=== PATIENT | male | born 1960 ===

== ENCOUNTER 2017-06-06 09:40 | Inpatient (IN) | payer OTHER ==
[2017-06-06 09:40] VITALS: PULSE 84
[2017-06-06 09:46] VITALS: BMI 26.9
--- NOTE | 2017-06-06 10:06 | ED PDOC ---
Arrival/HPI - General Chief Complaint: Chest Pain Time Seen by Provider: 06/06/17 09:41 Historian: Patient - History of Present Illness Narrative History of Present Illness (Text): 06/06/17 10:05 56 year old male, whose past medical history includes hypertension, diabetes type 2, hyperlipidemia, and a "weak heart", presents to the emergency department complaining of right lower quadrant abdominal pain that began last night associated with vomiting. Patient states that that he woke up in the middle of the night from the abdominal pain and had relief after vomiting 2-3 times. Pain is intermittent, will radiate to chest after vomiting. Also states pain will at times radiate to back. Pain is not worse with exertion. No pleuritic pain. NO lower abdominal pain. No leg pain or swelling. No headache. No numbness or weakness to arms or legs. Opinion Polls Survey Worker: Dr. Lilly PMD: Dr. Aden Time/Duration: Other (Last night) Symptom Onset: Sudden Symptom Course: Unchanged Activities at Onset: Light Context: Home Past Medical History - Provider Review Nursing Documentation Reviewed: Yes - Infectious Disease Hx of Infectious Diseases: None - Tetanus Immunization Tetanus Immunization: Unknown - Cardiac Hx Cardiac Disorders: Yes Hx Hypertension: Yes Hx Pacemaker: No - Pulmonary Hx Respiratory Disorders: No - Neurological Hx Neurological Disorder: No - HEENT Hx HEENT Disorder: No - Renal Hx Renal Disorder: No - Endocrine/Metabolic Hx Endocrine Disorders: Yes Hx Diabetes Mellitus Type 2: Yes (10 years on po meds) - Hematological/Oncological Hx Blood Disorders: Yes Hx Blood Transfusions: Yes Hx Blood Transfusion Reaction: No - Integumentary Hx Dermatological Disorder: No - Musculoskeletal/Rheumatological Hx Musculoskeletal Disorders: No - Gastrointestinal Hx Gastrointestinal Disorders: No - Genitourinary/Gynecological Hx Genitourinary Disorders: No - Psychiatric Hx Psychophysiologic Disorder: No Hx Substance Use: No - Past Surgical History Past Surgical History: No Previous - Surgical History Hx Cardiac Catheterization: Yes - Anesthesia Hx Anesthesia: No - Suicidal Assessment Feels Threatened In Home Enviroment: No Family/Social History - Physician Review Nursing Documentation Reviewed: Yes Family/Social History: No Known Family HX Smoking Status: Never Smoked Hx Alcohol Use: No Hx Substance Use: No Hx Substance Use Treatment: No Allergies/Home Meds Allergies/Adverse Reactions: Allergies No Known Allergies Allergy (Verified 06/06/17 09:52) Home Medications: Home Meds Medication Instructions Recorded Confirmed Furosemide [Lasix] 40 mg PO DAILY 05/01/14 06/06/17 Glimepiride 2 mg PO BRKDIN 08/04/16 06/06/17 Unknown B/P Med 0 mg PO DAILY 08/04/16 06/06/17 Review of Systems - Review of Systems Constitutional: Fatigue. absent: Fevers Eyes: absent: Vision Changes ENT: absent: Hearing Changes Respiratory: absent: SOB, Cough Cardiovascular: Chest Pain. absent: Palpitations, Edema, Calf Pain, SAXENA Gastrointestinal: Abdominal Pain (RUQ abdominal pain), Nausea, Vomiting, Appetite Changes. absent: Diarrhea, Hematochezia, Hematemesis Musculoskeletal: Back Pain (mid back pain ). absent: Arthralgias, Neck Pain Skin: absent: Rash Neurological: absent: Headache, Dizziness, Focal Weakness Endocrine: absent: Polyuria Hemo/Lymphatic: absent: Easy Bleeding Physical Exam - Physical Exam Narrative Physical Exam (Text): Head: Atraumatic. Normocephalic. Eyes: PERRL. EOMI. Conjunctivae are not pale. No jaundice. ENT: Mucous membranes are moist and intact. Oropharynx is clear and symmetric. Neck: Supple. Full ROM. No JVD. No lymphadenopathy. Cardiovascular: Systolic murmur. Regular rate. Regular rhythm. Systolic murmur. BP and pulse equal in both upper extremities. Pulmonary/Chest: No evidence of respiratory distress. Clear to auscultation bilaterally. No wheezing, rales or rhonchi. Abdominal: Moderate RUQ tenderness to deep palpation. No rebound, guarding, or rigidity. No organomegaly. Good bowel sounds. No pulsatile masses. No lower abdominal pain. Back: No CVA tenderness. No midline tendernes. Extremities: No edema. No cyanosis. No clubbing. Full range of motion in all extremities. No calf tenderness. Skin: Skin is warm and diaphoretic. No petechiae. No purpura. Neurological: Alert, awake, and oriented to person. No slurred speech. Motor and sensory exam intact. Psychiatric: Good eye contact. Normal interaction, affect, and behavior. Vital Signs Reviewed: Yes Vital Signs Temp Pulse Pulse Resp BP BP Pulse Ox 06/06/17 13:29 79 18 187/96 H 06/06/17 12:39 79 18 187/96 H 99 06/06/17 11:29 69 18 142/89 95 06/06/17 10:01 73 144/94 H 06/06/17 09:52 98.0 F 69 18 144/94 H 100 Temperature: Afebrile Blood Pressure: Normal Pulse: Regular Respiratory Rate: Normal Appearance: Positive for: Uncomfortable Pain Distress: Severe Mental Status: Positive for: Alert and Oriented X 3 Medical Decision Making ED Course and Treatment: 06/06/17 10:05 Impression: 56 year old male presents complaining of RUQ abdominal pain associated with vomiting that began yesterday night. Differential Diagnosis included but are not limited to: Biliary Colic VS Gastritis VS Cornary Artery Disease Plan: -- EKG -- Labs -- Chest X-ray -- Zofran Inj -- Blood Cultrue -- Urine Culture -- Urinalysis -- Ultrasound Complete Abdomen -- Reassess and disposition Progress Notes: Patient with hx of diabetes presents with sudden onset upper abdominal pain nausea and vomiting. IV established. He is found to be in severe pain on palpation on re-exam. Fluids given and pain and nausea improved BUT persistent after morphine and zofran. He has cardiac risk factors but pain is palpable associated with nausea , suspect chest pain is likely GI in nature as vomiting. No hematemesis. He has waves of pain that I feel likely secondary to colic as intermittent, ruq with serial exams. No pulsatile masses noted. CHEST X-RAY: Report Date : 06/06/2017 10:36:11 Dictator : Eren Chapa MD IMPRESSION: Poor inspiration with low lung low volumes with crowded bronchovascular markings. Cardiomegaly. 06/06/17 12:42 Patient has persistent pain and discomfit despite medication. Preliminary ultrasound reports gallstones. Due to persistent pain, consulted with surgical and gastroneurologist. Case discussed with Surgeon Dr. Mercedes , including initial labs and symptoms. Case also reviewed with cracking machine operator Dr. Arreguin who has evaluated patient in ED. Patient will be admitted for biliary colic. Initial WBC and lfts unremarkable. Will admit to telemetry bed as cardiac risk factors. Initial EKG and troponin unremarkable. Ultrasound and ct report reviewed. Patient with history of elevated Cr at this time appears baseline. Denies dysuria or frequency. - Lab Interpretations Lab Results: 06/06/17 09:50 06/06/17 09:50 Lab Results 06/06/17 10:50: Urine Color Yellow, Urine Appearance Clear, Urine pH 6.0, Ur Specific [place] 1.020, Urine Protein >=300 H, Urine Glucose (UA) Negative, Urine Ketones Negative, Urine Blood Moderate H, Urine Nitrate Negative, Urine Bilirubin Negative, Urine Urobilinogen 0.2, Ur Leukocyte Esterase Negative, Urine RBC 2 - 5, Urine WBC 0 - 2, Ur Epithelial Cells 0 - 2 06/06/17 09:50: Sodium 142, Potassium 4.8, Chloride 106, Carbon Dioxide 24, Anion Gap 17, BUN 40 H, Creatinine 1.9 H, Est GFR ( Amer) 44, Est GFR ( Non-Af Amer) 37, Random Glucose 233 H, Calcium 9.2, Total Bilirubin 0.3, AST 27 , ALT 25, Alkaline Phosphatase 118, Lactate Dehydrogenase 519, Total Creatine Kinase 214, Troponin I < 0.01, Total Protein 7.7, Albumin 4.1, Globulin 3.7, Albumin/Globulin Ratio 1.1, Amylase 73, Lipase 93 06/06/17 09:50: PT 10.4, INR 0.96, APTT 28.5 06/06/17 09:50: WBC 9.1, RBC 3.47 L, Hgb 10.0 L, Hct 30.4 L, MCV 87.6, MCH 28.8 , MCHC 32.9, RDW 13.1, Plt Count 230, MPV 9.9, Gran % 69.5 H, Lymph % (Auto) 22.7, Clinch % (Auto) 5.2, Eos % (Auto) 2.3, Baso % (Auto) 0.3, Gran # 6.31, Lymph # 2.1, Clinch # 0.5, Eos # 0.2, Baso # 0.03 I have reviewed the lab results: Yes - RAD Interpretation Radiology Orders: 06/06/17 09:54 CHEST PORTABLE [RAD] Stat 06/06/17 10:06 ABDOMEN COMPLETE [US] Stat 06/06/17 12:43 ABD & PELVIS W/O PO OR IV CONT [CT] Stat - EKG Interpretation EKG Interpretation (Text): EKG at 09:46 normal sinus rhythm rate of 70 with minimal voltage criteria for LVH Interpreted by ED Physician: Yes Type: 12 lead EKG - Medication Orders Current Medication Orders: Acetaminophen (Tylenol 325mg Tab) 650 mg PO Q6H PRN PRN Reason: Fever >100.4 F Hydromorphone HCl (Dilaudid) 1 mg IVP Q4H PRN PRN Reason: Pain, moderate (4-7) Sodium Chloride (Sodium Chloride 0.45%) 1,000 mls @ 75 mls/hr IV .[id number] JOSÉ MIGUEL Insulin Human Regular (Humulin R High) 0 units SC ACHS JOSÉ MIGUEL PRN Reason: Protocol Levalbuterol HCl (Xopenex) 1.25 mg IH [id number] JOSÉ MIGUEL Metoprolol Succinate (Toprol Xl) 25 mg PO BRK JOSÉ MIGUEL Ondansetron HCl (Zofran Inj) 4 mg IVP Q6H PRN PRN Reason: Nausea/Vomiting Pantoprazole Sodium (Protonix Inj) 40 mg IVP DAILY JOSÉ MIGUEL Discontinued Medications Morphine Sulfate (Morphine) 2 mg IVP STAT STA Stop: 06/06/17 10:17 Last Admin: 06/06/17 10:23 Dose: 2 mg Morphine Sulfate (Morphine) 2 mg IVP STAT STA Stop: 06/06/17 12:07 Last Admin: 06/06/17 12:10 Dose: 2 mg Ondansetron HCl (Zofran Inj) Confirm Administered Dose 4 mg .ROUTE .STK-MED ONE Stop: 06/06/17 09:56 Last Admin: 06/06/17 10:07 Dose: Ondansetron HCl (Zofran Inj) 4 mg IVP ONCE ONE Stop: 06/06/17 09:56 Last Admin: 06/06/17 10:00 Dose: 4 mg Ondansetron HCl (Zofran Inj) 4 mg IVP ONCE ONE Stop: 06/06/17 14:16 Last Admin: 06/06/17 12:20 Dose: 4 mg - Scribe Statement The provider has reviewed the documentation as recorded by the Magaliibjeanie Powers All medical record entries made by the Magaliibjeanie were at my direction and personally dictated by me. I have reviewed the chart and agree that the record accurately reflects my personal performance of the history, physical exam, medical decision making, and the department course for this patient. I have also personally directed, reviewed, and agree with the discharge instructions and disposition. Disposition/Present on Arrival - Present on Arrival Any Indicators Present on Arrival: No History of DVT/PE: No History of Uncontrolled Diabetes: No Urinary Catheter: No History of Decub. Ulcer: No History Surgical Site Infection Following: None - Disposition Have Diagnosis and Disposition been Completed?: Yes Diagnosis: Cholelithiasis, Abdominal pain, Renal insufficiency Disposition: HOSPITALIZED Disposition Time: 11:45 Patient Plan: Admission, Telemetry Condition: FAIR
[2017-06-06] MEDS ORDERED: Morphine 2 mg/ml ISec IVP STA ×2 (10:16→12:06)
[2017-06-06 10:21] LABS: BASO # 0.03 K/mm3 (0.0-2.0); BASO % 0.3 % (0.0-3.0); EOS # 0.2 (0.0-0.7); EOS % 2.3 % (1.5-5.0); GRAN # 6.31 (1.4-6.5); GRAN % 69.5 % (50.0-68.0); HEMATOCRIT 30.4 % (42.0-52.0); LYMPH # 2.1 (1.2-3.4); LYMPH % 22.7 % (22.0-35.0); MEAN CELL VOLUME 87.6 fl (80.0-105.0); MEAN CORPUSCULAR HEMOGLOBIN 28.8 pg (25.0-35.0); MEAN CORPUSCULAR HGB CONC 32.9 g/dl (31.0-37.0); MEAN PLATELET VOLUME 9.9 fl (7.0-11.0); MONO # 0.5 (0.1-0.6); MONO % 5.2 % (1.0-6.0); RED CELL DISTRIBUTION WIDTH 13.1 % (11.5-14.5); WHITE BLOOD COUNT 9.1 10^3/ul (4.5-11.0)
[2017-06-06 10:32] LABS: ALB/GLOB RATIO 1.1 (1.1-1.8); ALKALINE PHOSPHATASE 118 U/L (38-126); ALT/SGPT 25 U/L (7-56); AMYLASE 73 U/L (35-125); AST/SGOT 27 U/L (17-59); BILIRUBIN,TOTAL 0.3 mg/dL (0.2-1.3); BLOOD UREA NITROGEN 40 mg/dL (7-21); CALCIUM 9.2 mg/dL (8.4-10.5); CARBON DIOXIDE 24 mmol/L (21-33); CHLORIDE 106 mmol/L (98-107); GFR AFRICAN-AMERICAN 44; GLUCOSE,RANDOM 233 mg/dL (70-110); LIPASE 93 U/L (23-300); POTASSIUM 4.8 mmol/L (3.6-5.0); SODIUM 142 mmol/L (132-148); TOTAL PROTEIN 7.7 g/dL (5.8-8.3)
--- NOTE | 2017-06-06 10:37 | RAD ---
HISTORY: chest pain COMPARISON: Comparison chest 08/04/2016 FINDINGS: LUNGS: Poor inspiration with low lung low volumes with crowded bronchovascular markings. PLEURA: No significant pleural effusion identified, no pneumothorax apparent. CARDIOVASCULAR: Cardiomegaly. OSSEOUS STRUCTURES: No significant abnormalities. VISUALIZED UPPER ABDOMEN: Normal. OTHER FINDINGS: None. IMPRESSION: Poor inspiration with low lung low volumes with crowded bronchovascular markings. Cardiomegaly.
[2017-06-06 10:39] LABS: INR 0.96 (0.93-1.08); PARTIAL THROMBOPLASTIN TIME 28.5 Seconds (23.7-30.8)
[2017-06-06 10:54] LABS: TROPONIN I < 0.01 ng/mL
[2017-06-06 11:01] LABS: URINE BILIRUBIN NEGATIVE (NEGATIVE); URINE BLOOD MODERATE (NEGATIVE); URINE GLUCOSE (UA) NEGATIVE (NEGATIVE); URINE KETONE NEGATIVE (NEGATIVE); URINE LEUKOCYTE ESTERASE NEGATIVE Leu/uL (NEGATIVE); URINE PROTEIN >=300 mg/dL (<30 mg/dL); URINE UROBILINOGEN 0.2 E.U./dL (<1 E.U./dL)
[2017-06-06 11:15] LABS: URINE APPEARANCE CLEAR (CLEAR); URINE COLOR YELLOW (YELLOW)
[2017-06-06 11:30] LABS: URINE EPITHELIAL CELLS 0 - 2 /hpf (0-5); URINE WBC 0 - 2 /hpf (0-6)
--- NOTE | 2017-06-06 12:53 | US ---
HISTORY: upper abdominal pain COMPARISON: Comparison made with renal ultrasound 08/06/[address] scan abdomen pelvis to the 07/2013. TECHNIQUE: Sonographic evaluation of the abdomen. Study is limited due to large body habitus. FINDINGS: LIVER: Measures approximately 16.1 cm c in CC dimension. Smooth contour with increased echogenicity consistent with fatty hepatic infiltration. Other infiltrative hepatocellular disease process not excluded. . No obvious mass or collection seen on images presented. . No intrahepatic bile duct dilatation. GALLBLADDER: Gallbladder is physiologically distended. Shadowing intraluminal calculi. Note sonographic Perry sign COMMON BILE DUCT: Measures approximately 5.6 mm. No stones. No dilatation. PANCREAS: The pancreas is not visualized due to large body habitus RIGHT KIDNEY: Measures approximately 10.6 x 5.1 x 6.0cm. 12.5 x 7.6 x 6.1 LEFT KIDNEY: Measures cm. Normal echogenicity. No calculus, mass, or hydronephrosis. SPLEEN: Normal in size and contour. No mass. AORTA: No aneurysmal dilatation. IVC: Unremarkable. OTHER FINDINGS: None. IMPRESSION: Limited study due to large body habitus. Fatty hepatic infiltration however other infiltrative hepatocellular disease process not excluded. Cholelithiasis.
--- NOTE | 2017-06-06 14:17 | CARD ---
APPROVED REPORT EKG Measurement Heart [id number] <Conclusion> Normal sinus rhythm Minimal voltage criteria for LVH, may be normal variant Borderline ECG
[2017-06-06] MEDS ORDERED: HYDROmorphone 2 mg/ml ISec IVP PRN (14:30)
--- NOTE | 2017-06-06 14:35 | CT ---
PROCEDURE: CT abdomen and pelvis dated 06/06/2017 HISTORY: Hematuria. Back pain. COMPARISON: Correlation made with abdominal ultrasound obtained earlier same day. Comparison also made with prior CT scan abdomen pelvis 05/01/2013. TECHNIQUE: Contiguous axial images of the abdomen and pelvis performed without oral or intravenous contrast material. . Coronal and Sagittal reformats generated. This CT exam was performed using one or more of the following dose reduction techniques: Automated exposure control, adjustment of the mA and/or kV according to patient size, and/or use of iterative reconstruction technique. Total exam DLP = 1407.62 mGy-cm. FINDINGS: LOWER THORAX: Lung bases are clear. No infiltrate effusion or basilar pneumothorax. Tiny hiatal hernia. Heart appears mildly enlarged. No significant pericardial effusion. Open LIVER: Liver is mildly enlarged measuring approximately 20 cm in CC dimension. No obvious hepatic mass collection or calcification. . GALLBLADDER AND BILE DUCTS: Cholelithiasis again noted. PANCREAS: The pancreas is slightly atrophic and fatty replaced. No obvious pancreatic mass collection or calcification. SPLEEN: Spleen exhibits normal size and attenuation pattern. No splenic mass collection or calcification. ADRENALS: Unremarkable.The there are no adrenal lesions. KIDNEYS AND URETERS: The kidneys exhibit relatively symmetric size. Small approximately 12 mm exophytic cyst post oral lateral aspect upper-midpole right kidney. No evidence of nephrolithiasis or hydronephrosis. There are nonspecific infiltration changes in the perinephric fat bilaterally. Rule sequela of UTI or sequela of prior inflammation. Clinical correlation with urinalysis recommended. Clinical correlation recommended. BLADDER: Urinary bladder is physiologically distended. No evidence of intraluminal urinary bladder calculi. REPRODUCTIVE: Prostate gland measures approximately 4.7 cm in transverse dimension. APPENDIX: Normal-appearing retrocecal appendix best seen on axial image number [id number] and coronal image number [id number]. BOWEL: Evaluation of the bowel is limited due to the lack of oral contrast material. Stomach is incompletely distended which presumably accounts for slight thick-walled appearance. Visualized loops of small bowel exhibit normal contour and caliber. No evidence of acute mechanical small bowel obstruction. Stool and air seen throughout the colon. No definitive radiographic evidence of mural wall thickening. PERITONEUM: Unremarkable. No fluid collection. No free air. Small fat containing umbilical hernia. LYMPH NODES: Unremarkable. No enlarged lymph nodes. VASCULATURE: Minor atherosclerotic plaque the abdominal aorta and to a lesser degree the iliac arteries. No evidence of aneurysmal dilatation. Direct BONES: Minor multilevel degenerative spondylosis of the lower thoracic and lumbar spine. No evidence of acute compression fractures no retropulsed fragments. . There is mild levoscoliosis centered at the L2 level. . OTHER FINDINGS: None. IMPRESSION: Mild infiltration changes seen within the perinephric fat bilaterally. Findings are nonspecific. Rule out UTI or sequela of prior inflammation. . Small exophytic cyst post oral lateral aspect upper-midpole right kidney No evidence of nephrolithiasis or hydronephrosis. Hepatomegaly. Cholelithiasis. See above discussion for additional details and findings.
--- NOTE | 2017-06-06 15:23 | CP.PCM.CON ---
<Russ Burger - Last Filed: 06/07/17 01:24> History of Present Illness - History of Present Illness History of Present Illness: Surgery Consult Note. Dr. March 56yo M with PMHx of HTN, DM, HLD here for evaluation of abdominal pain. Patient states that the abdominal pain started at 8AM, it woke him up from sleep. Located in the middle of the abdomen, radiates to the RUQ and RT upper back. Pain was described as sharp, constant. He denies ever having similar symptoms in the past. Associated with 3 episodes of vomiting, non-bilious, non-bloody. He still c/o pain however, it is not as severe as it was. He also reports urinary frequency for the past 3-4 months. Denies any Dysuria. No F/C. No bowel habit changes. Denies MANSFIELD. No CP/SOB. PMD: Perveen PMHx: HTN, DM, HLD PSHx: Denies Family Hx: Mother - CVA () Social Hx: Denies Tobacco, Denies ETOH, Denies any drugs NKDA Review of Systems - Review of Systems All systems: reviewed and no additional remarkable complaints except - Constitutional Constitutional: absent: Chills, Fever - EENT Eyes: absent: Blurred Vision, Change in Vision - Cardiovascular Cardiovascular: absent: Chest Pain, Diaphoresis, Dyspnea - Respiratory Respiratory: absent: Cough, Dyspnea - Gastrointestinal Gastrointestinal: Abdominal Pain, Nausea, Vomiting. absent: Constipation, Diarrhea, Hematemesis, Hematochezia - Genitourinary Genitourinary: Urinary Frequency. absent: Dysuria - Musculoskeletal Musculoskeletal: Back Pain Past Patient History - Infectious Disease Hx of Infectious Diseases: None - Tetanus Immunizations Tetanus Immunization: Unknown - Past Medical History & Family History Past Family History: Reviewed and not pertinent - Past Social History Smoking Status: Never Smoked Alcohol: None Drugs: Denies - CARDIAC Hx Cardiac Disorders: Yes Hx Hypertension: Yes Hx Pacemaker: No - PULMONARY Hx Respiratory Disorders: No - NEUROLOGICAL Hx Neurological Disorder: No - HEENT Hx HEENT Problems: No - RENAL Hx Chronic Kidney Disease: No - ENDOCRINE/METABOLIC Hx Endocrine Disorders: Yes Hx Diabetes Mellitus Type 2: Yes (10 years on po meds) - HEMATOLOGICAL/ONCOLOGICAL Hx Blood Disorders: Yes - INTEGUMENTARY Hx Dermatological Problems: No - MUSCULOSKELETAL/RHEUMATOLOGICAL Hx Falls: No - GASTROINTESTINAL Hx Gastrointestinal Disorders: No - GENITOURINARY/GYNECOLOGICAL Hx Genitourinary Disorders: No - PSYCHIATRIC Hx Psychophysiologic Disorder: No Hx Substance Use: No - SURGICAL HISTORY Hx Surgeries: Yes Hx Cardiac Catheterization: Yes - ANESTHESIA Hx Anesthesia: No Meds Allergies/Adverse Reactions: Allergies Allergy/AdvReac Type Severity Reaction Status Date / Time No Known Allergies Allergy Verified 06/06/17 09:52 - Medications Medications: Current Medications Acetaminophen (Tylenol 325mg Tab) 650 mg PO Q6H PRN PRN Reason: Fever >100.4 F Hydromorphone HCl (Dilaudid) 1 mg IVP Q4H PRN PRN Reason: Pain, moderate (4-7) Sodium Chloride (Sodium Chloride 0.45%) 1,000 mls @ 75 mls/hr IV .[id number] [facility] Insulin Human Regular (Humulin R High) 0 units SC ACHS JOSÉ MIGUEL PRN Reason: Protocol Levalbuterol HCl (Xopenex) 1.25 mg IH [id number] JOSÉ MIGUEL Metoprolol Succinate (Toprol Xl) 25 mg PO BRK JOSÉ MIGUEL Ondansetron HCl (Zofran Inj) 4 mg IVP Q6H PRN PRN Reason: Nausea/Vomiting Pantoprazole Sodium (Protonix Inj) 40 mg IVP DAILY [facility] Physical Exam - Constitutional Appears: Well, Non-toxic, No Acute Distress - Head Exam Head Exam: ATRAUMATIC, NORMAL INSPECTION, NORMOCEPHALIC - Eye Exam Eye Exam: EOMI, Normal appearance - ENT Exam ENT Exam: Mucous Membranes Moist - Respiratory Exam Respiratory Exam: NORMAL BREATHING PATTERN - Cardiovascular Exam Cardiovascular Exam: RRR. absent: JVD - GI/Abdominal Exam GI & Abdominal Exam: Soft, Tenderness (mild tenderness in RUQ. No Rebound. No guarding. No perioneal signs. ). absent: Distended, Firm, Guarding, Rigid - Extremities Exam Additional comments: bilateral 1+ pitting pretibial edema - Back Exam Back exam: absent: CVA tenderness (L), CVA tenderness (R) - Neurological Exam Neurological exam: Alert, CN II-XII Intact, Oriented x3 - Psychiatric Exam Psychiatric exam: Normal Affect, Normal Mood - Skin Skin Exam: Dry, Intact, Normal Color, Warm Results - Vital Signs Recent Vital Signs: Last Vital Signs Temp 98.0 F 06/06/17 09:52 Pulse 79 06/06/17 13:29 Resp 18 06/06/17 13:29 BP 187/96 H 06/06/17 13:29 Pulse Ox 99 06/06/17 12:39 - Labs Result Diagrams: 06/06/17 09:50 06/06/17 09:50 Assessment & Plan - Assessment and Plan (Free Text) Assessment: 56yo M here with biliary colic - No Leukocytosis, afebrile - Abd US: Cholelithiasis. CBD 5.6mm. No CBD stone. No perichole fluid or GB wall thickening - CT Abd/Pelvis: Cholelithiasis. Bilateral perinephric fat stranding, no hydronephrosis, no evidence of ureteral obstruction - UA with mod blood and protein. No evidence for UTI. - BUN/Creat elevated - No elevated Transaminases - Recommend Nephrology consult - HIDA to r/o cystic duct obstruction - CLD. Advance as tolerated - F/u GI recs - IVF - Pain management - Zofran - Protonix Further recs as per Dr. Joaquim Burger PGY1 surgery pager: [phone] <Will March - Last Filed: 06/07/17 23:03> Meds - Medications Medications: Current Medications Acetaminophen (Tylenol 325mg Tab) 650 mg PO Q6H PRN PRN Reason: Fever >100.4 F Last Admin: 06/07/17 17:13 Dose: 650 mg Amlodipine Besylate (Norvasc) 10 mg PO DAILY [facility] Last Admin: 06/07/17 09:34 Dose: 10 mg Hydralazine HCl (Apresoline) 50 mg PO BID [facility] Last Admin: 06/07/17 17:12 Dose: 50 mg Hydromorphone HCl (Dilaudid) 1 mg IVP Q4H PRN PRN Reason: Pain, moderate (4-7) Last Admin: 06/06/17 17:36 Dose: 1 mg Sodium Chloride (Sodium Chloride 0.45%) 1,000 mls @ 75 mls/hr IV .[id number] [facility] Last Admin: 06/07/17 17:15 Dose: 75 mls/hr Piperacillin Sod/Tazobactam Sod (Zosyn 3.375 In Ns 100ml) 100 mls @ 200 mls/hr IVPB Q6 JOSÉ MIGUEL PRN Reason: Protocol Stop: 06/15/17 00:01 Insulin Human Regular (Humulin R High) 0 units SC ACHS JOSÉ MIGUEL PRN Reason: Protocol Last Admin: 06/07/17 21:30 Dose: Not Given Levalbuterol HCl (Xopenex) 1.25 mg IH [id number] JOSÉ MIGUEL Last Admin: 06/07/17 20:09 Dose: 1.25 mg Metoprolol Succinate (Toprol Xl) 25 mg PO BRK [facility] Last Admin: 06/07/17 09:34 Dose: 25 mg Ondansetron HCl (Zofran Inj) 4 mg IVP Q6H PRN PRN Reason: Nausea/Vomiting Pantoprazole Sodium (Protonix Inj) 40 mg IVP DAILY [facility] Last Admin: 06/07/17 09:35 Dose: 40 mg Results - Vital Signs Recent Vital Signs: Last Vital Signs Temp 101 F H 06/07/17 19:00 Pulse 105 H 06/07/17 19:00 Resp 20 06/07/17 19:00 BP 150/81 06/07/17 19:00 Pulse Ox 96 06/07/17 05:43 - Labs Result Diagrams: 06/07/17 07:00 06/07/17 07:00 Labs: Laboratory Results - last 24 hr 06/06/17 06/07/17 06/07/17 21:33 07:00 07:00 WBC 14.6 H D RBC 3.33 L Hgb 9.4 L Hct 29.0 L MCV 87.1 MCH 28.2 MCHC 32.4 RDW 13.2 Plt Count 213 MPV 9.7 Gran % 78.2 H Lymph % (Auto) 12.4 L Drew % (Auto) 9.0 H Eos % (Auto) 0.3 L Baso % (Auto) 0.1 Gran # 11.39 H Lymph # 1.8 Drew # 1.3 H Eos # 0.1 Baso # 0.02 Sodium 141 Potassium 4.7 Chloride 107 Carbon Dioxide 23 Anion Gap 16 BUN 30 H Creatinine 1.7 H Est GFR ( Amer) 51 Est GFR (Non-Af Amer) 42 POC Glucose (mg/dL) 186 H Random Glucose 167 H Calcium 8.6 Total Bilirubin 0.6 AST 25 ALT 22 Alkaline Phosphatase 94 Total Protein 6.8 Albumin 3.5 Globulin 3.3 Albumin/Globulin Ratio 1.1 06/07/17 06/07/17 09:46 11:49 WBC RBC Hgb Hct MCV MCH MCHC RDW Plt Count MPV Gran % Lymph % (Auto) Drew % (Auto) Eos % (Auto) Baso % (Auto) Gran # Lymph # Drew # Eos # Baso # Sodium Potassium Chloride Carbon Dioxide Anion Gap BUN Creatinine Est GFR ( Amer) Est GFR (Non-Af Amer) POC Glucose (mg/dL) 228 H 196 H Random Glucose Calcium Total Bilirubin AST ALT Alkaline Phosphatase Total Protein Albumin Globulin Albumin/Globulin Ratio Assessment & Plan - Assessment and Plan (Free Text) Assessment: Patient was seen and examined by me. I agree with assessment and plan as per resident's note. - Date & Time Date: 06/06/17 Time: 21:00
[2017-06-06] MEDS: Sodium Chloride 0.45% 1,000 ML IV SCH (15:33)
[2017-06-06] MEDS: Insulin Reg-HIGH-Coverage SC SCH ×2 (17:36→22:14)
[2017-06-06] MEDS: Levalbuterol 1.25 MG/3 ML Inhal Soln UD IH SCH (20:46)
--- NOTE | 2017-06-06 23:43 | HP ---
HISTORY OF PRESENT ILLNESS: The patient is a 56 years old, known to me from multiple previous admissions, came to emergency room because of epigastric discomfort radiating towards the back with intractable nausea and vomiting, unable to hold anything. being radiates to the lower back. The patient stated he was relatively okay last night, but in the middle of the night, he woke up with discomfort after that he has couple of episodes of vomiting, started to feel little better, but then the pain started from the right upper quadrant going towards the chest, and towards the right back and right lower abdomen. He states he tries to take deep breath. No history of diarrhea. PAST MEDICAL HISTORY: Significant for: 1. Hypertension. 2. Cardiomyopathy. 3. Chronic kidney disease. 4. Non-insulin dependent diabetes. 5. Diabetic neuropathy. 6. Chronic anemia. 7. Chronic bilateral swelling. ALLERGIES: NOT ALLERGIC TO ANY MEDICATIONS. MEDICATION AT HOME: He is on glimepiride 2 mg twice a day, Lasix 40 mg daily, he is on Coreg. He is on lisinopril 20 mg daily. Spironolactone 25 daily, but recently has been discontinued because he was running hyperkalemic. SOCIAL HISTORY: Single, lives by himself, works as [employer]. REVIEW OF SYSTEMS: Significant for epigastric discomfort, nausea, vomiting and generalized weakness. PHYSICAL EXAMINATION GENERAL: He is awake and alert, able to communicative. VITAL SIGNS: He is afebrile, pulse 79, respiration 18, and blood pressure 197/96. LUNGS: Bilateral fair airflow. No rhonchi or crackles. HEART: S1 and S2 audible. ABDOMEN: Soft, obese, epigastric discomfort, slight right upper quadrant discomfort. No rebound, no guarding. NEUROLOGIC: He is awake and alert, able to communicate. EXTREMITIES: Bilateral leg +1 edema, LABORATORY DATA: WBC is 9.1, hemoglobin 10, hematocrit 30, and platelet of 230. PT 10.4, INR of 0.96. Chemistry; sodium 142, potassium 4.8, chloride 106, CO2 of 24, BUN 40, creatinine 1.9, and blood sugar of 233. Moderate blood in urine, no leukocyte. Abdominal ultrasound done that shows limited study, fatty infiltration of the liver and cholelithiasis. CT scan of the abdomen and pelvis is pending. X-ray is unremarkable except cardiomegaly. ASSESSMENT: 1. Right upper quadrant pain, cholecystitis versus gastroenteritis. 2. Hypertension. 3. Non-insulin dependent diabetes. 4. Hyperlipidemia. 5. Chronic kidney disease. PLAN: The patient will be admitted on telemetry. We will keep him n.p.o. We will give him IV fluid. Monitor his electrolyte. Surgical consult by Dr. March, GI consult by Dr. Arreguin and cardiology consult by Dr. Lilly has been requested. Roberta Aden MD
[2017-06-07] MEDS: Levalbuterol 1.25 MG/3 ML Inhal Soln UD IH SCH ×4 (02:15→20:09)
--- NOTE | 2017-06-07 02:37 | CON ---
REASON FOR CONSULTATION: Abdominal pain. HISTORY OF PRESENT ILLNESS: This is a 56-year-old patient with a past medical history of hypertension, diabetes mellitus, dyslipidemia, chronic kidney disease, congestive heart failure with reduced systolic ejection fraction around 30 to 35%. Admitted with complaints of acute onset of an abdominal pain, he said it started around 7 a.m. with epigastric pain, vomited 3 times, and also the pain is radiating to the back. Never had a similar episode one before but ssubsided shortly. No fever. No vomiting blood. PAST MEDICAL HISTORY: Other past medical history as above.Screening olonoscopy 2015 hyperplastic ectal polyp. Never had EGD. FAMILY HISTORY: Noncontributory. SOCIAL HISTORY: Denies smoking, no alcohol. REVIEW OF SYSTEMS: Positive as above. All Other systems reviewed neg. PHYSICAL EXAMINATION GENERAL: The patient is lying on the bed, not in acute distress. VITAL SIGNS: Pulse 79, blood pressure 187/96, respirations 18, O2 saturation 99%. HEENT: Atraumatic and anicteric. NECK: Supple. HEART: S1, S2, regular. LUNGS: Bilateral air entry present. ABDOMEN: Soft. There is tenderness in the epigastric area and also right upper quadrant. There is no rebound or guarding. EXTREMITIES: Mild edema present bilaterally. NEUROLOGIC: Alert and oriented. Moves all the extremities. LABORATORY DATA: Hemoglobin 10, hematocrit 30.4, WBC 9.1, platelets 230. BUN 40, creatinine 1.9, random glucose 233. The LFT is normal. IMPRESSION: This 56-year-old patient, obese gentleman, with a history of diabetes mellitus, chronic kidney disease, reduced systolic function about 30 to 35%, admitted with acute onset of an abdominal pain, ultrasound scan showed multiple gallstones. CBD normal. LFTs normal. The concern is cholecystitis, biliary colic, rule out cholecystitis. The patient also has some pain in the back, in the epigastric area, requested for CT scan. At the time of examination, the patient was due to go for a CAT scan. This CAT scan was requested with no IV or p.o. contrast in view of his vomiting,CKD I would recommend, 1. Surgical evaluation. 2. HIDA scan. 3. Followup of the CAT scan. The patient does have chronic kidney disease with normocytic anemia. The patient had a colonoscopy done in 2014, found to have small rectal polyp removed, never had an upper endoscopy done. The iron studies reviewed showed normal saturation before. We will follow up the CAT scan and also request for a HIDA scan and surgical followup. We will empirically start the patient on PPI also. Other differential diagnoses should include esophagitis, peptic ulcer disease. Thank you very much for allowing us to participate in the care of the patient. Lucille Arreguin MD MTDD
[2017-06-07] MEDS: Sodium Chloride 0.45% 1,000 ML IV SCH ×2 (04:52→17:15)
[2017-06-07 07:28] LABS: BASO # 0.02 K/mm3 (0.0-2.0); BASO % 0.1 % (0.0-3.0); EOS # 0.1 (0.0-0.7); EOS % 0.3 % (1.5-5.0); GRAN # 11.39 (1.4-6.5); GRAN % 78.2 % (50.0-68.0); LYMPH # 1.8 (1.2-3.4); LYMPH % 12.4 % (22.0-35.0); MEAN CELL VOLUME 87.1 fl (80.0-105.0); MEAN CORPUSCULAR HEMOGLOBIN 28.2 pg (25.0-35.0); MEAN CORPUSCULAR HGB CONC 32.4 g/dl (31.0-37.0); MEAN PLATELET VOLUME 9.7 fl (7.0-11.0); MONO # 1.3 (0.1-0.6); RED CELL DISTRIBUTION WIDTH 13.2 % (11.5-14.5); WHITE BLOOD COUNT 14.6 10^3/ul (4.5-11.0)
[2017-06-07 08:02] LABS: ALB/GLOB RATIO 1.1 (1.1-1.8); BILIRUBIN,TOTAL 0.6 mg/dL (0.2-1.3); CALCIUM 8.6 mg/dL (8.4-10.5); POTASSIUM 4.7 mmol/L (3.6-5.0); TOTAL PROTEIN 6.8 g/dL (5.8-8.3)
--- NOTE | 2017-06-07 08:35 | CP.PCM.PN ---
<Yue Johnson - Last Filed: 06/07/17 08:31> Subjective - Date & Time of Evaluation Date of Evaluation: 06/07/17 Time of Evaluation: 08:31 - Subjective Subjective: General Surgery for Dr. March PT S&E At bedside. PHI. PAtient states he had some dry heaving yesterday, but feels less nauseous today. Patient made aware of HIDA. Objective - Vital Signs/Intake and Output Vital Signs (last 24 hours): Temp Pulse Resp BP Pulse Ox 98.8 F 84 20 151/69 H 96 06/07/17 05:43 06/07/17 05:43 06/07/17 05:43 06/07/17 05:43 06/07/17 05:43 Intake and Output: 06/07/17 06/07/17 06:59 18:59 Intake Total 1278 Output Total 0 Balance 1278 - Medications Medications: Current Medications Acetaminophen (Tylenol 325mg Tab) 650 mg PO Q6H PRN PRN Reason: Fever >100.4 F Last Admin: 06/06/17 22:13 Dose: 650 mg Amlodipine Besylate (Norvasc) 10 mg PO DAILY [facility] Hydralazine HCl (Apresoline) 50 mg PO BID [facility] Last Admin: 06/06/17 19:51 Dose: 50 mg Hydromorphone HCl (Dilaudid) 1 mg IVP Q4H PRN PRN Reason: Pain, moderate (4-7) Last Admin: 06/06/17 17:36 Dose: 1 mg Sodium Chloride (Sodium Chloride 0.45%) 1,000 mls @ 75 mls/hr IV .[id number] [facility] Last Admin: 06/07/17 04:52 Dose: 75 mls/hr Insulin Human Regular (Humulin R High) 0 units SC ACHS JOSÉ MIGUEL PRN Reason: Protocol Last Admin: 06/06/17 22:14 Dose: Not Given Levalbuterol HCl (Xopenex) 1.25 mg IH [id number] [facility] Last Admin: 06/07/17 07:17 Dose: 1.25 mg Metoprolol Succinate (Toprol Xl) 25 mg PO BRK JOSÉ MIGUEL Ondansetron HCl (Zofran Inj) 4 mg IVP Q6H PRN PRN Reason: Nausea/Vomiting Pantoprazole Sodium (Protonix Inj) 40 mg IVP DAILY JOS[facility] MIGUEL Last Admin: 06/06/17 15:32 Dose: 40 mg - Labs Labs: 06/07/17 07:00 06/07/17 07:00 PT 10.4 Seconds (9.9-11.8) 06/06/17 09:50 INR 0.96 (0.93-1.08) 06/06/17 09:50 APTT 28.5 Seconds (23.7-30.8) 06/06/17 09:50 - Constitutional Appears: Non-toxic - Head Exam Head Exam: NORMAL INSPECTION - Eye Exam Eye Exam: EOMI, Normal appearance - ENT Exam ENT Exam: Mucous Membranes Moist - Neck Exam Neck Exam: Full ROM - Respiratory Exam Respiratory Exam: Clear to Ausculation Bilateral, NORMAL BREATHING PATTERN. absent: Accessory Muscle Use, Respiratory Distress - Cardiovascular Exam Cardiovascular Exam: REGULAR RHYTHM. absent: Bradycardia, Tachycardia - GI/Abdominal Exam GI & Abdominal Exam: Soft, Normal Bowel Sounds. absent: Tenderness - Extremities Exam Extremities Exam: Full ROM, Normal Inspection - Neurological Exam Neurological Exam: Alert, Awake, Normal Gait, Oriented x3 - Psychiatric Exam Psychiatric exam: Normal Affect, Normal Mood - Skin Skin Exam: Dry, Intact, Normal Color, Warm Assessment and Plan - Assessment and Plan (Free Text) Assessment: 56M presents with biliary colic, cholelithiasis Plan: f/u HIDA CLD, advance as tolerated f/u GI recommendations c/w IVF c/w pain management f/u nephrology consult for elevated creatinine and proteinuria d/w Dr. Joaquim Johnson, DO PGY1 surgery pager: [phone] <Will March - Last Filed: 06/07/17 23:08> Objective - Vital Signs/Intake and Output Vital Signs (last 24 hours): Temp Pulse Resp BP Pulse Ox 101 F H 105 H 20 150/81 96 06/07/17 19:00 06/07/17 19:00 06/07/17 19:00 06/07/17 19:00 06/07/17 05:43 - Medications Medications: Current Medications Acetaminophen (Tylenol 325mg Tab) 650 mg PO Q6H PRN PRN Reason: Fever >100.4 F Last Admin: 06/07/17 17:13 Dose: 650 mg Amlodipine Besylate (Norvasc) 10 mg PO DAILY [facility] Last Admin: 06/07/17 09:34 Dose: 10 mg Hydralazine HCl (Apresoline) 50 mg PO BID [facility] Last Admin: 06/07/17 17:12 Dose: 50 mg Hydromorphone HCl (Dilaudid) 1 mg IVP Q4H PRN PRN Reason: Pain, moderate (4-7) Last Admin: 06/06/17 17:36 Dose: 1 mg Sodium Chloride (Sodium Chloride 0.45%) 1,000 mls @ 75 mls/hr IV .[id number] [facility] Last Admin: 06/07/17 17:15 Dose: 75 mls/hr Piperacillin Sod/Tazobactam Sod (Zosyn 3.375 In Ns 100ml) 100 mls @ 200 mls/hr IVPB Q6 JOSÉ MIGUEL PRN Reason: Protocol Stop: 06/15/17 00:01 Insulin Human Regular (Humulin R High) 0 units SC ACHS JOSÉ MIGUEL PRN Reason: Protocol Last Admin: 06/07/17 21:30 Dose: Not Given Levalbuterol HCl (Xopenex) 1.25 mg IH [id number] [facility] Last Admin: 06/07/17 20:09 Dose: 1.25 mg Metoprolol Succinate (Toprol Xl) 25 mg PO BRK [facility] Last Admin: 06/07/17 09:34 Dose: 25 mg Ondansetron HCl (Zofran Inj) 4 mg IVP Q6H PRN PRN Reason: Nausea/Vomiting Pantoprazole Sodium (Protonix Inj) 40 mg IVP DAILY [facility] Last Admin: 06/07/17 09:35 Dose: 40 mg - Labs Labs: 06/07/17 07:00 06/07/17 07:00 PT 10.4 Seconds (9.9-11.8) 06/06/17 09:50 INR 0.96 (0.93-1.08) 06/06/17 09:50 APTT 28.5 Seconds (23.7-30.8) 06/06/17 09:50 Assessment and Plan - Assessment and Plan (Free Text) Plan: Patient was seen and examined by me. I agree with assessment and plan as per resident's note. Awaiting results of the HIDA scan.
[2017-06-07] MEDS: Metoprolol Succinate 25 mg XL Tab PO SCH (09:34)
[2017-06-07] MEDS: Insulin Reg-HIGH-Coverage SC SCH ×4 (09:46→21:30)
[2017-06-07] MEDS ORDERED: cefTRIAXone 1 gm 1 GM/100 ML BAG IVPB SCH (10:00)
--- NOTE | 2017-06-07 10:56 | CP.PCM.PN ---
<Marii Ayala - Last Filed: 06/07/17 11:03> Subjective - Date & Time of Evaluation Date of Evaluation: 06/07/17 Time of Evaluation: 09:00 - Subjective Subjective: GI PROGRESS NOTE FOR DR. ARREGUIN Patient seen and examined at bedside. Tolerating clear liquid diet, denies nausea or vomiting. Went for HIDA this morning. Objective - Vital Signs/Intake and Output Vital Signs (last 24 hours): Temp Pulse Resp BP Pulse Ox 98.8 F 92 H 20 155/70 H 96 06/07/17 05:43 06/07/17 09:37 06/07/17 05:43 06/07/17 09:37 06/07/17 05:43 Intake and Output: 06/07/17 06/07/17 06:59 18:59 Intake Total 1278 Output Total 0 Balance 1278 - Medications Medications: Current Medications Acetaminophen (Tylenol 325mg Tab) 650 mg PO Q6H PRN PRN Reason: Fever >100.4 F Last Admin: 06/06/17 22:13 Dose: 650 mg Amlodipine Besylate (Norvasc) 10 mg PO DAILY [facility] Last Admin: 06/07/17 09:34 Dose: 10 mg Hydralazine HCl (Apresoline) 50 mg PO BID [facility] Last Admin: 06/07/17 09:37 Dose: 50 mg Hydromorphone HCl (Dilaudid) 1 mg IVP Q4H PRN PRN Reason: Pain, moderate (4-7) Last Admin: 06/06/17 17:36 Dose: 1 mg Sodium Chloride (Sodium Chloride 0.45%) 1,000 mls @ 75 mls/hr IV .[id number] COUNT [facility]CLUDES [facility] Last Admin: 06/07/17 04:52 Dose: 75 mls/hr Ceftriaxone Sodium (Rocephin 1 Gram Ivpb) 1 gm in 100 mls @ 100 mls/hr IVPB DAILY [facility] PRN Reason: Protocol Last Admin: 06/07/17 09:35 Dose: 100 mls/hr Insulin Human Regular (Humulin R High) 0 units SC ACHS JOSÉ MIGUEL PRN Reason: Protocol Last Admin: 06/07/17 09:46 Dose: Not Given Levalbuterol HCl (Xopenex) 1.25 mg IH [id number] COUNT INCLUDES [facility] Last Admin: 06/07/17 07:17 Dose: 1.25 mg Metoprolol Succinate (Toprol Xl) 25 mg PO BRK COUNT [facility]CLUDES [facility] Last Admin: 06/07/17 09:34 Dose: 25 mg Ondansetron HCl (Zofran Inj) 4 mg IVP Q6H PRN PRN Reason: Nausea/Vomiting Pantoprazole Sodium (Protonix Inj) 40 mg IVP DAILY [facility] Last Admin: 06/07/17 09:35 Dose: 40 mg - Labs Labs: 06/07/17 07:00 06/07/17 07:00 PT 10.4 Seconds (9.9-11.8) 06/06/17 09:50 INR 0.96 (0.93-1.08) 06/06/17 09:50 APTT 28.5 Seconds (23.7-30.8) 06/06/17 09:50 - Constitutional Appears: Non-toxic, No Acute Distress - Head Exam Head Exam: ATRAUMATIC, NORMAL INSPECTION - Respiratory Exam Respiratory Exam: NORMAL BREATHING PATTERN. absent: Respiratory Distress - Cardiovascular Exam Cardiovascular Exam: +S1, +S2 - GI/Abdominal Exam GI & Abdominal Exam: Soft, Tenderness (mild tenderness RUQ). absent: Firm, Guarding, Rigid, Rebound - Neurological Exam Neurological Exam: Alert, Awake, Oriented x3 - Psychiatric Exam Psychiatric exam: Normal Affect, Normal Mood - Skin Skin Exam: Dry, Normal Color, Warm Assessment and Plan - Assessment and Plan (Free Text) Assessment: 56yo M with PMHx of DM, HTN, hyperlipidemia, CKD, CHF with EF of 30-35%, obesity with biliary colic and cholelithiasis, rule out cholecystitis - Afebrile - WBC increased to 14.6 today from 9.1 yesterday - Pt started on 1 gm Rocephin due to leukocytosis - Continue Protonix - T bili and LFTs WNL - US: cholelithiasis, CBD 5.6mm - Tolerating CLD - Will follow up HIDA results - Pt needs cardiac clearance, Dr. Lilly following - Discussed plan with Dr. Kallie Ayala PGY-3 <Lucille Arreguin V - Last Filed: 06/07/17 19:41> Objective - Vital Signs/Intake and Output Vital Signs (last 24 hours): Temp Pulse Resp BP Pulse Ox 101 F H 105 H 20 150/81 96 06/07/17 19:00 06/07/17 19:00 06/07/17 19:00 06/07/17 19:00 06/07/17 05:43 - Medications Medications: Current Medications Acetaminophen (Tylenol 325mg Tab) 650 mg PO Q6H PRN PRN Reason: Fever >100.4 F Last Admin: 06/07/17 17:13 Dose: 650 mg Amlodipine Besylate (Norvasc) 10 mg PO DAILY COUNT [facility] Last Admin: 06/07/17 09:34 Dose: 10 mg Hydralazine HCl (Apresoline) 50 mg PO BID COUNT [facility] Last Admin: 06/07/17 17:12 Dose: 50 mg Hydromorphone HCl (Dilaudid) 1 mg IVP Q4H PRN PRN Reason: Pain, moderate (4-7) Last Admin: 06/06/17 17:36 Dose: 1 mg Sodium Chloride (Sodium Chloride 0.45%) 1,000 mls @ 75 mls/hr IV .[id number] COUNT [facility]CLUDES [facility] Last Admin: 06/07/17 17:15 Dose: 75 mls/hr Ceftriaxone Sodium (Rocephin 1 Gram Ivpb) 1 gm in 100 mls @ 100 mls/hr IVPB DAILY COUNT [facility]CLUDES [facility] PRN Reason: Protocol Last Admin: 06/07/17 09:35 Dose: 100 mls/hr Insulin Human Regular (Humulin R High) 0 units SC ACHS COUNT INCLUDES [facility] PRN Reason: Protocol Last Admin: 06/07/17 17:14 Dose: 4 units Levalbuterol HCl (Xopenex) 1.25 mg IH [id number] COUNT INCLUDES [facility] Last Admin: 06/07/17 13:43 Dose: 1.25 mg Metoprolol Succinate (Toprol Xl) 25 mg PO BRK COUNT [facility]CLUDES [facility] Last Admin: 06/07/17 09:34 Dose: 25 mg Ondansetron HCl (Zofran Inj) 4 mg IVP Q6H PRN PRN Reason: Nausea/Vomiting Pantoprazole Sodium (Protonix Inj) 40 mg IVP DAILY COUNT [facility]CLUDES [facility] Last Admin: 06/07/17 09:35 Dose: 40 mg - Labs Labs: 06/07/17 07:00 06/07/17 07:00 PT 10.4 Seconds (9.9-11.8) 06/06/17 09:50 INR 0.96 (0.93-1.08) 06/06/17 09:50 APTT 28.5 Seconds (23.7-30.8) 06/06/17 09:50 Attending/Attestation - Attestation I have personally seen and examined this patient.: Yes I have fully participated in the care of the patient.: Yes I have reviewed all pertinent clinical information, including history, physical exam and plan: Yes Notes (Text): patient spiked temperature of 101. HIDA scan is positive for cystic duct obstruction His other comorbidities include a anemia, chronic kidney disease, systolic dysfunction EF 30-35% On examination patient did have tenderness in the right upper quadrant no rebound no guarding Patient is on ceftriaxone ID on consult We'll discuss with the surgical team regarding cholecystectomy CBD normal LFT normal Discussed with Dr. Aden
--- NOTE | 2017-06-07 14:27 | PN ---
DATE: SUBJECTIVE: The patient is a 56-year-old male, seen and examined. He states his belly pain has significantly improved. He is not nauseous. Not hungry either. PHYSICAL EXAMINATION: VITAL SIGNS: He is afebrile, pulse is 88, respirations are 20, and blood pressure is 157/70. LUNGS: Bilateral fair airflow. No rhonchi or crackles. HEART: S1 and S2 audible. ABDOMEN: Soft, and nontender. No rebound and no guarding. NEUROLOGIC: The patient is awake and alert, able to communicate. EXTREMITIES: Moves all extremities. Bilateral leg +2 edema. LABORATORY DATA: WBC is 14.6, hemoglobin is 9.4, hematocrit is 29, and platelet of 230. Chemistry: Sodium of 141, potassium of 4.7, chloride of 107, CO2 of 33, BUN of 30, creatinine of 1.7, and blood sugar of 228. Blood culture and urine cultures are negative. DIAGNOSTIC DATA: He had CT scan of the abdomen and pelvis done and also abdominal sonogram done that shows fatty hepatic infiltration with cholelithiasis. ASSESSMENT: 1. Intractable nausea and vomiting. 2. Ultrasound positive for cholelithiasis. 3. Rule out acute cholecystitis. 4. Non-insulin dependent diabetes. 5. Hypertension. 6. Hyperlipidemia. 7. Chronic kidney disease. 8. Cardiomyopathy. 9. Questionable biliary colic. PLAN: The patient is going for HIDA scan . He has been started on IV antibiotic. Followup HIDA scan and from the recommendation according to the result, he might . Roberta Aden MD
--- NOTE | 2017-06-07 16:23 | NM ---
PROCEDURE: Nuclear Medicine Hepatobiliary Scan HISTORY: r/o cystic duct obstruction COMPARISON: June 06, 2017. TECHNIQUE: mCi of technetium 99m Mebrofenin was administered intravenously. Planar images of the abdomen were obtained at 5 min intervals to 60 mins. Delayed images were also obtained. FINDINGS: LIVER: Timely and homogenous uptake. COMMON BILE DUCT: identified at mins. GALLBLADDER: Not identified at 04:00 SMALL BOWEL: Identified at 15 mins. IMPRESSION: Positive Hepatobiliary Scan. The cystic duct is occluded consistent with acute cholecystitis.
--- NOTE | 2017-06-07 22:27 | CON ---
DATE: 06/07/2017 REASON FOR CONSULTATION: Acute kidney injury superimposed on chronic kidney disease stage III, right upper quadrant pain, hypertension, and diabetes. HISTORY OF PRESENT ILLNESS: A 56-year-old male previously known to me, was admitted on June 06, 2017, with complaints right upper quadrant pain, nausea, vomiting. No fever, no chills. No diarrhea, no constipation. Pain radiating to the lower back. No urinary complaints. In the emergency room, he was found to have cholelithiasis. He was also found to have acute kidney injury superimposed on his chronic kidney disease. His creatinine was found to be 1.7. PAST MEDICAL AND SURGICAL HISTORY: Obesity, NIDDM, hypertension, chronic kidney disease stage II, diabetic neuropathy, chronic anemia, proteinuria, chronic bilateral swelling. FAMILY HISTORY: Hypertension and diabetes. SOCIAL HISTORY: Single, lives alone, no smoking, no alcohol use. ALLERGIES: NO KNOWN DRUG ALLERGIES. MEDICATIONS: At home, had been glimepiride 2 mg daily, Lasix 40 mg daily, Coreg, Lisinopril 20 mg daily, Aldactone 25 mg, which was being held prior to admission because of hyperkalemia. REVIEW OF SYSTEMS: Today, he reports that his pain was better, he denies any nausea, he denies any vomiting. He denies any abdominal currently, no diarrhea, no constipation. He denies any fever. He denies any chills. All other systems are reviewed and unremarkable. PHYSICAL EXAMINATION GENERAL: Obese, middle aged male, lying in bed. VITAL SIGNS: Blood pressure 151/81, heart rate 105, respiratory rate 20, temperature 101, T-max 101. HEENT: Normocephalic, atraumatic, positive pallor. NECK: Supple, no JVD. LUNGS: Bilateral equal air entry, no rales. CARDIAC: S1, S2, regular rate and rhythm, no murmur, no rub. ABDOMEN: Obese, distended, soft, positive tenderness in the right upper quadrant. Bowel sounds present. EXTREMITIES: A 2+ pitting edema of the lower extremity edema. INTAKE AND OUTPUT: 1278/not charted. LABORATORY DATA: WBC 14.6, hemoglobin 9.4, hematocrit 29, platelets 213. Sodium 141, potassium 4.7, chloride 107, CO2 23, BUN 30, creatinine 1.7, glucose 167, calcium 8.6, phosphorus not checked. AST 25, ALT 22. Albumin 6.5. Urinalysis yellow and clear, pH 6.0, specific gravity 1.020, protein greater than 300, blood moderate, nitrite negative, and leukocyte esterase negative. Urine culture no growth. Blood culture no growth. HIDA scan positive hepatobiliary scan, cystic duct is occluded consistent with acute cholecystis. CURRENT MEDICATIONS: Apresoline 50 mg, Dilaudid p.r.n., insulin, amlodipine 10 mg, Protonix 40 mg, Rocephin 1 mg daily, half normal saline at 75 mL, Toprol-XL 25 mg, Tylenol, Xopenex, and Zofran. ASSESSMENT: 1. Acute kidney injury superimposed on chronic kidney disease stage III. 2. Acute cholecystitis. 3. Leukocytosis. 4. Howard acute on chronic (?). 5. Poorly controlled diabetes (?). 6. Proteinuria, hematuria. 7. Hypertension. PLAN: 1. Agree with IV fluids. 2. Quantify urine protein. 3. Antibiotics for acute cholecystitis as per ID recommendations. 4. Check A1c. 5. Check fingerstick and continue insulin coverage. Thank you for the courtesy of this consultation. We will follow this patient closely with you. Mireya Lopez MD
[2017-06-07] MEDS: Piperacillin/Tazobact 3.375 gm 100 ML IVPB SCH (23:20)
--- NOTE | 2017-06-08 02:27 | CON ---
DATE: SERVICE: Cardiology. REASON FOR CONSULTATION: Followup history of cardiomyopathy, nonobstructive coronary artery disease, admitted with epigastric pain, rule out ischemia, cardiac evaluation. BRIEF CLINICAL HISTORY: This is a 56-year-old male with past medical history of morbid obesity, cardiomyopathy, type 2 diabetes, hypertension, hyperlipidemia, neuropathy, complaining with abdominal pain, epigastric pain, and intractable vomiting. Denies any chest pain, but feels after vomiting sometime chest pain and discomfort. PAST MEDICAL HISTORY: Significant for diabetes, hypertension, hyperlipidemia, obesity. PREVIOUS CARDIAC WORKUP: As follows; the patient had a cardiac catheterization done on 05/01/2014 that shows a nonobstructive coronary artery disease, limited only to mid to distal LAD, 55% diffuse, there is no focal flow-limiting stenosis noted. Ejection fraction of 35% to 40%; history of paroxysmal atrial fibrillation, converted to normal sinus; nonischemic cardiomyopathy. The patient has a most recent echocardiography done on 08/06/2016 that shows [id number] concentric LVH, ejection fraction 35% to 40%; mild mitral regurgitation; [id number] tricuspid regurgitation, [id number] pulmonary insufficiency, ejection fraction is 35 to 40%. SOCIAL HISTORY: Denies any history of alcohol abuse. CURRENT MEDICATIONS: The patient is taking glimepiride, Lasix, insulin, amlodipine. ALLERGIES: NO KNOWN DRUG ALLERGIES. REVIEW OF SYSTEMS: As per HPI. PHYSICAL EXAMINATION: As follows, VITAL SIGNS: Temperature afebrile, heart rate 88, blood pressure 157/70. HEENT: PERRLA. Extraocular muscles intact. NECK: Supple. No carotid bruits or thyromegaly. CHEST: Clear to auscultation. HEART: S1 and S2 regular. ABDOMEN: Soft. EXTREMITIES: Clubbing and cyanosis negative. LABORATORY DATA: EKG shows normal sinus, heart rate of 80. Blood workup as follows: WBC 14.6, hemoglobin 9.4, hematocrit 29, platelet count 213. Chemistry shows sodium 141, potassium 4.7, chloride 107, carbon dioxide 23, anion gap of 16, BUN 30, creatinine 1.7. IMPRESSION: Morbid obesity, diabetes, hypertension, hyperlipidemia, chronic kidney disease, creatinine clearance 40 mL an hour, history of nonobstructive coronary artery disease, status post cardiac catheterization on 05/01/2014, distal left anterior descending diffusely with ejection fraction of 35% to 40%. Most recent echocardiogram on 08/06/2016 shows ejection fraction of 35% to 40%, trace mitral regurgitation and trace tricuspid regurgitation. So far, no evidence of acute coronary syndrome noted, nonischemic cardiomyopathy. Probably these symptoms are secondary to vomiting, rule out gallbladder disease. So far, no evidence of acute myocardial infarction, no evidence of acute coronary syndrome. We will follow with you. Thank you, for providing opportunity in taking care of the patient, Nikos Leslie. We will follow with you. Ray Lilly MD
[2017-06-08] MEDS: Levalbuterol 1.25 MG/3 ML Inhal Soln UD IH SCH ×4 (02:34→19:40)
[2017-06-08] MEDS: Insulin Reg-HIGH-Coverage SC SCH ×3 (08:06→18:24)
[2017-06-08] MEDS: Metoprolol Succinate 25 mg XL Tab PO SCH (09:09)
[2017-06-08] MEDS: Sodium Chloride 0.45% 1,000 ML IV SCH (09:10)
--- NOTE | 2017-06-08 09:19 | CP.PCM.PN ---
Subjective - Date & Time of Evaluation Date of Evaluation: 06/08/17 Time of Evaluation: 09:15 - Subjective Subjective: General Surgery note for Dr. Hayward Patient made aware HIDA was positive. Will have gallbladder removed this afternoon. Patient was placed NPO after rounding with Dr. March. Patient admits to pain in his back. Denies vomiting Objective - Vital Signs/Intake and Output Vital Signs (last 24 hours): Temp Pulse Resp BP Pulse Ox 99.3 F 111 H 20 169/88 H 97 06/08/17 06:00 06/08/17 09:09 06/08/17 06:00 06/08/17 09:09 06/08/17 06:00 Intake and Output: 06/08/17 06/08/17 06:59 18:59 Intake Total 975 Balance 975 - Medications Medications: Current Medications Acetaminophen (Tylenol 325mg Tab) 650 mg PO Q6H PRN PRN Reason: Fever >100.4 F Last Admin: 06/07/17 23:21 Dose: 650 mg Amlodipine Besylate (Norvasc) 10 mg PO DAILY [facility] Last Admin: 06/07/17 09:34 Dose: 10 mg Hydralazine HCl (Apresoline) 50 mg PO BID [facility] Last Admin: 06/07/17 17:12 Dose: 50 mg Hydromorphone HCl (Dilaudid) 1 mg IVP Q4H PRN PRN Reason: Pain, moderate (4-7) Last Admin: 06/06/17 17:36 Dose: 1 mg Sodium Chloride (Sodium Chloride 0.45%) 1,000 mls @ 75 mls/hr IV .[id number] [facility] Last Admin: 06/08/17 09:10 Dose: 75 mls/hr Piperacillin Sod/Tazobactam Sod (Zosyn 3.375 In Ns 100ml) 100 mls @ 200 mls/hr IVPB Q6 JOSÉ MIGUEL PRN Reason: Protocol Stop: 06/15/17 00:01 Last Admin: 06/07/17 23:20 Dose: 200 mls/hr Insulin Human Regular (Humulin R High) 0 units SC ACHS JOSÉ MIGUEL PRN Reason: Protocol Last Admin: 06/08/17 08:06 Dose: Not Given Levalbuterol HCl (Xopenex) 1.25 mg IH [id number] JOSÉ MIGUEL Last Admin: 06/08/17 08:03 Dose: 1.25 mg Metoprolol Succinate (Toprol Xl) 25 mg PO BRK [facility] Last Admin: 06/08/17 09:09 Dose: 25 mg Ondansetron HCl (Zofran Inj) 4 mg IVP Q6H PRN PRN Reason: Nausea/Vomiting Pantoprazole Sodium (Protonix Inj) 40 mg IVP DAILY [facility] Last Admin: 06/07/17 09:35 Dose: 40 mg - Labs Labs: 06/07/17 07:00 06/07/17 07:00 PT 10.4 Seconds (9.9-11.8) 06/06/17 09:50 INR 0.96 (0.93-1.08) 06/06/17 09:50 APTT 28.5 Seconds (23.7-30.8) 06/06/17 09:50 - Constitutional Appears: Non-toxic - Head Exam Head Exam: NORMAL INSPECTION - Eye Exam Eye Exam: EOMI, Normal appearance - ENT Exam ENT Exam: Mucous Membranes Moist - Neck Exam Neck Exam: Full ROM - Respiratory Exam Respiratory Exam: Clear to Ausculation Bilateral, NORMAL BREATHING PATTERN. absent: Accessory Muscle Use, Respiratory Distress - Cardiovascular Exam Cardiovascular Exam: REGULAR RHYTHM, +S1, +S2. absent: Bradycardia, Tachycardia - GI/Abdominal Exam GI & Abdominal Exam: Distended, Tenderness. absent: Rigid Additional comments: Patient admits to tenderness of RUQ. Patient states he has pain in his back, non -reproducible by palpation of back - Extremities Exam Extremities Exam: Full ROM. absent: Pedal Edema - Neurological Exam Neurological Exam: Alert, Awake, Oriented x3 - Psychiatric Exam Psychiatric exam: Normal Affect, Normal Mood - Skin Skin Exam: Dry, Intact, Normal Color, Warm Assessment and Plan - Assessment and Plan (Free Text) Assessment: 56M presents with cholecystitis (positive HIDA scan for cystic duct obstruction) Plan: Per nephrology: continue IVF, quantify Urine Protein, abx for acute cholecystitics, Check A1c, check fingerstick glucose c/w pain control c/w IVF Diet NPO positive HIDA last EKG NSR @70
[2017-06-08 11:40] LABS: INR 1.15 (0.93-1.08); PARTIAL THROMBOPLASTIN TIME 35.9 Seconds (23.7-30.8)
--- NOTE | 2017-06-08 11:47 | CP.PCM.PN ---
<Fabienne López - Last Filed: 06/08/17 11:46> Subjective - Date & Time of Evaluation Date of Evaluation: 06/08/17 Time of Evaluation: 10:10 - Subjective Subjective: S&E at bedside, chart reviewed, positive HIDA, NPO for OR this afternoon. Tmax last night 100.6. Does report abdominal discomfort a nd feeling tired. No acute distress. Objective - Vital Signs/Intake and Output Vital Signs (last 24 hours): Temp Pulse Resp BP Pulse Ox 99.3 F 97 H 20 169/88 H 97 06/08/17 06:00 06/08/17 10:16 06/08/17 06:00 06/08/17 10:16 06/08/17 06:00 Intake and Output: 06/08/17 06/08/17 06:59 18:59 Intake Total 975 Balance 975 - Medications Medications: Current Medications Acetaminophen (Tylenol 325mg Tab) 650 mg PO Q6H PRN PRN Reason: Fever >100.4 F Last Admin: 06/07/17 23:21 Dose: 650 mg Amlodipine Besylate (Norvasc) 10 mg PO DAILY [facility] Last Admin: 06/08/17 10:15 Dose: 10 mg Hydralazine HCl (Apresoline) 10 mg PO QID PRN PRN Reason: For SBP>170 Hydralazine HCl (Apresoline) 25 mg PO BID [facility] Last Admin: 06/08/17 10:14 Dose: 25 mg Hydromorphone HCl (Dilaudid) 1 mg IVP Q4H PRN PRN Reason: Pain, moderate (4-7) Last Admin: 06/06/17 17:36 Dose: 1 mg Sodium Chloride (Sodium Chloride 0.45%) 1,000 mls @ 75 mls/hr IV .[id number] [facility] Last Admin: 06/08/17 09:10 Dose: 75 mls/hr Piperacillin Sod/Tazobactam Sod (Zosyn 3.375 In Ns 100ml) 100 mls @ 200 mls/hr IVPB Q6 JOSÉ MIGUEL PRN Reason: Protocol Stop: 06/15/17 00:01 Last Admin: 06/07/17 23:20 Dose: 200 mls/hr Insulin Human Regular (Humulin R High) 0 units SC ACHS [facility] PRN Reason: Protocol Last Admin: 06/08/17 08:06 Dose: Not Given Levalbuterol HCl (Xopenex) 1.25 mg IH [id number] [facility] Last Admin: 06/08/17 08:03 Dose: 1.25 mg Metoprolol Tartrate (Lopressor) 50 mg PO BID [facility] Last Admin: 06/08/17 10:16 Dose: Not Given Ondansetron HCl (Zofran Inj) 4 mg IVP Q6H PRN PRN Reason: Nausea/Vomiting Pantoprazole Sodium (Protonix Inj) 40 mg IVP DAILY [facility] Last Admin: 06/08/17 10:15 Dose: 40 mg - Labs Labs: 06/07/17 07:00 06/07/17 07:00 PT 10.4 Seconds (9.9-11.8) 06/06/17 09:50 INR 0.96 (0.93-1.08) 06/06/17 09:50 APTT 28.5 Seconds (23.7-30.8) 06/06/17 09:50 - Constitutional Appears: No Acute Distress - Head Exam Head Exam: NORMOCEPHALIC - Eye Exam Eye Exam: Normal appearance. absent: Scleral icterus - ENT Exam ENT Exam: Mucous Membranes Moist - Neck Exam Neck Exam: Normal Inspection - Respiratory Exam Respiratory Exam: NORMAL BREATHING PATTERN. absent: Rales, Wheezes, Respiratory Distress - Cardiovascular Exam Cardiovascular Exam: +S1, +S2 - GI/Abdominal Exam GI & Abdominal Exam: Soft, Tenderness (RUQ), Normal Bowel Sounds. absent: Guarding, Organomegaly, Rebound - Neurological Exam Neurological Exam: Alert, Awake, Oriented x3 - Skin Skin Exam: Dry, Warm Assessment and Plan - Assessment and Plan (Free Text) Assessment: ASSESSMENT: Acute cholycystitis. (+) HIDA cystic duct obstruction Cholelithiasis Obestiy DM CKD HTN PLAN: continue antibiotics as per ID:Zosyn PPI NPO for OR this afternoon, as per surgical team continue IVF for hydration Zofran prn nausea pain mgt monitor LFT, H/H Seen and discussed w/ Dr. Arreguin. <Lucille Arreguin V - Last Filed: 06/13/17 08:06> Objective - Vital Signs/Intake and Output Vital Signs (last 24 hours): Temp Pulse Resp BP Pulse Ox 98.2 F 79 18 126/74 97 06/08/17 21:15 06/08/17 21:15 06/08/17 21:15 06/08/17 21:15 06/08/17 21:15 - Medications Medications: Current Medications Acetaminophen (Tylenol 325mg Tab) 650 mg PO Q6H PRN PRN Reason: Fever >100.4 F Last Admin: 06/07/17 23:21 Dose: 650 mg Amlodipine Besylate (Norvasc) 10 mg PO DAILY [facility] Last Admin: 06/08/17 10:15 Dose: 10 mg Docusate Sodium (Colace) 100 mg PO BID [facility] Heparin Sodium (Porcine) (Heparin) 5,000 units SC Q12 [facility] PRN Reason: Protocol Hydralazine HCl (Apresoline) 10 mg PO QID PRN PRN Reason: For SBP>170 Hydralazine HCl (Apresoline) 25 mg PO BID [facility] Last Admin: 06/08/17 19:30 Dose: Not Given Hydralazine HCl (Apresoline) 10 mg IVP Q6 PRN PRN Reason: Systolic Blood Pressure Hydromorphone HCl (Dilaudid) 1 mg IVP Q3H PRN PRN Reason: Pain, moderate (4-7) Hydromorphone HCl (Dilaudid) 2 mg IVP Q4H PRN PRN Reason: Pain, severe (8-10) Piperacillin Sod/Tazobactam Sod (Zosyn 3.375 In Ns 100ml) 100 mls @ 200 mls/hr IVPB Q6 [facility] PRN Reason: Protocol Stop: 06/15/17 00:01 Last Admin: 06/08/17 19:30 Dose: Not Given Insulin Human Regular (Humulin R High) 0 units SC ACHS [facility] PRN Reason: Protocol Last Admin: 06/08/17 18:24 Dose: Not Given Levalbuterol HCl (Xopenex) 1.25 mg IH [id number] [facility] Last Admin: 06/08/17 19:40 Dose: Not Given Metoprolol Tartrate (Lopressor) 50 mg PO BID [facility] Last Admin: 06/08/17 19:30 Dose: Not Given Ondansetron HCl (Zofran Inj) 4 mg IVP Q6H PRN PRN Reason: Nausea/Vomiting Pantoprazole Sodium (Protonix Inj) 40 mg IVP DAILY [facility] Last Admin: 06/08/17 10:15 Dose: 40 mg - Labs Labs: 06/08/17 22:06 06/08/17 22:06 PT 12.4 Seconds (9.9-11.8) H 06/08/17 11:20 INR 1.15 (0.93-1.08) H 06/08/17 11:20 APTT 35.9 Seconds (23.7-30.8) H 06/08/17 11:20 Attending/Attestation - Attestation I have personally seen and examined this patient.: Yes I have fully participated in the care of the patient.: Yes I have reviewed all pertinent clinical information, including history, physical exam and plan: Yes Notes (Text): This is an addendum to GI progress report dictated by Fabienne López APN.The patient was seen and examined earlier. Medical records, lab studies, imagings were reviewed. Last 24 hours events reviewed. Agreed with the above treatment plan as outlined in Fabienne López APN's notes the with the addition of the following this 66-year-old patient with diabetes mellitus, chronic kidney disease, anemia , with acute cholecystitis needs surgery discussed with the surgical team. On examination patient's weight has some tenderness in the right upper quadrant area. Plan to have surgery later today
--- NOTE | 2017-06-08 12:02 | PN ---
DATE: 06/08/2017 REASON FOR CONSULTATION: Preop evaluation, risk stratification for possible OR, history of cardiomyopathy, nonobstructive coronary artery disease, admitted with epigastric pain, for possible cholecystectomy. SUBJECTIVE: The patient denies any chest pain, shortness of breath or palpitations. Complained of leg swelling. OBJECTIVE: GENERAL: Lying on the bed, not in apparent distress. Examination as follows: VITAL SIGNS: Temperature afebrile, heart rate 85, blood pressure 169/88. HEENT: PERRLA. Extraocular muscles intact. NECK: Supple. No carotid bruits or thyromegaly. CHEST: Clear to auscultation. HEART: S1 and S2 regular. ABDOMEN: Soft. EXTREMITIES: Clubbing and cyanosis negative. LABORATORY DATA: Blood workup as follows. WBC 14.6, hemoglobin 9.4, hematocrit 29, platelet count 213. Chemistry shows sodium 140, potassium 4.7, chloride 107, carbon dioxide 23, anion gap of 16, BUN 30, creatinine 1.7. IMPRESSION: A 56-year-old obese male with past medical history significant for coronary artery disease nonobstructive, mid left anterior descending has 55% stenosis, catheterization dated 05/01/2014, cardiomyopathy nonischemic, ejection fraction 35% to 40%. By last echo dated 08/06/2016, ejection fraction 35% to 40%, mild mitral regurgitation, trace to mild tricuspid regurgitation, [id number] pulmonary insufficiency, ejection fraction 35% to 40%, admitted with right upper quadrant pain, possibly need OR for cholecystectomy. History of diabetes, chronic renal insufficiency and no evidence of acute coronary syndrome. RECOMMENDATION: Continue hydration. Continue beta-paige. Continue amlodipine. I will increase Norvasc to mg b.i.d., and avoid nephrotoxic medication, p.r.n. Lasix. Since the blood pressure is elevated, we will change to metoprolol tartrate 50 mg b.i.d. with holding parameters. The patient is okay to go from cardiology point of view with moderate risk, no absolute contraindication. We will follow with you. We will give p.r.n. hydralazine. As mentioned, patient's last echo dated 08/06/2016, ejection fraction 35% to 40%. Thank you Dr. Aden for providing me the opportunity in taking care of the patient, Nikos Leslie. We will follow with you. Ray Lilly MD
--- NOTE | 2017-06-08 12:15 | CP.PCM.CON ---
History of Present Illness - History of Present Illness History of Present Illness: 56 year old male with PMH of HTN, DM, dyslipidemia, obesity with BMI 39 was brought in to [facility] complaining of right upper quadrant abdominal pain with episodes of vomiting and nausea. He had subjective fevers and chills as well and in the ED, he was found to have fever. He denies headache or dizziness, no chest pain, no SOB, no cough or rhinorrhea, no diarrhea, no dysuria, no sore throat. CT scan of the abdomen and pelvis showed perinephric inflammation which was non-specific. HIDA scan was done which showed acute cholecystitis. Infectious diseases consult is requested to further evaluate and manage. Review of Systems - Review of Systems All systems: reviewed and no additional remarkable complaints except (as per HPI ) Past Patient History - Infectious Disease Hx of Infectious Diseases: None - Tetanus Immunizations Tetanus Immunization: Unknown - Past Medical History & Family History Past Family History: Reviewed and not pertinent - Past Social History Smoking Status: Never Smoked Alcohol: None Drugs: Denies - CARDIAC Hx Cardiac Disorders: Yes Hx Hypertension: Yes Hx Pacemaker: No - PULMONARY Hx Respiratory Disorders: No - NEUROLOGICAL Hx Neurological Disorder: No - HEENT Hx HEENT Problems: No - RENAL Hx Chronic Kidney Disease: No - ENDOCRINE/METABOLIC Hx Endocrine Disorders: Yes Hx Diabetes Mellitus Type 2: Yes (10 years on po meds) - HEMATOLOGICAL/ONCOLOGICAL Hx Blood Disorders: Yes - INTEGUMENTARY Hx Dermatological Problems: No - MUSCULOSKELETAL/RHEUMATOLOGICAL Hx Falls: No - GASTROINTESTINAL Hx Gastrointestinal Disorders: No - GENITOURINARY/GYNECOLOGICAL Hx Genitourinary Disorders: No - PSYCHIATRIC Hx Psychophysiologic Disorder: No Hx Substance Use: No - SURGICAL HISTORY Hx Surgeries: Yes Hx Cardiac Catheterization: Yes - ANESTHESIA Hx Anesthesia: No Meds Allergies/Adverse Reactions: Allergies Allergy/AdvReac Type Severity Reaction Status Date / Time No Known Allergies Allergy Verified 06/06/17 09:52 - Medications Medications: Current Medications Acetaminophen (Tylenol 325mg Tab) 650 mg PO Q6H PRN PRN Reason: Fever >100.4 F Last Admin: 06/07/17 17:13 Dose: 650 mg Amlodipine Besylate (Norvasc) 10 mg PO DAILY [facility] Last Admin: 06/07/17 09:34 Dose: 10 mg Hydralazine HCl (Apresoline) 50 mg PO BID [facility] Last Admin: 06/07/17 17:12 Dose: 50 mg Hydromorphone HCl (Dilaudid) 1 mg IVP Q4H PRN PRN Reason: Pain, moderate (4-7) Last Admin: 06/06/17 17:36 Dose: 1 mg Sodium Chloride (Sodium Chloride 0.45%) 1,000 mls @ 75 mls/hr IV .[id number] [facility] Last Admin: 06/07/17 17:15 Dose: 75 mls/hr Piperacillin Sod/Tazobactam Sod (Zosyn 3.375 In Ns 100ml) 100 mls @ 200 mls/hr IVPB Q6 [facility]OS[facility]IGUEL PRN Reason: Protocol Stop: 06/15/17 00:01 Insulin Human Regular (Humulin R High) 0 units SC ACHS [facility] PRN Reason: Protocol Last Admin: 06/07/17 21:30 Dose: Not Given Levalbuterol HCl (Xopenex) 1.25 mg IH [id number] [facility] Last Admin: 06/07/17 20:09 Dose: 1.25 mg Metoprolol Succinate (Toprol Xl) 25 mg PO BRK [facility] Last Admin: 06/07/17 09:34 Dose: 25 mg Ondansetron HCl (Zofran Inj) 4 mg IVP Q6H PRN PRN Reason: Nausea/Vomiting Pantoprazole Sodium (Protonix Inj) 40 mg IVP DAILY [facility] Last Admin: 06/07/17 09:35 Dose: 40 mg Physical Exam - Constitutional Appears: Non-toxic, No Acute Distress - Head Exam Head Exam: NORMAL INSPECTION - ENT Exam ENT Exam: Mucous Membranes Moist - Neck Exam Neck exam: Negative for: Lymphadenopathy, Meningismus - Respiratory Exam Respiratory Exam: Decreased Breath Sounds - Cardiovascular Exam Cardiovascular Exam: +S1, +S2 - GI/Abdominal Exam GI & Abdominal Exam: Soft, Tenderness (RUQ area). absent: Distended, Firm, Guarding, Rebound Results - Vital Signs Recent Vital Signs: Last Vital Signs Temp 101 F H 06/07/17 19:00 Pulse 105 H 06/07/17 19:00 Resp 20 06/07/17 19:00 BP 150/81 06/07/17 19:00 Pulse Ox 96 06/07/17 05:43 - Labs Result Diagrams: 06/07/17 07:00 06/07/17 07:00 Labs: Laboratory Results - last 24 hr 06/06/17 06/07/17 06/07/17 21:33 07:00 07:00 WBC 14.6 H D RBC 3.33 L Hgb 9.4 L Hct 29.0 L MCV 87.1 MCH 28.2 MCHC 32.4 RDW 13.2 Plt Count 213 MPV 9.7 Gran % 78.2 H Lymph % (Auto) 12.4 L [place] % (Auto) 9.0 H Eos % (Auto) 0.3 L Baso % (Auto) 0.1 Gran # 11.39 H Lymph # 1.8 [place] # 1.3 H Eos # 0.1 Baso # 0.02 Sodium 141 Potassium 4.7 Chloride 107 Carbon Dioxide 23 Anion Gap 16 BUN 30 H Creatinine 1.7 H Est GFR ( Amer) 51 Est GFR (Non-Af Amer) 42 POC Glucose (mg/dL) 186 H Random Glucose 167 H Calcium 8.6 Total Bilirubin 0.6 AST 25 ALT 22 Alkaline Phosphatase 94 Total Protein 6.8 Albumin 3.5 Globulin 3.3 Albumin/Globulin Ratio 1.1 06/07/17 06/07/17 09:46 11:49 WBC RBC Hgb Hct MCV MCH MCHC RDW Plt Count MPV Gran % Lymph % (Auto) [place] % (Auto) Eos % (Auto) Baso % (Auto) Gran # Lymph # [place] # Eos # Baso # Sodium Potassium Chloride Carbon Dioxide Anion Gap BUN Creatinine Est GFR ( Amer) Est GFR (Non-Af Amer) POC Glucose (mg/dL) 228 H 196 H Random Glucose Calcium Total Bilirubin AST ALT Alkaline Phosphatase Total Protein Albumin Globulin Albumin/Globulin Ratio Assessment & Plan - Assessment and Plan (Free Text) Plan: Assessment Sepsis due to acute cholecystitis HTN DM dyslipidemia obesity with BMI 39 Plan Switched from Rocephin and Flagyl to Zosyn pending blood cx; patient is for Surgery today and will follow up OR findings will monitor clinically
--- NOTE | 2017-06-08 13:36 | PN ---
SUBJECTIVE: The patient is a 56-year-old seen and examined, spiked fever yesterday. No more nausea and vomiting. Still has abdominal discomfort, scheduled for cholecystectomy today. Currently is n.p.o. and on IV fluids. PHYSICAL EXAMINATION: VITAL SIGNS: Afebrile. Pulse 97, respirations 20, blood pressure 169/88. LUNGS: Bilateral fair air flow. No rhonchi or crackles. HEART: S1 and S2 audible. ABDOMEN: Soft, obese, nontender. Still epigastric discomfort. NEUROLOGIC: He is awake and alert. He is communicative. EXTREMITIES: Lower extremities: Bilateral legs no edema. LABORATORY DATA: Blood sugar is 219. Blood culture and urine cultures are negative. His HIDA scan is positive for non-visualization and occlusion of cystic duct consistent with acute cholecystitis. PLAN: We will continue the patient on IV fluids, started on hydralazine and Lyrica as needed. Continue all PPIs. He is getting Zofran. Plan for cholecystectomy today. Roberta Aden MD
[2017-06-08] MEDS ORDERED: Propofol 10 mg/ml Inj (20 ML) ONE (17:18)
[2017-06-08] MEDS ORDERED: Etomidate 20 mg/10ml Inj IV ONE (17:18)
[2017-06-08] MEDS ORDERED: Lidocaine 1% Inj (20ml) ONE (17:24)
[2017-06-08] MEDS ORDERED: metroNIDAZOLE IV 500 mg/100 ml 500 MG/100 ML BAG ONE (17:30)
[2017-06-08] MEDS ORDERED: Rocuronium 10 mg/ml (5 ml) ONE ×2 (17:30→18:18)
[2017-06-08] MEDS ORDERED: MetroNIDAZOLE 500 mg/100 ml IVPB ONE (17:30)
[2017-06-08] MEDS: Piperacillin/Tazobact 3.375 gm 100 ML IVPB SCH ×3 (17:31→19:30)
[2017-06-08] MEDS ORDERED: Bupivacaine 0.5% Inj(30mL) ONE (17:40)
[2017-06-08] MEDS ORDERED: Iodixanol 320 mg/ml 50 ml Sol IV ONE (17:53)
[2017-06-08] MEDS ORDERED: Neostigmine Methylsulfate 3mg/3ml Syringe IV ONE ×2 (18:11→19:44)
--- NOTE | 2017-06-08 19:17 | PN ---
SUBJECTIVE: The patient is currently seen as he is being taken downstairs for his cholecystectomy. The patient's renal parameters are at baseline levels. MEDICATIONS: Medication list reviewed. The patient is currently on p.r.n. hydralazine, p.r.n. Dilaudid, sliding scale insulin, Norvasc, IV Protonix, half-normal saline 75 mL an hour, Tylenol p.r.n., Xopenex, Zofran p.r.n., and IV Zosyn. OBJECTIVE: INTAKE/OUTPUT: Intake 975, output not charted. VITAL SIGNS: Blood pressure 100/71, earlier this morning it was 169/88; temperature 98.2; respiratory rate 19 with a pulse of 92. HEENT: Exam shows him to be normocephalic and atraumatic. Conjunctivae are pale. Sclerae are nonicteric. NECK: Supple. No neck vein distention. CHEST: Clear to auscultation and percussion. No rales, no rhonchi, and no wheezing. CARDIOVASCULAR: Shows a regular rate and rhythm without audible murmurs, rubs, or gallops. ABDOMEN: Soft. Mild tenderness over his right upper quadrant. Bowel sounds are normal. No rebound. No guarding or masses. EXTREMITIES: Show 1 to 2+ pitting edema of the lower extremity bilaterally. No cyanosis or clubbing. LABORATORY DATA AND IMAGING: Microbiology: Blood cultures are negative with 48 hours, urine cultures negative. Labs: CBC; white blood cell count up to 14.6, hemoglobin 9.4 with a platelet count of 213,000. Chemistries done yesterday showed normal electrolytes. BUN 30 with a creatinine of 1.7. The patient's baseline BUN is in the 30s with the baseline creatinine in the 1.6 to 1.8 range. Calcium is normal. Glucose 167. Liver enzymes are normal. Bilirubin is normal. Albumin of 3.5. Urine show 4+ protein. Urine random total protein 349, however, urine random creatinine of 78 consistent with his known proteinuria. IMAGING: Abdominal pelvic CT scan done on admission showed mild infiltration changes seen in the perinephric fat bilaterally, findings were nonspecific evidence for UTI clinically or on urinalysis. Small exophytic cyst posterior lateral aspect midpole of the right kidney. No nephrolithiasis. No hydronephrosis. Hepatomegaly. Chololithiasis. HIDA scan done is positive, cystic duct is occluded consistent with acute cholecystitis. ASSESSMENT: 1. Chronic kidney disease, stage III, currently stable. BUN and creatinine are at baseline levels. 2. Acute cholecystitis. The patient is en route to have his gallbladder removed by Dr. March. 3. Leukocytosis secondary to cholecystitis. 4. History of anemia, impart secondary to chronic kidney disease. Perhaps impart secondary to acute cholecystitis. We will check iron levels. The patient may be started on Aranesp postsurgery. 5. History of non-insulin dependent diabetes mellitus. Glucose control has been acceptable on sliding scale insulin. 6. Proteinuria, likely secondary to diabetic nephropathy. Postsurgery can check 24-hour urine for creatinine clearance and protein to get the most accurate assessment of his kidney function. 7. History of hypertension. Blood pressure control is acceptable on current medical therapy. Perhaps addition of an BOBBY inhibitor or angiotensin receptor paige for blood pressure control and to stabilize his renal parameters in the setting of known diabetes. PLAN: 1. Continue IV fluid hydration. 2. Obtain a list of home blood pressure medication. 3. Continue antibiotics for acute cholecystitis, dose antibiotics to chronic kidney disease stage III. 4. Check hemoglobin A1c levels. 5. Check iron saturations and ferritin level and start the patient on Aranesp if hemoglobin is less than 10 postoperatively. 6. Close renal followup in the postoperative period. Yohan Mccarthy MD
[2017-06-08] MEDS ORDERED: HYDROmorphone 0.5 mg/0.5 ml ISec IVP PRN (20:39)
[2017-06-08] MEDS ORDERED: Lactated Ringer's 1,000 ML IV SCH ×2 (20:45→21:48)
--- NOTE | 2017-06-08 22:02 | CP.PCM.CON ---
Addendum entered and electronically signed by Vinod Ponce DO 06/09/17 03:47: CC:RUQ Abdominal Pain Addendum entered and electronically signed by Vinod Ponce DO 06/09/17 03:45: Medications: Acetaminophen, Norvasc, Colace, Heparin, Hydralazine, Hydromorphone , Insulin Human, Levalbuterol, Metoprolol, Zofran, Pantoprazole Original Note: <Vinod Ponce - Last Filed: 06/09/17 03:45> History of Present Illness - History of Present Illness History of Present Illness: Vinod Ponce DO PGY1 ICU Consult Note Reason for Consult: Status Post Laproscopic Cholecystecomy converted to open CC: RLQ Abdominal Pain HPI: 56 year old male with PMH of Non obstructing CAD with known low ejection fraction (35-40), HTN, DM, HLD, was brought in to the hospital complaining of right upper quadrant abdominal pain with several episodes of nausea and vomiting. He denied any bile or blood in the vomit. He stated the pain radiated to the back and worse with exertion. The pain did not change with eating and the last thing he drank was iced tea. He reported subjective fevers and chills and had a fever in the ED. He denied any SOB, chest pain, dizziness, cough, or diarrhea. CT scan of the abdomen and pelvis was obtained which showed non specific perinephric inflammation. HIDA scan was done which showed acute cholecystitis. He was taken in for a laproscopic cholecysectomy which had to be converted to open due to gangrenous appearing gallbladder. PMHx: Non obstructing CAD with known low ejection fraction (35-40), HTN, DM, HLD , obesity PSHx: Denies Family Hx: Mother - CVA () Social Hx: Denies Tobacco, Denies ETOH, Denies any illicit drug use Allergies: NKDA Medications: Review of Systems - Constitutional Constitutional: absent: Chills, Headache - EENT Eyes: absent: Change in Vision - Cardiovascular Cardiovascular: absent: Chest Pain, Chest Pain at Rest, Dyspnea - Respiratory Respiratory: absent: Cough, Dyspnea - Gastrointestinal Gastrointestinal: Abdominal Pain - Neurological Neurological: absent: Dizziness, Numbness, Tingling Past Patient History - Infectious Disease Hx of Infectious Diseases: None - Tetanus Immunizations Tetanus Immunization: Unknown - Past Medical History & Family History Past Family History: Reviewed and not pertinent - Past Social History Smoking Status: Never Smoked Alcohol: None Drugs: Denies - CARDIAC Hx Cardiac Disorders: Yes Hx Hypertension: Yes Hx Pacemaker: No - PULMONARY Hx Respiratory Disorders: No - NEUROLOGICAL Hx Neurological Disorder: No - HEENT Hx HEENT Problems: No - RENAL Hx Chronic Kidney Disease: No - ENDOCRINE/METABOLIC Hx Endocrine Disorders: Yes Hx Diabetes Mellitus Type 2: Yes (10 years on po meds) - HEMATOLOGICAL/ONCOLOGICAL Hx Blood Transfusions: No Hx Blood Transfusion Reaction: No - INTEGUMENTARY Hx Dermatological Problems: No - MUSCULOSKELETAL/RHEUMATOLOGICAL Hx Falls: No - GASTROINTESTINAL Hx Gastrointestinal Disorders: No - GENITOURINARY/GYNECOLOGICAL Hx Genitourinary Disorders: No - PSYCHIATRIC Hx Psychophysiologic Disorder: No Hx Substance Use: No - SURGICAL HISTORY Hx Surgeries: No - ANESTHESIA Hx Anesthesia Reactions: No Hx Malignant Hyperthermia: No Meds Allergies/Adverse Reactions: Allergies Allergy/AdvReac Type Severity Reaction Status Date / Time No Known Allergies Allergy Verified 06/06/17 09:52 - Medications Medications: Current Medications Acetaminophen (Tylenol 325mg Tab) 650 mg PO Q6H PRN PRN Reason: Fever >100.4 F Last Admin: 06/07/17 23:21 Dose: 650 mg Amlodipine Besylate (Norvasc) 10 mg PO DAILY [facility] Last Admin: 06/08/17 10:15 Dose: 10 mg Heparin Sodium (Porcine) (Heparin) 5,000 units SC Q12 [facility] PRN Reason: Protocol Hydralazine HCl (Apresoline) 10 mg PO QID PRN PRN Reason: For SBP>170 Hydralazine HCl (Apresoline) 25 mg PO BID [facility] Last Admin: 06/08/17 19:30 Dose: Not Given Hydralazine HCl (Apresoline) 10 mg IVP Q6 PRN PRN Reason: Systolic Blood Pressure Hydromorphone HCl (Dilaudid) 1 mg IVP Q3H PRN PRN Reason: Pain, moderate (4-7) Hydromorphone HCl (Dilaudid) 2 mg IVP Q4H PRN PRN Reason: Pain, severe (8-10) Piperacillin Sod/Tazobactam Sod (Zosyn 3.375 In Ns 100ml) 100 mls @ 200 mls/hr IVPB Q6 [facility] PRN Reason: Protocol Stop: 06/15/17 00:01 Last Admin: 06/08/17 19:30 Dose: Not Given Lactated Ringer's (Lactated Ringer's) 1,000 mls @ 75 mls/hr IV .[id number] [facility] Stop: 06/08/17 22:46 Insulin Human Regular (Humulin R High) 0 units SC ACHS [facility] PRN Reason: Protocol Last Admin: 06/08/17 18:24 Dose: Not Given Levalbuterol HCl (Xopenex) 1.25 mg IH [id number] [facility] Last Admin: 06/08/17 19:40 Dose: Not Given Metoprolol Tartrate (Lopressor) 50 mg PO BID [facility] Last Admin: 06/08/17 19:30 Dose: Not Given Ondansetron HCl (Zofran Inj) 4 mg IVP Q6H PRN PRN Reason: Nausea/Vomiting Pantoprazole Sodium (Protonix Inj) 40 mg IVP DAILY [facility] Last Admin: 06/08/17 10:15 Dose: 40 mg Physical Exam - Constitutional Appears: No Acute Distress - Head Exam Head Exam: ATRAUMATIC, NORMAL INSPECTION, NORMOCEPHALIC - Eye Exam Eye Exam: Normal appearance, PERRL - ENT Exam ENT Exam: Mucous Membranes Moist - Neck Exam Neck exam: Negative for: Lymphadenopathy - Respiratory Exam Respiratory Exam: Clear to Auscultation Bilateral, NORMAL BREATHING PATTERN - Cardiovascular Exam Cardiovascular Exam: REGULAR RHYTHM, +S1, +S2 - Back Exam Back exam: NORMAL INSPECTION - Neurological Exam Neurological exam: Alert, Oriented x3 - Psychiatric Exam Psychiatric exam: Normal Affect Results - Vital Signs Recent Vital Signs: Last Vital Signs Temp 98.2 F 06/08/17 21:15 Pulse 79 06/08/17 21:15 Resp 18 06/08/17 21:15 BP 126/74 06/08/17 21:15 Pulse Ox 97 06/08/17 21:15 - Labs Result Diagrams: 06/08/17 22:06 06/08/17 22:06 Labs: Laboratory Results - last 24 hr 06/07/17 06/07/17 06/07/17 16:26 21:16 22:49 PT INR APTT POC Glucose (mg/dL) 239 H 195 H Hemoglobin A1c Ur Random Creatinine 78 U Random Total Protein 349 Blood Type Antibody Screen BBK History Checked 06/08/17 06/08/17 06/08/17 05:50 07:29 11:20 PT INR APTT POC Glucose (mg/dL) 219 H Hemoglobin A1c 6.8 H Ur Random Creatinine U Random Total Protein Blood Type O NEGATIVE Antibody Screen Negative BBK History Checked Patient has bt 06/08/17 06/08/17 11:20 11:55 PT 12.4 H INR 1.15 H APTT 35.9 H POC Glucose (mg/dL) 237 H Hemoglobin A1c Ur Random Creatinine U Random Total Protein Blood Type Antibody Screen BBK History Checked Assessment & Plan - Assessment and Plan (Free Text) Assessment: HPI: 56 year old male with PMH of Non obstructing CAD with known low ejection fraction (35-40), HTN, DM, HLD, was brought in to the hospital complaining of right upper quadrant abdominal pain with several episodes of nausea and vomiting. He denied any bile or blood in the vomit. He stated the pain radiated to the back and worse with exertion. T scan of the abdomen and pelvis was obtained which showed non specific perinephric inflammation. HIDA scan was done which showed acute cholecystitis. He was taken in for a laproscopic cholecysectomy which had to be converted to open due to gangrenous appearing gallbladder. Patient transferred to the ICU for observation overnight, continue to observe. Plan: Neuro: - Patient AAOx3, speaking coherently and able to understand plan - Continue to monitor CV: - Non obstructing CAD with known low ejection fraction (35-40), HTN, HLD, - Cath done in 2013 - Current BP 126/74, P is 79, continue to monitor - Continue Hydralazine 25 - Continue Hydralzaine 10 PRN if BP> 180 - Continue Metropolol Pulm: - Lungs CLTA BL, SA02 97%, no SOB - Continue Xopenex - incentive spirometer given GI: - Patient status post open cholecystectomy - complaining of slight abdominal pain in area of surgery, continue to monitor - patient is NPO Renal: - SYLVESTER- monitor - Bun 30, Cr 2.5, Continue to monitor - Patient on LR @125 - Baltazar will be inserted is patient does not urinate past midnight - Strict I&O - Monitor kidney function with daily labs and UO - Nepho on Consult Endo: - Patient has history of DM; oral hypoglycemics held - Current Blood Sugar is 203, Current A1C is 6.8 - Patient is on Insulin Human Sliding Scale High - Accucheck AHS ID: - Patient with leukocystosis, WBC 17.9, but currently afebrile likey post surgical/ or reactive, continue to monitor - Tmax 98.2 - Patient on Zosyn - Body fluid culture ordered - Recheck with AM labs - ID (Balbir) on consult Hem/Onc: - Hb is 9.4, continue to monitor - No active bleeding apparent - Recheck with AM labs GI/DVT Ppx - Patient on Heparin for DVT prophylaxis - Patient on pantoprazole for GI prophylaxis Patient seen, discussed, and reviewed with attending <Luiz Mcdonough Q - Last Filed: 06/09/17 06:01> Meds - Medications Medications: Current Medications Acetaminophen (Tylenol 325mg Tab) 650 mg PO Q6H PRN PRN Reason: Fever >100.4 F Last Admin: 06/07/17 23:21 Dose: 650 mg Amlodipine Besylate (Norvasc) 10 mg PO DAILY [facility] Last Admin: 06/08/17 10:15 Dose: 10 mg Docusate Sodium (Colace) 100 mg PO BID [facility] Heparin Sodium (Porcine) (Heparin) 5,000 units SC Q12 [facility] PRN Reason: Protocol Hydralazine HCl (Apresoline) 10 mg PO QID PRN PRN Reason: For SBP>170 Hydralazine HCl (Apresoline) 25 mg PO BID [facility] Last Admin: 06/08/17 19:30 Dose: Not Given Hydralazine HCl (Apresoline) 10 mg IVP Q6 PRN PRN Reason: Systolic Blood Pressure Hydromorphone HCl (Dilaudid) 1 mg IVP Q3H PRN PRN Reason: Pain, moderate (4-7) Last Admin: 06/09/17 00:38 Dose: 1 mg Hydromorphone HCl (Dilaudid) 2 mg IVP Q4H PRN PRN Reason: Pain, severe (8-10) Piperacillin Sod/Tazobactam Sod (Zosyn 3.375 In Ns 100ml) 100 mls @ 200 mls/hr IVPB Q6 [facility] PRN Reason: Protocol Stop: 06/15/17 00:01 Last Admin: 06/09/17 05:40 Dose: 200 mls/hr Lactated Ringer's (Lactated Ringer's) 1,000 mls @ 100 mls/hr IV .Q10H [facility] Last Admin: 06/09/17 00:38 Dose: 100 mls/hr Insulin Human Regular (Humulin R High) 0 units SC ACHS [facility] PRN Reason: Protocol Last Admin: 06/09/17 00:53 Dose: Not Given Levalbuterol HCl (Xopenex) 1.25 mg IH [id number] [facility] Last Admin: 06/09/17 02:04 Dose: 1.25 mg Metoprolol Tartrate (Lopressor) 50 mg PO BID [facility] Last Admin: 06/08/17 19:30 Dose: Not Given Ondansetron HCl (Zofran Inj) 4 mg IVP Q6H PRN PRN Reason: Nausea/Vomiting Pantoprazole Sodium (Protonix Inj) 40 mg IVP DAILY [facility] Last Admin: 06/08/17 10:15 Dose: 40 mg Results - Vital Signs Recent Vital Signs: Last Vital Signs Temp 98.2 F 06/08/17 21:15 Pulse 79 06/08/17 21:15 Resp 18 06/08/17 21:15 BP 126/74 06/08/17 21:15 Pulse Ox 97 06/08/17 21:15 - Labs Result Diagrams: 06/08/17 22:06 06/08/17 22:06 Labs: Laboratory Results - last 24 hr 06/07/17 06/07/17 06/08/17 16:26 21:16 05:50 WBC RBC Hgb Hct MCV MCH MCHC RDW Plt Count MPV Gran % Lymph % (Auto) [place] % (Auto) Eos % (Auto) Baso % (Auto) Gran # Lymph # [place] # Eos # Baso # PT INR APTT Sodium Potassium Chloride Carbon Dioxide Anion Gap BUN Creatinine Est GFR ( Amer) Est GFR (Non-Af Amer) POC Glucose (mg/dL) 239 H 195 H Random Glucose Hemoglobin A1c 6.8 H Calcium Total Bilirubin AST ALT Alkaline Phosphatase Total Protein Albumin Globulin Albumin/Globulin Ratio Blood Type Antibody Screen BBK History Checked 06/08/17 06/08/17 06/08/17 07:29 11:20 11:20 WBC RBC Hgb Hct MCV MCH MCHC RDW Plt Count MPV Gran % Lymph % (Auto) [place] % (Auto) Eos % (Auto) Baso % (Auto) Gran # Lymph # [place] # Eos # Baso # PT 12.4 H INR 1.15 H APTT 35.9 H Sodium Potassium Chloride Carbon Dioxide Anion Gap BUN Creatinine Est GFR ( Amer) Est GFR (Non-Af Amer) POC Glucose (mg/dL) 219 H Random Glucose Hemoglobin A1c Calcium Total Bilirubin AST ALT Alkaline Phosphatase Total Protein Albumin Globulin Albumin/Globulin Ratio Blood Type O NEGATIVE Antibody Screen Negative BBK History Checked Patient has bt 06/08/17 06/08/17 06/08/17 11:55 22:06 22:06 WBC 17.9 H D RBC 2.91 L Hgb 8.4 L Hct 25.3 L MCV 86.9 MCH 28.9 MCHC 33.2 RDW 13.4 Plt Count 186 MPV 8.9 Gran % 79.2 H Lymph % (Auto) 10.2 L [place] % (Auto) 10.3 H Eos % (Auto) 0.2 L Baso % (Auto) 0.1 Gran # 14.17 H Lymph # 1.8 [place] # 1.9 H Eos # 0.0 Baso # 0.02 PT INR APTT Sodium 138 Potassium 4.5 Chloride 104 Carbon Dioxide 23 Anion Gap 16 BUN 30 H Creatinine 2.5 H Est GFR ( Amer) 32 Est GFR (Non-Af Amer) 27 POC Glucose (mg/dL) 237 H Random Glucose 203 H Hemoglobin A1c Calcium 8.2 L Total Bilirubin 1.1 AST 64 H D ALT 51 Alkaline Phosphatase 95 Total Protein 6.4 Albumin 3.1 Globulin 3.3 Albumin/Globulin Ratio 0.9 L Blood Type Antibody Screen BBK History Checked 06/08/17 23:13 WBC RBC Hgb Hct MCV MCH MCHC RDW Plt Count MPV Gran % Lymph % (Auto) [place] % (Auto) Eos % (Auto) Baso % (Auto) Gran # Lymph # [place] # Eos # Baso # PT INR APTT Sodium Potassium Chloride Carbon Dioxide Anion Gap BUN Creatinine Est GFR ( Amer) Est GFR (Non-Af Amer) POC Glucose (mg/dL) 241 H Random Glucose Hemoglobin A1c Calcium Total Bilirubin AST ALT Alkaline Phosphatase Total Protein Albumin Globulin Albumin/Globulin Ratio Blood Type Antibody Screen BBK History Checked Attending/Attestation - Attestation I have personally seen and examined this patient.: Yes I have fully participated in the care of the patient.: Yes I have reviewed all pertinent clinical information: Yes Notes (Text): 06/09/17 05:58 Agree with the above with the following addition/exceptions: 56 y/o male with a PMHx Htn, DM, CAD, CHF (last eF measured at 35%) was admitted to the hospital with abdominal pain. Patient had a HIDA scan showing acute boris. Patient taken to the OR and it appears was converted from lap boris to open due to a necrotic appearing gallbladder. Patient was seen initially in PACU doing well, hemodynamically stable and offering complaints of mild surgical sight pain. Patient has done well overnight in the ICU without any acute changes.
[2017-06-08 22:09] LABS: BASO # 0.02 K/mm3 (0.0-2.0); BASO % 0.1 % (0.0-3.0); EOS % 0.2 % (1.5-5.0); GRAN # 14.17 (1.4-6.5); GRAN % 79.2 % (50.0-68.0); HEMATOCRIT 25.3 % (42.0-52.0); LYMPH # 1.8 (1.2-3.4); LYMPH % 10.2 % (22.0-35.0); MEAN CELL VOLUME 86.9 fl (80.0-105.0); MEAN CORPUSCULAR HEMOGLOBIN 28.9 pg (25.0-35.0); MEAN CORPUSCULAR HGB CONC 33.2 g/dl (31.0-37.0); MEAN PLATELET VOLUME 8.9 fl (7.0-11.0); MONO # 1.9 (0.1-0.6); MONO % 10.3 % (1.0-6.0); RED CELL DISTRIBUTION WIDTH 13.4 % (11.5-14.5); WHITE BLOOD COUNT 17.9 10^3/ul (4.5-11.0)
[2017-06-08 22:19] LABS: ALB/GLOB RATIO 0.9 (1.1-1.8); BILIRUBIN,TOTAL 1.1 mg/dL (0.2-1.3); CALCIUM 8.2 mg/dL (8.4-10.5); POTASSIUM 4.5 mmol/L (3.6-5.0); TOTAL PROTEIN 6.4 g/dL (5.8-8.3)
--- NOTE | 2017-06-08 22:48 | PCM.SURG1 ---
Surgeon's Initial Post Op Note - Surgeon's Notes Surgeon: Leti Verification Lead: Katiana PGY3 Type of Anesthesia: General Endo, Local Pre-Operative Diagnosis: Cholecystitis Operative Findings: chronically inflamed gangrenous cholecystitis Post-Operative Diagnosis: acute on chronic cholecystitis Operation Performed: laparoscopic converted to open cholecystectomy Specimen/Specimens Removed: gallbladder Estimated Blood Loss: EBL {In ML}: 25 Blood Products Given: N/A Drains Used: No Drains Post-Op Condition: Good Date of Surgery/Procedure: 06/08/17 Time of Surgery/Procedure: 22:00
[2017-06-09] MEDS ORDERED: Lactated Ringer's 1,000 ML IV SCH ×2 (00:15→10:55)
[2017-06-09] MEDS: HYDROmorphone 1 mg/ml ISec IVP PRN ×4 (00:38→15:03)
[2017-06-09] MEDS: Piperacillin/Tazobact 3.375 gm 100 ML IVPB SCH ×4 (00:50→17:24)
[2017-06-09] MEDS: Insulin Reg-HIGH-Coverage SC SCH ×5 (00:53→22:50)
[2017-06-09] MEDS: Levalbuterol 1.25 MG/3 ML Inhal Soln UD IH SCH ×4 (02:04→19:30)
--- NOTE | 2017-06-09 05:45 | OP ---
PROCEDURE DATE: 06/08/2017 PREOPERATIVE DIAGNOSIS: Acute cholecystitis, cholelithiasis. POSTOPERATIVE DIAGNOSIS: Gangrenous cholecystitis. PROCEDURE PERFORMED: Laparoscopic converted to open cholecystectomy. SURGEON: Will March MD. MEDICAL SCIENCE LIAISON: Dr. Peacock. TYPE OF ANESTHESIA: General endotracheal anesthesia. ANESTHESIA ADMINISTERED BY: Dr. Bell and Dr. Sweeney. SPECIMEN: Gallbladder and gallstones. INDICATIONS: The patient is a 56-year-old morbidly obese male, who came into the hospital with nausea, vomiting, and acute cholecystitis. The patient had a HIDA scan showing nonvisualization of the gallbladder and was brought in for laparoscopic cholecystectomy. DESCRIPTION OF PROCEDURE: The patient was brought to the operating room, placed on the operative table in supine position. The patient was connected to the EKG, blood pressure, and pulse oximetry monitors. The patient then underwent general endotracheal anesthesia and was prepped and draped in the usual sterile fashion. First, a standard time-out procedure took place and everybody in the room agreed as to the patient's identity, diagnoses, and procedure to be performed. Using 2 towel clips, the anterior abdominal wall was elevated and Veress needle was inserted through the small incision superior to the umbilicus. Once pneumoperitoneum was obtained, a 12 mm trocar was inserted through the incision and careful evaluation of the abdominal cavity revealed the presence of adhesions of the omentum to the liver and over the gallbladder dome. The gallbladder dome appeared to have patches of necrosis. I then proceeded placing a second 5-mm trocar in the subxiphoid position and proceeded with careful dissection. The adhesion of the omentum to the dome of the gallbladder were carefully taken down. The gallbladder appears to be very friable. There was multiple areas of patchy necrosis of the wall. I then proceeded further dissecting towards the infundibulum; however, due to the anatomical constriction as well as the patient's severe obesity, I was unable to visualize the area of the cystic duct and therefore, proceeded with the opening of the case. A subcostal incision was now carried through and directly opened over the gallbladder dome. The gallbladder was taken off the liver bed by dissecting it from the top of the gallbladder, and carefully dissecting down towards the cystic duct. The cystic artery was identified, clipped and transected and the cystic duct was also identified and clipped and transected. The area was copiously irrigated and all irrigant fluid was suctioned out. There was excellent hemostasis. I then proceeded with closure of all the wounds using #1 PDS over the fascia, 3-0 Vicryl over the subcutaneous tissue and surgical tape sterile Dermabond dressing was applied. The patient tolerated the procedure well, and there were no complications. The patient was awakened and transferred to the recovery room for further observation. Will March MD
--- NOTE | 2017-06-09 07:21 | CP.CCUPN ---
<Subha Cabello - Last Filed: 06/09/17 12:24> CCU Subjective - Physician Review Subjective (Free Text): 06/09/17 12:24 Patient seen and examined at bedside. POD#1 lap converted to open boris due to chronically inflamed gangrenous cholecystitis. Nursing reports no acute events overnight. Patient has been tolerating liquid diet. Reports RUQ abdominal pain is present when coughing and movement but it is well controlled with pain medications. Patient has not urinated well and has had to strain to urinate. 250cc UO overnight as per nursing. Patient has not had a BM yet and has not passed flatus. Denies fever, chills, chest pain, palpitations, SOB, cough, nausea, vomiting, pain/swelling in his legs bilaterally. Patient is OOB to chair and using spirometer. Dressings clean/dry/intact. CCU Objective - Vital Signs / Intake & Output Vital Signs (Last 4 hours): Vital Signs Pulse 06/09/17 06:00 81 Intake and Output (Last 8hrs): Intake & Output 06/08/17 06/09/17 06/09/17 22:59 06:59 14:59 Intake Total 1200 Output Total 250 Balance 950 Intake: IV 1200 Left Hand 1200 Output: Urine 250 Urine, Voided 250 Other: # Voids Urine, Voided 1 - Physical Exam Head: Positive for: Atraumatic, Normocephalic Pupils: Positive for: PERRL Extroacular Muscles: Positive for: EOMI Conjunctiva: Positive for: Normal. Negative for: Injected, Icteric Mouth: Positive for: Moist Mucous Membranes Neck: Positive for: Normal Range of Motion, Trachea Midline. Negative for: MIDLINE TENDERNESS Respiratory/Chest: Positive for: Clear to Auscultation, Good Air Exchange. Negative for: Respiratory Distress, Accessory Muscle Use, Wheezes, Rales, Rhonchi Cardiovascular: Positive for: Regular Rate and Rhythm, Normal S1, S2. Negative for: Murmurs, Tachycardic, Bradycardic Abdomen: Positive for: Tenderness (mild to palpation RUQ), Normal Bowel Sounds, Other (dressings c/d/i). Negative for: Peritoneal Signs, Guarding Upper Extremity: Positive for: Normal Inspection Lower Extremity: Positive for: Normal Inspection Neurological: Positive for: GCS=15, CN II-XII Intact, Speech Normal Skin: Positive for: Warm, Dry, Normal Color. Negative for: Rashes Psychiatric: Positive for: Alert, Oriented x 3, Normal Insight, Normal Concentration, Normal Affect, Normal Mood - Medications Active Medications: Active Medications Generic Name Dose Route Start Last Admin Trade Name Freq PRN Reason Stop Dose Admin Acetaminophen 650 mg 06/06/17 14:27 06/07/17 23:21 Tylenol 325mg Tab PO 650 mg Q6H PRN Administration Fever >100.4 F Amlodipine Besylate 10 mg 06/07/17 10:00 06/08/17 10:15 Norvasc PO 10 mg DAILY JOSÉ MIGUEL Administration Docusate Sodium 100 mg 06/09/17 10:00 Colace PO BID JOSÉ MIGUEL Heparin Sodium (Porcine) 5,000 units 06/09/17 22:00 Heparin SC Q12 [facility] Protocol Hydralazine HCl 10 mg 06/08/17 09:40 Apresoline PO QID PRN For SBP>170 Hydralazine HCl 25 mg 06/08/17 10:00 06/08/17 19:30 Apresoline PO Not Given BID JOSÉ MIGUEL Hydralazine HCl 10 mg 06/08/17 21:18 Apresoline IVP Q6 PRN Systolic Blood Pressure Hydromorphone HCl 1 mg 06/08/17 21:16 06/09/17 06:21 Dilaudid IVP 1 mg Q3H PRN Administration Pain, moderate (4-7) Hydromorphone HCl 2 mg 06/08/17 21:17 Dilaudid IVP Q4H PRN Pain, severe (8-10) Piperacillin Sod/Tazobactam Sod 100 mls @ 200 mls/hr 06/08/17 00:00 06/09/17 05:40 Zosyn 3.375 In Ns 100ml IVPB 06/15/17 00:01 200 mls/hr Q6 JOSÉ MIGUEL Administration Protocol Lactated Ringer's 1,000 mls @ 100 mls/hr 06/09/17 00:15 06/09/17 00:38 Lactated Ringer's IV 100 mls/hr .Q10H JOSÉ MIGUEL Administration Insulin Human Regular 0 units 06/06/17 16:30 06/09/17 00:53 Humulin R High SC Not Given ACHS [facility] Protocol Levalbuterol HCl 1.25 mg 06/06/17 20:00 06/09/17 02:04 Xopenex IH 1.25 mg [id number] JOSÉ MIGUEL Administration Metoprolol Tartrate 50 mg 06/08/17 10:00 06/08/17 19:30 Lopressor PO Not Given BID JOSÉ MIGUEL Ondansetron HCl 4 mg 06/06/17 14:27 Zofran Inj IVP Q6H PRN Nausea/Vomiting Pantoprazole Sodium 40 mg 06/06/17 14:30 06/08/17 10:15 Protonix Inj IVP 40 mg DAILY JOSÉ MIGUEL Administration - Patient Studies Lab Studies: Lab Studies 06/08/17 06/08/17 06/08/17 Range/Units 23:13 22:06 22:06 WBC 17.9 H D (4.5-11.0) 10^3/ul RBC 2.91 L (3.5-6.1) 10^6/uL Hgb 8.4 L (14.0-18.0) g/dL Hct 25.3 L (42.0-52.0) % MCV 86.9 (80.0-105.0) fl MCH 28.9 (25.0-35.0) pg MCHC 33.2 (31.0-37.0) g/dl RDW 13.4 (11.5-14.5) % Plt Count 186 (120.0-450.0) 10^3/uL MPV 8.9 (7.0-11.0) fl Gran % 79.2 H (50.0-68.0) % Lymph % (Auto) 10.2 L (22.0-35.0) % Daggett % (Auto) 10.3 H (1.0-6.0) % Eos % (Auto) 0.2 L (1.5-5.0) % Baso % (Auto) 0.1 (0.0-3.0) % Gran # 14.17 H (1.4-6.5) Lymph # 1.8 (1.2-3.4) Daggett # 1.9 H (0.1-0.6) Eos # 0.0 (0.0-0.7) Baso # 0.02 (0.0-2.0) K/mm3 PT (9.9-11.8) Seconds INR (0.93-1.08) APTT (23.7-30.8) Seconds Sodium 138 (132-148) mmol/L Potassium 4.5 (3.6-5.0) mmol/L Chloride 104 (98-107) mmol/L Carbon Dioxide 23 (21-33) mmol/L Anion Gap 16 (10-20) BUN 30 H (7-21) mg/dL Creatinine 2.5 H (0.5-1.4) mg/dL Est GFR ( Amer) 32 Est GFR (Non-Af Amer) 27 POC Glucose (mg/dL) 241 H (65-110) mg/dL Random Glucose 203 H (70-110) mg/dL Hemoglobin A1c (4.2-6.5) % Calcium 8.2 L (8.4-10.5) mg/dL Total Bilirubin 1.1 (0.2-1.3) mg/dL AST 64 H D (17-59) U/L ALT 51 (7-56) U/L Alkaline Phosphatase 95 (38-126) U/L Total Protein 6.4 (5.8-8.3) g/dL Albumin 3.1 (3.0-4.8) g/dL Globulin 3.3 gm/dL Albumin/Globulin Ratio 0.9 L (1.1-1.8) Blood Type Antibody Screen BBK History Checked 06/08/17 06/08/17 06/08/17 Range/Units 11:55 11:20 11:20 WBC (4.5-11.0) 10^3/ul RBC (3.5-6.1) 10^6/uL Hgb (14.0-18.0) g/dL Hct (42.0-52.0) % MCV (80.0-105.0) fl MCH (25.0-35.0) pg MCHC (31.0-37.0) g/dl RDW (11.5-14.5) % Plt Count (120.0-450.0) 10^3/uL MPV (7.0-11.0) fl Gran % (50.0-68.0) % Lymph % (Auto) (22.0-35.0) % Daggett % (Auto) (1.0-6.0) % Eos % (Auto) (1.5-5.0) % Baso % (Auto) (0.0-3.0) % Gran # (1.4-6.5) Lymph # (1.2-3.4) Daggett # (0.1-0.6) Eos # (0.0-0.7) Baso # (0.0-2.0) K/mm3 PT 12.4 H (9.9-11.8) Seconds INR 1.15 H (0.93-1.08) APTT 35.9 H (23.7-30.8) Seconds Sodium (132-148) mmol/L Potassium (3.6-5.0) mmol/L Chloride (98-107) mmol/L Carbon Dioxide (21-33) mmol/L Anion Gap (10-20) BUN (7-21) mg/dL Creatinine (0.5-1.4) mg/dL Est GFR ( Amer) Est GFR (Non-Af Amer) POC Glucose (mg/dL) 237 H (65-110) mg/dL Random Glucose (70-110) mg/dL Hemoglobin A1c (4.2-6.5) % Calcium (8.4-10.5) mg/dL Total Bilirubin (0.2-1.3) mg/dL AST (17-59) U/L ALT (7-56) U/L Alkaline Phosphatase (38-126) U/L Total Protein (5.8-8.3) g/dL Albumin (3.0-4.8) g/dL Globulin gm/dL Albumin/Globulin Ratio (1.1-1.8) Blood Type O NEGATIVE Antibody Screen Negative BBK History Checked Patient has bt 06/08/17 06/08/17 06/07/17 Range/Units 07:29 05:50 21:16 WBC (4.5-11.0) 10^3/ul RBC (3.5-6.1) 10^6/uL Hgb (14.0-18.0) g/dL Hct (42.0-52.0) % MCV (80.0-105.0) fl MCH (25.0-35.0) pg MCHC (31.0-37.0) g/dl RDW (11.5-14.5) % Plt Count (120.0-450.0) 10^3/uL MPV (7.0-11.0) fl Gran % (50.0-68.0) % Lymph % (Auto) (22.0-35.0) % Daggett % (Auto) (1.0-6.0) % Eos % (Auto) (1.5-5.0) % Baso % (Auto) (0.0-3.0) % Gran # (1.4-6.5) Lymph # (1.2-3.4) Daggett # (0.1-0.6) Eos # (0.0-0.7) Baso # (0.0-2.0) K/mm3 PT (9.9-11.8) Seconds INR (0.93-1.08) APTT (23.7-30.8) Seconds Sodium (132-148) mmol/L Potassium (3.6-5.0) mmol/L Chloride (98-107) mmol/L Carbon Dioxide (21-33) mmol/L Anion Gap (10-20) BUN (7-21) mg/dL Creatinine (0.5-1.4) mg/dL Est GFR ( Amer) Est GFR (Non-Af Amer) POC Glucose (mg/dL) 219 H 195 H (65-110) mg/dL Random Glucose (70-110) mg/dL Hemoglobin A1c 6.8 H (4.2-6.5) % Calcium (8.4-10.5) mg/dL Total Bilirubin (0.2-1.3) mg/dL AST (17-59) U/L ALT (7-56) U/L Alkaline Phosphatase (38-126) U/L Total Protein (5.8-8.3) g/dL Albumin (3.0-4.8) g/dL Globulin gm/dL Albumin/Globulin Ratio (1.1-1.8) Blood Type Antibody Screen BBK History Checked 06/07/17 Range/Units 16:26 WBC (4.5-11.0) 10^3/ul RBC (3.5-6.1) 10^6/uL Hgb (14.0-18.0) g/dL Hct (42.0-52.0) % MCV (80.0-105.0) fl MCH (25.0-35.0) pg MCHC (31.0-37.0) g/dl RDW (11.5-14.5) % Plt Count (120.0-450.0) 10^3/uL MPV (7.0-11.0) fl Gran % (50.0-68.0) % Lymph % (Auto) (22.0-35.0) % Daggett % (Auto) (1.0-6.0) % Eos % (Auto) (1.5-5.0) % Baso % (Auto) (0.0-3.0) % Gran # (1.4-6.5) Lymph # (1.2-3.4) Daggett # (0.1-0.6) Eos # (0.0-0.7) Baso # (0.0-2.0) K/mm3 PT (9.9-11.8) Seconds INR (0.93-1.08) APTT (23.7-30.8) Seconds Sodium (132-148) mmol/L Potassium (3.6-5.0) mmol/L Chloride (98-107) mmol/L Carbon Dioxide (21-33) mmol/L Anion Gap (10-20) BUN (7-21) mg/dL Creatinine (0.5-1.4) mg/dL Est GFR ( Amer) Est GFR (Non-Af Amer) POC Glucose (mg/dL) 239 H (65-110) mg/dL Random Glucose (70-110) mg/dL Hemoglobin A1c (4.2-6.5) % Calcium (8.4-10.5) mg/dL Total Bilirubin (0.2-1.3) mg/dL AST (17-59) U/L ALT (7-56) U/L Alkaline Phosphatase (38-126) U/L Total Protein (5.8-8.3) g/dL Albumin (3.0-4.8) g/dL Globulin gm/dL Albumin/Globulin Ratio (1.1-1.8) Blood Type Antibody Screen BBK History Checked Laboratory Results - last 24 hr 06/07/17 06/07/17 06/08/17 16:26 21:16 05:50 WBC RBC Hgb Hct MCV MCH MCHC RDW Plt Count MPV Gran % Lymph % (Auto) Daggett % (Auto) Eos % (Auto) Baso % (Auto) Gran # Lymph # Daggett # Eos # Baso # PT INR APTT Sodium Potassium Chloride Carbon Dioxide Anion Gap BUN Creatinine Est GFR ( Amer) Est GFR (Non-Af Amer) POC Glucose (mg/dL) 239 H 195 H Random Glucose Hemoglobin A1c 6.8 H Calcium Total Bilirubin AST ALT Alkaline Phosphatase Total Protein Albumin Globulin Albumin/Globulin Ratio Blood Type Antibody Screen BBK History Checked 06/08/17 06/08/17 06/08/17 07:29 11:20 11:20 WBC RBC Hgb Hct MCV MCH MCHC RDW Plt Count MPV Gran % Lymph % (Auto) Daggett % (Auto) Eos % (Auto) Baso % (Auto) Gran # Lymph # Daggett # Eos # Baso # PT 12.4 H INR 1.15 H APTT 35.9 H Sodium Potassium Chloride Carbon Dioxide Anion Gap BUN Creatinine Est GFR ( Amer) Est GFR (Non-Af Amer) POC Glucose (mg/dL) 219 H Random Glucose Hemoglobin A1c Calcium Total Bilirubin AST ALT Alkaline Phosphatase Total Protein Albumin Globulin Albumin/Globulin Ratio Blood Type O NEGATIVE Antibody Screen Negative BBK History Checked Patient has bt 06/08/17 06/08/17 06/08/17 11:55 22:06 22:06 WBC 17.9 H D RBC 2.91 L Hgb 8.4 L Hct 25.3 L MCV 86.9 MCH 28.9 MCHC 33.2 RDW 13.4 Plt Count 186 MPV 8.9 Gran % 79.2 H Lymph % (Auto) 10.2 L Daggett % (Auto) 10.3 H Eos % (Auto) 0.2 L Baso % (Auto) 0.1 Gran # 14.17 H Lymph # 1.8 Daggett # 1.9 H Eos # 0.0 Baso # 0.02 PT INR APTT Sodium 138 Potassium 4.5 Chloride 104 Carbon Dioxide 23 Anion Gap 16 BUN 30 H Creatinine 2.5 H Est GFR ( Amer) 32 Est GFR (Non-Af Amer) 27 POC Glucose (mg/dL) 237 H Random Glucose 203 H Hemoglobin A1c Calcium 8.2 L Total Bilirubin 1.1 AST 64 H D ALT 51 Alkaline Phosphatase 95 Total Protein 6.4 Albumin 3.1 Globulin 3.3 Albumin/Globulin Ratio 0.9 L Blood Type Antibody Screen BBK History Checked 06/08/17 23:13 WBC RBC Hgb Hct MCV MCH MCHC RDW Plt Count MPV Gran % Lymph % (Auto) Daggett % (Auto) Eos % (Auto) Baso % (Auto) Gran # Lymph # Daggett # Eos # Baso # PT INR APTT Sodium Potassium Chloride Carbon Dioxide Anion Gap BUN Creatinine Est GFR ( Amer) Est GFR (Non-Af Amer) POC Glucose (mg/dL) 241 H Random Glucose Hemoglobin A1c Calcium Total Bilirubin AST ALT Alkaline Phosphatase Total Protein Albumin Globulin Albumin/Globulin Ratio Blood Type Antibody Screen BBK History Checked Fingerstick Blood Sugar Results: 241 Review of Systems - Constitutional Constitutional: absent: Fever, Chills - EENT Eyes: As Per HPI. absent: Blurred Vision Ears: As Per HPI. absent: Dizziness Nose/Mouth/Throat: As Per HPI. absent: Sore Throat - Cardiovascular Cardiovascular: As Per HPI. absent: Chest Pain, Edema, Palpitations - Respiratory Respiratory: As Per HPI. absent: Dyspnea, Wheezing - Gastrointestinal Gastrointestinal: As Per HPI, Abdominal Pain (slight RUQ abd pain with coughing/ movement ). absent: Diarrhea, Nausea, Vomiting - Genitourinary Genitourinary: As Per HPI, Difficulty Urinating. absent: Dysuria, Hematuria, Pyuria - Musculoskeletal Musculoskeletal: As Par HPI. absent: Numbness, Tingling - Integumentary Integumentary: As Per HPI. absent: Dry Skin, Rash - Neurological Neurological: As Per HPI. absent: Dizziness, Headaches - Psychiatric Psychiatric: As Per HPI. absent: Anxiety, Depression - Endocrine Endocrine: As Per HPI. absent: Polydipsia, Polyphagia, Polyuria - Hematologic/Lymphatic Hematologic: As Per HPI. absent: Easy Bleeding, Easy Bruising, Lymphadenopathy Critical Care Progress Note - Nutrition Nutrition: Nutrition Category Date Time Status Liquid Diet [DIET] Diets 06/09/17 Breakfast Ordered Assessment/Plan - Assessment and Plan (Free Text) Assessment: 56yo M PMHx non obstructing CAD and cardiomyopathy with EF 35-40%, HTN, DM, HLD who presented with RUQ abdominal pain. POD#1 lap converted to open boris due to chronically inflamed gangrenous cholecystitis Plan: Neuro: - No acute issues - AO x 3 Cardio: - Hx of non obstructing CAD and cardiomyopathy with EF 35-40%, HTN, HLD - no acute issues - Norvasc 10mg po daily - Hydralazine 25mg po bid - Lopressor 50mg po bid - Hydralazine 10mg po qid prn SBP >170 - Hydralazine 10mg ivp q6 prn SBP > 180 - Monitor BP - Dr Lilly cardiology on board Pulm: - no acute issues - Xopenex 1.25mg inh q6 - Encourage IS use and ambulation postop GI: - POD#1 lap converted to open boris due to chronically inflamed gangrenous cholecystitis - HIDA 06/07: Positive HIDa. Cystic duct is occluded consistent with acute cholecystitis - CT abd/pelvis w/o contrast 06/06: mild infiltration changes seen within perinephric fat b/l. Findings are nonspecific. Rule out UTI or sequela of prior inflammation. Small exophytic cyst post oral lateral aspect upper-midpole R kidney. No evidence of nephrolithiasis or hydronephrosis. Hepatomegaly. Cholelithiasis. - US abdomen 06/06: limited study due to large body habitus. Fatty hepatic infiltration however other infiltrative hepatocellular disease processes not excluded. Cholelithiasis - Zosyn 3.375 ivpb q6 - Zofran 4mg ivp q6 prn nausea/vomiting - Dilaudid for pain - Colace 100mg po bid - ADAT - Surgery Dr. March on board - GI Dr. Arreguin on board Renal: - SYLVESTER - Bun 33, Cr 2.7 - monitor daily - UA: >300 protein, mod blood - LR @150 - Strict I&O - Nephro Dr. Lopez on board Endo: - Hx of DM2 - HgbA1c 6.8 - RISS High - Accucheck ACHS ID: - Blood culture prelim neg x 2 - Urine culture neg - Tylenol 650mg po q6 prn temp - Zosyn 3.375 ivpb q6 - ID Dr. Steve on board Hem/Onc: - H&H stable - No active bleeding MSK: - no acute issues - PT ordered GI ppx: Protonix 40mg ivp qd DVT ppx: Heparin 5000u sc q12, SCDs Diet: Liquid- ADAT Dispo: Transfer to med/surg Case discussed with Dr. Sunny Cabello PGY2 <Sunny DEY,Adi H - Last Filed: 06/09/17 14:27> CCU Objective - Vital Signs / Intake & Output Vital Signs (Last 4 hours): Vital Signs Temp Pulse Resp BP 06/09/17 14:00 83 06/09/17 12:40 74 20 06/09/17 12:30 75 15 06/09/17 12:20 78 20 06/09/17 12:10 80 26 H 06/09/17 12:01 80 22 119/59 L 06/09/17 12:00 99.6 F 77 13 06/09/17 11:50 77 20 06/09/17 11:49 77 20 06/09/17 11:30 84 23 06/09/17 11:20 83 35 H 06/09/17 11:10 87 06/09/17 11:00 91 H 18 149/67 06/09/17 10:51 32 H 06/09/17 10:50 25 H 06/09/17 10:40 93 H 06/09/17 10:30 93 H 16 Intake and Output (Last 8hrs): Intake & Output 06/08/17 06/09/17 06/09/17 22:59 06:59 14:59 Intake Total 1200 Output Total 250 Balance 950 Weight 315 lb Intake: IV 1200 Left Hand 1200 Output: Urine 250 Urine, Voided 250 Other: # Voids Urine, Voided 1 - Medications Active Medications: Active Medications Generic Name Dose Route Start Last Admin Trade Name Freq PRN Reason Stop Dose Admin Acetaminophen 650 mg 06/06/17 14:27 06/07/17 23:21 Tylenol 325mg Tab PO 650 mg Q6H PRN Administration Fever >100.4 F Amlodipine Besylate 10 mg 06/07/17 10:00 06/09/17 09:37 Norvasc PO 10 mg DAILY JOSÉ MIGUEL Administration Docusate Sodium 100 mg 06/09/17 10:00 06/09/17 09:33 Colace PO 100 mg BID JOSÉ MIGUEL Administration Heparin Sodium (Porcine) 5,000 units 06/09/17 22:00 Heparin SC Q12 JOSÉ MIGUEL Protocol Hydralazine HCl 10 mg 06/08/17 09:40 Apresoline PO QID PRN For SBP>170 Hydralazine HCl 25 mg 06/08/17 10:00 06/09/17 09:33 Apresoline PO 25 mg BID JOSÉ MIGUEL Administration Hydralazine HCl 10 mg 06/08/17 21:18 Apresoline IVP Q6 PRN Systolic Blood Pressure Hydromorphone HCl 1 mg 06/08/17 21:16 06/09/17 09:36 Dilaudid IVP 1 mg Q3H PRN Administration Pain, moderate (4-7) Hydromorphone HCl 2 mg 06/08/17 21:17 Dilaudid IVP Q4H PRN Pain, severe (8-10) Piperacillin Sod/Tazobactam Sod 100 mls @ 200 mls/hr 06/08/17 00:00 06/09/17 12:03 Zosyn 3.375 In Ns 100ml IVPB 06/15/17 00:01 200 mls/hr Q6 JOSÉ MIGUEL Administration Protocol Lactated Ringer's 1,000 mls @ 150 mls/hr 06/09/17 10:55 Lactated Ringer's IV .[id number] JOSÉ MIGUEL Insulin Human Regular 0 units 06/06/17 16:30 06/09/17 12:02 Humulin R High SC 7 units ACHS JOSÉ MIGUEL Administration Protocol Levalbuterol HCl 1.25 mg 06/06/17 20:00 06/09/17 13:23 Xopenex IH 1.25 mg [id number] JOSÉ MIGUEL Administration Metoprolol Tartrate 50 mg 06/08/17 10:00 06/09/17 09:37 Lopressor PO 50 mg BID JOSÉ MIGUEL Administration Ondansetron HCl 4 mg 06/06/17 14:27 Zofran Inj IVP Q6H PRN Nausea/Vomiting Pantoprazole Sodium 40 mg 06/06/17 14:30 06/09/17 09:37 Protonix Inj IVP 40 mg DAILY JOSÉ MIGUEL Administration - Patient Studies Lab Studies: Lab Studies 06/09/17 06/09/17 06/09/17 Range/Units 11:03 07:45 06:30 WBC (4.5-11.0) 10^3/ul RBC (3.5-6.1) 10^6/uL Hgb (14.0-18.0) g/dL Hct (42.0-52.0) % MCV (80.0-105.0) fl MCH (25.0-35.0) pg MCHC (31.0-37.0) g/dl RDW (11.5-14.5) % Plt Count (120.0-450.0) 10^3/uL MPV (7.0-11.0) fl Gran % (50.0-68.0) % Lymph % (Auto) (22.0-35.0) % Daggett % (Auto) (1.0-6.0) % Eos % (Auto) (1.5-5.0) % Baso % (Auto) (0.0-3.0) % Gran # (1.4-6.5) Lymph # (1.2-3.4) Daggett # (0.1-0.6) Eos # (0.0-0.7) Baso # (0.0-2.0) K/mm3 Sodium (132-148) mmol/L Potassium (3.6-5.0) mmol/L Chloride (98-107) mmol/L Carbon Dioxide (21-33) mmol/L Anion Gap (10-20) BUN (7-21) mg/dL Creatinine (0.5-1.4) mg/dL Est GFR ( Amer) Est GFR (Non-Af Amer) POC Glucose (mg/dL) 268 H 150 H (65-110) mg/dL Random Glucose (70-110) mg/dL Calcium (8.4-10.5) mg/dL Phosphorus (2.5-4.5) mg/dL Magnesium (1.7-2.2) mg/dL Iron 18 L (45-180) ug/dL TIBC 166 L (261-462) ug/dL % Saturation 11 L (20-55) % Ferritin ng/mL Total Bilirubin (0.2-1.3) mg/dL AST (17-59) U/L ALT (7-56) U/L Alkaline Phosphatase (38-126) U/L Total Protein (5.8-8.3) g/dL Albumin (3.0-4.8) g/dL Globulin gm/dL Albumin/Globulin Ratio (1.1-1.8) 06/09/17 06/09/17 06/08/17 Range/Units 06:30 06:30 23:13 WBC 15.1 H (4.5-11.0) 10^3/ul RBC 3.03 L (3.5-6.1) 10^6/uL Hgb 8.6 L (14.0-18.0) g/dL Hct 26.4 L (42.0-52.0) % MCV 87.1 (80.0-105.0) fl MCH 28.4 (25.0-35.0) pg MCHC 32.6 (31.0-37.0) g/dl RDW 13.4 (11.5-14.5) % Plt Count 182 (120.0-450.0) 10^3/uL MPV 9.7 (7.0-11.0) fl Gran % (50.0-68.0) % Lymph % (Auto) (22.0-35.0) % Daggett % (Auto) (1.0-6.0) % Eos % (Auto) (1.5-5.0) % Baso % (Auto) (0.0-3.0) % Gran # (1.4-6.5) Lymph # (1.2-3.4) Daggett # (0.1-0.6) Eos # (0.0-0.7) Baso # (0.0-2.0) K/mm3 Sodium 141 (132-148) mmol/L Potassium 4.5 (3.6-5.0) mmol/L Chloride 106 (98-107) mmol/L Carbon Dioxide 24 (21-33) mmol/L Anion Gap 16 (10-20) BUN 33 H (7-21) mg/dL Creatinine 2.7 H (0.5-1.4) mg/dL Est GFR ( Amer) 30 Est GFR (Non-Af Amer) 24 POC Glucose (mg/dL) 241 H (65-110) mg/dL Random Glucose 144 H (70-110) mg/dL Calcium 8.5 (8.4-10.5) mg/dL Phosphorus 5.0 H (2.5-4.5) mg/dL Magnesium 1.9 (1.7-2.2) mg/dL Iron (45-180) ug/dL TIBC (261-462) ug/dL % Saturation (20-55) % Ferritin 889.0 ng/mL Total Bilirubin 1.1 (0.2-1.3) mg/dL AST 76 H (17-59) U/L ALT 56 (7-56) U/L Alkaline Phosphatase 94 (38-126) U/L Total Protein 6.4 (5.8-8.3) g/dL Albumin 3.1 (3.0-4.8) g/dL Globulin 3.2 gm/dL Albumin/Globulin Ratio 1.0 L (1.1-1.8) 06/08/17 06/08/17 Range/Units 22:06 22:06 WBC 17.9 H D (4.5-11.0) 10^3/ul RBC 2.91 L (3.5-6.1) 10^6/uL Hgb 8.4 L (14.0-18.0) g/dL Hct 25.3 L (42.0-52.0) % MCV 86.9 (80.0-105.0) fl MCH 28.9 (25.0-35.0) pg MCHC 33.2 (31.0-37.0) g/dl RDW 13.4 (11.5-14.5) % Plt Count 186 (120.0-450.0) 10^3/uL MPV 8.9 (7.0-11.0) fl Gran % 79.2 H (50.0-68.0) % Lymph % (Auto) 10.2 L (22.0-35.0) % Daggett % (Auto) 10.3 H (1.0-6.0) % Eos % (Auto) 0.2 L (1.5-5.0) % Baso % (Auto) 0.1 (0.0-3.0) % Gran # 14.17 H (1.4-6.5) Lymph # 1.8 (1.2-3.4) Daggett # 1.9 H (0.1-0.6) Eos # 0.0 (0.0-0.7) Baso # 0.02 (0.0-2.0) K/mm3 Sodium 138 (132-148) mmol/L Potassium 4.5 (3.6-5.0) mmol/L Chloride 104 (98-107) mmol/L Carbon Dioxide 23 (21-33) mmol/L Anion Gap 16 (10-20) BUN 30 H (7-21) mg/dL Creatinine 2.5 H (0.5-1.4) mg/dL Est GFR ( Amer) 32 Est GFR (Non-Af Amer) 27 POC Glucose (mg/dL) (65-110) mg/dL Random Glucose 203 H (70-110) mg/dL Calcium 8.2 L (8.4-10.5) mg/dL Phosphorus (2.5-4.5) mg/dL Magnesium (1.7-2.2) mg/dL Iron (45-180) ug/dL TIBC (261-462) ug/dL % Saturation (20-55) % Ferritin ng/mL Total Bilirubin 1.1 (0.2-1.3) mg/dL AST 64 H D (17-59) U/L ALT 51 (7-56) U/L Alkaline Phosphatase 95 (38-126) U/L Total Protein 6.4 (5.8-8.3) g/dL Albumin 3.1 (3.0-4.8) g/dL Globulin 3.3 gm/dL Albumin/Globulin Ratio 0.9 L (1.1-1.8) Laboratory Results - last 24 hr 06/08/17 06/08/17 06/08/17 22:06 22:06 23:13 WBC 17.9 H D RBC 2.91 L Hgb 8.4 L Hct 25.3 L MCV 86.9 MCH 28.9 MCHC 33.2 RDW 13.4 Plt Count 186 MPV 8.9 Gran % 79.2 H Lymph % (Auto) 10.2 L [place] % (Auto) 10.3 H Eos % (Auto) 0.2 L Baso % (Auto) 0.1 Gran # 14.17 H Lymph # 1.8 [place]gett # 1.9 H Eos # 0.0 Baso # 0.02 Sodium 138 Potassium 4.5 Chloride 104 Carbon Dioxide 23 Anion Gap 16 BUN 30 H Creatinine 2.5 H Est GFR ( Amer) 32 Est GFR (Non-Af Amer) 27 POC Glucose (mg/dL) 241 H Random Glucose 203 H Calcium 8.2 L Phosphorus Magnesium Iron TIBC % Saturation Ferritin Total Bilirubin 1.1 AST 64 H D ALT 51 Alkaline Phosphatase 95 Total Protein 6.4 Albumin 3.1 Globulin 3.3 Albumin/Globulin Ratio 0.9 L 06/09/17 06/09/17 06/09/17 06:30 06:30 06:30 WBC 15.1 H RBC 3.03 L Hgb 8.6 L Hct 26.4 L MCV 87.1 MCH 28.4 MCHC 32.6 RDW 13.4 Plt Count 182 MPV 9.7 Gran % Lymph % (Auto) [place]gett % (Auto) Eos % (Auto) Baso % (Auto) Gran # Lymph # Daggett # Eos # Baso # Sodium 141 Potassium 4.5 Chloride 106 Carbon Dioxide 24 Anion Gap 16 BUN 33 H Creatinine 2.7 H Est GFR ( Amer) 30 Est GFR (Non-Af Amer) 24 POC Glucose (mg/dL) Random Glucose 144 H Calcium 8.5 Phosphorus 5.0 H Magnesium 1.9 Iron 18 L TIBC 166 L % Saturation 11 L Ferritin 889.0 Total Bilirubin 1.1 AST 76 H ALT 56 Alkaline Phosphatase 94 Total Protein 6.4 Albumin 3.1 Globulin 3.2 Albumin/Globulin Ratio 1.0 L 06/09/17 06/09/17 07:45 11:03 WBC RBC Hgb Hct MCV MCH MCHC RDW Plt Count MPV Gran % Lymph % (Auto) [place] % (Auto) Eos % (Auto) Baso % (Auto) Gran # Lymph # Daggett # Eos # Baso # Sodium Potassium Chloride Carbon Dioxide Anion Gap BUN Creatinine Est GFR ( Amer) Est GFR (Non-Af Amer) POC Glucose (mg/dL) 150 H 268 H Random Glucose Calcium Phosphorus Magnesium Iron TIBC % Saturation Ferritin Total Bilirubin AST ALT Alkaline Phosphatase Total Protein Albumin Globulin Albumin/Globulin Ratio Critical Care Progress Note - Nutrition Nutrition: Nutrition Category Date Time Status Liquid Diet [DIET] Diets 06/09/17 Breakfast Ordered Attending/Attestation - Attestation I have personally seen and examined this patient.: Yes I have fully participated in the care of the patient.: Yes I have reviewed all pertinent clinical information: Yes Notes (Text): 06/09/17 14:26 56 y/o M w/ acute Choly and GB removal Tolerated procedure well and without complaints this morning. Monitor labs, finish course of abx x 7 day s. F/ u cx Post op surgical care . Wound check. CHF/ HTN management as per cardiology outpatient PT/OT incentive spirometry cc time 35 min
[2017-06-09 07:24] LABS: HEMATOCRIT 26.4 % (42.0-52.0); MEAN CELL VOLUME 87.1 fl (80.0-105.0); MEAN CORPUSCULAR HEMOGLOBIN 28.4 pg (25.0-35.0); MEAN CORPUSCULAR HGB CONC 32.6 g/dl (31.0-37.0); MEAN PLATELET VOLUME 9.7 fl (7.0-11.0); RED CELL DISTRIBUTION WIDTH 13.4 % (11.5-14.5); WHITE BLOOD COUNT 15.1 10^3/ul (4.5-11.0)
[2017-06-09 07:51] LABS: IRON 18 ug/dL (45-180)
[2017-06-09 08:03] LABS: BILIRUBIN,TOTAL 1.1 mg/dL (0.2-1.3); CALCIUM 8.5 mg/dL (8.4-10.5); MAGNESIUM 1.9 mg/dL (1.7-2.2); POTASSIUM 4.5 mmol/L (3.6-5.0); TOTAL PROTEIN 6.4 g/dL (5.8-8.3)
--- NOTE | 2017-06-09 09:50 | CP.PCM.PN ---
<Marii Ayala - Last Filed: 06/09/17 09:51> Subjective - Date & Time of Evaluation Date of Evaluation: 06/09/17 Time of Evaluation: 08:00 - Subjective Subjective: GI PROGRESS NOTE FOR DR. HAWKINS Patient seen and examined at bedside in the ICU. He is POD#1 of laparoscopic converted to open cholecystectomy due to chronically inflammed gangrenous cholecystitis. Patient states that he has some pain in the RUQ when he moves, but pain is controlled with pain medication. He denies nausea or vomiting. He is tolerating his CLD. No flatus since surgery. He has urinated but states it wasn't a lot. Objective - Vital Signs/Intake and Output Vital Signs (last 24 hours): Temp Pulse Resp BP Pulse Ox 99.1 F 102 H 20 150/76 96 06/09/17 06:00 06/09/17 09:37 06/09/17 06:00 06/09/17 09:37 06/09/17 06:00 Intake and Output: 06/09/17 06/09/17 06:59 18:59 Intake Total 1200 Output Total 250 Balance 950 - Medications Medications: Current Medications Acetaminophen (Tylenol 325mg Tab) 650 mg PO Q6H PRN PRN Reason: Fever >100.4 F Last Admin: 06/07/17 23:21 Dose: 650 mg Amlodipine Besylate (Norvasc) 10 mg PO DAILY [facility] Last Admin: 06/09/17 09:37 Dose: 10 mg Docusate Sodium (Colace) 100 mg PO BID [facility] Last Admin: 06/09/17 09:33 Dose: 100 mg Heparin Sodium (Porcine) (Heparin) 5,000 units SC Q12 [facility] PRN Reason: Protocol Hydralazine HCl (Apresoline) 10 mg PO QID PRN PRN Reason: For SBP>170 Hydralazine HCl (Apresoline) 25 mg PO BID [facility] Last Admin: 06/09/17 09:33 Dose: 25 mg Hydralazine HCl (Apresoline) 10 mg IVP Q6 PRN PRN Reason: Systolic Blood Pressure Hydromorphone HCl (Dilaudid) 1 mg IVP Q3H PRN PRN Reason: Pain, moderate (4-7) Last Admin: 06/09/17 09:36 Dose: 1 mg Hydromorphone HCl (Dilaudid) 2 mg IVP Q4H PRN PRN Reason: Pain, severe (8-10) Piperacillin Sod/Tazobactam Sod (Zosyn 3.375 In Ns 100ml) 100 mls @ 200 mls/hr IVPB Q6 [facility] PRN Reason: Protocol Stop: 06/15/17 00:01 Last Admin: 06/09/17 05:40 Dose: 200 mls/hr Lactated Ringer's (Lactated Ringer's) 1,000 mls @ 100 mls/hr IV .Q10H [facility] Last Admin: 06/09/17 00:38 Dose: 100 mls/hr Insulin Human Regular (Humulin R High) 0 units SC ACHS [facility] PRN Reason: Protocol Last Admin: 06/09/17 08:14 Dose: Not Given Levalbuterol HCl (Xopenex) 1.25 mg IH [id number] [facility] Last Admin: 06/09/17 07:59 Dose: 1.25 mg Metoprolol Tartrate (Lopressor) 50 mg PO BID [facility] Last Admin: 06/09/17 09:37 Dose: 50 mg Ondansetron HCl (Zofran Inj) 4 mg IVP Q6H PRN PRN Reason: Nausea/Vomiting Pantoprazole Sodium (Protonix Inj) 40 mg IVP DAILY [facility] Last Admin: 06/09/17 09:37 Dose: 40 mg - Labs Labs: 06/09/17 06:30 06/09/17 06:30 PT 12.4 Seconds (9.9-11.8) H 06/08/17 11:20 INR 1.15 (0.93-1.08) H 06/08/17 11:20 APTT 35.9 Seconds (23.7-30.8) H 06/08/17 11:20 - Constitutional Appears: Non-toxic, No Acute Distress - Head Exam Head Exam: ATRAUMATIC, NORMAL INSPECTION - Respiratory Exam Respiratory Exam: NORMAL BREATHING PATTERN. absent: Respiratory Distress - Cardiovascular Exam Cardiovascular Exam: +S1, +S2 - GI/Abdominal Exam GI & Abdominal Exam: Soft, Tenderness (mild tenderness in RUQ). absent: Distended, Firm, Guarding, Rigid, Rebound Additional comments: Laparoscopic and RUQ incision sites with dressings clean/dry/intact - Neurological Exam Neurological Exam: Alert, Awake, Oriented x3 - Psychiatric Exam Psychiatric exam: Normal Affect, Normal Mood - Skin Skin Exam: Dry, Normal Color, Warm Assessment and Plan - Assessment and Plan (Free Text) Assessment: 56yo M with PMHx of DM, HTN, hyperlipidemia, CKD, CHF with EF of 30-35%, obesity with acute on chronic cholecystitis s/p laparoscopic converted to open cholecystectomy POD#1 - Afebrile - WBC decreased to 15.1 - Hgb increased to 8.6 from 8.1 last night post op - Cr trending up, 2.7 today, nephrology consulted, 24 hour urine collection being done - On Zosyn - Continue Protonix - Tolerating CLD, diet advancement per surgery - Discussed plan with Dr. Kallie Ayala PGY-3 <Lucille Hawkins V - Last Filed: 06/09/17 21:45> Objective - Vital Signs/Intake and Output Vital Signs (last 24 hours): Temp Pulse Resp BP Pulse Ox 99.6 F 78 20 143/72 96 06/09/17 12:00 06/09/17 19:01 06/09/17 19:01 06/09/17 19:01 06/09/17 18:00 Intake and Output: 06/09/17 06/10/17 18:59 06:59 Intake Total 3000 Output Total 600 Balance 2400 - Medications Medications: Current Medications Acetaminophen (Tylenol 325mg Tab) 650 mg PO Q6H PRN PRN Reason: Fever >100.4 F Last Admin: 06/07/17 23:21 Dose: 650 mg Amlodipine Besylate (Norvasc) 10 mg PO DAILY [facility] Last Admin: 06/09/17 09:37 Dose: 10 mg Docusate Sodium (Colace) 100 mg PO BID [facility] Last Admin: 06/09/17 17:23 Dose: 100 mg Heparin Sodium (Porcine) (Heparin) 5,000 units SC Q12 [facility] PRN Reason: Protocol Hydralazine HCl (Apresoline) 10 mg PO QID PRN PRN Reason: For SBP>170 Hydralazine HCl (Apresoline) 25 mg PO BID [facility] Last Admin: 06/09/17 17:24 Dose: 25 mg Hydralazine HCl (Apresoline) 10 mg IVP Q6 PRN PRN Reason: Systolic Blood Pressure Hydromorphone HCl (Dilaudid) 1 mg IVP Q3H PRN PRN Reason: Pain, moderate (4-7) Last Admin: 06/09/17 15:03 Dose: 1 mg Hydromorphone HCl (Dilaudid) 2 mg IVP Q4H PRN PRN Reason: Pain, severe (8-10) Last Admin: 06/09/17 19:35 Dose: 2 mg Piperacillin Sod/Tazobactam Sod (Zosyn 3.375 In Ns 100ml) 100 mls @ 200 mls/hr IVPB Q6 [facility] PRN Reason: Protocol Stop: 06/15/17 00:01 Last Admin: 06/09/17 17:24 Dose: 200 mls/hr Lactated Ringer's (Lactated Ringer's) 1,000 mls @ 75 mls/hr IV .[id number] [facility] Last Admin: 06/09/17 19:45 Dose: 75 mls/hr Insulin Human Regular (Humulin R High) 0 units SC ACHS [facility] PRN Reason: Protocol Last Admin: 06/09/17 17:22 Dose: 2 units Levalbuterol HCl (Xopenex) 1.25 mg IH [id number] [facility] Last Admin: 06/09/17 19:30 Dose: 1.25 mg Metoprolol Tartrate (Lopressor) 50 mg PO BID [facility] Last Admin: 06/09/17 17:23 Dose: 50 mg Ondansetron HCl (Zofran Inj) 4 mg IVP Q6H PRN PRN Reason: Nausea/Vomiting Pantoprazole Sodium (Protonix Inj) 40 mg IVP DAILY [facility] Last Admin: 06/09/17 09:37 Dose: 40 mg - Labs Labs: 06/09/17 06:30 06/09/17 06:30 PT 12.4 Seconds (9.9-11.8) H 06/08/17 11:20 INR 1.15 (0.93-1.08) H 06/08/17 11:20 APTT 35.9 Seconds (23.7-30.8) H 06/08/17 11:20 Attending/Attestation - Attestation I have personally seen and examined this patient.: Yes I have fully participated in the care of the patient.: Yes I have reviewed all pertinent clinical information, including history, physical exam and plan: Yes Notes (Text): this patient was seen and evaluated earlier with the resident. Patient is sitting up in the chair having clear liquid breakfast in a.m. Status post open cholecystectomy Continue antibiotics follow-up of the LFT 06/09/17 21:44
--- NOTE | 2017-06-09 10:35 | CP.PCM.PN ---
Subjective - Date & Time of Evaluation Date of Evaluation: 06/09/17 Time of Evaluation: 10:00 - Subjective Subjective: Patient had surgery yesterday, feeling much better today, abdominal pain has improved, no fevers overnight. Objective - Vital Signs/Intake and Output Vital Signs (last 24 hours): Temp Pulse Resp BP Pulse Ox 98.2 F 79 18 126/74 97 06/08/17 21:15 06/08/17 21:15 06/08/17 21:15 06/08/17 21:15 06/08/17 21:15 - Medications Medications: Current Medications Acetaminophen (Tylenol 325mg Tab) 650 mg PO Q6H PRN PRN Reason: Fever >100.4 F Last Admin: 06/07/17 23:21 Dose: 650 mg Amlodipine Besylate (Norvasc) 10 mg PO DAILY [facility] Last Admin: 06/08/17 10:15 Dose: 10 mg Docusate Sodium (Colace) 100 mg PO BID [facility] Heparin Sodium (Porcine) (Heparin) 5,000 units SC Q12 [facility] PRN Reason: Protocol Hydralazine HCl (Apresoline) 10 mg PO QID PRN PRN Reason: For SBP>170 Hydralazine HCl (Apresoline) 25 mg PO BID [facility] Last Admin: 06/08/17 19:30 Dose: Not Given Hydralazine HCl (Apresoline) 10 mg IVP Q6 PRN PRN Reason: Systolic Blood Pressure Hydromorphone HCl (Dilaudid) 1 mg IVP Q3H PRN PRN Reason: Pain, moderate (4-7) Last Admin: 06/09/17 06:21 Dose: 1 mg Hydromorphone HCl (Dilaudid) 2 mg IVP Q4H PRN PRN Reason: Pain, severe (8-10) Piperacillin Sod/Tazobactam Sod (Zosyn 3.375 In Ns 100ml) 100 mls @ 200 mls/hr IVPB Q6 [facility] PRN Reason: Protocol Stop: 06/15/17 00:01 Last Admin: 06/09/17 05:40 Dose: 200 mls/hr Lactated Ringer's (Lactated Ringer's) 1,000 mls @ 100 mls/hr IV .Q10H [facility] Last Admin: 06/09/17 00:38 Dose: 100 mls/hr Insulin Human Regular (Humulin R High) 0 units SC ACHS [facility] PRN Reason: Protocol Last Admin: 06/09/17 00:53 Dose: Not Given Levalbuterol HCl (Xopenex) 1.25 mg IH [id number] [facility] Last Admin: 06/09/17 02:04 Dose: 1.25 mg Metoprolol Tartrate (Lopressor) 50 mg PO BID [facility] Last Admin: 06/08/17 19:30 Dose: Not Given Ondansetron HCl (Zofran Inj) 4 mg IVP Q6H PRN PRN Reason: Nausea/Vomiting Pantoprazole Sodium (Protonix Inj) 40 mg IVP DAILY [facility] Last Admin: 06/08/17 10:15 Dose: 40 mg - Labs Labs: 06/08/17 22:06 06/08/17 22:06 PT 12.4 Seconds (9.9-11.8) H 06/08/17 11:20 INR 1.15 (0.93-1.08) H 06/08/17 11:20 APTT 35.9 Seconds (23.7-30.8) H 06/08/17 11:20 - Constitutional Appears: Non-toxic, No Acute Distress - Head Exam Head Exam: NORMAL INSPECTION - ENT Exam ENT Exam: Mucous Membranes Moist - Neck Exam Neck Exam: absent: Meningismus - Respiratory Exam Respiratory Exam: Decreased Breath Sounds - Cardiovascular Exam Cardiovascular Exam: +S1, +S2 - GI/Abdominal Exam GI & Abdominal Exam: Soft, Tenderness (RUQ area). absent: Distended, Firm, Guarding, Rigid, Rebound Assessment and Plan - Assessment and Plan (Free Text) Plan: Assessment Sepsis due to acute on chronic gangrenous cholecystitis S/P cholecystectomy POD #1 HTN DM dyslipidemia obesity with BMI 39 Plan continue Zosyn pending blood cx, OR cx; trend WBC count will continue to monitor clinically
--- NOTE | 2017-06-09 10:40 | CP.PCM.PN ---
Subjective - Date & Time of Evaluation Date of Evaluation: 06/09/17 Time of Evaluation: 10:21 - Subjective Subjective: General Surgery Progress note for Dr. March PT S&E at bedside. Patient states he's doing well. Patient states he only feels pain with movement. Patient wants to get up and walk around. Patient states he has not passed flatus or had BM Patient wants to know when he can eat. Patient says no nausea, vomiting, headaches, fever, chills, diarrhea. BUN 33/2.7, fluids increased. Per patient, he has not voided well. He has to strain to void. Nursing notes 250cc Urine overnight. Incentive spirometer at bedside. instructed on use. 2X AE hoses are not on due to supply. SCDs in place Objective - Vital Signs/Intake and Output Vital Signs (last 24 hours): Temp Pulse Resp BP Pulse Ox 99.1 F 102 H 20 150/76 96 06/09/17 06:00 06/09/17 09:37 06/09/17 06:00 06/09/17 09:37 06/09/17 06:00 Intake and Output: 06/09/17 06/09/17 06:59 18:59 Intake Total 1200 Output Total 250 Balance 950 - Medications Medications: Current Medications Acetaminophen (Tylenol 325mg Tab) 650 mg PO Q6H PRN PRN Reason: Fever >100.4 F Last Admin: 06/07/17 23:21 Dose: 650 mg Amlodipine Besylate (Norvasc) 10 mg PO DAILY [facility] Last Admin: 06/09/17 09:37 Dose: 10 mg Docusate Sodium (Colace) 100 mg PO BID [facility] Last Admin: 06/09/17 09:33 Dose: 100 mg Heparin Sodium (Porcine) (Heparin) 5,000 units SC Q12 [facility] PRN Reason: Protocol Hydralazine HCl (Apresoline) 10 mg PO QID PRN PRN Reason: For SBP>170 Hydralazine HCl (Apresoline) 25 mg PO BID [facility] Last Admin: 06/09/17 09:33 Dose: 25 mg Hydralazine HCl (Apresoline) 10 mg IVP Q6 PRN PRN Reason: Systolic Blood Pressure Hydromorphone HCl (Dilaudid) 1 mg IVP Q3H PRN PRN Reason: Pain, moderate (4-7) Last Admin: 06/09/17 09:36 Dose: 1 mg Hydromorphone HCl (Dilaudid) 2 mg IVP Q4H PRN PRN Reason: Pain, severe (8-10) Piperacillin Sod/Tazobactam Sod (Zosyn 3.375 In Ns 100ml) 100 mls @ 200 mls/hr IVPB Q6 [facility] PRN Reason: Protocol Stop: 06/15/17 00:01 Last Admin: 06/09/17 05:40 Dose: 200 mls/hr Lactated Ringer's (Lactated Ringer's) 1,000 mls @ 100 mls/hr IV .Q10H [facility] Last Admin: 06/09/17 00:38 Dose: 100 mls/hr Insulin Human Regular (Humulin R High) 0 units SC ACHS [facility] PRN Reason: Protocol Last Admin: 06/09/17 08:14 Dose: Not Given Levalbuterol HCl (Xopenex) 1.25 mg IH [id number] [facility] Last Admin: 06/09/17 07:59 Dose: 1.25 mg Metoprolol Tartrate (Lopressor) 50 mg PO BID [facility] Last Admin: 06/09/17 09:37 Dose: 50 mg Ondansetron HCl (Zofran Inj) 4 mg IVP Q6H PRN PRN Reason: Nausea/Vomiting Pantoprazole Sodium (Protonix Inj) 40 mg IVP DAILY [facility] Last Admin: 06/09/17 09:37 Dose: 40 mg - Labs Labs: 06/09/17 06:30 06/09/17 06:30 PT 12.4 Seconds (9.9-11.8) H 06/08/17 11:20 INR 1.15 (0.93-1.08) H 06/08/17 11:20 APTT 35.9 Seconds (23.7-30.8) H 06/08/17 11:20 - Constitutional Appears: Non-toxic - Head Exam Head Exam: NORMAL INSPECTION - Eye Exam Eye Exam: EOMI, Normal appearance - ENT Exam ENT Exam: Mucous Membranes Moist - Neck Exam Neck Exam: Full ROM. absent: Tenderness - Respiratory Exam Respiratory Exam: Clear to Ausculation Bilateral, NORMAL BREATHING PATTERN. absent: Accessory Muscle Use, Respiratory Distress - Cardiovascular Exam Cardiovascular Exam: REGULAR RHYTHM, +S1, +S2. absent: Bradycardia, Tachycardia - GI/Abdominal Exam GI & Abdominal Exam: Soft. absent: Guarding, Rigid, Tenderness Additional comments: dressing site for incision, c/d/i - Extremities Exam Extremities Exam: Full ROM. absent: Pedal Edema - Neurological Exam Neurological Exam: Alert, Awake, Oriented x3 - Psychiatric Exam Psychiatric exam: Normal Affect, Normal Mood - Skin Skin Exam: Dry, Intact, Normal Color, Warm Assessment and Plan - Assessment and Plan (Free Text) Assessment: gangrenous cholecystitis s/p Cholecystectomy POD#1 Plan: BUN 33/2.7, fluids increased LR @ 150cc/hr DVT/GI PPX heparin, Protonix c/w Zosyn per ID f/u blood cx f/u cx from OR AM labs
--- NOTE | 2017-06-09 12:14 | PN ---
DATE: 06/09/2017 REASON FOR CONSULTATION: Followup preop evaluation, postop followup, status post cholecystectomy, cardiomyopathy, and nonobstructive coronary artery disease. SUBJECTIVE: The patient denies any chest pain. He complained of mild abdominal pain post surgery and no palpitations. OBJECTIVE/PHYSICAL EXAMINATION: GENERAL: The patient is currently in ICU 129, bed number 2, lying flat, not in apparent distress. VITAL SIGNS: Temperature is 99, heart rate is 90, and blood pressure is 150/76. HEENT: PERRLA. Extraocular muscles are intact. NECK: Supple. No carotid bruits or thyromegaly. CHEST: Clear to auscultation. HEART: S1 and S2 regular. ABDOMEN: Soft and dressing noted in the right upper quadrant. EXTREMITIES: Clubbing, cyanosis, and 1+ pedal edema. LABORATORY DATA: Blood workup as follows: WBC 15.1, hemoglobin 8.7, hematocrit 26.4, and platelet count 182. Chemistry shows sodium 141, potassium 4.5, chloride 106, carbon dioxide 24, anion gap of 16, BUN 33, and creatinine 2.7. IMPRESSION: Cardiomyopathy, nonobstructive coronary artery disease, recently status post cardiac catheterization, renal insufficiency, acute cholecystitis, status post open cholecystectomy, and postoperative abdomen. Postoperative anemia, as mentioned nonobstructive coronary artery disease, history of cardiac catheterization on 05/01/2014, cardioversion nonischemic ejection fraction of 30% to 35%. RECOMMENDATIONS: Continue with aggressive medical treatment and change to IV hydralazine. The patient is possibly n.p.o. and if the patient remains to be in the strict n.p.o., then we will put hydralazine p.r.n. We will follow. Once the patient starts eating, we will add on low doses of . Ray Lilly MD
--- NOTE | 2017-06-09 19:03 | PN ---
DATE: SUBJECTIVE: The patient is a 56 years old, seen and examined, sitting in chair comfortable. He stated he feel a lot better. Pain is almost gone. No nausea or vomiting. PHYSICAL EXAMINATION: VITAL SIGNS: He is afebrile. Pulse 93, respirations 20, and blood pressure 127/60. LUNGS: Bilateral fair air flow. No rhonchi or crackles. HEART: S1 and S2 audible. ABDOMEN: Soft, obese, slight palpable discomfort at surgical site. NEUROLOGICAL: The patient is awake and alert. LABORATORY DATA: WBC is 16.1, hemoglobin 8.6, hematocrit 26.4, and platelets 182. Chemistry sodium 141, potassium 4.5, chloride 106, CO2 24, BUN 33, creatinine 2.7, and blood sugar 172. Iron 18, TIBC 166, and saturation is 11%. Blood cultures and urine cultures are negative. ASSESSMENT: 1. Acute cholecystitis status post cholecystectomy. 2. Cardiomyopathy. 3. Moderate obesity. 4. Hna-hhowicl-unhggmdzi diabetes. 5. Iron-deficiency anemia. PLAN: If the patient is tolerating oral feeding, we cut down his fluids to 75 mL. We will monitor his electrolytes out of bed to chair and physical therapy evaluation have been requested. Roberta Aden MD
[2017-06-09] MEDS: HYDROmorphone 2 mg/ml ISec IVP PRN (19:35)
[2017-06-09] MEDS: Lactated Ringer's 1,000 ML IV SCH (19:45)
--- NOTE | 2017-06-09 20:30 | PN ---
DATE: 06/09/2017 SUBJECTIVE: The patient is seen in the ICU. He is awake. He is alert. He complains of right upper quadrant pain when he moves. He denies any chest tightness. He denies any palpitation. He denies any nausea or vomiting. He has not had a bowel movement. He had open cholecystectomy on 06/08. Initially, he was supposed to have a LAP JUJU, but the procedure had to be done open. He denies any fever or chills. PHYSICAL EXAMINATION: GENERAL: Morbidly obese, middle-aged male lying in bed in the ICU. VITAL SIGNS: Blood pressure 127/60, heart rate 93, respiratory rate 20, temperature 99.6, T-max is 99.6. HEENT: Normocephalic and atraumatic. Positive pallor. NECK: Supple and no JVD. LUNGS: Bilateral equal air entry. No rales, no rhonchi. CARDIAC: S1 and S2. Regular rate and rhythm. No murmur and no rub. ABDOMEN: Obese, distended, soft, nontender, bowel sounds present. EXTREMITIES: 2+ pitting edema of the lower extremities. INTAKE AND OUTPUT: 1200/260. LABORATORY DATA: WBC of 15, hemoglobin of 8.6, hematocrit of 26, and platelets of 182. Sodium of 141, potassium of 4.5, chloride of 106, CO2 of 24, BUN of 33, creatinine of 2.7, glucose of 144, calcium of 8.5, phosphorus 5.0, magnesium of 1.9, iron 18, saturation 11%, ferritin . Random urine creatinine 78, urine protein 349. CURRENT MEDICATIONS: Apresoline 25 b.i.d., Colace, Dilaudid, heparin, Ringer lactate 150, Lopressor 50 b.i.d., amlodipine 10, Protonix 40 IV daily, Tylenol, Xopenex, Zofran, Zosyn 3.375 q. 6. ASSESSMENT AND PLAN: 1. Acute kidney injury super imposed on chronic kidney disease, stage III, renal parameters are worsening at this time. 2. Severe anemia, acute on chronic, partly related to blood loss ? 3. Underlying diabetic nephropathy, nephrotic range proteinuria. 4. Well-controlled diabetes. 5. Morbid obesity. 6. Hypertension. PLAN: 1. Continue IV fluids. 2. No BOBBY inhibitor or ARB for the time being. 3. Continue amlodipine and Lopressor for BP control. 4. Monitor fingersticks and continue insulin coverage. 5. Dose all antibiotics for creatinine clearance about 50 mL per minute. 6. Monitor electrolytes and creatinine closely. 7. Monitor urine output closely. 8. Continue to monitor in the ICU for now. Case discussed with ICU staff, case discussed with the patient at bedside, case discussed with residents. More than 35 minutes spent in the care of this critically ill patient. Mireya Lopez MD
[2017-06-09 21:41] LABS: BASO # 0.02 K/mm3 (0.0-2.0); BASO % 0.1 % (0.0-3.0); EOS # 0.2 (0.0-0.7); EOS % 1.3 % (1.5-5.0); GRAN # 10.97 (1.4-6.5); LYMPH # 2.4 (1.2-3.4); LYMPH % 15.9 % (22.0-35.0); MEAN CELL VOLUME 87.9 fl (80.0-105.0); MEAN CORPUSCULAR HEMOGLOBIN 28.3 pg (25.0-35.0); MEAN CORPUSCULAR HGB CONC 32.2 g/dl (31.0-37.0); MEAN PLATELET VOLUME 9.6 fl (7.0-11.0); MONO # 1.5 (0.1-0.6); MONO % 9.7 % (1.0-6.0); RED CELL DISTRIBUTION WIDTH 13.6 % (11.5-14.5)
[2017-06-09 21:44] LABS: HEMATOCRIT 23.9 % (42.0-52.0)
[2017-06-10] MEDS: Piperacillin/Tazobact 3.375 gm 100 ML IVPB SCH ×4 (00:01→21:57)
[2017-06-10] MEDS: HYDROmorphone 2 mg/ml ISec IVP PRN ×3 (00:15→09:47)
[2017-06-10] MEDS: Levalbuterol 1.25 MG/3 ML Inhal Soln UD IH SCH ×4 (02:21→19:39)
[2017-06-10 06:26] LABS: HEMATOCRIT 24.4 % (42.0-52.0); MEAN CELL VOLUME 88.1 fl (80.0-105.0); MEAN CORPUSCULAR HEMOGLOBIN 28.5 pg (25.0-35.0); MEAN CORPUSCULAR HGB CONC 32.4 g/dl (31.0-37.0); RED CELL DISTRIBUTION WIDTH 13.5 % (11.5-14.5); WHITE BLOOD COUNT 14.3 10^3/ul (4.5-11.0)
[2017-06-10 06:41] LABS: ALB/GLOB RATIO 0.9 (1.1-1.8); BILIRUBIN,TOTAL 0.7 mg/dL (0.2-1.3); CALCIUM 8.4 mg/dL (8.4-10.5); POTASSIUM 4.2 mmol/L (3.6-5.0); TOTAL PROTEIN 6.6 g/dL (5.8-8.3)
[2017-06-10] MEDS: Insulin Reg-HIGH-Coverage SC SCH ×4 (08:50→23:16)
--- NOTE | 2017-06-10 12:05 | CP.PCM.PN ---
Subjective - Date & Time of Evaluation Date of Evaluation: 06/10/17 Time of Evaluation: 10:30 - Subjective Subjective: SURGERY NOTE FOR DR. MORRISON 56M seen and examined at bedside. Patient is comfortable. Patient has mild pain , tolerating liquid diet. Denies nausea/vomiting. Ambulating. Objective - Vital Signs/Intake and Output Vital Signs (last 24 hours): Temp Pulse Resp BP Pulse Ox 99.1 F 45 L 22 158/70 H 95 06/10/17 06:00 06/10/17 06:00 06/10/17 06:00 06/10/17 09:41 06/09/17 22:10 - Medications Medications: Current Medications Acetaminophen (Tylenol 325mg Tab) 650 mg PO Q6H PRN PRN Reason: Fever >100.4 F Last Admin: 06/07/17 23:21 Dose: 650 mg Amlodipine Besylate (Norvasc) 10 mg PO DAILY [facility] Last Admin: 06/10/17 09:41 Dose: 10 mg Atenolol (Tenormin) 25 mg PO BID [facility] Docusate Sodium (Colace) 100 mg PO BID [facility] Last Admin: 06/10/17 09:42 Dose: 100 mg Heparin Sodium (Porcine) (Heparin) 5,000 units SC Q12 [facility] PRN Reason: Protocol Last Admin: 06/10/17 09:40 Dose: 5,000 units Hydralazine HCl (Apresoline) 10 mg PO QID PRN PRN Reason: For SBP>170 Hydralazine HCl (Apresoline) 10 mg IVP Q6 PRN PRN Reason: Systolic Blood Pressure Hydralazine HCl (Apresoline) 25 mg PO TID [facility] Hydromorphone HCl (Dilaudid) 1 mg IVP Q3H PRN PRN Reason: Pain, moderate (4-7) Last Admin: 06/09/17 15:03 Dose: 1 mg Hydromorphone HCl (Dilaudid) 2 mg IVP Q4H PRN PRN Reason: Pain, severe (8-10) Last Admin: 06/10/17 09:47 Dose: 2 mg Piperacillin Sod/Tazobactam Sod (Zosyn 3.375 In Ns 100ml) 100 mls @ 200 mls/hr IVPB Q6 [facility] PRN Reason: Protocol Stop: 06/15/17 00:01 Last Admin: 06/10/17 05:31 Dose: 200 mls/hr Lactated Ringer's (Lactated Ringer's) 1,000 mls @ 75 mls/hr IV .[id number] [facility] Last Admin: 06/09/17 19:45 Dose: 75 mls/hr Insulin Human Regular (Humulin R High) 0 units SC ACHS [facility] PRN Reason: Protocol Last Admin: 06/10/17 08:50 Dose: Not Given Levalbuterol HCl (Xopenex) 1.25 mg IH [id number] [facility] Last Admin: 06/10/17 08:17 Dose: 1.25 mg Ondansetron HCl (Zofran Inj) 4 mg IVP Q6H PRN PRN Reason: Nausea/Vomiting Pantoprazole Sodium (Protonix Inj) 40 mg IVP DAILY [facility] Last Admin: 06/10/17 09:40 Dose: 40 mg - Labs Labs: 06/10/17 06:12 06/10/17 07:18 PT 12.4 Seconds (9.9-11.8) H 06/08/17 11:20 INR 1.15 (0.93-1.08) H 06/08/17 11:20 APTT 35.9 Seconds (23.7-30.8) H 06/08/17 11:20 - Constitutional Appears: Non-toxic, No Acute Distress - Respiratory Exam Respiratory Exam: Clear to Ausculation Bilateral, NORMAL BREATHING PATTERN - Cardiovascular Exam Cardiovascular Exam: REGULAR RHYTHM, +S1, +S2 - GI/Abdominal Exam GI & Abdominal Exam: Soft, Tenderness. absent: Distended, Firm, Guarding, Rigid , Rebound Additional comments: incisions are clean dry and intact - Neurological Exam Neurological Exam: Alert, Awake - Skin Skin Exam: Dry, Intact, Normal Color, Warm Assessment and Plan - Assessment and Plan (Free Text) Assessment: 56M s/p laparoscopic turned open cholecystectomy POD2 Plan: - Advanced diet to regular. - switch pain meds to PO - switch to PO Abx tomorrow upon DC - Send home tomorrow on PO Abx/Ultram for pain Discussed with Dr. Joaquim Gould, PGY2
--- NOTE | 2017-06-10 14:19 | CP.PCM.PN ---
Subjective - Date & Time of Evaluation Date of Evaluation: 06/10/17 Time of Evaluation: 11:10 - Subjective Subjective: Patient is feeling better, no fevers, no nausea, no diarrhea, starting to eat. Objective - Vital Signs/Intake and Output Vital Signs (last 24 hours): Temp Pulse Resp BP Pulse Ox 98.9 F 84 29 H 167/83 H 95 06/10/17 00:00 06/09/17 22:20 06/09/17 22:20 06/10/17 00:00 06/09/17 22:10 - Medications Medications: Current Medications Acetaminophen (Tylenol 325mg Tab) 650 mg PO Q6H PRN PRN Reason: Fever >100.4 F Last Admin: 06/07/17 23:21 Dose: 650 mg Amlodipine Besylate (Norvasc) 10 mg PO DAILY [facility] Last Admin: 06/09/17 09:37 Dose: 10 mg Docusate Sodium (Colace) 100 mg PO BID [facility] Last Admin: 06/09/17 17:23 Dose: 100 mg Heparin Sodium (Porcine) (Heparin) 5,000 units SC Q12 [facility] PRN Reason: Protocol Last Admin: 06/09/17 22:50 Dose: 5,000 units Hydralazine HCl (Apresoline) 10 mg PO QID PRN PRN Reason: For SBP>170 Hydralazine HCl (Apresoline) 25 mg PO BID [facility] Last Admin: 06/09/17 17:24 Dose: 25 mg Hydralazine HCl (Apresoline) 10 mg IVP Q6 PRN PRN Reason: Systolic Blood Pressure Hydromorphone HCl (Dilaudid) 1 mg IVP Q3H PRN PRN Reason: Pain, moderate (4-7) Last Admin: 06/09/17 15:03 Dose: 1 mg Hydromorphone HCl (Dilaudid) 2 mg IVP Q4H PRN PRN Reason: Pain, severe (8-10) Last Admin: 06/10/17 05:33 Dose: 2 mg Piperacillin Sod/Tazobactam Sod (Zosyn 3.375 In Ns 100ml) 100 mls @ 200 mls/hr IVPB Q6 [facility] PRN Reason: Protocol Stop: 06/15/17 00:01 Last Admin: 06/10/17 05:31 Dose: 200 mls/hr Lactated Ringer's (Lactated Ringer's) 1,000 mls @ 75 mls/hr IV .[id number] [facility] Last Admin: 06/09/17 19:45 Dose: 75 mls/hr Insulin Human Regular (Humulin R High) 0 units SC ACHS [facility] PRN Reason: Protocol Last Admin: 06/10/17 08:50 Dose: Not Given Levalbuterol HCl (Xopenex) 1.25 mg IH [id number] [facility] Last Admin: 06/10/17 08:17 Dose: 1.25 mg Metoprolol Tartrate (Lopressor) 50 mg PO BID [facility] Last Admin: 06/09/17 17:23 Dose: 50 mg Ondansetron HCl (Zofran Inj) 4 mg IVP Q6H PRN PRN Reason: Nausea/Vomiting Pantoprazole Sodium (Protonix Inj) 40 mg IVP DAILY [facility] Last Admin: 06/09/17 09:37 Dose: 40 mg - Labs Labs: 06/10/17 06:12 06/10/17 07:18 PT 12.4 Seconds (9.9-11.8) H 06/08/17 11:20 INR 1.15 (0.93-1.08) H 06/08/17 11:20 APTT 35.9 Seconds (23.7-30.8) H 06/08/17 11:20 - Constitutional Appears: Non-toxic, No Acute Distress - Head Exam Head Exam: NORMAL INSPECTION - ENT Exam ENT Exam: Mucous Membranes Moist - Neck Exam Neck Exam: absent: Meningismus - Respiratory Exam Respiratory Exam: Decreased Breath Sounds - Cardiovascular Exam Cardiovascular Exam: +S1, +S2 - GI/Abdominal Exam GI & Abdominal Exam: Soft. absent: Tenderness Assessment and Plan - Assessment and Plan (Free Text) Plan: Assessment Sepsis due to acute on chronic gangrenous cholecystitis S/P cholecystectomy POD #2 HTN DM dyslipidemia obesity with BMI 39 Plan continue Zosyn pending blood cx, OR cx; continue to trend WBC count will continue to monitor clinically
--- NOTE | 2017-06-10 14:33 | PN ---
DATE: 06/10/2017 LOCATION: The patient is in room 371, bed 1. REASON FOR CONSULTATION AND FOLLOWUP: Status post cholecystectomy, cardiomyopathy, and nonobstructive coronary artery disease. SUBJECTIVE: The patient is lying flat in bed without chest pain, shortness of breath, palpitation or dizziness. PHYSICAL EXAMINATION: VITAL SIGNS: Blood pressure 158/70; respirations 22; pulse recorded is 45, but on my examination pulse is 120 and it is irregular; temperature 99.1. HEENT: Head is normocephalic. Eyes, pupils are normal. Conjunctivae pale. NECK: JVP low. Carotid equal. THORAX: AP diameter normal. LUNGS: Clear. CARDIOVASCULAR: S1 and S2, irregular rhythm rate, apical rate around 120 per minute. ABDOMEN: Soft, normal bowel sounds. EXTREMITIES: No clubbing. No cyanosis. LABORATORY DATA: WBC 14.3, hemoglobin 7.9, hematocrit 24.4, platelet 208. Sodium 138, potassium 4.2, BUN 39, creatinine 2.9, random sugar 190. AST and ALT normal. Total protein and albumin normal. IMPRESSION: Cardiomyopathy; nonobstructive coronary artery disease on recent cardiac catheterization; renal insufficiency; acute cholecystitis, status post open cholecystectomy; anemia. Cardiac catheterization on 05/01/2014, found to have nonischemic cardiomyopathy with left ventricular ejection fraction of 30% to 35%. PLAN: The patient's heart rate apical is 120 and irregular. We will give atenolol 12.5 mg p.o. stat dose and do a stat EKG. The patient is on hydralazine 25 mg b.i.d. We will increase it to 25 t.i.d. We will hold metoprolol and change to atenolol 25 b.i.d. till before the time being, till we do the EKG. The patient is on antibiotic; Zosyn 3.375 g IV q. 6 hours, piperacillin/tazobactam 3.375 g IV q.6 hours. The patient getting lactated ringer's 75 mL an hour, amlodipine 10 mg p.o. daily. We will increase hydralazine 25 t.i.d. We will follow with you. Ray Xiong MD
[2017-06-10] MEDS: Oxycodone/Acetaminophen 5/325 mg Tab PO PRN ×2 (15:14→20:19)
--- NOTE | 2017-06-10 17:13 | CP.PCM.PN ---
<Kallie,Kovil V - Last Filed: 06/13/17 08:07> Objective - Vital Signs/Intake and Output Vital Signs (last 24 hours): Temp Pulse Resp BP Pulse Ox 99.9 F H 52 L 18 160/72 H 96 06/10/17 21:00 06/10/17 21:00 06/10/17 21:00 06/10/17 21:00 06/10/17 21:00 Intake and Output: 06/10/17 06/11/17 18:59 06:59 Intake Total 50 975 Output Total 400 Balance 50 575 - Medications Medications: Current Medications Acetaminophen (Tylenol 325mg Tab) 650 mg PO Q6H PRN PRN Reason: Fever >100.4 F Last Admin: 06/07/17 23:21 Dose: 650 mg Amlodipine Besylate (Norvasc) 10 mg PO DAILY [facility] Last Admin: 06/10/17 09:41 Dose: 10 mg Apixaban (Eliquis) 2.5 mg PO BID [facility] PRN Reason: Protocol Last Admin: 06/10/17 17:57 Dose: 2.5 mg Atenolol (Tenormin) 25 mg PO BID [facility] Last Admin: 06/10/17 19:16 Dose: Not Given Docusate Sodium (Colace) 100 mg PO BID [facility] Last Admin: 06/10/17 17:56 Dose: 100 mg Hydralazine HCl (Apresoline) 10 mg PO QID PRN PRN Reason: For SBP>170 Hydralazine HCl (Apresoline) 10 mg IVP Q6 PRN PRN Reason: Systolic Blood Pressure Hydralazine HCl (Apresoline) 25 mg PO TID [facility] Last Admin: 06/10/17 17:56 Dose: 25 mg Lactated Ringer's (Lactated Ringer's) 1,000 mls @ 75 mls/hr IV .[id number] [facility] Last Admin: 06/10/17 21:51 Dose: 75 mls/hr Piperacillin Sod/Tazobactam Sod (Zosyn 3.375 In Ns 100ml) 100 mls @ 200 mls/hr IVPB Q8 [facility] PRN Reason: Protocol Stop: 06/17/17 22:01 Last Admin: 06/10/17 21:57 Dose: 200 mls/hr Insulin Human Regular (Humulin R High) 0 units SC ACHS [facility] PRN Reason: Protocol Last Admin: 06/10/17 23:16 Dose: Not Given Levalbuterol HCl (Xopenex) 1.25 mg IH [id number] [facility] Last Admin: 06/10/17 19:39 Dose: 1.25 mg Ondansetron HCl (Zofran Inj) 4 mg IVP Q6H PRN PRN Reason: Nausea/Vomiting Oxycodone/Acetaminophen (Percocet 5/325 Mg Tab) 1 tab PO Q4H PRN PRN Reason: Pain, moderate (4-7) Stop: 06/13/17 12:09 Last Admin: 06/10/17 20:19 Dose: 1 tab Pantoprazole Sodium (Protonix Inj) 40 mg IVP DAILY [facility] Last Admin: 06/10/17 09:40 Dose: 40 mg - Labs Labs: 06/10/17 06:12 06/10/17 07:18 PT 12.4 Seconds (9.9-11.8) H 06/08/17 11:20 INR 1.15 (0.93-1.08) H 06/08/17 11:20 APTT 35.9 Seconds (23.7-30.8) H 06/08/17 11:20 Attending/Attestation - Attestation I have personally seen and examined this patient.: Yes I have fully participated in the care of the patient.: Yes I have reviewed all pertinent clinical information, including history, physical exam and plan: Yes Notes (Text): This is an addendum to GI progress report dictated by Fabienne López APN.The patient was seen and examined earlier. Medical records, lab studies, imagings were reviewed. Last 24 hours events reviewed. Agreed with the above treatment plan as outlined in Fabienne López APN's notes the with the addition of the following Status post open cholecystectomy for gangrenous gallbladder. Continue postop as per surgery continue IV antibiotics and close follow-up <Fabienne López - Last Filed: 06/18/17 18:28> Subjective - Date & Time of Evaluation Date of Evaluation: 06/10/17 Time of Evaluation: 11:10 - Subjective Subjective: Covering GI note for Dr. Conroy. Seen and examined at the bedside earlier today, chart was reviewed. Postop day #1 for open laparoscopic cholecystectomy. Patient denies nausea, vomiting, postoperative abdominal pain, no acute distress. Tolerated oral intake. Positive gas, no BM. Gallbladder pathologies shows gangrenous cholelithiasis and cholecystitis. Objective - Vital Signs/Intake and Output Vital Signs (last 24 hours): Temp Pulse Resp BP Pulse Ox 98.6 F 94 H 18 144/84 95 06/10/17 16:58 06/10/17 16:58 06/10/17 16:58 06/10/17 16:58 06/09/17 22:10 Intake and Output: 06/10/17 06/10/17 06:59 18:59 Intake Total 50 Balance 50 - Medications Medications: Current Medications Acetaminophen (Tylenol 325mg Tab) 650 mg PO Q6H PRN PRN Reason: Fever >100.4 F Last Admin: 06/07/17 23:21 Dose: 650 mg Amlodipine Besylate (Norvasc) 10 mg PO DAILY [facility] Last Admin: 06/10/17 09:41 Dose: 10 mg Apixaban (Eliquis) 2.5 mg PO BID [facility] PRN Reason: Protocol Atenolol (Tenormin) 25 mg PO BID [facility] Docusate Sodium (Colace) 100 mg PO BID [facility] Last Admin: 06/10/17 09:42 Dose: 100 mg Hydralazine HCl (Apresoline) 10 mg PO QID PRN PRN Reason: For SBP>170 Hydralazine HCl (Apresoline) 10 mg IVP Q6 PRN PRN Reason: Systolic Blood Pressure Hydralazine HCl (Apresoline) 25 mg PO TID [facility] Last Admin: 06/10/17 13:23 Dose: 25 mg Lactated Ringer's (Lactated Ringer's) 1,000 mls @ 75 mls/hr IV .[id number] [facility] Last Admin: 06/09/17 19:45 Dose: 75 mls/hr Piperacillin Sod/Tazobactam Sod (Zosyn 3.375 In Ns 100ml) 100 mls @ 200 mls/hr IVPB Q8 [facility] PRN Reason: Protocol Stop: 06/17/17 22:01 Insulin Human Regular (Humulin R High) 0 units SC ACHS [facility] PRN Reason: Protocol Last Admin: 06/10/17 12:10 Dose: 2 units Levalbuterol HCl (Xopenex) 1.25 mg IH [id number] [facility] Last Admin: 06/10/17 13:39 Dose: 1.25 mg Ondansetron HCl (Zofran Inj) 4 mg IVP Q6H PRN PRN Reason: Nausea/Vomiting Oxycodone/Acetaminophen (Percocet 5/325 Mg Tab) 1 tab PO Q4H PRN PRN Reason: Pain, moderate (4-7) Stop: 06/13/17 12:09 Last Admin: 06/10/17 15:14 Dose: 1 tab Pantoprazole Sodium (Protonix Inj) 40 mg IVP DAILY [facility] Last Admin: 06/10/17 09:40 Dose: 40 mg - Labs Labs: 06/10/17 06:12 06/10/17 07:18 PT 12.4 Seconds (9.9-11.8) H 06/08/17 11:20 INR 1.15 (0.93-1.08) H 06/08/17 11:20 APTT 35.9 Seconds (23.7-30.8) H 06/08/17 11:20 - Constitutional Appears: No Acute Distress - Head Exam Head Exam: NORMOCEPHALIC - Eye Exam Eye Exam: Normal appearance. absent: Scleral icterus - ENT Exam ENT Exam: Mucous Membranes Moist - Neck Exam Neck Exam: Normal Inspection - Respiratory Exam Respiratory Exam: NORMAL BREATHING PATTERN. absent: Respiratory Distress - Cardiovascular Exam Cardiovascular Exam: +S1, +S2 - GI/Abdominal Exam GI & Abdominal Exam: Soft, Tenderness, Normal Bowel Sounds. absent: Guarding, Rebound Additional comments: dressing dry and intact - Neurological Exam Neurological Exam: Alert, Awake, Oriented x3 Assessment and Plan - Assessment and Plan (Free Text) Assessment: Assessment: Acute on chronic cholecystitis status post open cholecystectomy with pathology show gangrenous cholelithiasis and cholecystitis Anemia Coronary artery disease status post recent cardiac catheter Obesity Hyperlipidemia CHF with EF of 30-35% Diabetes mellitus Hypertension Plan: Continue IV antibiotics, on Zosyn Monitor H&H transfuse as necessary Continue Protonix Started back on Eliquis on Heart healthy as per surgery IVF as per surgery, cardiology, renal Seen and discussed with Dr. Arreguin.
--- NOTE | 2017-06-10 18:42 | PN ---
DATE: 06/10/2017 SUBJECTIVE: The patient is seen lying in bed. He is awake. He is alert. He complains of some abdominal pain only when he moves. He denies any chest tightness and palpitation. He appears somewhat dyspneic. PHYSICAL EXAMINATION GENERAL: Obese middle aged male lying in bed. VITAL SIGNS: Blood pressure 156/82, heart rate 112, respiratory rate 18, temperature 98.6. HEENT: Normocephalic and atraumatic. NECK: Supple. No JVD. LUNGS: Bilateral equal air entry, bilateral rhonchi, decreased air entry at bases. CARDIAC: S1 and S2. Regular rate and rhythm. No murmur. No rub. ABDOMEN: Obese, distended, soft, tenderness in the right upper quadrant. EXTREMITIES: 2+ pitting edema of the lower extremities. INTAKE AND OUTPUT: 3000/600. LABORATORY DATA: WBC 14, hemoglobin 7.9, hematocrit 24.4, and platelets of 208. Sodium 138, potassium 4.2, chloride 104, CO2 24, BUN 39, creatinine 2.9, glucose 125, calcium 8.4. AST 48 and ALT 50. CURRENT MEDICATIONS: Hydralazine 25 mg t.i.d., Colace 100 mg b.i.d., Eliquis 2.5 mg b.i.d., insulin, Ringer lactate at 75, amlodipine 10, Percocet, Protonix, Tenormin, Tylenol, Xopenex, Zofran, and Zosyn 3.375 q.6. ASSESSMENT AND PLAN: 1. Acute kidney injury super imposed on chronic kidney disease, stage III, worsening renal parameters. 2. Severe anemia, worsening hemoglobin, need to rule out gastrointestinal blood loss. 3. Morbid obesity. 4. Status post cholecystectomy postoperative day #3. 5. Non-insulin dependent diabetes mellitus, well controlled. 6. Leukocytosis. PLAN: 1. Stool occult. 2. Discontinue IV fluids. 3. Lasix 40 mg IV push x1 dose. 4. Dose all antibiotics for creatinine clearance 30 to 50 mL per minute. 5. Check urine eosinophils. 6. Monitor daily labs. Miryea Lopez MD
--- NOTE | 2017-06-10 18:44 | CARD ---
APPROVED REPORT EKG Measurement Heart [id number] <Conclusion> Atrial fibrillation with rapid ventricular response Minimal voltage criteria for LVH, may be normal variant Abnormal ECG
--- NOTE | 2017-06-10 19:51 | PN ---
DATE: SUBJECTIVE: The patient is a 56-year-old, seen and examined, complained of generalized weakness;otherwise, doing well. No fever or chills. No nausea or vomiting. No diarrhea. PHYSICAL EXAMINATION VITAL SIGNS: He is afebrile, pulse 94, respirations 18, blood pressure 144/84. LUNGS: Bilateral fair airflow. No rhonchi or crackles. HEART: S1 and S2 audible. Regular rate control. ABDOMEN: Soft, nontender. No rebound. No guarding. Accepted surgical site, he has slight palpable discomfort. No discharge. Wound looks healthy. NEUROLOGICAL: He is awake and alert. She is able to communicate. LABORATORY DATA: His WBC is 4.3, hemoglobin 7.9, hematocrit 24, platelets 208. Chemistry: Sodium 138, potassium 4.2, chloride 104, CO2 of 24, BUN 39, creatinine 2.9. Blood sugar of 198. ASSESSMENT: 1. Status post acute cholecystitis, status post open cholecystectomy. 2. New-onset atrial fibrillation. 3. Renal insufficiency. 4. Anemia. 5. Nonischemic cardiomyopathy with left ventricular dysfunction. PLAN: The patient was given atenolol and has been started on Eliquis by Cardiology team. The patient is tolerating liquid diet. We will continue IV fluid. We will given him one blood transfusion. Follow up CBC and CMP in a.m. Cardiology, Nephrology and surgical team is also following the patient. Continue on antibiotics that is Zosyn. Roberta Aden MD
[2017-06-10] MEDS: Lactated Ringer's 1,000 ML IV SCH (21:51)
[2017-06-11] MEDS: Piperacillin/Tazobact 3.375 gm 100 ML IVPB SCH ×3 (05:22→21:31)
[2017-06-11] MEDS: Pantoprazole 40 mg EC Tab PO SCH (06:29)
[2017-06-11 07:23] LABS: HEMATOCRIT 26.1 % (42.0-52.0); MEAN CELL VOLUME 85.9 fl (80.0-105.0); MEAN CORPUSCULAR HGB CONC 32.6 g/dl (31.0-37.0); MEAN PLATELET VOLUME 9.9 fl (7.0-11.0); RED CELL DISTRIBUTION WIDTH 13.9 % (11.5-14.5); WHITE BLOOD COUNT 13.7 10^3/ul (4.5-11.0)
[2017-06-11 07:48] LABS: ALB/GLOB RATIO 0.9 (1.1-1.8); BILIRUBIN,TOTAL 0.8 mg/dL (0.2-1.3); CALCIUM 8.1 mg/dL (8.4-10.5); POTASSIUM 4.7 mmol/L (3.6-5.0); TOTAL PROTEIN 6.6 g/dL (5.8-8.3)
[2017-06-11] MEDS: Insulin Reg-HIGH-Coverage SC SCH ×3 (08:30→17:22)
[2017-06-11] MEDS: Lactated Ringer's 1,000 ML IV SCH (10:45)
--- NOTE | 2017-06-11 11:05 | RAD ---
HISTORY: rule out pneumonia COMPARISON: 06/06/2017. FINDINGS: LUNGS: There is mild pulmonary venous congestion. There is bibasilar atelectasis. No focal consolidation. PLEURA: No significant pleural effusion identified, no pneumothorax apparent. CARDIOVASCULAR: Severe cardiomegaly. OSSEOUS STRUCTURES: No significant abnormalities. VISUALIZED UPPER ABDOMEN: Normal. OTHER FINDINGS: None. IMPRESSION: No active pulmonary disease. Severe cardiomegaly.
[2017-06-11 11:07] LABS: URINE BILIRUBIN NEGATIVE (NEGATIVE); URINE BLOOD TRACE-INTACT (NEGATIVE); URINE GLUCOSE (UA) NEGATIVE (NEGATIVE); URINE KETONE NEGATIVE (NEGATIVE); URINE LEUKOCYTE ESTERASE NEGATIVE Leu/uL (NEGATIVE); URINE PROTEIN 100 mg/dL (<30 mg/dL); URINE UROBILINOGEN 0.2 E.U./dL (<1 E.U./dL)
[2017-06-11 11:08] LABS: URINE APPEARANCE CLEAR (CLEAR); URINE COLOR YELLOW (YELLOW)
[2017-06-11] MEDS: Levalbuterol 1.25 MG/3 ML Inhal Soln UD IH SCH ×3 (11:16→19:26)
--- NOTE | 2017-06-11 11:22 | CP.PCM.PN ---
Subjective - Date & Time of Evaluation Date of Evaluation: 06/11/17 Time of Evaluation: 06:55 - Subjective Subjective: Surgery Note for Dr. March 56M seen and examined at bedside. States pain is controlled, denies nausea/ vomiting. He is tolerating diet. 100.9 temperature this morning now down to 99.5. Objective - Vital Signs/Intake and Output Vital Signs (last 24 hours): Temp Pulse Resp BP Pulse Ox 99.5 F 110 H 22 126/75 93 L 06/11/17 07:29 06/11/17 10:40 06/11/17 06:00 06/11/17 10:40 06/11/17 06:00 Intake and Output: 06/11/17 06/11/17 06:59 18:59 Intake Total 1095 Output Total 1000 Balance 95 - Medications Medications: Current Medications Acetaminophen (Tylenol 325mg Tab) 650 mg PO Q6H PRN PRN Reason: Fever >100.4 F Last Admin: 06/11/17 06:29 Dose: 650 mg Amlodipine Besylate (Norvasc) 10 mg PO DAILY [facility] Last Admin: 06/11/17 10:40 Dose: 10 mg Apixaban (Eliquis) 2.5 mg PO BID [facility] PRN Reason: Protocol Last Admin: 06/11/17 10:38 Dose: 2.5 mg Atenolol (Tenormin) 25 mg PO BID [facility] Last Admin: 06/11/17 10:40 Dose: 25 mg Docusate Sodium (Colace) 100 mg PO BID [facility] Last Admin: 06/11/17 10:40 Dose: 100 mg Hydralazine HCl (Apresoline) 10 mg PO QID PRN PRN Reason: For SBP>170 Hydralazine HCl (Apresoline) 10 mg IVP Q6 PRN PRN Reason: Systolic Blood Pressure Hydralazine HCl (Apresoline) 25 mg PO TID [facility] Last Admin: 06/11/17 10:39 Dose: 25 mg Lactated Ringer's (Lactated Ringer's) 1,000 mls @ 75 mls/hr IV .[id number] [facility] Last Admin: 06/11/17 10:45 Dose: 75 mls/hr Piperacillin Sod/Tazobactam Sod (Zosyn 3.375 In Ns 100ml) 100 mls @ 200 mls/hr IVPB Q12 [facility] PRN Reason: Protocol Stop: 06/18/17 10:01 Last Admin: 06/11/17 10:41 Dose: 200 mls/hr Insulin Human Regular (Humulin R High) 0 units SC ACHS [facility] PRN Reason: Protocol Last Admin: 06/11/17 08:30 Dose: 2 units Levalbuterol HCl (Xopenex) 1.25 mg IH [id number] [facility] Last Admin: 06/11/17 11:16 Dose: 1.25 mg Ondansetron HCl (Zofran Inj) 4 mg IVP Q6H PRN PRN Reason: Nausea/Vomiting Oxycodone/Acetaminophen (Percocet 5/325 Mg Tab) 1 tab PO Q4H PRN PRN Reason: Pain, moderate (4-7) Stop: 06/13/17 12:09 Last Admin: 06/10/17 20:19 Dose: 1 tab Pantoprazole Sodium (Protonix Ec Tab) 40 mg PO 0600 [facility] Last Admin: 06/11/17 06:29 Dose: 40 mg - Labs Labs: 06/11/17 07:15 06/11/17 07:15 PT 12.4 Seconds (9.9-11.8) H 06/08/17 11:20 INR 1.15 (0.93-1.08) H 06/08/17 11:20 APTT 35.9 Seconds (23.7-30.8) H 06/08/17 11:20 - Constitutional Appears: Non-toxic, No Acute Distress - Respiratory Exam Respiratory Exam: Clear to Ausculation Bilateral, NORMAL BREATHING PATTERN - Cardiovascular Exam Cardiovascular Exam: REGULAR RHYTHM, +S1, +S2 - GI/Abdominal Exam GI & Abdominal Exam: Soft. absent: Distended, Firm, Guarding, Rigid, Tenderness , Rebound Additional comments: incisions CDI - Neurological Exam Neurological Exam: Alert, Awake - Skin Skin Exam: Dry, Intact, Normal Color, Warm Assessment and Plan - Assessment and Plan (Free Text) Assessment: 56M s/p laparoscopic cholecystectomy turn open cholecystectomy POD3 Plan: - Monitor diet - monitor pain control, continue Abx - encourage incentive spirometer Further recs with Dr. Joaquim Gould, PGY2
[2017-06-11 11:29] LABS: URINE AMORPHOUS SEDIMENT TRACE; URINE WBC 0 - 2 /hpf (0-6)
[2017-06-11 11:30] LABS: URINE BACTERIA MANY (NEG)
--- NOTE | 2017-06-11 11:38 | CP.PCM.PN ---
<Kallie,Kovil V - Last Filed: 06/13/17 08:11> Objective - Vital Signs/Intake and Output Vital Signs (last 24 hours): Temp Pulse Resp BP Pulse Ox 98.1 F 74 20 144/84 95 06/11/17 16:00 06/11/17 18:00 06/11/17 16:00 06/11/17 17:23 06/11/17 16:00 Intake and Output: 06/11/17 06/12/17 18:59 06:59 Intake Total 780 Balance 780 - Medications Medications: Current Medications Acetaminophen (Tylenol 325mg Tab) 650 mg PO Q6H PRN PRN Reason: Fever >100.4 F Last Admin: 06/11/17 06:29 Dose: 650 mg Apixaban (Eliquis) 2.5 mg PO BID [facility] PRN Reason: Protocol Last Admin: 06/11/17 17:23 Dose: 2.5 mg Atenolol (Tenormin) 25 mg PO BID [facility] Last Admin: 06/11/17 17:23 Dose: 25 mg Diltiazem HCl (Cardizem) 60 mg PO Q8H [facility] Last Admin: 06/11/17 13:46 Dose: 60 mg Docusate Sodium (Colace) 100 mg PO BID [facility] Last Admin: 06/11/17 17:23 Dose: 100 mg Hydralazine HCl (Apresoline) 10 mg PO QID PRN PRN Reason: For SBP>170 Hydralazine HCl (Apresoline) 10 mg IVP Q6 PRN PRN Reason: Systolic Blood Pressure Hydralazine HCl (Apresoline) 25 mg PO TID [facility] Last Admin: 06/11/17 17:23 Dose: 25 mg Piperacillin Sod/Tazobactam Sod (Zosyn 3.375 In Ns 100ml) 100 mls @ 200 mls/hr IVPB Q12 [facility] PRN Reason: Protocol Stop: 06/18/17 10:01 Last Admin: 06/11/17 21:31 Dose: 200 mls/hr Sodium Chloride (Sodium Chloride 0.9%) 1,000 mls @ 80 mls/hr IV .[id number] [facility] Last Admin: 06/11/17 17:24 Dose: 80 mls/hr Insulin Human Regular (Humulin R High) 0 units SC ACHS [facility] PRN Reason: Protocol Last Admin: 06/11/17 17:22 Dose: 4 units Levalbuterol HCl (Xopenex) 1.25 mg IH [id number] [facility] Last Admin: 06/11/17 19:26 Dose: 1.25 mg Ondansetron HCl (Zofran Inj) 4 mg IVP Q6H PRN PRN Reason: Nausea/Vomiting Oxycodone/Acetaminophen (Percocet 5/325 Mg Tab) 1 tab PO Q4H PRN PRN Reason: Pain, moderate (4-7) Stop: 06/13/17 12:09 Last Admin: 06/11/17 21:41 Dose: 1 tab Pantoprazole Sodium (Protonix Ec Tab) 40 mg PO 0600 [facility] Last Admin: 06/11/17 06:29 Dose: 40 mg - Labs Labs: 06/11/17 07:15 06/11/17 07:15 PT 12.4 Seconds (9.9-11.8) H 06/08/17 11:20 INR 1.15 (0.93-1.08) H 06/08/17 11:20 APTT 35.9 Seconds (23.7-30.8) H 06/08/17 11:20 Attending/Attestation - Attestation I have personally seen and examined this patient.: Yes I have fully participated in the care of the patient.: Yes I have reviewed all pertinent clinical information, including history, physical exam and plan: Yes Notes (Text): This is an addendum to GI progress report dictated by Fabienne López APN.The patient was seen and examined earlier. Medical records, lab studies, imagings were reviewed. Last 24 hours events reviewed. Agreed with the above treatment plan as outlined in Fabienne López APN's notes the with the addition of the following Status post open cholecystectomy for gangrenous gallbladder Continue IV antibiotics patient is now started back on a Eliquis need close follow-up of the hemoglobin and hematocrit 06/11/17 23:54 <Fabienne López - Last Filed: 06/18/17 18:28> Subjective - Date & Time of Evaluation Date of Evaluation: 06/11/17 Time of Evaluation: 09:40 - Subjective Subjective: Covering GI note for Dr. Conroy. S&E at bedside, chart reviewed, had 1 u PRBC yesterday, Tmax 100.1 last night. No N/V , abdominal pain in control, no BM yesterday, passing gas/flatus, Tolerating oral intake. No new complaints. Repeat blood culture and urine sent. CXR no pulmonary abnormalities, reveal cardiomegaly. Objective - Vital Signs/Intake and Output Vital Signs (last 24 hours): Temp Pulse Resp BP Pulse Ox 99.5 F 110 H 22 126/75 93 L 06/11/17 07:29 06/11/17 10:40 06/11/17 06:00 06/11/17 10:40 06/11/17 06:00 Intake and Output: 06/11/17 06/11/17 06:59 18:59 Intake Total 1095 Output Total 1000 Balance 95 - Medications Medications: Current Medications Acetaminophen (Tylenol 325mg Tab) 650 mg PO Q6H PRN PRN Reason: Fever >100.4 F Last Admin: 06/11/17 06:29 Dose: 650 mg Amlodipine Besylate (Norvasc) 10 mg PO DAILY [facility] Last Admin: 06/11/17 10:40 Dose: 10 mg Apixaban (Eliquis) 2.5 mg PO BID [facility] PRN Reason: Protocol Last Admin: 06/11/17 10:38 Dose: 2.5 mg Atenolol (Tenormin) 25 mg PO BID [facility] Last Admin: 06/11/17 10:40 Dose: 25 mg Docusate Sodium (Colace) 100 mg PO BID [facility] Last Admin: 06/11/17 10:40 Dose: 100 mg Hydralazine HCl (Apresoline) 10 mg PO QID PRN PRN Reason: For SBP>170 Hydralazine HCl (Apresoline) 10 mg IVP Q6 PRN PRN Reason: Systolic Blood Pressure Hydralazine HCl (Apresoline) 25 mg PO TID [facility] Last Admin: 06/11/17 10:39 Dose: 25 mg Lactated Ringer's (Lactated Ringer's) 1,000 mls @ 75 mls/hr IV .[id number] [facility] Last Admin: 06/11/17 10:45 Dose: 75 mls/hr Piperacillin Sod/Tazobactam Sod (Zosyn 3.375 In Ns 100ml) 100 mls @ 200 mls/hr IVPB Q12 [facility] PRN Reason: Protocol Stop: 06/18/17 10:01 Last Admin: 06/11/17 10:41 Dose: 200 mls/hr Insulin Human Regular (Humulin R High) 0 units SC ACHS [facility] PRN Reason: Protocol Last Admin: 06/11/17 08:30 Dose: 2 units Levalbuterol HCl (Xopenex) 1.25 mg IH [id number] [facility] Last Admin: 06/11/17 11:16 Dose: 1.25 mg Ondansetron HCl (Zofran Inj) 4 mg IVP Q6H PRN PRN Reason: Nausea/Vomiting Oxycodone/Acetaminophen (Percocet 5/325 Mg Tab) 1 tab PO Q4H PRN PRN Reason: Pain, moderate (4-7) Stop: 06/13/17 12:09 Last Admin: 06/10/17 20:19 Dose: 1 tab Pantoprazole Sodium (Protonix Ec Tab) 40 mg PO 0600 [facility] Last Admin: 06/11/17 06:29 Dose: 40 mg - Labs Labs: 06/11/17 07:15 06/11/17 07:15 PT 12.4 Seconds (9.9-11.8) H 06/08/17 11:20 INR 1.15 (0.93-1.08) H 06/08/17 11:20 APTT 35.9 Seconds (23.7-30.8) H 06/08/17 11:20 - Constitutional Appears: No Acute Distress - Head Exam Head Exam: NORMOCEPHALIC - Eye Exam Eye Exam: Normal appearance. absent: Scleral icterus - ENT Exam ENT Exam: Mucous Membranes Moist - Neck Exam Neck Exam: Normal Inspection - Respiratory Exam Respiratory Exam: NORMAL BREATHING PATTERN. absent: Respiratory Distress - Cardiovascular Exam Cardiovascular Exam: +S1, +S2 - GI/Abdominal Exam GI & Abdominal Exam: Soft, Tenderness, Normal Bowel Sounds. absent: Guarding, Rebound Additional comments: right lateral incision stacey D&I, KITCHEN CLERK - Extremities Exam Extremities Exam: Normal Capillary Refill, Pedal Edema. absent: Calf Tenderness - Neurological Exam Neurological Exam: Alert, Awake, Oriented x3 - Skin Skin Exam: Dry, Warm Assessment and Plan - Assessment and Plan (Free Text) Assessment: Assessment: Acute on chronic cholecystitis status post open cholecystectomy with pathology show gangrenous cholelithiasis and cholecystitis Anemia Coronary artery disease status post recent cardiac catheter Obesity Hyperlipidemia CHF with EF of 30-35% Diabetes mellitus Hypertension Plan: Continue IV antibiotics, on Zosyn Monitor H&H transfuse as necessary Continue Protonix Started back on Eliquis on Heart healthy as per surgery IVF SCD encourage OOB and IS as per surgery, cardiology, renal, ID Seen and discussed with Dr. Arreguin.
--- NOTE | 2017-06-11 12:47 | PN ---
DATE: SUBJECTIVE: The patient is a 56-year-old seen and examined, complained of generalized weakness. Has episode of tachycardia and shortness of breath last night, eating well. PHYSICAL EXAMINATION VITAL SIGNS: He is afebrile, pulse 110, respirations 18, blood pressure 126/75. LUNGS: Bilateral fair airflow. No rhonchi or crackles. HEART: S1 and S2 audible. ABDOMEN: Soft, obese, nontender and slight palpable discomfort at the surgical site. NEUROLOGIC: He is awake and alert. LABORATORY DATA: WBC 13.7, hemoglobin 8.5, hematocrit 26, and platelets 249. Chemistry; sodium 135, potassium 4.7, chloride 102, CO2 of 21, BUN 48, and creatinine 3.7. Blood sugar of 191. Blood cultures and urine cultures are negative. ASSESSMENT AND PLAN: 1. Acute cholecystitis, status post open cholecystectomy. 2. [id number] failure. 3. Atrial fibrillation. 4. Hypertension. 5. Non-ischemic cardiomyopathy. PLAN: The patient received blood transfusion yesterday, currently is on IV fluid that is being monitored by hoop punch and coiler operator and we will monitor his blood sugar. Currently, he is on Cardizem 60 mg q. 8. He is on Eliquis. We will follow up his CBC and CMP in a.m. Roberta Aden MD
--- NOTE | 2017-06-11 16:35 | CP.PCM.PN ---
Subjective - Date & Time of Evaluation Date of Evaluation: 06/11/17 Time of Evaluation: 11:25 - Subjective Subjective: Developed fever overnight, no diarrhea. Feels somewhat weak today, no dysuria, no cough, no increase in abdominal pain. Objective - Vital Signs/Intake and Output Vital Signs (last 24 hours): Temp Pulse Resp BP Pulse Ox 100.9 F H 100 H 22 135/82 93 L 06/11/17 06:29 06/11/17 06:00 06/11/17 06:00 06/11/17 06:00 06/11/17 06:00 Intake and Output: 06/11/17 06/11/17 06:59 18:59 Intake Total 1095 Output Total 1000 Balance 95 - Medications Medications: Current Medications Acetaminophen (Tylenol 325mg Tab) 650 mg PO Q6H PRN PRN Reason: Fever >100.4 F Last Admin: 06/11/17 06:29 Dose: 650 mg Amlodipine Besylate (Norvasc) 10 mg PO DAILY [facility] Last Admin: 06/10/17 09:41 Dose: 10 mg Apixaban (Eliquis) 2.5 mg PO BID [facility] PRN Reason: Protocol Last Admin: 06/10/17 17:57 Dose: 2.5 mg Atenolol (Tenormin) 25 mg PO BID [facility] Last Admin: 06/10/17 19:16 Dose: Not Given Docusate Sodium (Colace) 100 mg PO BID [facility] Last Admin: 06/10/17 17:56 Dose: 100 mg Hydralazine HCl (Apresoline) 10 mg PO QID PRN PRN Reason: For SBP>170 Hydralazine HCl (Apresoline) 10 mg IVP Q6 PRN PRN Reason: Systolic Blood Pressure Hydralazine HCl (Apresoline) 25 mg PO TID [facility] Last Admin: 06/10/17 17:56 Dose: 25 mg Lactated Ringer's (Lactated Ringer's) 1,000 mls @ 75 mls/hr IV .[id number] [facility] Last Admin: 06/10/17 21:51 Dose: 75 mls/hr Piperacillin Sod/Tazobactam Sod (Zosyn 3.375 In Ns 100ml) 100 mls @ 200 mls/hr IVPB Q8 [facility] PRN Reason: Protocol Stop: 06/17/17 22:01 Last Admin: 06/11/17 05:22 Dose: 200 mls/hr Vancomycin HCl 1.5 gm/ Sodium (Chloride) 250 mls @ 167 mls/hr IVPB ONCE ONE PRN Reason: Protocol Stop: 06/11/17 10:36 Insulin Human Regular (Humulin R High) 0 units SC ACHS [facility] PRN Reason: Protocol Last Admin: 06/11/17 08:30 Dose: 2 units Levalbuterol HCl (Xopenex) 1.25 mg IH [id number] [facility] Last Admin: 06/10/17 19:39 Dose: 1.25 mg Ondansetron HCl (Zofran Inj) 4 mg IVP Q6H PRN PRN Reason: Nausea/Vomiting Oxycodone/Acetaminophen (Percocet 5/325 Mg Tab) 1 tab PO Q4H PRN PRN Reason: Pain, moderate (4-7) Stop: 06/13/17 12:09 Last Admin: 06/10/17 20:19 Dose: 1 tab Pantoprazole Sodium (Protonix Ec Tab) 40 mg PO 0600 [facility] Last Admin: 06/11/17 06:29 Dose: 40 mg - Labs Labs: 06/11/17 07:15 06/11/17 07:15 PT 12.4 Seconds (9.9-11.8) H 06/08/17 11:20 INR 1.15 (0.93-1.08) H 06/08/17 11:20 APTT 35.9 Seconds (23.7-30.8) H 06/08/17 11:20 - Constitutional Appears: Other (feels weak) - Head Exam Head Exam: NORMAL INSPECTION - ENT Exam ENT Exam: Mucous Membranes Moist - Neck Exam Neck Exam: absent: Meningismus - Respiratory Exam Respiratory Exam: Decreased Breath Sounds - Cardiovascular Exam Cardiovascular Exam: +S1, +S2 - GI/Abdominal Exam GI & Abdominal Exam: Soft, Tenderness (mild, RUQ area, stacey over cholecystectomy scar in place, without purulence, bleeding or discharge or erythema). absent: Distended, Firm, Guarding, Rigid, Rebound Assessment and Plan - Assessment and Plan (Free Text) Plan: Assessment Sepsis due to acute on chronic gangrenous cholecystitis S/P cholecystectomy POD #3; new onset fever need to rule out new onset sepsis HTN DM dyslipidemia obesity with BMI 39 Plan continue Zosyn and will add Vancomycin pending repeat blood cx, urine cx, CXR; OR cx are negative; will continue to trend WBC count - if fever persists or WBC continues to trend upwards, should get repeat CT A/P will continue to monitor clinically
[2017-06-11] MEDS: Sodium Chloride 0.9% 1,000 ML IV SCH (17:24)
--- NOTE | 2017-06-11 19:11 | PN ---
LOCATION: Room #371, bed 1. REASON FOR CONSULTATION: Followup status post cholecystectomy, cardiomyopathy, nonobstructive coronary artery disease, new onset atrial fibrillation. SUBJECTIVE: The patient is lying flat in bed, without chest pain, shortness of breath or palpitations. The patient is status post cholecystectomy. PHYSICAL EXAMINATION: VITAL SIGNS: Blood pressure 134/91, respirations 20, pulse around 120 per minute, the patient is afebrile. HEENT: Head is normocephalic. Eyes: Pupils are normal. Conjunctiva slightly pale. NECK: JVP low. Carotids are equal. Thorax, AP diameter normal. LUNGS: No rales. CARDIOVASCULAR: S1 and S2. ABDOMEN: Status post cholecystectomy. EXTREMITIES: No clubbing, no cyanosis. LABORATORY DATA: WBC 13.7, hemoglobin 8.5, hematocrit 26.1, and platelets 249. Chemistry; sodium 135, potassium 4.7, BUN 48, and creatinine 3.7. Random sugar of 191. AST and ALT are normal. Total protein 6.6, albumin 3.1. 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 IMPRESSION: Cardiomyopathy, nonobstructive coronary artery disease, new onset of atrial fibrillation, the patient on admission was sinus rhythm, renal insufficiency status post cholecystectomy for acute cholecystitis, anemia. Cardiac catheterization on 05/01/2014 show non-ischemic cardiomyopathy with left ventricular ejection fraction of 30% to 35%. PLAN: Yesterday, the patient was started on atenolol. The patient's heart rate is still rapid. We will give Cardizem 10 mg bolus now and then, put p.o. Cardizem 60 q. 8 hours. We will continue atenolol 25 mg p.o. b.i.d. The patient is also on vancomycin 1.5 g of IV only once was given, Xopenex and nebulizer therapy, Protonix 40 p.o. daily. We will discontinue amlodipine because we started Cardizem. Eliquis 2.5 b.i.d., hydralazine 25 mg p.o. t.i.d. We will monitor the patient. We will follow with you. Ray Xiong MD
--- NOTE | 2017-06-11 19:29 | PN ---
DATE: 06/11/2017 SUBJECTIVE: The patient is seen lying in bed. He reports being weak. He complains of pain when he moves. He denies any chest tightness. He denies any shortness of breath. PHYSICAL EXAMINATION GENERAL: Obese, middle-aged male lying in bed. VITAL SIGNS: Blood pressure 134/91, heart rate 107, respiratory rate 22, temperature 99.5, T-max is 100.9. HEENT: Normocephalic, atraumatic. Positive pallor. NECK: Supple, no JVD. LUNGS: Bilateral equal air entry, bilateral rhonchi, poor inspiratory effort. CARDIAC: S1 and S2, regular rate and rhythm, no murmur, no rub. ABDOMEN: Obese, distended, soft, positive tenderness in the right upper quadrant, bowel sounds present. EXTREMITIES: No lower extremity edema. INTAKE AND OUTPUT: 1145/1000. LABORATORY DATA: WBC 13.7, hemoglobin 8.5, hematocrit 26, platelets 249. Sodium 135, potassium 4.7, chloride 102, CO2 of 21, BUN 48, creatinine 3.7, glucose 174, calcium 8.1, albumin 3.1, corrected calcium is 8.6. Urinalysis: Yellow, clear, pH 6.0, specific gravity 1.020, protein 100, ketones trace, urine yeast, urine eosinophils negative, urine sodium 25, urine creatinine 129. CURRENT MEDICATIONS: Apresoline 25 b.i.d., Cardizem 60 q. 8, Colace, Eliquis 2.5 b.i.d., Ringer lactate at 75, Percocet, Protonix, Tenormin, Tylenol, Xopenex, Zofran, Zosyn 3.375 q. 12. ASSESSMENT AND PLAN: 1. Acute kidney injury, super imposed on chronic kidney disease stage III. 2. Urine sodium and creatinine consistent with depletional state, FENa is less than 1. 3. Fever, leukocytosis post surgery. 4. Severe anemia. 5. [id number]-qzsydbekw diabetes mellitus. 6. Hypertension. 7. Tachycardia, atrial fibrillation. PLAN: 1. Change IV fluids to normal saline at 80 mL per hour. 2. Follow up urine culture. 3. Consider antifungal antibiotics. 4. Monitor H and H closely. 5. Check stool occult. 6. Dose all antibiotics for creatinine clearance about 30 mL per minute. Mireya Lopez MD [facility] # [id number]
[2017-06-11] MEDS: Oxycodone/Acetaminophen 5/325 mg Tab PO PRN (21:41)
[2017-06-12] MEDS: Insulin Reg-HIGH-Coverage SC SCH ×5 (02:13→22:14)
[2017-06-12] MEDS: Levalbuterol 1.25 MG/3 ML Inhal Soln UD IH SCH ×4 (02:40→19:51)
[2017-06-12] MEDS: Pantoprazole 40 mg EC Tab PO SCH (05:08)
[2017-06-12 07:47] LABS: BASO # 0.02 K/mm3 (0.0-2.0); BASO % 0.2 % (0.0-3.0); EOS # 0.3 (0.0-0.7); EOS % 3.3 % (1.5-5.0); GRAN # 6.63 (1.4-6.5); GRAN % 67.3 % (50.0-68.0); HEMATOCRIT 24.2 % (42.0-52.0); LYMPH # 1.7 (1.2-3.4); LYMPH % 17.5 % (22.0-35.0); MEAN CELL VOLUME 87.1 fl (80.0-105.0); MEAN CORPUSCULAR HEMOGLOBIN 28.1 pg (25.0-35.0); MEAN CORPUSCULAR HGB CONC 32.2 g/dl (31.0-37.0); MEAN PLATELET VOLUME 9.8 fl (7.0-11.0); MONO # 1.2 (0.1-0.6); MONO % 11.7 % (1.0-6.0); WHITE BLOOD COUNT 9.9 10^3/ul (4.5-11.0)
[2017-06-12 08:01] LABS: ALB/GLOB RATIO 0.8 (1.1-1.8); BILIRUBIN,TOTAL 0.6 mg/dL (0.2-1.3); CALCIUM 8.5 mg/dL (8.4-10.5); POTASSIUM 4.3 mmol/L (3.6-5.0); TOTAL PROTEIN 6.8 g/dL (5.8-8.3)
[2017-06-12] MEDS: Sodium Chloride 0.9% 1,000 ML IV SCH ×2 (09:12→19:26)
[2017-06-12] MEDS: Piperacillin/Tazobact 3.375 gm 100 ML IVPB SCH ×2 (09:13→21:21)
[2017-06-12] MEDS: Oxycodone/Acetaminophen 5/325 mg Tab PO PRN (09:18)
--- NOTE | 2017-06-12 11:24 | PN ---
DATE: 06/12/2017 SUBJECTIVE: The patient is in room 371, bed 1, comfortable. No fevers and chills. PHYSICAL EXAMINATION: VITAL SIGNS: On exam, temperature is 98, T-max yesterday was 100.9, blood pressures is 140/79, respiratory rate of 21, heart rate of 63. HEENT: Unremarkable. NECK: Supple. LUNGS: Decreased breath sounds. HEART: Normal S1 and S2. ABDOMEN: Soft. LABORATORY DATA: Laboratory examination reveals the white count is 9.9, hemoglobin of 7.8, platelets of 246. BUN is 52, creatinine of 3.2. Procalcitonin is 1.35. Urinalysis is noted. Microbiology is noted. ASSESSMENT AND PLAN: A 56-year-old male with sepsis due to chronic gangrenous cholecystitis, status post cholecystectomy, post procedure day #4, new onset of fever and with hypertension and diabetes and obesity, BMI of 39, dyslipidemia, on vancomycin and Zosyn. Pending repeat iqbal cultures. Review of orders confirms the patient to be on intermittent vancomycin and Zosyn and repeat culture is pending. This morning, his white count is 9.9 and creatinine is at 3.2 and temperature appears to have improved. Sergio Reyna MD
--- NOTE | 2017-06-12 11:48 | PN ---
DATE: SUBJECTIVE: The patient is a 56-year-old seen and examined, seems to be doing well better, complained of generalized weakness, sitting and tolerating, some minimal abdominal discomfort at surgical site. PHYSICAL EXAMINATION VITAL SIGNS: He is afebrile, pulse 58, respiration 17, blood pressure 132/69. LUNGS: Bilateral fair airflow. No rhonchi or crackles. HEART: S1 and S2 audible. ABDOMEN: Soft, slight palpable discomfort at the surgical site. Wound looks healthy EXTREMITIES: Bilateral legs no edema. LABORATORY DATA: WBC 9.9, hemoglobin 7.8, hematocrit 24, and platelets of 246. PT 12.4, INR 1.15. Chemistry, sodium 138, potassium 4.3, chloride 102, CO2 22, BUN 52, and creatinine is 3.2. Blood sugar of 232. ASSESSMENT AND PLAN: 1. Status post acute cholecystitis. 2. Acute on chronic renal failure. 3. Nonischemic cardiomyopathy. 4. Symptomatic anemia with generalized weakness. 5. Non-insulin dependent diabetes. 6. Hypertension. PLAN: Currently, the patient is receiving 1 pack RBC that will benefit him rather his other comorbidities. Start him on small dose of insulin. The patient has a new onset of atrial fibrillation. He has been started on Eliquis. He is currently on diltiazem. I would continue him on IV fluid. He is refusing Zosyn. I will follow up his CBC and CMP in a.m. Roberta Aden MD cc:
--- NOTE | 2017-06-12 14:32 | PN ---
DATE: 06/12/2017 LOCATION: The patient is in room number 371, bed 1. REASON FOR CONSULTATION: Followup status post cholecystectomy, cardiomyopathy, nonobstructive coronary artery disease, new onset atrial fibrillation, today he converted back to sinus rhythm. SUBJECTIVE: The patient is lying flat in bed without chest pain, shortness of breath, or palpitation. He is postoperative cholecystectomy. PHYSICAL EXAMINATION: VITAL SIGNS: Blood pressure is 132/69, respirations are 17, pulse is 58, and temperature is 98.4. HEENT: Head is normocephalic. Eyes, pupils are normal. Conjunctivae pale. NECK: JVP low. Carotid equal. THORAX: AP diameter normal. LUNGS: Clear. CARDIOVASCULAR: S1 and S2. Regular pulse today. ABDOMEN: The patient had surgery as mentioned. EXTREMITIES: No clubbing. No cyanosis. LABORATORY DATA: WBC of 9.9, hemoglobin of 7.8, hematocrit of 24.2, and platelets of 246. Sodium of 138, potassium of 4.3, BUN of 52, creatinine of 3.2, and random sugar of 277. DIAGNOSES: New onset atrial fibrillation converted into sinus rhythm, postoperative cholecystectomy, nonobstructive coronary artery disease, cardiomyopathy, anemia, status post cholecystectomy, cardiac catheterization on 05/01/2014 showed nonischemic cardiomyopathy with left ventricular ejection fraction of 30% to 35%. PLAN: The patient is getting blood transfusion, which helped the cardiovascular status and the patient is also converted to sinus rhythm from atrial fibrillation and the patient is on hydralazine 25 t.i.d., Cardizem 60 q.8 hours, Eliquis 2.5 b.i.d., and atenolol 25 mg b.i.d. The patient is on piperacillin and tazobactam 3.375 grams IV q.12 hours. We will continue present therapy and we will follow. Ray Xiong MD
--- NOTE | 2017-06-12 16:16 | CP.PCM.PN ---
Subjective - Date & Time of Evaluation Date of Evaluation: 06/12/17 Time of Evaluation: 16:13 - Subjective Subjective: Surgery: Dr. March Pt seen and examined. Resting comfortably in chair. Being transfused 1U PRBC when examined. Pain controlled. No F/C. Tolerating diet. No N/V. Passing flatus. No BM. Objective - Vital Signs/Intake and Output Vital Signs (last 24 hours): Temp Pulse Resp BP Pulse Ox 98.4 F 91 H 19 116/86 97 06/12/17 16:06 06/12/17 16:06 06/12/17 16:06 06/12/17 16:06 06/12/17 16:06 Intake and Output: 06/12/17 06/12/17 06:59 18:59 Intake Total 1860 1245 Output Total 1000 Balance 1860 245 - Medications Medications: Current Medications Acetaminophen (Tylenol 325mg Tab) 650 mg PO Q6H PRN PRN Reason: Fever >100.4 F Last Admin: 06/11/17 06:29 Dose: 650 mg Apixaban (Eliquis) 2.5 mg PO BID REPLACED BY [facility] PRN Reason: Protocol Last Admin: 06/12/17 09:10 Dose: 2.5 mg Atenolol (Tenormin) 25 mg PO BID REPLACED BY [facility] Last Admin: 06/12/17 09:12 Dose: 25 mg Diltiazem HCl (Cardizem) 60 mg PO Q8H REPLACED BY [facility] Last Admin: 06/12/17 13:35 Dose: 60 mg Docusate Sodium (Colace) 100 mg PO BID REPLACED BY [facility] Last Admin: 06/12/17 09:08 Dose: 100 mg Hydralazine HCl (Apresoline) 10 mg PO QID PRN PRN Reason: For SBP>170 Hydralazine HCl (Apresoline) 10 mg IVP Q6 PRN PRN Reason: Systolic Blood Pressure Hydralazine HCl (Apresoline) 25 mg PO TID REPLACED BY [facility] Last Admin: 06/12/17 13:35 Dose: 25 mg Piperacillin Sod/Tazobactam Sod (Zosyn 3.375 In Ns 100ml) 100 mls @ 200 mls/hr IVPB Q12 REPLACED BY [facility] PRN Reason: Protocol Stop: 06/18/17 10:01 Last Admin: 06/12/17 09:13 Dose: 200 mls/hr Sodium Chloride (Sodium Chloride 0.9%) 1,000 mls @ 80 mls/hr IV .[id number] REPLACED BY [facility] Last Admin: 06/12/17 09:12 Dose: 80 mls/hr Insulin Human Regular (Humulin R High) 0 units SC ACHS REPLACED BY [facility] PRN Reason: Protocol Last Admin: 06/12/17 11:42 Dose: 12 units Insulin Lispro Protam/Lispro Human (Humalog Mix 75/25) 5 units SC ACBD REPLACED BY [facility] Levalbuterol HCl (Xopenex) 1.25 mg IH [id number] REPLACED BY [facility] Last Admin: 06/12/17 13:57 Dose: 1.25 mg Ondansetron HCl (Zofran Inj) 4 mg IVP Q6H PRN PRN Reason: Nausea/Vomiting Oxycodone/Acetaminophen (Percocet 5/325 Mg Tab) 1 tab PO Q4H PRN PRN Reason: Pain, moderate (4-7) Stop: 06/13/17 12:09 Last Admin: 06/12/17 09:18 Dose: 1 tab Pantoprazole Sodium (Protonix Ec Tab) 40 mg PO 0600 REPLACED BY [facility] Last Admin: 06/12/17 05:08 Dose: 40 mg Sitagliptin Phosphate (Januvia) 50 mg PO DAILY REPLACED BY [facility] Last Admin: 06/12/17 13:35 Dose: 50 mg - Labs Labs: 06/12/17 06:00 06/12/17 06:00 PT 12.4 Seconds (9.9-11.8) H 06/08/17 11:20 INR 1.15 (0.93-1.08) H 06/08/17 11:20 APTT 35.9 Seconds (23.7-30.8) H 06/08/17 11:20 - Constitutional Appears: Non-toxic, No Acute Distress - Head Exam Head Exam: ATRAUMATIC, NORMOCEPHALIC - Eye Exam Eye Exam: EOMI. absent: Scleral icterus - ENT Exam ENT Exam: Mucous Membranes Moist - Neck Exam Neck Exam: Full ROM - Respiratory Exam Respiratory Exam: NORMAL BREATHING PATTERN. absent: Accessory Muscle Use, Respiratory Distress - GI/Abdominal Exam GI & Abdominal Exam: Soft. absent: Distended, Firm, Guarding, Rigid, Tenderness Additional comments: incision C/D/I w. stacey in place - Neurological Exam Neurological Exam: Alert, Awake, Oriented x3 Assessment and Plan - Assessment and Plan (Free Text) Assessment: 56M w. cholecystits, s/p lap converted to open boris, POD#4 -Anemic, monitor H/H, f/u FOBT, transfuse PRN -c/w pain management -c/w abx -encourage OOB, ambulation, and IS use -d/w attending Santiagoitis PGY3
[2017-06-12] MEDS: Insulin Lispro (humaLOG) MIX 75/25(10 ml) SC SCH (16:30)
--- NOTE | 2017-06-12 20:04 | PN ---
DATE: 06/12/2017 SUBJECTIVE: The patient is seen lying in bed. He is awake, he is alert. He denies any chest tightness, palpitations. He reports that his palpitations are better. PHYSICAL EXAMINATION GENERAL: Morbidly obese, middle-aged male, lying in bed. VITAL SIGNS: Blood pressure 132/77, heart rate 68, respiratory rate 16, temperature 99, and T-max 100.9. HEENT: Normocephalic, atraumatic. NECK: Supple, no JVD. LUNGS: Bilateral equal air entry, bilateral equal expansion. CARDIAC: S1 and S2, regular rate and rhythm, no murmur, no rub. ABDOMEN: Obese, distended, soft, nontender, bowel sounds present. EXTREMITIES: No lower extremity edema. INTAKE AND OUTPUT: 1860/not charted. LABORATORY DATA: WBC 9.9, hemoglobin 7.8, hematocrit 24, and platelets 246. Sodium 138, potassium 4.3, chloride 102, CO2 of 23, BUN 52, creatinine 3.2, glucose 200, calcium 8.5. AST 34 and ALT 46. Urine sodium 25, urine creatinine 129. FENa less than 1. CURRENT MEDICATIONS: Hydralazine, Cardizem 60 q. 8 hours, Colace, Eliquis, insulin, Januvia, oxycodone, Protonix, normal saline at 80, Tenormin, Tylenol, Xopenex, Zofran, and Zosyn. ASSESSMENT AND PLAN: 1. Acute kidney injury, prerenal azotemia, slowly resolving. 2. Morbid obesity. 3. Status post cholecystectomy, postoperative day #4. 4. Hypertension. 5. Atrial fibrillation, now with rate controlled. PLAN: 1. Continue normal saline for another 24 hours. 2. Agree with blood transfusion to increase oncotic pressure. 3. Monitor for fevers. 4. Continue antibiotics as per ID recommendations. 5. All cultures negative so far. Mireya Lopez MD
--- NOTE | 2017-06-13 01:20 | PN ---
DATE: 06/12/2017 SUBJECTIVE: This patient was seen and evaluated earlier. Comfortable. No obvious bleeding per rectum. No abdominal pain.Received one unit PRBC.on IVF PHYSICAL EXAMINATION: VITAL SIGNS: Temperature 98.4, blood pressure 132/77, respirations 16, and O2 saturation is 97%. HEENT: Atraumatic. Anicteric. NECK: Supple. HEART: S1 and S2 heard. LUNGS: Bilateral air entry present. ABDOMEN: Soft. The surgical incision area noticed, unremarkable. EXTREMITIES: Bilateral 1+ edema present. LABORATORY DATA: Hemoglobin has dropped to 7.8, hematocrit 24.2, WBC is 9.9, and platelets 246. Chemistry, BUN 52 and creatinine 3.2. LFTs nearly normalized. IMPRESSION: This 56-year-old patient status post cholecystectomy found to have with acute kidney injury on CKD,on intravenous hydration, found to have a drop in blood count, hemoglobin 7.8. No obvious gastrointestinal blood loss no.ticed. sp I unit PRBC. The patient is presently on Eliquis.h/o Paroxysmal Afib No obvious roge or BRBPR. The patient did have a colonoscopy done earlier in [address] Reji Conroy. No EGD done . Small rectal polyps (hyperplastic ) noticed. Never had EGD. We need a close followup of the hemoglobin and hematocrit as the parient is on eliquis The patient is also on Zosyn sp cholecystectomy for gangrenous GB The patient is on Protonix. Continue to closely followup with the hemoglobin and hematocrit. other comorbodities include DM,HTN,obesity Dr. Arreguin covering for Dr. Reji Conroy and we will sign out the patient to Dr. Conroy in a.m. Thank you very much for allowing us to participate in the care of the patient. Lucille Arreguin MD [facility]
[2017-06-13] MEDS: Levalbuterol 1.25 MG/3 ML Inhal Soln UD IH SCH ×4 (01:31→20:27)
[2017-06-13] MEDS: Oxycodone/Acetaminophen 5/325 mg Tab PO PRN (02:15)
[2017-06-13] MEDS: Sodium Chloride 0.9% 1,000 ML IV SCH (05:38)
[2017-06-13] MEDS: Pantoprazole 40 mg EC Tab PO SCH (05:38)
[2017-06-13 07:25] LABS: BASO # 0.03 K/mm3 (0.0-2.0); BASO % 0.3 % (0.0-3.0); EOS # 0.5 (0.0-0.7); EOS % 4.7 % (1.5-5.0); GRAN # 7.18 (1.4-6.5); GRAN % 68.3 % (50.0-68.0); HEMATOCRIT 26.3 % (42.0-52.0); LYMPH # 1.7 (1.2-3.4); LYMPH % 16.2 % (22.0-35.0); MEAN CELL VOLUME 86.5 fl (80.0-105.0); MEAN CORPUSCULAR HEMOGLOBIN 28.3 pg (25.0-35.0); MEAN CORPUSCULAR HGB CONC 32.7 g/dl (31.0-37.0); MEAN PLATELET VOLUME 9.3 fl (7.0-11.0); MONO # 1.1 (0.1-0.6); MONO % 10.5 % (1.0-6.0); WHITE BLOOD COUNT 10.5 10^3/ul (4.5-11.0)
[2017-06-13 07:34] LABS: ALB/GLOB RATIO 0.9 (1.1-1.8); BILIRUBIN,TOTAL 0.5 mg/dL (0.2-1.3); CALCIUM 8.5 mg/dL (8.4-10.5); POTASSIUM 4.5 mmol/L (3.6-5.0); TOTAL PROTEIN 6.9 g/dL (5.8-8.3)
--- NOTE | 2017-06-13 07:43 | CP.PCM.PN ---
Subjective - Date & Time of Evaluation Date of Evaluation: 06/13/17 Time of Evaluation: 07:40 - Subjective Subjective: General Surgery Progress Note for Dr. March Patient seen and examined at bedside. No acute event overnight. Patient rresting in bed comfortably. Patient states he still has mild abd pain occasionally but continues to improve. Patient tolerating diet and having normal BMs. Denies fever/chills, cp, sob, n/v/d, constipation, incontinence. Objective - Vital Signs/Intake and Output Vital Signs (last 24 hours): Temp Pulse Resp BP Pulse Ox 98.4 F 73 19 173/93 H 97 06/12/17 16:06 06/13/17 05:06 06/12/17 16:06 06/13/17 05:06 06/12/17 16:06 Intake and Output: 06/13/17 06/13/17 06:59 18:59 Output Total 700 Balance -700 - Medications Medications: Current Medications Acetaminophen (Tylenol 325mg Tab) 650 mg PO Q6H PRN PRN Reason: Fever >100.4 F Last Admin: 06/11/17 06:29 Dose: 650 mg Apixaban (Eliquis) 2.5 mg PO BID [facility] PRN Reason: Protocol Last Admin: 06/12/17 19:26 Dose: 2.5 mg Atenolol (Tenormin) 25 mg PO BID [facility] Last Admin: 06/12/17 19:26 Dose: 25 mg Diltiazem HCl (Cardizem) 60 mg PO Q8H [facility] Last Admin: 06/13/17 05:06 Dose: 60 mg Docusate Sodium (Colace) 100 mg PO BID [facility] Last Admin: 06/12/17 18:00 Dose: 100 mg Hydralazine HCl (Apresoline) 10 mg PO QID PRN PRN Reason: For SBP>170 Hydralazine HCl (Apresoline) 10 mg IVP Q6 PRN PRN Reason: Systolic Blood Pressure Hydralazine HCl (Apresoline) 25 mg PO TID [facility] Last Admin: 06/12/17 18:00 Dose: 25 mg Piperacillin Sod/Tazobactam Sod (Zosyn 3.375 In Ns 100ml) 100 mls @ 200 mls/hr IVPB Q12 [facility] PRN Reason: Protocol Stop: 06/18/17 10:01 Last Admin: 06/12/17 21:21 Dose: 200 mls/hr Sodium Chloride (Sodium Chloride 0.9%) 1,000 mls @ 80 mls/hr IV .[id number] [facility] Last Admin: 06/13/17 05:38 Dose: 80 mls/hr Insulin Human Regular (Humulin R High) 0 units SC ACHS [facility] PRN Reason: Protocol Last Admin: 06/12/17 22:14 Dose: Not Given Insulin Lispro Protam/Lispro Human (Humalog Mix 75/25) 5 units SC ACBD [facility] Last Admin: 06/12/17 16:30 Dose: 5 units Levalbuterol HCl (Xopenex) 1.25 mg IH [id number] [facility] Last Admin: 06/13/17 01:31 Dose: Not Given Ondansetron HCl (Zofran Inj) 4 mg IVP Q6H PRN PRN Reason: Nausea/Vomiting Oxycodone/Acetaminophen (Percocet 5/325 Mg Tab) 1 tab PO Q4H PRN PRN Reason: Pain, moderate (4-7) Stop: 06/13/17 12:09 Last Admin: 06/13/17 02:15 Dose: 1 tab Pantoprazole Sodium (Protonix Ec Tab) 40 mg PO 0600 [facility] Last Admin: 06/13/17 05:38 Dose: 40 mg Sitagliptin Phosphate (Januvia) 50 mg PO DAILY [facility] Last Admin: 06/12/17 13:35 Dose: 50 mg - Labs Labs: 06/13/17 07:10 06/12/17 06:00 PT 12.4 Seconds (9.9-11.8) H 06/08/17 11:20 INR 1.15 (0.93-1.08) H 06/08/17 11:20 APTT 35.9 Seconds (23.7-30.8) H 06/08/17 11:20 - Constitutional Appears: No Acute Distress - Head Exam Head Exam: ATRAUMATIC, NORMOCEPHALIC - Eye Exam Eye Exam: Normal appearance - ENT Exam ENT Exam: Mucous Membranes Moist - Respiratory Exam Respiratory Exam: NORMAL BREATHING PATTERN - Cardiovascular Exam Cardiovascular Exam: REGULAR RHYTHM - GI/Abdominal Exam GI & Abdominal Exam: Distended, Soft. absent: Firm, Guarding, Tenderness, Rebound - Extremities Exam Extremities Exam: Normal Capillary Refill. absent: Calf Tenderness - Back Exam Back Exam: absent: CVA tenderness (L), CVA tenderness (R) - Neurological Exam Neurological Exam: Alert, Awake, Oriented x3 - Psychiatric Exam Psychiatric exam: Normal Affect, Normal Mood - Skin Skin Exam: Dry, Intact, Warm Assessment and Plan - Assessment and Plan (Free Text) Plan: 56 M s/p laparoscopic converted to open cholecystectomy, POD #5 -Anemic, monitor Hgb -transfuse PRN -Analgesics -IV abx -encourage OOB, ambulation, and IS use -Will DW Dr. Joaquim Arroyo PGY1
[2017-06-13] MEDS: Insulin Reg-HIGH-Coverage SC SCH ×4 (08:57→22:09)
[2017-06-13] MEDS: Insulin Lispro (humaLOG) MIX 75/25(10 ml) SC SCH ×2 (09:09→17:06)
[2017-06-13] MEDS: Piperacillin/Tazobact 3.375 gm 100 ML IVPB SCH ×2 (09:09→21:44)
--- NOTE | 2017-06-13 09:40 | PN ---
DATE: 06/13/2017 SUBJECTIVE: The patient has no complaints of any chest pain. No shortness of breath. No headaches or dizziness. PHYSICAL EXAMINATION: VITAL SIGNS: Temperature is 98.4, pulse is 72, blood pressure 153/73, respirations 21. GENERAL: The patient is lying in bed, flat, comfortable. HEENT: No oral lesion. Anicteric sclerae. Moist mucosa. NECK: No JVD, adenopathy, or thyromegaly. CARDIOVASCULAR: S1 and S2, regular. No murmurs, rubs, or gallops. LUNGS: Clear to auscultation bilaterally. No wheeze, rales, or rhonchi. ABDOMEN: Bowel sounds are positive, soft, nontender and nondistended. EXTREMITIES: Right lower extremity with 3+ edema. DIAGNOSTIC DATA: Creatinine is 2.6. ASSESSMENT: 1. Status post cholecystitis. 2. Hypertension. 3. Acute kidney injury. 4. Acute anemia secondary to blood loss status post transfusion of one unit of packed red blood cells. 5. Nonischemic cardiomyopathy. 6. Diabetes type 2. 7. Hypertension. PLAN: The patient is currently comfortable. The patient's hemoglobin has increased to 8.6. His creatinine is 2.6, which is also improving. He is going to be on Cardizem for his heart rate. The patient is on Eliquis for atrial fibrillation. The patient's Januvia for his diabetes is going to continue with IV fluids and normal saline. The patient is on atenolol. He is going to continue with Zosyn for antibiotics. The patient had cultures that have been negative. He is also complaining of lower extremity edema. Benjamín Pat MD
[2017-06-13] MEDS: diltiaZEM 180 mg/24 Hours CD Cap PO SCH (12:21)
--- NOTE | 2017-06-13 13:51 | PN ---
LOCATION: The patient in room 371, bed 1. REASON FOR CONSULTATION: Followup cholecystectomy, cardiomyopathy, nonobstructive coronary artery disease, new-onset atrial fibrillation converted to sinus rhythm. SUBJECTIVE: The patient sitting in chair without chest pain, shortness of breath, or palpitation. PHYSICAL EXAMINATION: VITAL SIGNS: On examination, blood pressure is 169/74, yesterday blood pressure was 116/86 and 132/77; respiration 21; pulse 73; temperature 98.4. HEENT: Head is normocephalic. Eyes, pupils normal. Conjunctivae slightly pale. NECK: JVP low. Carotids equal. THORAX: AP diameter normal. LUNGS: Clear. CARDIOVASCULAR: S1 and S2, regular rhythm. ABDOMEN: Was surgically seen as I mentioned above. Bowel sounds normal. EXTREMITIES: No clubbing. No cyanosis. LABORATORY DATA: WBC 10.5, hemoglobin 8.6, hematocrit 26.3, platelets 282. Sodium 141, potassium 4.5, BUN 45, creatinine 2.6. Random glucose 132. AST and ALT normal. Total protein was near normal. DIAGNOSES: New-onset atrial fibrillation converted to sinus rhythm; status post cholecystectomy; nonobstructive coronary artery disease; cardiomyopathy; anemia, status post blood transfusion; cardiac catheterization 05/01/2014 showed cardiomyopathy with left ventricular ejection fraction 30-35%. PLAN: The patient is staying in sinus rhythm, so we will discontinue Eliquis and put Ecotrin 81 mg daily. We will also change Cardizem 60 q. 8 hour to long-acting Cardizem CD 180 daily and we will continue hydralazine 25 t.i.d., atenolol 25 b.i.d. will also change to 50 mg once a day. We will discontinue atenolol 25 b.i.d. and we will put atenolol 50 mg daily. The patient also on hydralazine as mentioned 25 b.i.d., Januvia 50 daily, Protonix 40 daily. The patient getting IV fluids, normal saline 80 mL an hour, Xopenex. The patient on IV antibiotics piperacillin/tazobactam 3.375 g IV q. 12 hour. We will continue these medications. We will follow. Ray Xiong MD
--- NOTE | 2017-06-13 14:54 | PN ---
DATE: 06/13/2017 SUBJECTIVE: The patient is seen earlier today in 371, bed 1. No fevers or chills. No nausea. PHYSICAL EXAMINATION: VITAL SIGNS: Temperature is 98, blood pressure is 150/70, respiratory rate of 21, heart rate of 72. HEENT: Unremarkable. NECK: Supple. CARDIOPULMONARY: Normal S1 and S2. LUNGS: Decreased breath sounds. ABDOMEN: Soft, nontender. LABORATORY DATA: Reveals a white count of 10,000, hemoglobin of 8, platelets of 282. Chemistries reveal a BUN of 45, creatinine of 2.6, procalcitonin is 1.35 and urinalysis is noted. Microbiology reveals the blood cultures of no growth, urine cultures of no growth. Dr. Guajardo's note is reviewed. ASSESSMENT AND PLAN: A 56-year-old male with morbid obesity with a BMI of 40.4 and dyslipidemia admitted with chronic gangrenous cholecystitis, status post cholecystectomy, post procedure day #5 and the patient with hypertension, diabetes and morbid obesity, on vancomycin and Zosyn. Vancomycin is intermittent and the patient has been afebrile now for 48 hours. White count is now normalized now to 10.5. Blood cultures and urine cultures are negative and procalcitonin of 1.35. A chest x-ray from the 06/11/2017, pulmonary congestion, atelectasis, on Zosyn. At this point, *------* renal insufficiency. The patient continues to do well. We will most likely stop antibiotics in next 24 to 48 hours. Sergio Reyna MD
--- NOTE | 2017-06-13 16:06 | PN ---
DATE: 06/13/2017 SUBJECTIVE: The patient is seen sitting in bed. He is awake, he is alert, he is comfortable. He appears somewhat swollen. He denies any pain. He denies any shortness of breath. He denies any palpitations. PHYSICAL EXAMINATION: GENERAL EXAMINATION: Middle-aged male sitting in bed. VITAL SIGNS: Blood pressure 128/65, heart rate 63, respiratory rate 21, temperature 98.4. HEENT: Normocephalic, atraumatic, positive pallor. NECK: Supple, no JVD. LUNGS: Bilateral equal entry, bilateral equal expansion. CARDIAC: S1, S2, regular rate and rhythm, no murmur, no rub. ABDOMEN: Obese, distended, soft, nontender, bowel sounds present. EXTREMITIES: 1+ pitting edema of the lower extremities. INTAKE AND OUTPUT: 1245/1700. LABORATORY DATA: WBC 10.5, hemoglobin 8.6, hematocrit 26, platelets 282. Sodium of 41, potassium 4.5, chloride 109, CO2 of 21, BUN 45, creatinine 2.6, glucose 132, calcium 8.5. CURRENT MEDICATIONS: Apresoline 25 t.i.d., Cardizem 180 daily, Colace, Ecotrin, insulin, Januvia 50 mg daily, Protonix, Tylenol, Tenormin 50 daily, Xopenex, Zofran and Zosyn 3.375 q. 12. ASSESSMENT: 1. Acute kidney injury superimposed on chronic kidney disease, stage III. 2. Status post cholecystectomy, postoperative day #5. 3. Severe anemia,?etiology. 4. Oja-zkdehha-ajonjvbtt diabetes mellitus. 5. Hypertension. 6. Atrial fibrillation. 7. Morbid obesity. PLAN: 1. Discontinue IV fluids. 2. Monitor H and H. 3. The patient has received 2 units of blood, would repeat iron stores, if still low the patient can be given intravenous iron. 5. Monitor fingersticks and continue insulin coverage. 6. Continue beta paige and Cardizem. 7. Avoid nephrotoxins. 8. Can increase antibiotics for creatinine clearance up to 50 mL/minute. Mireya Lopez MD
[2017-06-13 18:50] VITALS: RESP 20
[2017-06-14] MEDS: Levalbuterol 1.25 MG/3 ML Inhal Soln UD IH SCH ×4 (01:57→19:51)
[2017-06-14] MEDS: Piperacillin/Tazobact 3.375 gm 100 ML IVPB SCH ×3 (06:20→22:28)
[2017-06-14] MEDS: Pantoprazole 40 mg EC Tab PO SCH (06:21)
[2017-06-14 07:13] LABS: IRON 27 ug/dL (45-180)
--- NOTE | 2017-06-14 09:46 | CON ---
GASTROENTEROLOGY DATE: 06/13/2017 SUBJECTIVE: The patient is lying in bed. He denies any abdominal pain, rectal bleeding, or melena. He denies any nausea or vomiting. He denies any fevers or chills. PHYSICAL EXAMINATION: VITAL SIGNS: Reveal temperature of 98.4, blood pressure 169/74, and heart rate 73. HEENT: Reveal sclerae to be white. Conjunctivae pink. NECK: Supple. CHEST: Reveal lungs to be clear. HEART: Reveals a regular rate and rhythm. ABDOMEN: Obese, soft, and nontender. EXTREMITIES: Show trace pedal edema. LABORATORY DATA: Revealed hemoglobin 8.6, white blood cell count 10.5, BUN 45, creatinine 2.6, and blood sugar 132. IMPRESSION: A 56-year-old male status post open cholecystectomy for gangrenous cholecystitis. The patient also has anemia and chronic kidney disease. He received 1 unit of packed red blood cells. There is no evidence of overt gastrointestinal bleeding. RECOMMENDATIONS: Continue postop care. Reji Conroy MD
[2017-06-14] MEDS: Insulin Reg-HIGH-Coverage SC SCH ×4 (10:29→22:35)
[2017-06-14] MEDS: diltiaZEM 180 mg/24 Hours CD Cap PO SCH (10:37)
--- NOTE | 2017-06-14 13:32 | PN ---
SUBJECTIVE: The patient is 56 years old, seen and examined sitting in chair. Seems to be comfortable. No nausea or vomiting. No diarrhea. Eating and tolerating. Complaining of generalized weakness. Upset about having bilateral ankle swelling. PHYSICAL EXAMINATION: VITAL SIGNS: The patient is afebrile. Pulse is 68, respirations 20, blood pressure 160/80. LUNGS: Bilateral fair airflow. No rhonchi or crackle. HEART: S1 and S2 audible. Irregular rate controlled. ABDOMEN: Soft, nontender. Obese. No hepatosplenomegaly. NEUROLOGIC: The patient is awake and alert. Communicative. LABORATORY EXAM: WBC is 10.5, hemoglobin 8.6, hematocrit 26.3, platelets of 282. Chemistries: Blood sugar is 216, iron 27, saturation is 16%. ASSESSMENT AND PLAN: 1. Acute cholecystitis, status post cholecystectomy. 2. Anemia of chronic disease. 3. Fln-tspsaui-nbnmbezwn diabetes. 4. Hypertension. 5. Morbid obesity. 6. Atrial fibrillation. 7. Acute on chronic kidney disease. PLAN: Currently, the patient is on diltiazem. He is getting Zosyn, gave 1 dose of Venofer. We will discuss with ID for the duration of antibiotics. If he needs further, we can transfer him to discharge, complete the course of antibiotics and follow up his CBC and CMP. Roberta Aden MD
--- NOTE | 2017-06-14 13:52 | PN ---
DATE: 06/14/2017. LOCATION: The patient in room #371, bed #1. REASON FOR CONSULTATION: Followup cholecystectomy; cardiomyopathy; nonobstructive coronary artery disease; new-onset atrial fibrillation, converted to sinus rhythm. SUBJECTIVE: The patient is asymptomatic. He is ambulating without any chest pain, shortness of breath or palpitation. Monitor continued to show sinus rhythm now. PHYSICAL EXAMINATION: VITAL SIGNS: On examination, blood pressure is 160/80, respiration 20, pulse 68, temperature 98.6. HEENT: Head is normocephalic. Eyes, pupils normal. Conjunctivae slightly pale. NECK: JVP low. Carotids equal. THORAX: AP diameter normal. LUNGS: No rales. CARDIOVASCULAR: S1 and S2. ABDOMEN: Soft and protuberant. No organomegaly. Bowel sounds normal. EXTREMITIES: No clubbing. No cyanosis. LABORATORY DATA: Lab shows WBC 10.5, hemoglobin 8.6, hematocrit 26.3, platelets 287. Random sugar 216. Other labs are reported in our previous notes. DIAGNOSES: New-onset atrial fibrillation, converted to sinus rhythm; status post cholecystectomy; nonobstructive coronary artery disease; cardiomyopathy. Cardiac catheterization on 05/01/2014 showed nonischemic cardiomyopathy with left ventricular ejection fraction of 30% to 35%. Blood pressure is still elevated, would increase the hydralazine to 50 mg t.i.d., Cardizem CD 180 mg p.o. daily, aspirin 81 mg daily, Januvia 50 daily, atenolol 50 daily. Told the patient to lose weight, and we will follow with you. Ray Xiong MD
--- NOTE | 2017-06-14 14:48 | CP.PCM.PN ---
Subjective - Date & Time of Evaluation Date of Evaluation: 06/14/17 Time of Evaluation: 07:00 - Subjective Subjective: Patient seen and examined this morning at bedside. No acute events over night. Patient complains of lower extremity edema. Denies n/v, abdominal pain. Surgical incision site c/d/i. Objective - Vital Signs/Intake and Output Vital Signs (last 24 hours): Temp Pulse Resp BP Pulse Ox 98.6 F 70 20 160/80 H 95 06/14/17 08:18 06/14/17 14:04 06/14/17 08:18 06/14/17 14:04 06/14/17 08:18 Intake and Output: 06/14/17 06/14/17 06:59 18:59 Intake Total 960 360 Output Total 1900 Balance -940 360 - Medications Medications: Current Medications Acetaminophen (Tylenol 325mg Tab) 650 mg PO Q6H PRN PRN Reason: Fever >100.4 F Last Admin: 06/11/17 06:29 Dose: 650 mg Aspirin (Ecotrin) 81 mg PO DAILY [facility] Last Admin: 06/14/17 10:37 Dose: 81 mg Atenolol (Tenormin) 50 mg PO DAILY [facility] Last Admin: 06/14/17 10:38 Dose: 50 mg Diltiazem HCl (Cardizem Cd) 180 mg PO DAILY [facility] Last Admin: 06/14/17 10:37 Dose: 180 mg Docusate Sodium (Colace) 100 mg PO BID [facility] Last Admin: 06/14/17 10:37 Dose: 100 mg Hydralazine HCl (Apresoline) 10 mg PO QID PRN PRN Reason: For SBP>170 Hydralazine HCl (Apresoline) 10 mg IVP Q6 PRN PRN Reason: Systolic Blood Pressure Hydralazine HCl (Apresoline) 50 mg PO TID [facility] Last Admin: 06/14/17 14:04 Dose: 50 mg Piperacillin Sod/Tazobactam Sod (Zosyn 3.375 In Ns 100ml) 100 mls @ 200 mls/hr IVPB Q8 [facility] PRN Reason: Protocol Stop: 06/20/17 22:01 Last Admin: 06/14/17 13:59 Dose: 200 mls/hr Insulin Human Regular (Humulin R High) 0 units SC ACHS [facility] PRN Reason: Protocol Last Admin: 06/14/17 12:43 Dose: 4 units Insulin Lispro Protam/Lispro Human (Humalog Mix 75/25) 5 units SC ACBD [facility] Last Admin: 06/13/17 17:06 Dose: 5 units Levalbuterol HCl (Xopenex) 1.25 mg IH [id number] [facility] Last Admin: 06/14/17 14:06 Dose: 1.25 mg Ondansetron HCl (Zofran Inj) 4 mg IVP Q6H PRN PRN Reason: Nausea/Vomiting Pantoprazole Sodium (Protonix Ec Tab) 40 mg PO 0600 [facility] Last Admin: 06/14/17 06:21 Dose: 40 mg Sitagliptin Phosphate (Januvia) 50 mg PO DAILY [facility] Last Admin: 06/14/17 10:37 Dose: 50 mg - Labs Labs: 06/13/17 07:10 06/13/17 07:10 PT 12.4 Seconds (9.9-11.8) H 06/08/17 11:20 INR 1.15 (0.93-1.08) H 06/08/17 11:20 APTT 35.9 Seconds (23.7-30.8) H 06/08/17 11:20 - Constitutional Appears: No Acute Distress - Head Exam Head Exam: NORMOCEPHALIC - Eye Exam Eye Exam: Normal appearance - ENT Exam ENT Exam: Mucous Membranes Moist - Cardiovascular Exam Cardiovascular Exam: +S1, +S2 - GI/Abdominal Exam GI & Abdominal Exam: Soft. absent: Distended, Firm, Rigid, Tenderness - Extremities Exam Extremities Exam: Pedal Edema - Neurological Exam Neurological Exam: Alert, Awake, Oriented x3 - Psychiatric Exam Psychiatric exam: Normal Mood - Skin Skin Exam: Normal Color, Warm Assessment and Plan - Assessment and Plan (Free Text) Assessment: 56 M s/p laparoscopic converted to open cholecystectomy, POD #5 -Ok to d/c from surgical standpoint -encourage OOB, ambulation, and IS use -Dietitian referral -Discussed w/ patient the importance of following up with his medical doctors and being more proactive about his well being. -Further recs per Dr. Brina Argueta PGY-2
--- NOTE | 2017-06-14 15:39 | CP.PCM.PN ---
Subjective - Date & Time of Evaluation Date of Evaluation: 06/14/17 Time of Evaluation: 11:20 - Subjective Subjective: Patient is feeling better, improved abdominal pain, a little more energy today, no fevers. No diarrhea. Objective - Vital Signs/Intake and Output Vital Signs (last 24 hours): Temp Pulse Resp BP Pulse Ox 98.6 F 68 20 160/80 H 95 06/14/17 08:18 06/14/17 08:18 06/14/17 08:18 06/14/17 08:18 06/14/17 08:18 Intake and Output: 06/14/17 06/14/17 06:59 18:59 Intake Total 960 Output Total 1900 Balance -940 - Medications Medications: Current Medications Acetaminophen (Tylenol 325mg Tab) 650 mg PO Q6H PRN PRN Reason: Fever >100.4 F Last Admin: 06/11/17 06:29 Dose: 650 mg Aspirin (Ecotrin) 81 mg PO DAILY [facility] Atenolol (Tenormin) 50 mg PO DAILY [facility] Diltiazem HCl (Cardizem Cd) 180 mg PO DAILY [facility] Last Admin: 06/13/17 12:21 Dose: 180 mg Docusate Sodium (Colace) 100 mg PO BID [facility] Last Admin: 06/13/17 17:07 Dose: 100 mg Hydralazine HCl (Apresoline) 10 mg PO QID PRN PRN Reason: For SBP>170 Hydralazine HCl (Apresoline) 10 mg IVP Q6 PRN PRN Reason: Systolic Blood Pressure Hydralazine HCl (Apresoline) 25 mg PO TID [facility] Last Admin: 06/13/17 17:07 Dose: 25 mg Piperacillin Sod/Tazobactam Sod (Zosyn 3.375 In Ns 100ml) 100 mls @ 200 mls/hr IVPB Q8 [facility] PRN Reason: Protocol Stop: 06/20/17 22:01 Last Admin: 06/14/17 06:20 Dose: 200 mls/hr Insulin Human Regular (Humulin R High) 0 units SC ACHS [facility] PRN Reason: Protocol Last Admin: 06/13/17 22:09 Dose: Not Given Insulin Lispro Protam/Lispro Human (Humalog Mix 75/25) 5 units SC ACBD [facility] Last Admin: 06/13/17 17:06 Dose: 5 units Levalbuterol HCl (Xopenex) 1.25 mg IH [id number] [facility] Last Admin: 06/14/17 08:59 Dose: 1.25 mg Ondansetron HCl (Zofran Inj) 4 mg IVP Q6H PRN PRN Reason: Nausea/Vomiting Pantoprazole Sodium (Protonix Ec Tab) 40 mg PO 0600 [facility] Last Admin: 06/14/17 06:21 Dose: 40 mg Sitagliptin Phosphate (Januvia) 50 mg PO DAILY [facility] Last Admin: 06/13/17 09:11 Dose: 50 mg - Labs Labs: 06/13/17 07:10 06/13/17 07:10 PT 12.4 Seconds (9.9-11.8) H 06/08/17 11:20 INR 1.15 (0.93-1.08) H 06/08/17 11:20 APTT 35.9 Seconds (23.7-30.8) H 06/08/17 11:20 - Constitutional Appears: Non-toxic, No Acute Distress - Head Exam Head Exam: NORMAL INSPECTION - ENT Exam ENT Exam: Mucous Membranes Moist - Neck Exam Neck Exam: absent: Meningismus - Respiratory Exam Respiratory Exam: Decreased Breath Sounds - Cardiovascular Exam Cardiovascular Exam: +S1, +S2 - GI/Abdominal Exam GI & Abdominal Exam: Soft. absent: Tenderness Assessment and Plan - Assessment and Plan (Free Text) Plan: Assessment Sepsis due to acute on chronic gangrenous cholecystitis S/P cholecystectomy POD #6 HTN DM dyslipidemia obesity with BMI 39 Plan continue Zosyn - should be able to d/c antibiotics in the next 24 hours will continue to monitor clinically while the patient is in the hospital
[2017-06-14] MEDS: Insulin Lispro (humaLOG) MIX 75/25(10 ml) SC SCH (17:52)
--- NOTE | 2017-06-14 19:37 | PN ---
DATE: 06/14/2017 SUBJECTIVE: The patient is seen sitting in bed. He is awake, he is alert, is comfortable. He is receiving IV Venofer. He denies any pain. He denies any shortness of breath. PHYSICAL EXAMINATION: GENERAL: Morbidly obese middle-aged male, lying in bed. VITAL SIGNS: Blood pressure 160/80, heart rate 70, respiratory rate 20, temperature 98.6. HEENT: Normocephalic, atraumatic. NECK: Supple, no JVD. LUNGS: Bilateral equal air entry, no rales. CARDIAC: S1, S2, regular rate and rhythm, no murmur, no rub. ABDOMEN: Obese, distended, soft, nontender, bowel sounds present. EXTREMITIES: No lower extremity edema. INTAKE AND OUTPUT: 1920/3300. LABORATORY DATA: WBC 10.5, hemoglobin 8.6, hematocrit 26, platelets 282. No chemistry today except for iron saturation 16, iron 27. Urine culture no growth. Blood culture no growth. CURRENT MEDICATIONS: Apresoline 50 t.i.d., Cardizem 180 daily, Colace, Ecotrin, insulin, Januvia, Protonix, Tylenol, Tenormin, Xopenex, Zofran, Zosyn 3.375 q. 8, iron 100 IV piggyback given one time. ASSESSMENT: 1. Resolving acute kidney injury. Prerenal azotemia. 2. Severe anemia, low iron stores, etiology unclear. 3. Status post cholecystectomy. 4. Morbid obesity. 5. Non-insulin dependent diabetes mellitus. 6. Hypertension. 7. Atrial fibrillation with rapid ventricular rate, now controlled. PLAN: 1. Venofer 200 mg IV piggyback daily x3 more doses. 2. Consider colonoscopy? 3. Avoid nephrotoxins. 4. Monitor electrolytes daily. 5. Monitor H and H. 6. Continue Cardizem and beta-paige. Mireya Lopez MD
--- NOTE | 2017-06-14 20:18 | PN ---
DATE: 06/14/2017 SUBJECTIVE: The patient is lying in bed, comfortable. He denies any abdominal pain, nausea, and vomiting. PHYSICAL EXAMINATION: VITAL SIGNS: Temperature of 98.6, blood pressure 160/80, and heart rate 70. ABDOMEN: Soft, nontender. LABORATORY DATA: No new laboratory data are available. IMPRESSION: A 56-year-old male status post open cholecystectomy for gangrenous cholecystitis with chronic kidney disease and chronic anemia of chronic disease. He is stable from gastrointestinal point of view. He is still receiving IV Zosyn and . Reji Conroy MD
[2017-06-15] MEDS: Levalbuterol 1.25 MG/3 ML Inhal Soln UD IH SCH ×3 (02:26→13:44)
[2017-06-15] MEDS: Pantoprazole 40 mg EC Tab PO SCH (05:50)
[2017-06-15] MEDS: Piperacillin/Tazobact 3.375 gm 100 ML IVPB SCH (05:50)
[2017-06-15 07:03] LABS: ALB/GLOB RATIO 0.9 (1.1-1.8); BILIRUBIN,TOTAL 0.4 mg/dL (0.2-1.3); CALCIUM 8.5 mg/dL (8.4-10.5); POTASSIUM 4.4 mmol/L (3.6-5.0); TOTAL PROTEIN 6.7 g/dL (5.8-8.3)
[2017-06-15 07:07] LABS: BASO # 0.05 K/mm3 (0.0-2.0); BASO % 0.5 % (0.0-3.0); EOS # 0.4 (0.0-0.7); GRAN # 6.38 (1.4-6.5); HEMATOCRIT 27.5 % (42.0-52.0); LYMPH # 2.1 (1.2-3.4); MEAN CELL VOLUME 87.9 fl (80.0-105.0); MEAN CORPUSCULAR HEMOGLOBIN 28.1 pg (25.0-35.0); MONO # 0.9 (0.1-0.6); MONO % 9.5 % (1.0-6.0); RED CELL DISTRIBUTION WIDTH 14.1 % (11.5-14.5); WHITE BLOOD COUNT 9.8 10^3/ul (4.5-11.0)
--- NOTE | 2017-06-15 07:56 | CP.PCM.PN ---
Subjective - Date & Time of Evaluation Date of Evaluation: 06/15/17 Time of Evaluation: 07:55 - Subjective Subjective: Patient seen and examined at bedside. Patient doing well with no new complaints at this time. Patient says he had a BM last night that was a little watery but is otherwise having normal BMs and urinating without difficulty. Patient is tolerating his diet. He is having some abdominal discomfort when turning over in bed. He has been OOB to chair. Patient denies F/C, CP/SOB, N/V/C. Objective - Vital Signs/Intake and Output Vital Signs (last 24 hours): Temp Pulse Resp BP Pulse Ox 99.4 F 64 20 163/91 H 95 06/14/17 16:00 06/14/17 17:51 06/14/17 16:00 06/14/17 17:51 06/14/17 16:00 Intake and Output: 06/15/17 06/15/17 06:59 18:59 Output Total 600 Balance -600 - Medications Medications: Current Medications Acetaminophen (Tylenol 325mg Tab) 650 mg PO Q6H PRN PRN Reason: Fever >100.4 F Last Admin: 06/11/17 06:29 Dose: 650 mg Aspirin (Ecotrin) 81 mg PO DAILY [facility] Last Admin: 06/14/17 10:37 Dose: 81 mg Atenolol (Tenormin) 50 mg PO DAILY [facility] Last Admin: 06/14/17 10:38 Dose: 50 mg Diltiazem HCl (Cardizem Cd) 180 mg PO DAILY [facility] Last Admin: 06/14/17 10:37 Dose: 180 mg Docusate Sodium (Colace) 100 mg PO BID [facility] Last Admin: 06/14/17 17:51 Dose: 100 mg Hydralazine HCl (Apresoline) 10 mg PO QID PRN PRN Reason: For SBP>170 Hydralazine HCl (Apresoline) 10 mg IVP Q6 PRN PRN Reason: Systolic Blood Pressure Hydralazine HCl (Apresoline) 50 mg PO TID [facility] Last Admin: 06/14/17 17:51 Dose: 50 mg Iron Sucrose 200 mg/ Sodium (Chloride) 110 mls @ 110 mls/hr IVPB DAILY [facility] Stop: 06/17/17 10:59 Insulin Human Regular (Humulin R High) 0 units SC ACHS [facility] PRN Reason: Protocol Last Admin: 06/14/17 22:35 Dose: Not Given Insulin Lispro Protam/Lispro Human (Humalog Mix 75/25) 5 units SC ACBD [facility] Last Admin: 06/14/17 17:52 Dose: 5 units Levalbuterol HCl (Xopenex) 1.25 mg IH [id number] [facility] Last Admin: 06/15/17 07:51 Dose: 1.25 mg Ondansetron HCl (Zofran Inj) 4 mg IVP Q6H PRN PRN Reason: Nausea/Vomiting Pantoprazole Sodium (Protonix Ec Tab) 40 mg PO 0600 [facility] Last Admin: 06/15/17 05:50 Dose: 40 mg Sitagliptin Phosphate (Januvia) 50 mg PO DAILY [facility] Last Admin: 06/14/17 10:37 Dose: 50 mg - Labs Labs: 06/15/17 06:41 06/15/17 06:41 PT 12.4 Seconds (9.9-11.8) H 06/08/17 11:20 INR 1.15 (0.93-1.08) H 06/08/17 11:20 APTT 35.9 Seconds (23.7-30.8) H 06/08/17 11:20 - Constitutional Appears: Non-toxic, No Acute Distress - Head Exam Head Exam: NORMAL INSPECTION - Eye Exam Eye Exam: EOMI - ENT Exam ENT Exam: Mucous Membranes Moist - Respiratory Exam Respiratory Exam: NORMAL BREATHING PATTERN. absent: Accessory Muscle Use, Respiratory Distress, Stridor - Cardiovascular Exam Cardiovascular Exam: REGULAR RHYTHM. absent: Bradycardia, Tachycardia - GI/Abdominal Exam GI & Abdominal Exam: Soft, Tenderness (appropriate post op tenderness around incision sites) Additional comments: Incisions C/D/I with stacey in place. No Drainage or erythema noted. - Extremities Exam Extremities Exam: Pedal Edema. absent: Tenderness - Neurological Exam Neurological Exam: Alert, Awake - Psychiatric Exam Psychiatric exam: Normal Affect, Normal Mood - Skin Skin Exam: Dry, Normal Color, Warm Assessment and Plan - Assessment and Plan (Free Text) Assessment: 56 M s/p laparoscopic converted to open cholecystectomy, POD #7 - patient clear for discharge from a surgical standpoint - encouraged OOB and ambulation - patient will need to follow up with Dr. March in office for staple removal - patient should follow up with his PCP for general health care and control of his diabetes - further recs per Dr. Joaquim Diaz PGY-1
[2017-06-15 08:34] VITALS: BP 157/79; PULSE 61; TEMP 98.8; O2SAT 98
[2017-06-15] MEDS: Insulin Lispro (humaLOG) MIX 75/25(10 ml) SC SCH (08:59)
[2017-06-15] MEDS: Insulin Reg-HIGH-Coverage SC SCH (09:01)
[2017-06-15] MEDS: diltiaZEM 180 mg/24 Hours CD Cap PO SCH (09:17)
--- NOTE | 2017-06-15 11:49 | CP.PCM.PN ---
Subjective - Date & Time of Evaluation Date of Evaluation: 06/15/17 Time of Evaluation: 10:20 - Subjective Subjective: Feeling better, has a little more energy compared to previous days, no fevers overnight, no more abdominal pain. Objective - Vital Signs/Intake and Output Vital Signs (last 24 hours): Temp Pulse Resp BP Pulse Ox 99.4 F 64 20 163/91 H 95 06/14/17 16:00 06/14/17 17:51 06/14/17 16:00 06/14/17 17:51 06/14/17 16:00 Intake and Output: 06/15/17 06/15/17 06:59 18:59 Output Total 600 Balance -600 - Medications Medications: Current Medications Acetaminophen (Tylenol 325mg Tab) 650 mg PO Q6H PRN PRN Reason: Fever >100.4 F Last Admin: 06/11/17 06:29 Dose: 650 mg Aspirin (Ecotrin) 81 mg PO DAILY [facility] Last Admin: 06/14/17 10:37 Dose: 81 mg Atenolol (Tenormin) 50 mg PO DAILY [facility] Last Admin: 06/14/17 10:38 Dose: 50 mg Diltiazem HCl (Cardizem Cd) 180 mg PO DAILY [facility] Last Admin: 06/14/17 10:37 Dose: 180 mg Docusate Sodium (Colace) 100 mg PO BID [facility] Last Admin: 06/14/17 17:51 Dose: 100 mg Hydralazine HCl (Apresoline) 10 mg PO QID PRN PRN Reason: For SBP>170 Hydralazine HCl (Apresoline) 10 mg IVP Q6 PRN PRN Reason: Systolic Blood Pressure Hydralazine HCl (Apresoline) 50 mg PO TID [facility] Last Admin: 06/14/17 17:51 Dose: 50 mg Iron Sucrose 200 mg/ Sodium (Chloride) 110 mls @ 110 mls/hr IVPB DAILY [facility] Stop: 06/17/17 10:59 Insulin Human Regular (Humulin R High) 0 units SC ACHS [facility] PRN Reason: Protocol Last Admin: 06/14/17 22:35 Dose: Not Given Insulin Lispro Protam/Lispro Human (Humalog Mix 75/25) 5 units SC ACBD [facility] Last Admin: 06/14/17 17:52 Dose: 5 units Levalbuterol HCl (Xopenex) 1.25 mg IH [id number] [facility] Last Admin: 06/15/17 02:26 Dose: Not Given Ondansetron HCl (Zofran Inj) 4 mg IVP Q6H PRN PRN Reason: Nausea/Vomiting Pantoprazole Sodium (Protonix Ec Tab) 40 mg PO 0600 [facility] Last Admin: 06/15/17 05:50 Dose: 40 mg Sitagliptin Phosphate (Januvia) 50 mg PO DAILY [facility] Last Admin: 06/14/17 10:37 Dose: 50 mg - Labs Labs: 06/15/17 06:41 06/15/17 06:41 PT 12.4 Seconds (9.9-11.8) H 06/08/17 11:20 INR 1.15 (0.93-1.08) H 06/08/17 11:20 APTT 35.9 Seconds (23.7-30.8) H 06/08/17 11:20 - Constitutional Appears: Non-toxic, No Acute Distress - Head Exam Head Exam: NORMAL INSPECTION - ENT Exam ENT Exam: Mucous Membranes Moist - Neck Exam Neck Exam: absent: Meningismus - Respiratory Exam Respiratory Exam: Decreased Breath Sounds - Cardiovascular Exam Cardiovascular Exam: +S1, +S2 - GI/Abdominal Exam GI & Abdominal Exam: Soft. absent: Tenderness Additional comments: RUQ surgical scar clean Assessment and Plan - Assessment and Plan (Free Text) Plan: Assessment Sepsis due to acute on chronic gangrenous cholecystitis S/P cholecystectomy POD #7, clinically improved HTN DM dyslipidemia obesity with BMI 39 Plan on Zosyn - will d/c antibiotics today and observe
--- NOTE | 2017-06-15 12:46 | PN ---
DATE: SUBJECTIVE: The patient is currently seen lying comfortable in bed. He is completing his course of IV antibiotics therapy. He is receiving an IV iron infusion. He is scheduled for discharge later today. MEDICATIONS: Medication list reviewed. The patient currently is on hydralazine, Cardizem, Colace, Ecotrin, insulin, IV Venofer, Januvia, Protonix, Tenormin, Tylenol p.r.n., Xopenex and Zofran p.r.n. OBJECTIVE: INTAKE/OUTPUT: Intake 0, output 3300. VITAL SIGNS: Blood pressure 157/79, heart rate 61 and regular, temperature 98.8, respiratory rate 20 with a pulse ox of 98%. HEENT: Exam shows him to be normocephalic, atraumatic. Conjunctivae are pale. Sclerae are nonicteric. NECK: Supple. No neck vein distention. CHEST: Clear to auscultation and percussion. No rales. No rhonchi. No wheezing. CARDIOVASCULAR: Shows a regular rate and rhythm without murmurs, rubs or gallops. ABDOMEN: Soft. Moderate obesity. No tenderness over his right upper quadrant area. Bowel sounds are normal. No rebound. No guarding. EXTREMITIES: Show trace to 1+ pitting lower extremity edema. No cyanosis or clubbing. LABORATORY DATA AND IMAGING STUDIES: CBC; white blood cell count today 9.8, hemoglobin 8.8, platelet count is 322,000. Chemistry showed normal electrolytes. BUN 32 with a creatinine of 2.2. The patient's baseline BUN is 30 with a creatinine of 1.6-1.8 consistent with chronic kidney disease stage III. Glucose level was 152. Calcium was 8.5. Liver enzymes are normal with the exception of a mild elevation of alkaline phosphatase. Albumin is 3.2. A 24-hour urine showed a creatinine clearance of 40 mL per minute with 3.227 g of protein in the urine. Urine eosinophils were negative. MICROBIOLOGY: All cultures are negative to date. ASSESSMENT: 1. Chronic kidney disease stage III appears to be stable. The patient at present is slightly above his baseline levels, but this should resolve with adequate hydration. 2. History of anemia in part secondary to chronic kidney disease in part secondary to iron deficiency. The patient has received IV iron infusions in the hospital setting. Hemoglobin should be monitored in the outpatient setting and the patient might be a candidate for Procrit therapy. 3. Status post cholecystectomy for acute cholecystitis. 4. History of obesity. 5. History of non-insulin dependent diabetes mellitus, the patient is currently on insulin. 6. Significant proteinuria, likely secondary to diabetic nephropathy in excess of 3 g of protein in his urine. Perhaps in the outpatient setting, we will screen the patient for also allergies to make certain this is nothing, but diabetic nephropathy. 7. History of hypertension. In light of the elevation of his creatinine above his baseline levels. The patient is being maintained on calcium channel paige therapy, beta paige therapy and hydralazine at present. The patient will not receive an BOBBY inhibitor or angiotensin receptor paige. PLAN: 1. Likely discharge later today. 2. The patient to monitor outpatient labs with his primary care physician, Dr. Aden. He is welcome to come back to our office for further followup of his chronic kidney disease, proteinuria and anemia. I agree with tentative discharge plan for later today. Yohan Mccarthy MD
--- NOTE | 2017-06-15 15:47 | PN ---
DATE: 06/15/2017 REASON FOR CONSULTATION: Followup preoperative evaluation, cholecystectomy, status post followup, chronic atrial fibrillation converted to normal sinus. SUBJECTIVE: Denies any chest pain, shortness of breath, or palpitation. Complained of leg swelling. PHYSICAL EXAMINATION: As follows: VITAL SIGNS: Temperature afebrile, heart rate 61, blood pressure 156/79. HEENT: PERRLA intact. NECK: Supple. No carotid bruits. No thyromegaly. CHEST: Clear to auscultation. HEART: S1 and S2 regular. ABDOMEN: Soft. EXTREMITIES: Clubbing or cyanosis negative. LABORATORY DATA: Blood workup as follows: WBC 9.8, hemoglobin 8.8, hematocrit 27.5, and platelet count 322. Chemistry showed sodium , potassium 4.4, chloride 110, carbon dioxide 22, anion gap of 15, BUN 33, and creatinine 2.2. IMPRESSION: Chronic leg edema, possibly secondary to Cardizem, paroxysmal atrial fibrillation, chronic kidney disease, cardiomyopathy, status post cardiac catheterization, nonischemic cardiomyopathy, status post cholecystectomy, paroxysmal atrial fibrillation converted to normal sinus, nonobstructive coronary artery disease, cardiac catheterization 05/01/2014, nonischemic ejection fraction of 30% to 35%. RECOMMENDATIONS: Continue Cardizem CD, aspirin, Januvia. Emphasis on weight reduction, modification of lifestyle, multiple risk factors for coronary artery disease. We will follow with you. Initially thought of changing Cardizem because of leg swelling, but the patient has renal insufficiency, cannot give another medications. The patient needs Cardizem to control heart rate, we will continue Cardizem for now. We will add on diuretics and monitor closely. We will follow with you. We will add low dose of hydrochlorothiazide. We will give 1 dose of Lasix for edema. We will follow with you. Thank you Dr. Aden for providing me the opportunity in taking care of the patient, Nikos Leslie. Ray Lilly MD
--- NOTE | 2017-06-16 08:21 | DS ---
HISTORY OF PRESENT ILLNESS: The patient is 56 years old, seen and examined, lying in bed, and seems to be comfortable. Still has leg edema. Eating and tolerating. No nausea or vomiting. No abdominal pain. PHYSICAL EXAMINATION: VITAL SIGNS: He is afebrile, pulse 61, respirations 20, and blood pressure 157/79. LUNGS: Bilateral fair airflow. No rhonchi or crackles. HEART: S1 and S2 audible. Regular rate and rhythm. ABDOMEN: Soft, obese, and nontender. No rebound. No guarding. NEUROLOGIC: He is awake, alert, and able to communicate. Bilateral leg +2 edema. LABORATORY DATA: WBC is 9.8, hemoglobin 8.8, hematocrit 27.5, and platelets 322. Chemistry: Sodium 143, potassium 4.4, chloride 110, CO2 of 22, BUN 33, creatinine 2.2, and blood sugar of 167. ASSESSMENT: 1. Status post acute cholecystitis, status post cholecystectomy. 2. Acute on chronic renal insufficiency. 3. Chronic anemia, status post two blood transfusions and iron infusion. 4. Nonischemic cardiomyopathy. 5. Hypertension. 6. Hyperlipidemia. 7. Morbid obesity. PLAN: The patient is going to be discharged home on Cardizem CD 180 mg daily. We will discontinue hydralazine. Continue him on atenolol 50 mg daily, Lasix 40 mg daily, and K-Dur 10 mEq daily. He is advised to follow up in office in a week and he need to be followed by Dr. Lopez, myself, and Dr. Xoing as outpatient. Roberta Aden MD
== END 2017-06-15 14:26 | disposition home or self-care (01) | DRG 854 ==
LOC: ED 09:40 → ERH 12:57 → 2RSO 13:57 → CCU 06-08 21:27 → 3RSO 06-10 04:32
PROVIDERS: ADMIT Internal Medicine; ATTEND Internal Medicine
PROC: 0FJ44ZZ Inspection of Gallbladder, Percutaneous Endoscopic Approach (ICD-10-PCS; 2017-06-08)
PROC: 0FT40ZZ Resection of Gallbladder, Open Approach (ICD-10-PCS; principal; 2017-06-08 16:00)
PROC: 30233N1 Transfusion of Nonautologous Red Blood Cells into Peripheral Vein, Percutaneous Approach (ICD-10-PCS; 2017-06-10)
DX: A41.9 Sepsis, unspecified organism (principal); K80.12 Calculus of gallbladder with acute and chronic cholecystitis without obstruction; N17.9 Acute kidney failure, unspecified; I13.0 Hypertensive heart and chronic kidney disease with heart failure and stage 1 through stage 4 chronic kidney disease, or unspecified chronic kidney disease; I50.20 Unspecified systolic (congestive) heart failure; D62 Acute posthemorrhagic anemia; J98.11 Atelectasis; I42.9 Cardiomyopathy, unspecified; Z68.41 Body mass index [BMI] 40.0-44.9, adult; E11.21 Type 2 diabetes mellitus with diabetic nephropathy; N18.3 Chronic kidney disease, stage 3 (moderate); E11.22 Type 2 diabetes mellitus with diabetic chronic kidney disease; E11.40 Type 2 diabetes mellitus with diabetic neuropathy, unspecified; D50.9 Iron deficiency anemia, unspecified; D63.1 Anemia in chronic kidney disease; E78.5 Hyperlipidemia, unspecified; I25.10 Atherosclerotic heart disease of native coronary artery without angina pectoris; I08.1 Rheumatic disorders of both mitral and tricuspid valves; J98.4 Other disorders of lung; E66.01 Morbid (severe) obesity due to excess calories; E11.65 Type 2 diabetes mellitus with hyperglycemia; I48.0 Paroxysmal atrial fibrillation; Z79.01 Long term (current) use of anticoagulants; Z79.84 Long term (current) use of oral hypoglycemic drugs; Z53.31 Laparoscopic surgical procedure converted to open procedure

== ENCOUNTER 2017-10-08 14:39 | Emergency (ER) | payer OTHER ==
[2017-10-08 14:40] VITALS: PULSE 84
[2017-10-08 14:42] VITALS: BMI 38.1
[2017-10-08 14:54] VITALS: RESP 18; TEMP 99.3; O2SAT 98
--- NOTE | 2017-10-08 15:00 | ED PDOC ---
Arrival/HPI - General Chief Complaint: Cough, Cold, Congestion Time Seen by Provider: 10/08/17 14:59 Historian: Patient - History of Present Illness Narrative History of Present Illness (Text): 10/08/17 57 yo male w/o significant PMHx come in for evaluation of cold sx for past few days. Pt reports, mild bodyaches, nasal congestion, dry cough. Pt sts, " has some pain on my sides now from coughing". Otherwise, pt denies fever, chills, headache, dizziness, drooling, dysphagia, dyspnea, CP, SOB, wheezing, abd. pain , N/V/D, back pain. Ambulate to Ed for evaluation, not in any apparent distress. Past Medical History - Provider Review Nursing Documentation Reviewed: Yes - Travel History Have you recently traveled outside [place] w/in the past 3 mons?: No - Infectious Disease Hx of Infectious Diseases: None - Tetanus Immunization Tetanus Immunization: Unknown - Cardiac Hx Cardiac Disorders: Yes Hx Hypertension: Yes - Pulmonary Hx Respiratory Disorders: No - Neurological Hx Neurological Disorder: No - HEENT Hx HEENT Disorder: No - Renal Hx Renal Disorder: No - Endocrine/Metabolic Hx Diabetes Mellitus Type 2: Yes (10 years on po meds) - Hematological/Oncological Hx Blood Transfusions: No Hx Blood Transfusion Reaction: No - Integumentary Hx Dermatological Disorder: No - Musculoskeletal/Rheumatological Hx Falls: No Other/Comment: chronic knee pain - Gastrointestinal Hx Gastrointestinal Disorders: No - Genitourinary/Gynecological Hx Genitourinary Disorders: No - Psychiatric Hx Psychophysiologic Disorder: No Hx Substance Use: No - Past Surgical History Past Surgical History: No Previous - Surgical History Hx Cholecystectomy: Yes - Anesthesia Hx Anesthesia Reactions: No Hx Malignant Hyperthermia: No - Suicidal Assessment Feels Threatened In Home Enviroment: No Family/Social History - Physician Review Nursing Documentation Reviewed: Yes Family/Social History: No Known Family HX Smoking Status: Never Smoked Hx Alcohol Use: No Hx Substance Use: No Hx Substance Use Treatment: No Allergies/Home Meds Allergies/Adverse Reactions: Allergies No Known Allergies Allergy (Verified 06/06/17 09:52) Home Medications: Home Meds Medication Instructions Recorded Confirmed Glimepiride 2 mg PO BRKDIN 08/04/16 10/08/17 Review of Systems - Review of Systems Constitutional: Fatigue Eyes: Normal ENT: Normal Respiratory: Cough. absent: SOB, Sputum, Wheezing Cardiovascular: Normal Gastrointestinal: Normal. absent: Abdominal Pain, Diarrhea, Nausea, Vomiting Genitourinary Male: Normal Musculoskeletal: Normal Skin: Normal Neurological: Normal Endocrine: Normal Hemo/Lymphatic: Normal Psychiatric: Normal Physical Exam Vital Signs Temp Pulse Resp BP Pulse Ox 10/08/17 14:46 99.3 F 81 18 147/77 98 Temperature: Afebrile Blood Pressure: Normal Pulse: Regular Respiratory Rate: Normal Appearance: Positive for: Well-Appearing, Non-Toxic, Comfortable Pain Distress: None Mental Status: Positive for: Alert and Oriented X 3 - Systems Exam Head: Present: Normocephalic Conjunctiva: Present: Normal Ears: Present: NORMAL TM, Normal Canal Mouth: Present: Moist Mucous Membranes. No: Drooling Pharnyx: Present: ERYTHEMA (mild B/L). No: EXUDATE Nose (Internal): Present: Rhinorrhea (scant clear B/L) Neck: Present: Trachea Midline. No: Meningeal Signs Respiratory/Chest: Present: Good Air Exchange, Wheezes (scattered Right base). No: Respiratory Distress, Accessory Muscle Use, Decreased Breath Sounds, Retracting, Rhonchi Cardiovascular: Present: Regular Rate and Rhythm, Normal S1, S2. No: Murmurs Abdomen: Present: Normal Bowel Sounds. No: Tenderness, Distention, Peritoneal Signs, Rebound, Guarding Back: No: CVA Tenderness Upper Extremity: Present: Normal Inspection Lower Extremity: Present: Normal ROM. No: Edema, CALF TENDERNESS, Swelling Neurological: Present: GCS=15, Speech Normal Skin: Present: Warm, Dry, Normal Color. No: Rashes Psychiatric: Present: Alert, Oriented x 3 Medical Decision Making ED Course and Treatment: 10/08/17 On re-eval, pt is afebrile, hemodynamicaly stable. Non-toxic. PulseOx 98% RA neck: Supple, (-) meningeal sign. Lungs: CTA B/L, BS equal B/L. CVS: (+)S1S2, reg. Abd: benign, (-) guarding, (-) rebound. Back: (-) CVA tenderness. Influenza A (+). Pt advised. ref. to f/u with PMD In 2-3 days for e-eval. return if any new changes. - Lab Interpretations Lab Results: Lab Results 10/08/17 15:52: Influenza Typ A,B (EIA) Pos for influenza a H - Medication Orders Current Medication Orders: Oseltamivir Phosphate (Tamiflu Cap) 75 mg PO STAT STA PRN Reason: Protocol Stop: 10/08/17 15:55 Discontinued Medications Albuterol Sulfate (Albuterol 0.083% Inhal Yanira (2.5 Mg/3 Ml) Ud) 2.5 mg IH STAT STA Stop: 10/08/17 15:16 Last Admin: 10/08/17 15:48 Dose: 2.5 mg Prednisone (Prednisone Tab) 60 mg PO STAT STA Stop: 10/08/17 15:17 Last Admin: 10/08/17 15:48 Dose: 60 mg Disposition/Present on Arrival - Present on Arrival Any Indicators Present on Arrival: No History of DVT/PE: No History of Uncontrolled Diabetes: No Urinary Catheter: No History of Decub. Ulcer: No History Surgical Site Infection Following: None - Disposition Have Diagnosis and Disposition been Completed?: Yes Diagnosis: Influenza A Disposition: HOME/ ROUTINE Disposition Time: 16:02 Patient Plan: Discharge Condition: STABLE Discharge Instructions (ExitCare): Influenza (ED) Additional Instructions: ENCOURAGE FLUIDS TAKE MEDICATION PRESCRIBED FOLLOW UP WITH PMD IN 2-3 DAYS FOR RE-EVALUATION. RETURN TO ED IF ANY WORSENING OR NEW CHANGES. Prescriptions: Albuterol HFA [Ventolin HFA 90 mcg/actuation (8 g)] 1 puff IH Q6 #1 inhaler Benzonatate [Tessalon Perle] 100 mg PO TID #14 capsule Oseltamivir Phosphate [Tamiflu] 75 mg PO BID #10 capsule Prednisone [Deltasone] 20 mg PO DAILY #3 tablet Referrals: Roberta Aden MD [Primary Care Provider] - Follow up with primary Forms: [employer] (Kyrgyz), WORK NOTE
[2017-10-08] MEDS ORDERED: Albuterol 0.083% Inhal Sol (2.5 mg/3 mL) UD IH STA (15:15)
[2017-10-08 17:21] VITALS: BP 142/71; PULSE 75
== END 2017-10-08 17:22 | disposition home or self-care (01) ==
LOC: ED 14:39
DX: J10.1 Influenza due to other identified influenza virus with other respiratory manifestations (principal); E11.9 Type 2 diabetes mellitus without complications; I10 Essential (primary) hypertension

== ENCOUNTER 2018-09-22 14:26 | Emergency (ER) | payer OTHER ==
[2018-09-22 14:27] VITALS: PULSE 84; BMI 38.1
[2018-09-22 15:19] VITALS: RESP 18; TEMP 99.4; O2SAT 98
[2018-09-22] MEDS ORDERED: TDAP Vaccine 0.5 mL Syr IM ONE (15:51)
[2018-09-22] MEDS ORDERED: Lidocaine 2% Inj (20ml) IJ STA (15:52)
[2018-09-22] MEDS ORDERED: Lidocaine 1% Inj (20ml) ONE (16:03)
--- NOTE | 2018-09-22 16:23 | ED PDOC ---
Arrival/HPI - General Historian: Patient - History of Present Illness Narrative History of Present Illness (Text): 09/22/18 16:22 58m [facility] [place] employee presents to ED after cutting his index finger on the left side with scissors. Pt said it stopped bleeding quickly, wrapped it in fernando and came down to ED immediatley. denies any loss of sensation loss of color or warmth in finger 09/22/18 16:27 Time/Duration: Prior to Arrival Symptom Onset: Sudden Severity Level: Mild Context: Home <Garrett Bernstein - Last Filed: 09/22/18 16:26> <Abdirahman Fletcher - Last Filed: 09/22/18 17:15> - General Chief Complaint: Abnormal Skin Integrity Time Seen by Provider: 09/22/18 14:52 Past Medical History - Provider Review Nursing Documentation Reviewed: Yes - Infectious Disease Hx of Infectious Diseases: None - Tetanus Immunization Tetanus Immunization: Unknown - Cardiac Hx Cardiac Disorders: Yes Hx Hypertension: Yes - Pulmonary Hx Respiratory Disorders: No - Neurological Hx Neurological Disorder: No - HEENT Hx HEENT Disorder: No - Renal Hx Renal Disorder: No - Endocrine/Metabolic Hx Diabetes Mellitus Type 2: Yes (10 years on po meds) - Hematological/Oncological Hx Blood Transfusions: No Hx Blood Transfusion Reaction: No - Integumentary Hx Dermatological Disorder: No - Musculoskeletal/Rheumatological Hx Falls: No Other/Comment: chronic knee pain - Gastrointestinal Hx Gastrointestinal Disorders: No - Genitourinary/Gynecological Hx Genitourinary Disorders: No - Psychiatric Hx Psychophysiologic Disorder: No Hx Substance Use: No - Past Surgical History Past Surgical History: No Previous - Surgical History Hx Cholecystectomy: Yes - Anesthesia Hx Anesthesia: Yes Hx Anesthesia Reactions: No Hx Malignant Hyperthermia: No - Suicidal Assessment Feels Threatened In Home Enviroment: No <Garrett Bernstein - Last Filed: 09/22/18 16:26> Family/Social History - Physician Review Nursing Documentation Reviewed: Yes Family/Social History: Unknown Family HX Smoking Status: Never Smoked Hx Alcohol Use: No Hx Substance Use: No Hx Substance Use Treatment: No <Garrett Bernstein - Last Filed: 09/22/18 16:26> Allergies/Home Meds <Garrett Bernstein - Last Filed: 09/22/18 16:26> <Abdirahman Fletcher - Last Filed: 09/22/18 17:15> Allergies/Adverse Reactions: Allergies No Known Allergies Allergy (Verified 10/08/17 17:25) Home Medications: Home Meds Medication Instructions Recorded Confirmed RX: Glimepiride 2 mg PO BRKDIN 08/04/16 10/08/17 Review of Systems - Physician Review All systems were reviewed & negative as marked: Yes - Review of Systems Constitutional: Normal Cardiovascular: Normal, Orthopnea Gastrointestinal: Normal Skin: Laceration ([id number] V shaped on L index PIP palmar side) <Garrett Bernstein - Last Filed: 09/22/18 16:26> Physical Exam Vital Signs Temp Pulse Resp BP Pulse Ox 09/22/18 14:28 99.4 F 79 18 166/88 H 98 Temperature: Afebrile Blood Pressure: Normal Pulse: Regular Respiratory Rate: Normal Appearance: Positive for: Well-Appearing Pain Distress: Mild Mental Status: Positive for: Alert and Oriented X 3 - Systems Exam Head: Present: Atraumatic Extroacular Muscles: Present: EOMI Mouth: Present: Moist Mucous Membranes Respiratory/Chest: Present: Clear to Auscultation Cardiovascular: Present: Regular Rate and Rhythm, Normal S1, S2 Upper Extremity: Present: NORMAL PULSES, Capillary Refill < 2s Neurological: Present: CN II-XII Intact, Normal 2Pt Descrimination Skin: Present: Laceration ([id number] V shaped on L index PIP palmar side) Psychiatric: Present: Alert, Oriented x 3 <Garrett Bernstein - Last Filed: 09/22/18 16:26> Vital Signs Temp Pulse Resp BP Pulse Ox 09/22/18 14:28 99.4 F 79 18 166/88 H 98 <Abdirahman Fletcher - Last Filed: 09/22/18 17:15> Medical Decision Making ED Course and Treatment: 09/22/18 16:31 #Laceration Repair [id number] V shaped on L index PIP palmar side - No 6 proline 2 simple interrupted sutures -1% Lido localk anesth - Medication Orders Current Medication Orders: Discontinued Medications Lidocaine HCl (Lidocaine 2% 20ml Vial) 1 ml IJ ONCE STA Stop: 09/22/18 15:53 Tetanus/Reduced Diphtheria/Acell Pertussis (Boostrix Vaccine Inj) 0.5 ml IM .ONCE ONE Stop: 09/22/18 15:52 <Garrett Bernstein - Last Filed: 09/22/18 16:26> ED Course and Treatment: Seen and examined with resident. 58 y/o M p/w laceration. No active bleeding. Instructed to have removed in 7 days, instructed to return to ED for developing infection symptoms. - Medication Orders Current Medication Orders: Discontinued Medications Lidocaine HCl (Lidocaine 2% 20ml Vial) 1 ml IJ ONCE STA Stop: 09/22/18 15:53 Tetanus/Reduced Diphtheria/Acell Pertussis (Boostrix Vaccine Inj) 0.5 ml IM .ONCE ONE Stop: 09/22/18 15:52 Last Admin: 09/22/18 16:26 Dose: 0.5 ml Immunization Registry Document 09/22/18 16:26 [place] (Rec: 09/22/18 16:26 [place] [facility] [place]-ER-20) [facility]-Date provided 09/22/18 <Abdirahman Fletcher - Last Filed: 09/22/18 17:15> Disposition/Present on Arrival - Present on Arrival Any Indicators Present on Arrival: No History of DVT/PE: No History of Uncontrolled Diabetes: No Urinary Catheter: No History of Decub. Ulcer: No History Surgical Site Infection Following: None - Disposition Have Diagnosis and Disposition been Completed?: Yes Disposition Time: 16:35 Patient Plan: Discharge <Garrett Bernstein - Last Filed: 09/22/18 16:26> <Abdirahman Fletcher - Last Filed: 09/22/18 17:15> - Disposition Diagnosis: Laceration of finger Disposition: HOME/ ROUTINE Patient Problems: Current Active Problems Problem Status Onset Laceration of finger Acute Condition: GOOD Discharge Instructions (ExitCare): Laceration Repair Print Language: BARBADIAN Additional Instructions: RADHA ZAMORANO, thank you for letting us take care of you today. Your provider was Abdirahman Fletcher MD and you were treated for WORK INJURY CUT TO HAND. The emergency medical care you received today was directed at your acute symptoms. If you were prescribed any medication, please fill it and take as directed. It may take several days for your symptoms to resolve. Return to the Emergency Department if your symptoms worsen, do not improve, or if you have any other problems. Please contact your doctor or call one of the physicians/clinics you have been referred to that are listed on the Patient Visit Information form that is included in your discharge packet. Bring any paperwork you were given at discharge with you along with any medications you are taking to your follow up visit. Our treatment cannot replace ongoing medical care by a primary care provider outside of the emergency department. Thank you for allowing the [facility] team to be part of your care today. If you had an X-Ray or CT scan: A Radiologist will review the ED reading if any change in treatment is needed we will contact you. If you had a blood, urine, or wound culture: It will take several days for the results, if any change in treatment is needed we will contact you. If you had an STI test: It will take 48 hours for the results. Please call after 1 week if you have not heard back. Please follow up with PMD in one week Referrals: Mariya Perera MD [Medical Doctor] - Follow up with primary Forms: [employer] (Sammarinese), WORK NOTE
[2018-09-22 17:34] VITALS: BP 145/84; PULSE 81
== END 2018-09-22 16:30 | disposition home or self-care (01) ==
LOC: ED 14:26
DX: S61.211A Laceration without foreign body of left index finger without damage to nail, initial encounter (principal); W27.2XXA Contact with scissors, initial encounter; Y92.238 Other place in hospital as the place of occurrence of the external cause; Y99.0 Civilian activity done for income or pay; Z23 Encounter for immunization

== ENCOUNTER 2018-11-15 11:12 | Inpatient (IN) | payer OTHER ==
[2018-11-15 11:13] VITALS: PULSE 84
--- NOTE | 2018-11-15 11:48 | ED PDOC ---
Arrival/HPI - General Chief Complaint: Lower Extremity Problem/Injury Time Seen by Provider: 11/15/18 11:34 Historian: Patient - History of Present Illness Narrative History of Present Illness (Text): 11/15/18 11:49 58 year old male, whose past medical history includes hypertension and diabetes, who presents to the emergency department complaining of swollen blister on his right foot. Patient states he has pain when he puts his weight on his foot and came into the emergency department because the area began to bleed. He denies fevers, chills, headache, dizziness, chest pain, shortness of breath, dyspnea on exertion, cough, abdominal pain, nausea, vomiting, diarrhea, back pain, neck pain, or any other complaint. Automotive Electrician: Dr. Cason Time/Duration: > week Symptom Onset: Gradual Symptom Course: Worsening Activities at Onset: Light Context: Home Past Medical History - Provider Review Nursing Documentation Reviewed: Yes - Infectious Disease Hx of Infectious Diseases: None - Tetanus Immunization Tetanus Immunization: Unknown - Cardiac Hx Cardiac Disorders: Yes Hx Hypertension: Yes - Pulmonary Hx Respiratory Disorders: No - Neurological Hx Neurological Disorder: No - HEENT Hx HEENT Disorder: No - Renal Hx Renal Disorder: No - Endocrine/Metabolic Hx Endocrine Disorders: Yes Hx Diabetes Mellitus Type 2: Yes - Hematological/Oncological Hx Blood Disorders: No - Integumentary Hx Dermatological Disorder: No - Musculoskeletal/Rheumatological Hx Musculoskeletal Disorders: Yes Other/Comment: chronic knee pain - Gastrointestinal Hx Gastrointestinal Disorders: No - Genitourinary/Gynecological Hx Genitourinary Disorders: Yes - Psychiatric Hx Psychophysiologic Disorder: No Hx Substance Use: No - Past Surgical History Past Surgical History: No Previous - Surgical History Hx Cholecystectomy: Yes - Anesthesia Hx Anesthesia: Yes Hx Anesthesia Reactions: No Hx Malignant Hyperthermia: No - Suicidal Assessment Feels Threatened In Home Enviroment: No Family/Social History - Physician Review Nursing Documentation Reviewed: Yes Family/Social History: No Known Family HX Smoking Status: Never Smoked Hx Alcohol Use: No Hx Substance Use: No Hx Substance Use Treatment: No Allergies/Home Meds Allergies/Adverse Reactions: Allergies No Known Allergies Allergy (Verified 11/15/18 11:29) Home Medications: Home Meds Medication Instructions Recorded Confirmed Glimepiride 2 mg PO BRKDIN 08/04/16 11/15/18 Tamsulosin [Flomax] 1 cap PO DAILY 11/15/18 11/15/18 Review of Systems - Physician Review All systems were reviewed & negative as marked: Yes - Review of Systems Constitutional: absent: Fevers Respiratory: absent: SOB, Cough Cardiovascular: absent: Chest Pain Gastrointestinal: absent: Abdominal Pain, Diarrhea, Nausea, Vomiting Musculoskeletal: Other (swelling blister on right foot). absent: Back Pain, Neck Pain Neurological: absent: Headache, Dizziness Physical Exam - Physical Exam Narrative Physical Exam (Text): 11/15/18 11:53 Gen: VS reviewed, alert, well developed, well nourished, nontoxic, mild distress. ENT: normal pharynx. Eye: EOMI, PERRL. Neck: no JVD, supple, no adenopathy. CV: regular rate, regular rhythm, no rubs, no murmur, no gallops, S1, S2, pulses equal and strong. Pulm: no distress, clear to auscultation, no wheeze, no rhonchi, breath sounds equal, no rales. Abd: soft, nontender, no guarding, no rebound, no rigidity, normal bowel sounds. Ext: no active bleeding, swelling and ecchymosis to the lateral aspect of the right foot. Skin: good color, no rash, no cyanosis. Psych: responds appropriately to questions, normal affect. Neuro: oriented x 3, CN2-12 intact grossly, motor intact, sensation intact. Vital Signs Reviewed: Yes Vital Signs Temp Pulse Resp BP Pulse Ox 11/15/18 11:32 99.4 F 91 H 16 166/92 H 99 Temperature: Afebrile Blood Pressure: Hypertensive Pulse: Tachycardic Respiratory Rate: Normal Appearance: Positive for: Well-Appearing, Non-Toxic, Comfortable Pain Distress: Mild Mental Status: Positive for: Alert and Oriented X 3 Medical Decision Making ED Course and Treatment: 11/15/18 11:50 Impression: 58 year old male who presents to the emergency department complaining of swollen blister to the right foot. Plan: -- right foot X-ray -- Reassess and disposition Prior Visits: Notes and results from previous visits were reviewed. Progress Notes: 11/15/18 11:50 Case discussed with podiatry resident who will come and evaluate patient at bedside. 11/15/18 13:10 case discussed with podiatry resident, requested MRI of the foot and admission t o the hospital. The concern is for a spontaneous hemorraghic blister of the foot to rule out nec fasciitis 11/15/18 13:[address] garcia. - RAD Interpretation Narrative RAD Interpretations (Text): 11/15/18 13:54 Foot X-ray reviewed by radiologist, IMPRESSION: No radiopaque foreign body. Mobile Ui Designer: Radiologist - Scribe Statement The provider has reviewed the documentation as recorded by the Scribe Ana Cristina Siu Provider Scribe Attestation: All medical record entries made by the Scribe were at my direction and personally dictated by me. I have reviewed the chart and agree that the record accurately reflects my personal performance of the history, physical exam, medical decision making, and the department course for this patient. I have also personally directed, reviewed, and agree with the discharge instructions and disposition. Disposition/Present on Arrival - Present on Arrival Any Indicators Present on Arrival: No History of DVT/PE: No History of Uncontrolled Diabetes: No Urinary Catheter: No History of Decub. Ulcer: No History Surgical Site Infection Following: None - Disposition Have Diagnosis and Disposition been Completed?: Yes Diagnosis: Blister of foot Disposition: HOSPITALIZED Disposition Time: 13:54 Patient Plan: Admission Patient Problems: Current Active Problems Problem Status Onset Blister of foot Acute Condition: STABLE Referrals: Roberta Garcia MD [Primary Care Provider] - Follow up with primary Forms: [employer] (Russian)
[2018-11-15] MEDS ORDERED: Vancomycin 500 mg Inj IVPB STA (13:17)
[2018-11-15] MEDS ORDERED: Piperacillin/Tazobact 3.375 gm 100 ML IVPB STA (13:19)
[2018-11-15] MEDS ORDERED: Clindamycin 600mg/50ml D5W 600 MG/50 ML VIAL IVPB STA (13:19)
--- NOTE | 2018-11-15 13:27 | RAD ---
Date of service: 11/15/2018 PROCEDURE: Right Foot Radiographs. HISTORY: pain, foreign body lateral sole foot? COMPARISON: None. FINDINGS: BONES: No acute fracture. No lytic or blastic osseous lesion. JOINTS: Flexion deformity 2nd through 5th digits. No evidence of arthritis. SOFT TISSUES: No radiopaque foreign body identified. There is soft tissue swelling seen lateral to the base of the 5th metatarsal. OTHER FINDINGS: None. IMPRESSION: No radiopaque foreign body.
[2018-11-15] MEDS ORDERED: Vancomycin 2 GM in Sodium Chloride 0.9% 500 ML IVPB ONE (13:30)
--- NOTE | 2018-11-15 14:00 | CP.PCM.CON ---
History of Present Illness - History of Present Illness History of Present Illness: Podiatry consult note for Dr. Cason: 58 year old male patient with PMH of HTN, DM, dyslipidemia, obesity, Neuropathy and Charcot foot seen and evaluated in the ED for right foot hemorrhagic blisters. Patient is well known to Dr. Cason and used to follow up with her for his charcot foot. Patient states that after he get home yesterday and took off his shoe he found blisters in the outside and bottom of his right foot. Patient denies any pain in his foot. Patient denies any recent trauma. Patient denies any recent F/N/V/C/CP or SOB. PMH: HTN, DM, dyslipidemia, obesity, Neuropathy and Charcot foot. PSH: Cholecystectomy. Allergies: NKDA. Social Hx: Denies smoking, EtOH use or illicit drug use. Review of Systems - Review of Systems Review of Systems: As per HPI - Constitutional Constitutional: As Per HPI Past Patient History - Infectious Disease Hx of Infectious Diseases: None - Tetanus Immunizations Tetanus Immunization: Unknown - Past Social History Smoking Status: Never Smoked - CARDIAC Hx Cardiac Disorders: Yes Hx Hypertension: Yes - PULMONARY Hx Respiratory Disorders: No - NEUROLOGICAL Hx Neurological Disorder: No - HEENT Hx HEENT Problems: No - RENAL Hx Chronic Kidney Disease: No - ENDOCRINE/METABOLIC Hx Endocrine Disorders: Yes Hx Diabetes Mellitus Type 2: Yes - HEMATOLOGICAL/ONCOLOGICAL Hx Blood Disorders: No - INTEGUMENTARY Hx Dermatological Problems: No - MUSCULOSKELETAL/RHEUMATOLOGICAL Hx Musculoskeletal Disorders: Yes Other/Comment: chronic knee pain - GASTROINTESTINAL Hx Gastrointestinal Disorders: No - GENITOURINARY/GYNECOLOGICAL Hx Genitourinary Disorders: Yes - PSYCHIATRIC Hx Psychophysiologic Disorder: No Hx Substance Use: No - SURGICAL HISTORY Hx Cholecystectomy: Yes - ANESTHESIA Hx Anesthesia: Yes Hx Anesthesia Reactions: No Hx Malignant Hyperthermia: No Meds Allergies/Adverse Reactions: Allergies Allergy/AdvReac Type Severity Reaction Status Date / Time No Known Allergies Allergy Verified 11/15/18 11:29 - Medications Medications: Current Medications Clindamycin Phosphate (Cleocin) 600 mg in 50 mls @ 50 mls/hr IVPB STAT STA; Protocol Stop: 11/15/18 14:18 Vancomycin HCl 2 gm/ Sodium (Chloride) 500 mls @ 170 mls/hr IVPB ONCE ONE Stop: 11/15/18 16:26 Physical Exam - Constitutional Appears: Well, Non-toxic, No Acute Distress - Head Exam Head Exam: ATRAUMATIC, NORMOCEPHALIC - Extremities Exam Additional comments: B/L lower extremity focused exam: Vascular: DP/PT 2/4 b/l, Cap refill < 3 seconds, Temp gradient warm to cool from proximal to distal, Moderate non pitting edema noted to the right foot on the lateral side Neuro: Gross and protective sensation are diminished. Derm: No open lesions. No clinical signs of active bacterial infection. No inter-digital macerations. Left Charcot foot. Right intact hemorrhagic blisters noted on the lateral side of the foot at the styloid process and the plantar lateral aspect of the right mid foot. MSK: Muscle power 5/5 to all groups, No pain on palpating the blister sites. - Neurological Exam Neurological exam: Alert, Oriented x3 - Psychiatric Exam Psychiatric exam: Normal Affect, Normal Mood Results - Vital Signs Recent Vital Signs: Last Vital Signs Temp 99.4 F 11/15/18 11:32 Pulse 91 H 11/15/18 11:32 Resp 16 11/15/18 11:32 BP 166/92 H 11/15/18 11:32 Pulse Ox 99 11/15/18 11:32 Assessment & Plan - Assessment and Plan (Free Text) Assessment: 58 year old male patient with PMH of HTN, DM, dyslipidemia, obesity, Neuropathy and Charcot foot seen and evaluated in the ED for right foot hemorrhagic blisters. Plan: Patient seen and evaluated Discussed in detail with Dr. Cason Charts and vitals reviewed; Afebrile Right foot 3 views X-ray: No foreign body detected. Applied xeroform and DSD to the R foot. Ordered surgical shoe. Patient to ambulate in a surgical shoe Ordered stat MRI. Patient started stat dose of IV abx by the ED doctor. Patient to be admitted for observation. Thank you for the consult. Podiatry will follow up the patient while in house. - Date & Time Date: 11/15/18 Time: 14:00
[2018-11-15 14:04] LABS: BASO # 0.02 K/mm3 (0.0-2.0); BASO % 0.1 % (0.0-3.0); EOS # 0.1 (0.0-0.7); EOS % 0.5 % (1.5-5.0); HEMOGLOBIN 9.7 g/dL (14.0-18.0); LYMPH # 2.5 (1.2-3.4); LYMPH % 17.5 % (22.0-35.0); MEAN CELL VOLUME 87.7 fl (80.0-105.0); MEAN CORPUSCULAR HEMOGLOBIN 28.4 pg (25.0-35.0); MEAN CORPUSCULAR HGB CONC 32.4 g/dl (31.0-37.0); MEAN PLATELET VOLUME 9.5 fl (7.0-11.0); MONO # 1.1 (0.1-0.6); MONO % 7.7 % (1.0-6.0); RBC 3.41 10^6/uL (3.5-6.1); RED CELL DISTRIBUTION WIDTH 13.4 % (11.5-14.5)
[2018-11-15 14:10] LABS: AST/SGOT 25 U/L (17-59); BLOOD UREA NITROGEN 38 mg/dL (7-21); CALCIUM 9.4 mg/dL (8.4-10.5); GFR NON-AFRICAN AMERICAN 27
[2018-11-15 14:12] LABS: ALT/SGPT < 6 U/L (7-56)
[2018-11-15] MEDS ORDERED: Piperacillin/Tazobact 2.25gm 2.25 GM/100 ML BAG IVPB STA (18:53)
[2018-11-15 21:56] VITALS: BMI 39.1
[2018-11-15] MEDS ORDERED: Pneumococcal 23-Valent Vaccine IM ONE (21:56)
[2018-11-15] MEDS ORDERED: Influenza Vaccine 60 mcg/0.5 mL SYR (4YR UP) IM ONE (21:56)
[2018-11-15] MEDS: Insulin Lispro (humaLOG) MEDIUM Coverage SC SCH (22:21)
[2018-11-15] MEDS: Piperacillin/Tazobact 2.25gm 2.25 GM/100 ML BAG IVPB SCH (22:22)
--- NOTE | 2018-11-16 00:17 | HP ---
DATE OF EXAM: 11/15/2018 HISTORY OF PRESENT ILLNESS: The patient is a 58-year-old, very noncompliant, history of noninsulin-dependent diabetes, hypertension, cardiomyopathy, chronic anemia, who works in [employer], history of Charcot's disease, came to emergency room because of wound on his right foot. The patient denies any trauma to the area because of increasing size of blister that is noted yesterday after he went back from work. He noticed the blister, but the size kept on increasing, so he came to emergency room for further evaluation. There is no history of trauma to area. The patient has altered sensation, probably did not hurting that much and he did not notice of it. PAST MEDICAL HISTORY: Significant for: 1. Noninsulin-dependent diabetes. 2. Hypertension. 3. Hyperlipidemia. 4. Diabetic neuropathy. 5. History of Charcot's disease. PAST SURGICAL HISTORY: Significant for cholecystectomy. ALLERGIES: HE IS NOT ALLERGIC TO ANY MEDICATIONS. 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 Denies smoking, drinking or alcohol use. PHYSICAL EXAMINATION: GENERAL: He is awake, alert, oriented, and able to communicate. VITAL SIGNS: He has a temperature of 99.5, pulse 86, respirations 18, and blood pressure 142/76. LUNGS: Bilateral fair airflow. No rhonchi or crackle. HEART: S1 and S2 audible. ABDOMEN: Soft, obese, and nontender. No rebound. No guarding. NEUROLOGIC: He is awake and alert, able to communicate. EXTREMITIES: He has bilateral +1 edema. On the right foot, he has large blood blister on the lateral aspect of the foot, lateral plantar aspect. LABORATORY DATA: Sodium 138, potassium 4.6, chloride 107, CO2 of 23, BUN 38, creatinine 2.5, and blood sugar of 125. WBC is 14, hemoglobin 9.7, hematocrit 29, and platelet of 255. He had foot x-ray done that shows no radiographic foreign body seen. MRI of the foot is pending. ASSESSMENT: 1. Right foot blister. 2. Diabetic neuropathy. 3. Uncontrolled diabetes. 4. Hypertension. 5. Chronic kidney disease. 6. Diabetic neuropathy. PLAN: We will start the patient on blood cultures, wound cultures done. Monitor the patient's blood sugars, started him on Zosyn and was given dose of vancomycin. We will monitor his blood sugar. Dr. Cason for wound care and Dr. Reyna for management from ID point of view and Dr. Lopez to manage his kidney function. Roberta Aden MD
[2018-11-16 07:48] LABS: BASO # 0.02 K/mm3 (0.0-2.0); BASO % 0.2 % (0.0-3.0); EOS # 0.2 (0.0-0.7); EOS % 2.2 % (1.5-5.0); HEMOGLOBIN 9.1 g/dL (14.0-18.0); LYMPH # 2.3 (1.2-3.4); LYMPH % 21.8 % (22.0-35.0); MEAN CELL VOLUME 88.3 fl (80.0-105.0); MEAN CORPUSCULAR HEMOGLOBIN 27.9 pg (25.0-35.0); MEAN CORPUSCULAR HGB CONC 31.6 g/dl (31.0-37.0); MEAN PLATELET VOLUME 9.5 fl (7.0-11.0); MONO # 1.1 (0.1-0.6); RBC 3.26 10^6/uL (3.5-6.1); RED CELL DISTRIBUTION WIDTH 13.5 % (11.5-14.5); WHITE BLOOD COUNT 10.5 10^3/uL (4.5-11.0)
[2018-11-16] MEDS: Insulin Lispro (humaLOG) MEDIUM Coverage SC SCH ×3 (07:56→21:54)
[2018-11-16 07:57] LABS: ALB/GLOB RATIO 0.9 (1.1-1.8); ALBUMIN 3.6 g/dL (3.0-4.8)
[2018-11-16] MEDS: Piperacillin/Tazobact 2.25gm 2.25 GM/100 ML BAG IVPB SCH (09:22)
--- NOTE | 2018-11-16 11:43 | MRI ---
Date of service: 11/15/2018 PROCEDURE: MRI of the right foot without contrast HISTORY: fluid collection COMPARISON: TECHNIQUE: MRI of the right foot was performed in multiple planes using multiple pulse sequences. FINDINGS: There is a large amount of subcutaneous edema over the dorsum of the foot and the lateral aspect of the ankle. There is no evidence of a discrete fluid collection. There is no evidence of osteomyelitis. Minimal degenerative marrow changes are seen in the calcaneus and cuboid The report concurs with the preliminary [facility] report IMPRESSION: Subcutaneous edema over the dorsum of the foot and lateral aspect of the ankle
[2018-11-16 13:31] LABS: URINE BILIRUBIN NEGATIVE (NEGATIVE); URINE BLOOD TRACE-INTACT (NEGATIVE); URINE GLUCOSE (UA) NEGATIVE (NEGATIVE); URINE LEUKOCYTE ESTERASE NEGATIVE Leu/uL (NEGATIVE); URINE PROTEIN 100 mg/dL (<30 mg/dL); URINE UROBILINOGEN 0.2 E.U./dL (<1 E.U./dL)
[2018-11-16 13:32] LABS: URINE APPEARANCE TURBID (CLEAR); URINE COLOR YELLOW (YELLOW)
[2018-11-16 13:37] LABS: URINE RBC 0 - 2 /hpf (0-2); URINE WBC 0 - 2 /hpf (0-6)
--- NOTE | 2018-11-16 15:04 | CP.PCM.PN ---
Subjective - Date & Time of Evaluation Date of Evaluation: 11/16/18 Time of Evaluation: 14:58 - Subjective Subjective: Podiatry progress note for Dr. Cason: 58 year old male patient seen and evaluated in the bedside for right foot hemorrhagic blisters. Patient states that he didn't have any pain in his right foot since yesterday. Patient denies any other pedal complaint at this time. Patient denies any overnight F/N/V/C/CP or SOB. Objective - Vital Signs/Intake and Output Vital Signs (last 24 hours): Temp Pulse Resp BP Pulse Ox 98.7 F 76 20 140/78 96 11/16/18 14:00 11/16/18 14:00 11/16/18 14:00 11/16/18 14:00 11/16/18 14:00 Intake and Output: 11/16/18 11/16/18 06:59 18:59 Intake Total 800 480 Output Total 1200 Balance -400 480 - Medications Medications: Current Medications Acetaminophen (Tylenol 325mg Tab) 650 mg PO Q6H PRN PRN Reason: Fever >100.4 F Ceftaroline Fosamil 200 mg/ (Sodium Chloride) 50 mls @ 50 mls/hr IVPB Q12H [facility]; Protocol Stop: 11/23/18 10:46 Last Admin: 11/16/18 12:15 Dose: 50 mls/hr Insulin Human Lispro (Humalog Med) 0 units SC ACHS [facility]; Protocol Last Admin: 11/16/18 12:13 Dose: Not Given - Labs Labs: 11/16/18 07:00 11/16/18 07:00 - Constitutional Appears: Well, Non-toxic, No Acute Distress - Head Exam Head Exam: ATRAUMATIC, NORMOCEPHALIC - Extremities Exam Additional comments: B/L lower extremity focused exam: Vascular: DP/PT 2/4 b/l, Cap refill < 3 seconds, Temp gradient warm to cool from proximal to distal, Moderate non pitting edema noted to the right foot on the lateral side Neuro: Gross and protective sensation are diminished. Derm: No open lesions. No clinical signs of active bacterial infection. No inter-digital macerations. Right intact hemorrhagic blisters noted on the l ateral side of the foot at the styloid process and the plantar lateral aspect of the right mid foot. positive fluctuance. MSK: Muscle power 5/5 to all groups, No pain on palpating the blister sites. Left Charcot foot. - Neurological Exam Neurological Exam: Alert, Awake, Oriented x3 - Psychiatric Exam Psychiatric exam: Normal Affect, Normal Mood Assessment and Plan - Assessment and Plan (Free Text) Assessment: 58 year old male patient seen and evaluated in the bedside for right foot hemorrhagic blisters. Plan: Patient seen and evaluated Discussed in detail with Dr. Cason Charts and vitals reviewed; Afebrile, WBCs 10.5 Right foot 3 views X-ray: No foreign body detected. Using sterile suture removal kit lateral foot fluctuating blister opened expressing about 3 cc of pus. Wound culture collected and sent to the lab. Applied iodine packing and DSD to the R foot. Patient to ambulate in a surgical shoe R foot MRI: subcutaneous edema at the dorsum of the foot and lateral side of the ankle. ID on board; Reccs appreciated. Continue IV Abx as per ID. Podiatry will continue to follow up the patient while in house.
--- NOTE | 2018-11-16 15:43 | CP.PCM.CON ---
History of Present Illness - History of Present Illness History of Present Illness: 58 year old male with PMH of HTN, DM, dyslipidemia, obesity with BMI 38, Charcot foot, came in to [facility] because of right foot blisters which were bleeding as well. HE does not recall how he got the blisters, does not recall specific trauma. He denies animal contacts, no soaking of his feet in water, no nausea or vomiting, no fever or chills, no headache or dizziness, no chest pain, no SOB, no cough or rhinorrhea, no abdominal pain, no diarrhea, no dysuria. Podiatry saw the patient and pus from the foot was expressed and abscess was drained. Infectious diseases consult is requested to further evaluate and manage. Review of Systems - Review of Systems All systems: reviewed and no additional remarkable complaints except (as per HPI) Past Patient History - Infectious Disease Hx of Infectious Diseases: None - Tetanus Immunizations Tetanus Immunization: Unknown - Past Social History Smoking Status: Never Smoked - CARDIAC Hx Cardiac Disorders: Yes Hx Congestive Heart Failure: Yes Hx Hypercholesterolemia: Yes Hx Hypertension: Yes - PULMONARY Hx Respiratory Disorders: Yes (INFLUENZA A,NEUROPATHY) - NEUROLOGICAL Hx Neurological Disorder: No - HEENT Hx HEENT Problems: No - RENAL Hx Chronic Kidney Disease: No - ENDOCRINE/METABOLIC Hx Endocrine Disorders: Yes Hx Diabetes Mellitus Type 2: Yes - HEMATOLOGICAL/ONCOLOGICAL Hx Blood Disorders: No - INTEGUMENTARY Hx Dermatological Problems: Yes Other/Comment: 11-15-18 CHARCOT FOOT. RIGHT FOOT HAS A LARGE BLOOD FILLED BLISTER TO MID LATERAL SECTION OF FOOT EXTENDING TO MID PLANTAR SIDE OF FOOT. INTACT SKIN.PAINFUL - MUSCULOSKELETAL/RHEUMATOLOGICAL Hx Musculoskeletal Disorders: Yes Hx Falls: Yes Hx Fractures: Yes (LEFT FOOT FX) Other/Comment: chronic knee pain - GASTROINTESTINAL Hx Gastrointestinal Disorders: Yes (H/O C DIFF.) - GENITOURINARY/GYNECOLOGICAL Hx Genitourinary Disorders: Yes - PSYCHIATRIC Hx Psychophysiologic Disorder: Yes (OBESITY) Hx Substance Use: No - SURGICAL HISTORY Hx Surgeries: Yes Hx Cholecystectomy: Yes - ANESTHESIA Hx Anesthesia: Yes Hx Anesthesia Reactions: No Hx Malignant Hyperthermia: No Meds Allergies/Adverse Reactions: Allergies Allergy/AdvReac Type Severity Reaction Status Date / Time No Known Allergies Allergy Verified 11/15/18 16:52 - Medications Medications: Current Medications Acetaminophen (Tylenol 325mg Tab) 650 mg PO Q6H PRN PRN Reason: Fever >100.4 F Piperacillin Sod/Tazobactam Sod (Zosyn 2.25 Gm In 0.9% 100 Ml) 2.25 gm in 100 mls @ 100 mls/hr IVPB Q12 [facility]; Protocol Stop: 11/16/18 10:01 Last Admin: 11/15/18 22:22 Dose: 100 mls/hr Insulin Human Lispro (Humalog Med) 0 units SC ACHS [facility]; Protocol Last Admin: 11/15/18 22:21 Dose: Not Given Physical Exam - Constitutional Appears: Chronically Ill - Head Exam Head Exam: NORMAL INSPECTION - Neck Exam Neck exam: Negative for: Meningismus - Respiratory Exam Respiratory Exam: Decreased Breath Sounds - Cardiovascular Exam Cardiovascular Exam: +S1, +S2 - GI/Abdominal Exam GI & Abdominal Exam: Soft. absent: Tenderness - Extremities Exam Additional comments: right foot with dressings in place Results - Vital Signs Recent Vital Signs: Last Vital Signs Temp 99.4 F 11/15/18 21:00 Pulse 86 11/15/18 21:00 Resp 18 11/15/18 21:30 BP 142/76 11/15/18 21:00 Pulse Ox 97 11/15/18 21:00 - Labs Result Diagrams: 11/16/18 07:00 11/16/18 07:00 Labs: Laboratory Results - last 24 hr 11/15/18 11/15/18 13:47 13:47 WBC 14.0 H RBC 3.41 L Hgb 9.7 L Hct 29.9 L MCV 87.7 MCH 28.4 MCHC 32.4 RDW 13.4 Plt Count 255 MPV 9.5 Neut % (Auto) 74.2 H Lymph % (Auto) 17.5 L [place] % (Auto) 7.7 H Eos % (Auto) 0.5 L Baso % (Auto) 0.1 Lymph # (Auto) 2.5 [place] # (Auto) 1.1 H Eos # (Auto) 0.1 Baso # (Auto) 0.02 Absolute Neuts (auto) 10.37 H Sodium 138 Potassium 4.6 Chloride 107 Carbon Dioxide 23 Anion Gap 13 BUN 38 H Creatinine 2.5 H Est GFR ( Amer) 32 Est GFR (Non-Af Amer) 27 Random Glucose 125 H Calcium 9.4 Total Bilirubin 0.6 AST 25 ALT < 6 L Alkaline Phosphatase 100 Total Protein 8.1 Albumin 4.0 Globulin 4.1 Albumin/Globulin Ratio 1.0 L Assessment & Plan - Assessment and Plan (Free Text) Plan: Assessment Right foot abscess S/P I and D, no evidence of osteomyelitis on MRI chronic renal failure history of sepsis due to acute on chronic gangrenous cholecystitis S/P cholecystectomy HTN DM dyslipidemia obesity with BMI 39 Plan started Teflaro pending abscess cultures and blood cx discussed with Dr. Cason will monitor clinically
--- NOTE | 2018-11-16 23:46 | CON ---
DATE: 11/16/2018 REASON FOR CONSULTATION: Chronic kidney disease, diabetes, right foot abscess. HISTORY OF PRESENT ILLNESS: A 58-year-old male known to me from one prior evaluation. The patient has not been followed up in the office. The patient presented to the emergency room with pain and discoloration of plantar aspect of his right foot. He denies any fever, chills. He denies any cough, shortness of breath. He denies any abdominal pain, nausea, vomiting, or diarrhea. He denies any urinary complaints. In the emergency room, he was found to have a bleeding ulcer/blister on the plantar aspect of his right foot. He has a low-grade fever of 99.4 at the time of presentation. He is hemodynamically stable. His initial blood work shows an elevated WBC count of 14,000. His BUN is elevated at 38 and his creatinine is 2.5. Consultation is requested for chronic kidney disease. PAST MEDICAL AND SURGICAL HISTORY: NIDDM, hypertension, hyperlipidemia, diabetic neuropathy, Charcot's disease, chronic kidney disease stage III. FAMILY HISTORY: Diabetes and hypertension. SOCIAL HISTORY: No smoking, no alcohol use, no IV drug abuse. 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 ALLERGIES: NO KNOWN DRUG ALLERGIES. MEDICATIONS AT HOME: Flomax, glimepiride 2 mg b.i.d. REVIEW OF SYSTEMS: All systems are reviewed, pertinent positives as mentioned in the history of presenting illness, rest unremarkable. PHYSICAL EXAMINATION: GENERAL: Obese middle-aged male lying in bed. VITAL SIGNS: Blood pressure 140/78, heart rate of 76, respiratory rate 20, temperature 98.7. HEENT: Normocephalic, atraumatic, positive pallor. NECK: Supple, no JVD. LUNGS: Bilateral equal entry, bilateral equal expansion. CARDIAC: S1, S2, regular rate and rhythm, no murmur, no rub. ABDOMEN: Obese, distended, soft, nontender, bowel sounds present. EXTREMITIES: Blister at the lateral aspect of the plantar aspect of the right foot. LABORATORY DATA: WBC 10.5, hemoglobin 9, hematocrit 28.8, platelets 243. Sodium 139, potassium 4.6, chloride 109, CO2 of 23, BUN 35, creatinine 2.6, glucose 104, calcium 9, AST 20, ALT 8, 7, albumin 3.6. Urinalysis, yellow, turbid, pH 6, specific gravity 1.020, protein 100, blood trace intact, leukocyte esterase negative, ketones negative. Blood culture, no growth. MRI of the foot, subcutaneous edema over the dorsum of the foot and lateral aspect of the ankle, no evidence of osteomyelitis. CURRENT MEDICATIONS: Ceftaroline 200 IV every 12, insulin, Tylenol, Zosyn 2.25 every 12. ASSESSMENT: 1. [id number] diabetes mellitus. 2. Hypertension, poorly controlled. 3. Infected diabetic foot ulcer, right foot. 4. Chronic kidney disease stage II/III. 5. Proteinuria. PLAN: 1. The patient has been noncompliant with followup as an outpatient. He does have underlying chronic kidney disease stage II/III. He does have proteinuria. Suspect he has diabetic nephropathy. His baseline creatinine is around 2.3. Currently, he does have mild acute kidney injury superimposed on his chronic kidney disease. 2. In light of his acute kidney injury, could not start ARB right now, but the patient needs to be on an ARB. 3. Continue antibiotics as per ID recommendations. 4. Dose all antibiotics for creatinine clearance 30-50 mL/min. 5. Check A1c. 6. Needs tight glycemic control. 7. Discussed with the patient the importance of followup. Mireya Lopez MD
--- NOTE | 2018-11-16 23:51 | PN ---
DATE: 11/16/2018 SUBJECTIVE: The patient is a 58-year-old, seen and examined, lying in bed, seems to be comfortable. Eating and tolerating. PHYSICAL EXAMINATION: VITAL SIGNS: Afebrile. Pulse 76, respiration 20 and blood pressure 140/78. LUNGS: Bilateral fair airflow. No rhonchi or crackle. HEART: S1 and S2 audible. ABDOMEN: Soft and nontender. No rebound. No guarding. NEUROLOGIC: The patient is awake, alert, oriented and able to communicate. EXTREMITIES: His foot is in the dressing, has large swelling with collection on the right extending from his lateral aspect of the mid foot going towards his sole. LABORATORY DATA: WBC is 10.5, hemoglobin 9.1, hematocrit 28, and platelet 243. Chemistry; sodium 139, potassium 4.6, chloride 109, CO2 of 23, BUN 35, creatinine 2.6, and blood sugar 146. Blood cultures are negative. Wound cultures are pending. He had MRI of the foot done that shows history of subcutaneous edema over the dorsum of the foot and lateral aspect of the ankle. ASSESSMENT: 1. Right foot hematoma versus abscess. 2. Non-ischemic cardiomyopathy. 3. Chronic kidney disease. 4. Poorly controlled diabetes. 5. Hypertension. PLAN: Currently, the patient is on Teflaro. His blood sugar is being monitored. We will discuss with other data processing systems consultant. We will follow up the patient in a.m. Roberta Aden MD
[2018-11-17 07:36] LABS: BASO # 0.03 K/mm3 (0.0-2.0); BASO % 0.3 % (0.0-3.0); EOS # 0.3 (0.0-0.7); EOS % 2.8 % (1.5-5.0); HEMOGLOBIN 8.9 g/dL (14.0-18.0); LYMPH # 2.4 (1.2-3.4); LYMPH % 22.2 % (22.0-35.0); MEAN CELL VOLUME 88.5 fl (80.0-105.0); MEAN CORPUSCULAR HEMOGLOBIN 27.7 pg (25.0-35.0); MEAN CORPUSCULAR HGB CONC 31.3 g/dl (31.0-37.0); MEAN PLATELET VOLUME 9.6 fl (7.0-11.0); MONO # 0.9 (0.1-0.6); MONO % 8.2 % (1.0-6.0); RBC 3.21 10^6/uL (3.5-6.1); RED CELL DISTRIBUTION WIDTH 13.3 % (11.5-14.5); WHITE BLOOD COUNT 10.6 10^3/uL (4.5-11.0)
[2018-11-17 07:59] LABS: ALB/GLOB RATIO 0.9 (1.1-1.8); ALBUMIN 3.5 g/dL (3.0-4.8); ALT/SGPT < 6 U/L (7-56); AST/SGOT 18 U/L (17-59); BLOOD UREA NITROGEN 33 mg/dL (7-21); CALCIUM 8.8 mg/dL (8.4-10.5); GFR NON-AFRICAN AMERICAN 25
--- NOTE | 2018-11-17 10:41 | CP.PCM.PN ---
<Prabhakar Shi - Last Filed: 11/17/18 10:38> Subjective - Date & Time of Evaluation Date of Evaluation: 11/17/18 Time of Evaluation: 10:38 - Subjective Subjective: Podiatry progress note for Dr. Cason: 58 year old male patient seen and evaluated in the bedside for right foot hemorrhagic blisters. Patient states that he didn't have any pain in his right foot since yesterday. Patient denies any other pedal complaint at this time. Patient denies any overnight F/N/V/C/CP or SOB. Objective - Vital Signs/Intake and Output Vital Signs (last 24 hours): Temp Pulse Resp BP Pulse Ox 98.5 F 88 18 170/83 H 97 11/17/18 06:00 11/17/18 06:00 11/17/18 06:00 11/17/18 06:00 11/17/18 06:00 Intake and Output: 11/17/18 11/17/18 06:59 18:59 Intake Total 1080 Balance 1080 - Medications Medications: Current Medications Acetaminophen (Tylenol 325mg Tab) 650 mg PO Q6H PRN PRN Reason: Fever >100.4 F Ceftaroline Fosamil 200 mg/ (Sodium Chloride) 50 mls @ 50 mls/hr IVPB Q12H [facility]; Protocol Stop: 11/23/18 10:46 Last Admin: 11/16/18 22:00 Dose: 50 mls/hr Insulin Human Lispro (Humalog Med) 0 units SC ACHS [facility]; Protocol Last Admin: 11/16/18 21:54 Dose: Not Given - Labs Labs: 11/17/18 07:00 11/17/18 07:00 - Constitutional Appears: Well, Non-toxic, No Acute Distress - Head Exam Head Exam: ATRAUMATIC, NORMOCEPHALIC - Extremities Exam Additional comments: B/L lower extremity focused exam: Vascular: DP/PT 2/4 b/l, Cap refill < 3 seconds, Temp gradient warm to cool from proximal to distal, Moderate non pitting edema noted to the right foot on the lateral side Neuro: Gross and protective sensation are diminished. Derm: An open blister on the lateral side of the foot with iodine packing inside.. No inter-digital macerations. Right intact hemorrhagic blister noted on the lateral side of the foot at the styloid process extending to the plantar lateral aspect of the right mid foot. positive fluctuance. MSK: Muscle power 5/5 to all groups, No pain on palpating the blister sites. Left Charcot foot. - Neurological Exam Neurological Exam: Alert, Awake, Oriented x3 Assessment and Plan - Assessment and Plan (Free Text) Assessment: 58 year old male patient seen and evaluated in the bedside for right foot hemorrhagic blisters. Plan: Patient seen and evaluated Discussed in detail with Dr. Cason Charts and vitals reviewed; Afebrile, WBCs 10.5 Right foot 3 views X-ray: No foreign body detected. Using sterile suture removal kit lateral foot hemorrhagic blister opened and drained expressing about 5 cc of pus. Wound culture: Pending Applied iodine packing and DSD to the R foot. Patient to ambulate in a surgical shoe R foot MRI: subcutaneous edema at the dorsum of the foot and lateral side of the ankle. ID on board; Reccs appreciated. Continue IV Abx as per ID. Podiatry will continue to follow up the patient while in house. <Claudia Cason - Last Filed: 11/20/18 13:53> Objective - Vital Signs/Intake and Output Vital Signs (last 24 hours): Temp Pulse Resp BP Pulse Ox 98.5 F 74 19 178/96 H 99 11/20/18 06:00 11/20/18 09:45 11/20/18 06:00 11/20/18 09:45 11/20/18 06:00 Intake and Output: 11/20/18 11/20/18 06:59 18:59 Intake Total 240 Balance 240 - Medications Medications: Current Medications Acetaminophen (Tylenol 325mg Tab) 650 mg PO Q6H PRN PRN Reason: Fever >100.4 F Amlodipine Besylate (Norvasc) 5 mg PO DAILY [facility] Last Admin: 11/20/18 09:45 Dose: 5 mg Calcium Acetate (Phoslo) 667 mg PO WM [facility] Last Admin: 11/20/18 13:13 Dose: 667 mg Glipizide (Glucotrol) 5 mg PO ACB [facility] Last Admin: 11/20/18 09:49 Dose: 5 mg Iron Sucrose 200 mg/ Sodium (Chloride) 110 mls @ 110 mls/hr IVPB DAILY [facility] Stop: 11/21/18 10:59 Last Admin: 11/20/18 09:50 Dose: 110 mls/hr Ceftriaxone Sodium (Rocephin 2 Gm Ivpb) 2 gm in 100 mls @ 100 mls/hr IVPB DAILY [facility]; Protocol Stop: 11/24/18 11:15 Last Admin: 11/20/18 09:49 Dose: 100 mls/hr Insulin Human Lispro (Humalog Med) 0 units SC ACHS [facility]; Protocol Last Admin: 11/20/18 13:11 Dose: 1 u Mupirocin (Bactroban Ointment) 1 gm TOP BID [facility] Last Admin: 11/20/18 09:51 Dose: 1 cer - Labs Labs: 11/20/18 07:00 11/20/18 07:00 Attending/Attestation - Attestation I have personally seen and examined this patient.: Yes I have fully participated in the care of the patient.: Yes I have reviewed all pertinent clinical information, including history, physical exam and plan: Yes
[2018-11-17] MEDS: Insulin Lispro (humaLOG) MEDIUM Coverage SC SCH ×3 (11:55→21:22)
--- NOTE | 2018-11-17 15:22 | CP.PCM.PN ---
Subjective - Date & Time of Evaluation Date of Evaluation: 11/17/18 Time of Evaluation: 12:05 - Subjective Subjective: Afebrile, decreased pain in the right foot, no nausea, no diarrhea. Objective - Vital Signs/Intake and Output Vital Signs (last 24 hours): Temp Pulse Resp BP Pulse Ox 98.7 F 76 20 140/78 96 11/16/18 14:00 11/16/18 14:00 11/16/18 14:00 11/16/18 14:00 11/16/18 14:00 Intake and Output: 11/16/18 11/16/18 06:59 18:59 Intake Total 800 480 Output Total 1200 Balance -400 480 - Medications Medications: Current Medications Acetaminophen (Tylenol 325mg Tab) 650 mg PO Q6H PRN PRN Reason: Fever >100.4 F Ceftaroline Fosamil 200 mg/ (Sodium Chloride) 50 mls @ 50 mls/hr IVPB Q12H [facility]; Protocol Stop: 11/23/18 10:46 Last Admin: 11/16/18 12:15 Dose: 50 mls/hr Insulin Human Lispro (Humalog Med) 0 units SC ACHS [facility]; Protocol Last Admin: 11/16/18 12:13 Dose: Not Given - Labs Labs: 11/16/18 07:00 11/16/18 07:00 - Constitutional Appears: Chronically Ill - Head Exam Head Exam: NORMAL INSPECTION - Respiratory Exam Respiratory Exam: Decreased Breath Sounds - Cardiovascular Exam Cardiovascular Exam: +S1, +S2 - GI/Abdominal Exam GI & Abdominal Exam: Soft. absent: Tenderness - Extremities Exam Additional comments: right foot with dressings in place Assessment and Plan - Assessment and Plan (Free Text) Plan: Assessment Right foot abscess S/P I and D, no evidence of osteomyelitis on MRI chronic renal failure history of sepsis due to acute on chronic gangrenous cholecystitis S/P cholecystectomy HTN DM dyslipidemia obesity with BMI 39 Plan continue Teflaro pending abscess cultures (growing gram positive cocci) discussed with Dr. Cason will continue to monitor clinically
--- NOTE | 2018-11-17 15:31 | PN ---
DATE: 11/17/2018 SUBJECTIVE: The patient is 58-year-old, seen and examined, lying in bed, seems to be comfortable, minimal pain to the site. PHYSICAL EXAMINATION VITAL SIGNS: She is afebrile, pulse 88, respiration 18 and blood pressure 173/83. LUNGS: Bilateral fair airflow. No rhonchi or crackle. HEART: S1 and S2 audible. ABDOMEN: Soft, obese and nontender. No rebound. No guarding. NEUROLOGIC: The patient is awake and alert, able to communicate. EXTREMITIES: Foot is in the dressing. No discharge noted. LABORATORY DATA: WBC is 10.6, hemoglobin 8.9, hematocrit 28.4 and platelet 248. Chemistry; sodium 138, potassium 4.6, chloride 108, CO2 of 23, BUN 33, creatinine 2.6 and blood sugar of 193. Foot culture positive group C Streptococcus. Blood cultures are negative. MRI is negative for osteomyelitis, however, he has abscess. ASSESSMENT: 1. Diabetic right foot ulcer with abscess. 2. Chronic kidney disease. 3. Diabetic nephropathy. 4. Poorly-controlled diabetes. 5. Chronic anemia. PLAN: Currently, the patient is on Teflaro. Podiatry team is following the patient. I will request for TCU evaluation. If accepted, the patient can be transferred there for physical therapy, completion of antibiotic and wound care. Roberta Aden MD
[2018-11-17 17:17] LABS: IRON 21 ug/dL (45-180)
[2018-11-17 17:26] LABS: % IRON SATURATION 12 % (20-55); TOTAL IRON BINDING CAPACITY 165 ug/dL (261-462)
[2018-11-17 19:52] LABS: CREATININE,RANDOM URINE 88 mg/dL; TOTAL PROTEIN,RANDOM URINE 311 mg/L
--- NOTE | 2018-11-17 21:13 | PN ---
DATE: 11/17/2018 SUBJECTIVE: The patient is seen lying in bed. He is awake. He is alert. He is comfortable. He denies any pain. Denies any shortness of breath. Denies any headaches. OBJECTIVE: GENERAL: Young male lying in bed. VITAL SIGNS: Blood pressure 173/83, heart rate 88, respiratory rate 18, and temperature 98.5. HEENT: Normocephalic and atraumatic. Positive pallor. NECK: Supple. No JVD. LUNGS: Bilateral equal air entry, bilateral equal expansion. CARDIAC: S1 and S2. Regular rate and rhythm. No murmur. No rub. ABDOMEN: Obese, distended, soft, and nontender. Bowel sounds present. EXTREMITIES: Dressing of the right foot. INTAKE AND OUTPUT: 1560/not charted. LABORATORY DATA: WBC 10.6, hemoglobin 8.9, hematocrit 28, and platelets 248. Sodium 138, potassium 4.6, chloride 108, CO2 of 23, BUN 33, creatinine 2.6, glucose 128, and calcium 8.8. AST 18, ALT less than 6, and albumin 3.5. Urinalysis 2+ protein. Wound culture, group C Streptococcus. CURRENT MEDICATIONS: Ceftaroline 200 every 12 hours, Glucotrol 5, insulin, and Tylenol. Venofer 200 mg IV piggyback given today. ASSESSMENT: 1. Diabetes. 2. The patient denies history of hypertension, but blood pressure is high. 3. Diabetic foot ulcer. 4. History of Charcot's disease. 5. Chronic kidney disease stage III. 6. Proteinuria. PLAN: 1. Regardless of the fact that the patient may not have hypertension, the patient should be on BOBBY inhibitors/ARB, therefore I will start him on losartan 50 mg daily. 2. Check iron, TIBC, and ferritin. 3. Check intact PTH. 4. Renal ultrasound. Mireya Lopez MD
[2018-11-18] MEDS: Insulin Lispro (humaLOG) MEDIUM Coverage SC SCH ×4 (07:35→21:39)
--- NOTE | 2018-11-18 13:13 | CP.PCM.PN ---
<Prabhakar Shi - Last Filed: 11/18/18 13:09> Subjective - Date & Time of Evaluation Date of Evaluation: 11/18/18 Time of Evaluation: 13:09 - Subjective Subjective: Podiatry progress note for Dr. Ceballos: 58 year old male patient seen and evaluated in the bedside for right foot hemorrhagic blisters. Patient states that he didn't have any pain in his right foot since yesterday. Patient denies any other pedal complaint at this time. Patient denies any overnight F/N/V/C/CP or SOB. Objective - Vital Signs/Intake and Output Vital Signs (last 24 hours): Temp Pulse Resp BP Pulse Ox 98 F 70 18 176/83 H 95 11/18/18 06:00 11/18/18 09:39 11/18/18 06:00 11/18/18 09:39 11/18/18 06:00 Intake and Output: 11/18/18 11/18/18 06:59 18:59 Intake Total 940 240 Balance 940 240 - Medications Medications: Current Medications Acetaminophen (Tylenol 325mg Tab) 650 mg PO Q6H PRN PRN Reason: Fever >100.4 F Glipizide (Glucotrol) 5 mg PO ACB [facility] Last Admin: 11/18/18 09:40 Dose: 5 mg Ceftaroline Fosamil 200 mg/ (Sodium Chloride) 50 mls @ 50 mls/hr IVPB Q12H [facility]; Protocol Stop: 11/23/18 10:46 Last Admin: 11/18/18 10:45 Dose: 50 mls/hr Iron Sucrose 200 mg/ Sodium (Chloride) 110 mls @ 110 mls/hr IVPB DAILY [facility] Stop: 11/21/18 10:59 Last Admin: 11/18/18 11:15 Dose: 110 mls/hr Insulin Human Lispro (Humalog Med) 0 units SC ACHS [facility]; Protocol Last Admin: 11/18/18 11:13 Dose: Not Given Losartan Potassium (Cozaar) 50 mg PO DAILY [facility] Last Admin: 11/18/18 09:39 Dose: 50 mg - Labs Labs: 11/17/18 07:00 11/17/18 07:00 - Constitutional Appears: Well, Non-toxic, No Acute Distress - Head Exam Head Exam: ATRAUMATIC, NORMOCEPHALIC - Extremities Exam Additional comments: B/L lower extremity focused exam: Vascular: DP/PT 2/4 b/l, Cap refill < 3 seconds, Temp gradient warm to cool from proximal to distal, Moderate non pitting edema noted to the right foot on the lateral side Neuro: Gross and protective sensation are diminished. Derm: Opened blisters noted on the lateral side of the foot with iodine packing inside. No drainage, No malodor. No inter-digital macerations. MSK: Muscle power 5/5 to all groups, No pain on palpating the blister sites. Left Charcot foot. - Neurological Exam Neurological Exam: Alert, Awake, Oriented x3 - Psychiatric Exam Psychiatric exam: Normal Affect, Normal Mood Assessment and Plan - Assessment and Plan (Free Text) Assessment: 58 year old male patient seen and evaluated in the bedside for right foot hem orrhagic blisters. Plan: Patient seen and evaluated with Dr. Ceballos Discussed in detail with Dr. Ceballos Charts and vitals reviewed; Afebrile, WBCs 10.5 (11/17) Right foot 3 views X-ray: No foreign body detected. Wound culture: Group C strept. Applied iodine packing, Mepilex and DSD to the R foot. and Mepilex to the left hallux. Patient to continue ambulating in a surgical shoe R foot MRI: subcutaneous edema at the dorsum of the foot and lateral side of the ankle. ID on board; Reccs appreciated. Continue IV Abx as per ID. Podiatry will continue to follow up the patient while in house. <Khalif Ceballos - Last Filed: 11/18/18 14:06> Objective - Vital Signs/Intake and Output Vital Signs (last 24 hours): Temp Pulse Resp BP Pulse Ox 98.4 F 74 18 157/87 H 94 L 11/18/18 13:54 11/18/18 13:54 11/18/18 13:54 11/18/18 13:54 11/18/18 13:54 Intake and Output: 11/18/18 11/18/18 06:59 18:59 Intake Total 940 240 Balance 940 240 - Medications Medications: Current Medications Acetaminophen (Tylenol 325mg Tab) 650 mg PO Q6H PRN PRN Reason: Fever >100.4 F Glipizide (Glucotrol) 5 mg PO ACB [facility] Last Admin: 11/18/18 09:40 Dose: 5 mg Ceftaroline Fosamil 200 mg/ (Sodium Chloride) 50 mls @ 50 mls/hr IVPB Q12H [facility]; Protocol Stop: 11/23/18 10:46 Last Admin: 11/18/18 10:45 Dose: 50 mls/hr Iron Sucrose 200 mg/ Sodium (Chloride) 110 mls @ 110 mls/hr IVPB DAILY [facility] Stop: 11/21/18 10:59 Last Admin: 11/18/18 11:15 Dose: 110 mls/hr Insulin Human Lispro (Humalog Med) 0 units SC ACHS [facility]; Protocol Last Admin: 11/18/18 11:13 Dose: Not Given Losartan Potassium (Cozaar) 50 mg PO DAILY [facility] Last Admin: 11/18/18 09:39 Dose: 50 mg - Labs Labs: 11/17/18 07:00 11/17/18 07:00 Attending/Attestation - Attestation I have personally seen and examined this patient.: Yes I have fully participated in the care of the patient.: Yes I have reviewed all pertinent clinical information, including history, physical exam and plan: Yes
--- NOTE | 2018-11-18 14:03 | US ---
Date of service: 11/17/2018 PROCEDURE: Ultrasound of the Kidneys HISTORY: CKD COMPARISON: None available. TECHNIQUE: Sonogram of the kidneys. FINDINGS: RIGHT KIDNEY: Measures: 14.3 x 6.76 x 6.59 cm. Normal in size, contour and echogenicity. No stone, solid mass lesion or hydronephrosis visualized. LEFT KIDNEY: Measures: 14.54 x 6.32 x 6.59 cm. Normal in size, contour and echogenicity. No stone, solid mass lesion or hydronephrosis visualized. OTHER FINDINGS: The report concurs with the preliminary [facility] report IMPRESSION: Unremarkable renal sonogram.
--- NOTE | 2018-11-18 15:29 | PN ---
\DATE: 11/18/2018 SUBJECTIVE: The patient is a 58-year-old seen and examined, lying in bed, and seems to be comfortable. Eating and tolerating. No chest pain. No shortness of breath. No fever. No chills. His right foot is in the dressing. PHYSICAL EXAMINATION VITAL SIGNS: He is afebrile, pulse 70, respirations 18, and blood pressure 176/83, LUNGS: Bilateral fair airflow. No rhonchi or crackle. HEART: S1 and S2 audible. ABDOMEN: Soft and nontender. No rebound. No guarding. NEUROLOGIC: He is awake, alert, oriented, and able to communicate. LABORATORY DATA: Blood sugar is 136. His blood cultures are negative. MRI shows no osteomyelitis. ASSESSMENT: 1. Right foot abscess, status post irrigation and drainage and sent for culture. 2. Poorly controlled diabetes. 3. Chronic kidney disease. 4. Hypertension. 5. Non-ischemic cardiomyopathy. PLAN: The patient is currently on antibiotics. Continue on current medications. He is on Venofer. He is on Teflaro. The patient is medically cleared to be transferred to TCU once bed is available. Roberta Aden MD
[2018-11-18 16:49] LABS: CALCIUM 8.9 mg/dL (8.4-10.5); HEMOGLOBIN 9.1 g/dL (14.0-18.0); MEAN CELL VOLUME 87.7 fl (80.0-105.0); MEAN CORPUSCULAR HGB CONC 31.9 g/dl (31.0-37.0); MEAN PLATELET VOLUME 9.3 fl (7.0-11.0); RBC 3.25 10^6/uL (3.5-6.1); RED CELL DISTRIBUTION WIDTH 13.1 % (11.5-14.5); WHITE BLOOD COUNT 10.8 10^3/uL (4.5-11.0)
--- NOTE | 2018-11-18 21:31 | PN ---
DATE: 11/18/2018 SUBJECTIVE: Patient is seen lying in bed. He is awake. He is alert. He is comfortable. PHYSICAL EXAMINATION GENERAL: Obese, middle aged male lying in bed. VITAL SIGNS: Blood pressure 157/87, heart rate 74, respiratory rate 20, temperature 98.4. HEENT: Normocephalic, atraumatic, positive pallor. NECK: Supple. No JVD. LUNGS: Bilateral equal entry, bilateral equal expansion, no rales. CARDIAC: S1 and S2. Regular rate and rhythm. No murmur. No rub. ABDOMEN: Obese, distended, soft, nontender, bowel sounds present. EXTREMITIES: Dressing of the right foot. INTAKE AND OUTPUT: Not charted. LABORATORY DATA: Hemoglobin 9.1. Sodium 140, potassium 5.0, chloride 107, CO2 of 27, BUN 34, creatinine 3.0. Glucose 74. Calcium 8.9. Phosphorous 5.1. PTH 110. Renal ultrasound; right kidney 14 cm normal in size and left kidney 14 cm normal in size. No hydronephrosis. CURRENT MEDICATIONS: Ceftaroline 200 mg every 12 hours, losartan 50 mg daily started yesterday, Glucotrol 5 mg, Venofer 200 mg IV piggyback given yesterday and one dose given today, and Tylenol. ASSESSMENT: Acute kidney injury superimposed on chronic renal disease, stage III. DIFFERENTIAL DIAGNOSES: 1. Acute interstitial nephritis secondary to cephalosporin versus acute kidney injury related to angiotensin receptor paige, which was started yesterday. 2. Diabetes, pretty well controlled. 3. Hypertension, previously was not on any medication. 4. Infected right foot ulcer. 5. Nephrotic-range proteinuria. PLAN: 1. Check labs in the a.m. 2. Check urinalysis, urine sodium and urine creatinine. 3. Check urine source. 4. May have to discontinue ARB if creatinine continues to rise. 5. Continue Teflaro for now. 6. Wound care. 7. Avoid nephrotoxins. Mireya Lopez MD
--- NOTE | 2018-11-18 23:47 | PN ---
DATE: 11/18/2018 SUBJECTIVE: The patient is seen in bed, in no acute distress. PHYSICAL EXAMINATION: VITAL SIGNS: Temperature is 98, blood pressure is 150/80, respiratory rate is 20, and heart rate is 74. HEENT: Unremarkable. NECK: Supple. LUNGS: Decreased breath sounds. HEART: Normal S1 and S2. ABDOMEN: Soft and nontender. LABORATORY DATA: Reveals a white count of 10,000, hemoglobin of 9, BUN of 34, and creatinine of 3. Group C Streptococcus from the right foot culture. ASSESSMENT AND PLAN: A 58-year-old male with right foot abscess, status post incision and drainage. No evidence of osteomyelitis on MRI. The patient with renal failure, diabetes, and hypertension, on Teflaro with group C Streptococcus culture. We will follow closely with you. Sergio Reyna MD
[2018-11-19 08:17] LABS: BASO # 0.03 K/mm3 (0.0-2.0); BASO % 0.3 % (0.0-3.0); EOS # 0.3 (0.0-0.7); EOS % 3.4 % (1.5-5.0); HEMOGLOBIN 8.9 g/dL (14.0-18.0); LYMPH # 2.4 (1.2-3.4); LYMPH % 24.5 % (22.0-35.0); MEAN CELL VOLUME 87.9 fl (80.0-105.0); MEAN CORPUSCULAR HEMOGLOBIN 27.7 pg (25.0-35.0); MEAN CORPUSCULAR HGB CONC 31.6 g/dl (31.0-37.0); MEAN PLATELET VOLUME 9.2 fl (7.0-11.0); MONO # 1.1 (0.1-0.6); MONO % 11.2 % (1.0-6.0); RBC 3.21 10^6/uL (3.5-6.1); RED CELL DISTRIBUTION WIDTH 13.1 % (11.5-14.5); WHITE BLOOD COUNT 9.9 10^3/uL (4.5-11.0)
[2018-11-19] MEDS: Insulin Lispro (humaLOG) MEDIUM Coverage SC SCH ×3 (08:30→16:17)
[2018-11-19 08:31] LABS: ALB/GLOB RATIO 0.8 (1.1-1.8); ALBUMIN 3.5 g/dL (3.0-4.8); AST/SGOT 21 U/L (17-59); BLOOD UREA NITROGEN 30 mg/dL (7-21); CALCIUM 8.9 mg/dL (8.4-10.5); GFR NON-AFRICAN AMERICAN 22
[2018-11-19 08:41] LABS: ALT/SGPT < 6 U/L (7-56)
--- NOTE | 2018-11-19 09:56 | CP.PCM.PN ---
<Prabhakar Shi - Last Filed: 11/19/18 09:52> Subjective - Date & Time of Evaluation Date of Evaluation: 11/19/18 (`) Time of Evaluation: 09:52 - Subjective Subjective: Podiatry progress note for Dr. Ceballos: 58 year old male patient seen and evaluated in the bedside for right foot hemorrhagic blisters progressed to ulceration. Patient states that he didn't have any pain in his right foot since yesterday. Patient denies any other pedal complaint at this time. Patient denies any overnight F/N/V/C/CP or SOB. Objective - Vital Signs/Intake and Output Vital Signs (last 24 hours): Temp Pulse Resp BP Pulse Ox 98.4 F 80 18 158/71 H 98 11/19/18 06:00 11/19/18 06:00 11/19/18 06:00 11/19/18 06:00 11/19/18 06:00 Intake and Output: 11/19/18 11/19/18 06:59 18:59 Intake Total 540 Balance 540 - Medications Medications: Current Medications Acetaminophen (Tylenol 325mg Tab) 650 mg PO Q6H PRN PRN Reason: Fever >100.4 F Amlodipine Besylate (Norvasc) 5 mg PO DAILY [facility] Calcium Acetate (Phoslo) 667 mg PO WM [facility] Darbepoetin Khang (Aranesp) 100 mcg SC ONCE ONE Stop: 11/20/18 10:01 Glipizide (Glucotrol) 5 mg PO ACB [facility] Last Admin: 11/18/18 09:40 Dose: 5 mg Ceftaroline Fosamil 200 mg/ (Sodium Chloride) 50 mls @ 50 mls/hr IVPB Q12H [facility]; Protocol Stop: 11/23/18 10:46 Last Admin: 11/18/18 21:45 Dose: 50 mls/hr Iron Sucrose 200 mg/ Sodium (Chloride) 110 mls @ 110 mls/hr IVPB DAILY [facility] Stop: 11/21/18 10:59 Last Admin: 11/18/18 11:15 Dose: 110 mls/hr Insulin Human Lispro (Humalog Med) 0 units SC ACHS [facility]; Protocol Last Admin: 11/18/18 21:39 Dose: Not Given Mupirocin (Bactroban Ointment) 1 gm TOP BID [facility] - Labs Labs: 11/19/18 07:30 11/19/18 07:30 - Constitutional Appears: Well, Non-toxic, No Acute Distress - Head Exam Head Exam: ATRAUMATIC, NORMOCEPHALIC - Extremities Exam Additional comments: B/L lower extremity focused exam: Vascular: DP/PT 2/4 b/l, Cap refill < 3 seconds, Temp gradient warm to cool from proximal to distal, Moderate non pitting edema noted to the right foot on the lateral side Neuro: Gross and protective sensation are diminished. Derm: Ulceration noted at the site of the opened blisters noted on the lateral side of the right foot with iodine packing inside. Base is granular. Mild drainage of liquified tissues, No malodor. Positive undermining, positive tracking. No inter-digital macerations. left hallux shows superficial wound covered by dry scab with no drainage, erythema, malodor or any sign of active infection. MSK: Muscle power 5/5 to all groups, No pain on palpating the blister sites. Left Charcot foot. - Neurological Exam Neurological Exam: Alert, Awake, Oriented x3 - Psychiatric Exam Psychiatric exam: Normal Affect, Normal Mood Assessment and Plan - Assessment and Plan (Free Text) Assessment: 58 year old male patient seen and evaluated in the bedside for right foot hemo rrhagic blisters progressed to ulceration. Plan: Patient seen and evaluated with Dr. Ceballos Discussed in detail with Dr. Ceballos Charts and vitals reviewed; Afebrile, WBCs 9.9 Right foot 3 views X-ray: No foreign body detected. Wound culture: Group C strept. Applied xeroform and DSD to the R foot. and Mepilex to the left hallux. Ordered bactroban to be added to the dressing starting tomorrow. Patient to continue ambulating in a surgical shoe R foot MRI: subcutaneous edema at the dorsum of the foot and lateral side of the ankle. ID on board; Reccs appreciated. Continue IV Abx as per ID. Podiatry will continue to follow up the patient while in house. <Khalif Ceballos - Last Filed: 11/22/18 08:11> Objective - Vital Signs/Intake and Output Vital Signs (last 24 hours): Temp Pulse Resp BP Pulse Ox 98.4 F 76 18 158/73 H 98 11/21/18 06:00 11/21/18 09:10 11/21/18 06:00 11/21/18 09:10 11/21/18 06:00 - Labs Labs: 11/21/18 07:00 11/21/18 13:00 Attending/Attestation - Attestation I have personally seen and examined this patient.: Yes I have fully participated in the care of the patient.: Yes I have reviewed all pertinent clinical information, including history, physical exam and plan: Yes
[2018-11-19] MEDS: Mupirocin 2% Ointment 15 GM TUBE TOP SCH ×2 (10:55→17:56)
--- NOTE | 2018-11-19 11:36 | PN ---
DATE: 11/19/2018 SUBJECTIVE: The patient is currently seen on 5R. He is lying comfortable in bed. He appears to be in no acute distress. He is continuing on IV antibiotic therapy for a right foot abscess which was incised and drained. MEDICATIONS: Medication list reviewed. The patient is on ceftaroline, losartan, Glucotrol, sliding scale insulin, and Tylenol p.r.n. OBJECTIVE: INTAKE/OUTPUT: Intake is 780, output is not charted. VITAL SIGNS: Blood pressure 158/71, temperature 98.4, respiratory rate of 18 with a pulse of 80, pulse ox 98%. HEENT: Exam shows him to be normocephalic, atraumatic. Conjunctivae are pale. Sclerae nonicteric. NECK: Supple. No neck vein distention. CHEST: Clear to auscultation and percussion. No rales, rhonchi or wheezing. CARDIOVASCULAR: Shows a regular rate and rhythm without audible murmurs, rubs or gallops. ABDOMEN: Mildly obese. Nondistended. Nontender, soft. Bowel sounds present. No rebound, guarding, no organomegaly. EXTREMITIES: Show no significant pitting edema. He has got a dressing over his right foot with no drainage and no odor. LABORATORY DATA AND IMAGING: Renal ultrasound was unremarkable. MRI of the foot showed subcutaneous edema but no evidence of osteomyelitis. CBC; white blood cell count down to 9.9, hemoglobin stable at 8.9, platelet count is 283,000. Chemistry showed normal electrolytes. BUN 30 with a creatinine of 3. Baseline BUN is in the upper 20 to mid 30 range. Baseline creatinine over the last 12 months is in the mid 2 range. Calcium was 8.9. Phosphorus mildly elevated at 5. Magnesium level is 2.3. Liver enzymes are normal. Albumin level was 3.5. Urine showed 2+ protein. Urine sodium, urine creatinine, and urine eosinophil stain is still pending. Microbiology; right foot cultures are positive for group C strep. Blood cultures are negative at 72 hours. ASSESSMENT: 1. Mild elevation of BUN and creatinine above his baseline levels. BUN has returned to baseline, creatinine still remains slightly above baseline levels. As noted in Dr. Lopez's note, this might be secondary to his right foot infection, use of antibiotics with possible acute interstitial nephritis or secondary to starting of an angiotensin receptor paige. I did discuss with the patient the possibility of switching to a calcium channel paige and holding the angiotensin receptor paige until after the foot infection antibiotic use have been completed. Pending at this point in time are the urine sodium, urine creatinine, which will give us the fractional secretion of sodium. Also pending at this point in time is the urine has Raciel stain to look for acute interstitial nephritis. 2. History of diabetes mellitus with chronic kidney disease and proteinuria, likely secondary to diabetes. 3. Baseline chronic kidney disease stage 3. 4. History of hypertension. I will switch the patient to a calcium channel paige and avoid an angiotensin receptor paige at this point in time. 5. Infected right foot ulcer with abscess status post incision and drainage, no evidence of osteomyelitis. The patient will continue on IV antibiotic therapy under the guidance of Infectious Disease. 6. History of secondary hyperparathyroidism, mild elevation of his phosphorus level. The patient may start binder therapy. 7. Mild anemia. This is likely secondary to chronic kidney disease. The patient would benefit from Aranesp. Of note, his iron saturations were 12%. I will start the patient on oral iron supplements. I will hold the IV iron until we are certain that all blood cultures are negative. PLAN: 1. Continue to follow labs on a daily basis. 2. Discontinue angiotensin receptor paige and start a calcium channel paige. 3. Continue antibiotic therapy under the guidance of ID. 4. Treatment of secondary hyperparathyroidism as noted above. 5. Start Aranesp and start the patient on oral iron supplements. 6. Local wound care as per Podiatry notes. 7. Avoid all nephrotoxic agents. Yohan Mccarthy MD
[2018-11-19] MEDS: cefTRIAXone 2 GM IN NS 2 GM/100 ML BAG IVPB SCH (12:55)
--- NOTE | 2018-11-19 16:53 | PN ---
DATE: 11/19/2018 SUBJECTIVE: The patient is in bed. No acute distress, was seen earlier today. PHYSICAL EXAMINATION: VITAL SIGNS: Temperature of 98, blood pressure 158/70, respiratory rate 20, heart rate of 80. HEENT: Examination unremarkable. NECK: Supple. LUNGS: Decreased breath sounds. HEART: Normal S1 and S2. ABDOMEN: Soft, nontender. LABORATORY DATA: White count of 9.9, hemoglobin 8, platelets of 283. Chemistries are noted. The patient has a group C strep from the right foot culture and blood cultures are negative. Review of orders reveals the patient to be on ceftaroline. ASSESSMENT AND PLAN: A 58-year-old male with obesity with BMI of 38, status post incision and drainage of right foot abscess with group C strep, renal failure, hypertension, and diabetes. We will discontinue the Teflaro and order ceftriaxone. The patient has no osteomyelitis based on MRI. We will be able to switch to p.o. antibiotics and p.o. Augmentin 875 p.o. b.i.d. x5-7 days upon discharge. Sergio Reyna MD
--- NOTE | 2018-11-19 18:08 | DS ---
HISTORY OF PRESENT ILLNESS: The patient is a 58-year-old, seen and examined, initially came in with increasing right foot swelling, had I and D done by bedside. The patient has history of Charcot disease, growing Streptococcus from the wound. Currently, on Teflaro. Doing okay. Tolerating well. PHYSICAL EXAMINATION: GENERAL: He is awake, alert, oriented, able to communicate. VITAL SIGNS: He is afebrile. Pulse 80, respirations 18, blood pressure 158/71. LUNGS: Bilateral fair airflow. No rhonchi or crackle. HEART: S1, S2 audible. ABDOMEN: Soft. Nontender. No rebound. No guarding. NEUROLOGIC: The patient is awake and alert. Able to communicate. LABORATORY EXAMINATION: WBC 9.9, hemoglobin 8.9, hematocrit 28, platelet 283. Chemistry; sodium 139, potassium 4.8, chloride 108, CO2 of 27, BUN 30, creatinine 3.0, blood sugar of 96. Blood cultures are negative. ASSESSMENT: 1. Right foot hematoma versus abscess. MRI negative for osteomyelitis. 2. Hypertension. 3. Chronic kidney disease. 4. Cardiomyopathy. 5. Chronic anemia. PLAN: The patient will get Venofer today. He is getting Aranesp. We will monitor his blood sugar. Currently, he is on Rocephin 2 g daily. Awaiting for TCU acceptance, if accepted, he will be transferred to TCU today. Roberta Aden MD
[2018-11-20] MEDS: Insulin Lispro (humaLOG) MEDIUM Coverage SC SCH ×6 (01:55→21:20)
[2018-11-20 07:45] LABS: HEMOGLOBIN 9.2 g/dL (14.0-18.0); MEAN CELL VOLUME 88.1 fl (80.0-105.0); MEAN CORPUSCULAR HGB CONC 31.8 g/dl (31.0-37.0); MEAN PLATELET VOLUME 9.1 fl (7.0-11.0); RBC 3.28 10^6/uL (3.5-6.1); RED CELL DISTRIBUTION WIDTH 13.2 % (11.5-14.5); WHITE BLOOD COUNT 10.6 10^3/uL (4.5-11.0)
[2018-11-20 07:53] LABS: ALB/GLOB RATIO 0.9 (1.1-1.8); ALBUMIN 3.6 g/dL (3.0-4.8); CALCIUM 8.9 mg/dL (8.4-10.5)
[2018-11-20] MEDS: cefTRIAXone 2 GM IN NS 2 GM/100 ML BAG IVPB SCH (09:49)
[2018-11-20] MEDS: Mupirocin 2% Ointment 15 GM TUBE TOP SCH ×2 (09:51→18:15)
[2018-11-20] MEDS ORDERED: Darbepoetin Alfa 60 mcg/ml Inj SC ONE (10:00)
--- NOTE | 2018-11-20 10:51 | CP.PCM.PN ---
Subjective - Date & Time of Evaluation Date of Evaluation: 11/20/18 Time of Evaluation: 10:48 - Subjective Subjective: Podiatry progress note for Dr. Ceballos: 58 year old male patient seen and evaluated in the bedside for right foot hemorrhagic blisters progressed to ulceration. Patient states that he didn't have any pain in his right foot since yesterday. Patient denies any other pedal complaint at this time. Patient denies any overnight F/N/V/C/CP or SOB. Objective - Vital Signs/Intake and Output Vital Signs (last 24 hours): Temp Pulse Resp BP Pulse Ox 98.5 F 74 19 178/96 H 99 11/20/18 06:00 11/20/18 09:45 11/20/18 06:00 11/20/18 09:45 11/20/18 06:00 Intake and Output: 11/20/18 11/20/18 06:59 18:59 Intake Total 240 Balance 240 - Medications Medications: Current Medications Acetaminophen (Tylenol 325mg Tab) 650 mg PO Q6H PRN PRN Reason: Fever >100.4 F Amlodipine Besylate (Norvasc) 5 mg PO DAILY [facility] Last Admin: 11/20/18 09:45 Dose: 5 mg Calcium Acetate (Phoslo) 667 mg PO WM [facility] Last Admin: 11/20/18 09:45 Dose: 667 mg Glipizide (Glucotrol) 5 mg PO ACB [facility] Last Admin: 11/20/18 09:49 Dose: 5 mg Iron Sucrose 200 mg/ Sodium (Chloride) 110 mls @ 110 mls/hr IVPB DAILY [facility] Stop: 11/21/18 10:59 Last Admin: 11/20/18 09:50 Dose: 110 mls/hr Ceftriaxone Sodium (Rocephin 2 Gm Ivpb) 2 gm in 100 mls @ 100 mls/hr IVPB DAILY [facility]; Protocol Stop: 11/24/18 11:15 Last Admin: 11/20/18 09:49 Dose: 100 mls/hr Insulin Human Lispro (Humalog Med) 0 units SC ACHS [facility]; Protocol Last Admin: 11/20/18 09:50 Dose: Not Given Mupirocin (Bactroban Ointment) 1 gm TOP BID [facility] Last Admin: 11/20/18 09:51 Dose: 1 cer - Labs Labs: 11/20/18 07:00 11/20/18 07:00 - Constitutional Appears: Well, Non-toxic, No Acute Distress - Head Exam Head Exam: ATRAUMATIC, NORMOCEPHALIC - Extremities Exam Additional comments: B/L lower extremity focused exam: Vascular: DP/PT 2/4 b/l, Cap refill < 3 seconds, Temp gradient warm to cool from proximal to distal, Moderate non pitting edema noted to the right foot on the lateral side Neuro: Gross and protective sensation are diminished. Derm: Ulceration noted at the site of the opened blisters on the lateral side of the right foot. Base is granular and necrotic. No drainage, No malodor. Positive undermining, positive tracking. No inter-digital macerations. left hallux shows superficial wound covered by dry scab with no drainage, erythema, malodor or any sign of active infection. MSK: Muscle power 5/5 to all groups, No pain on palpating the blister sites. Left Charcot foot. - Neurological Exam Neurological Exam: Alert, Awake, Oriented x3 - Psychiatric Exam Psychiatric exam: Normal Affect, Normal Mood Assessment and Plan - Assessment and Plan (Free Text) Assessment: 58 year old male patient seen and evaluated in the bedside for right foot hemorrhagic blisters progressed to ulceration. Plan: Patient seen and evaluated at the bedside. Discussed in detail with Dr. Ceballos Charts, labs and vitals reviewed; Afebrile, WBCs 10.6 Right foot 3 views X-ray: No foreign body detected. Wound culture: Group C strept. Right foot wound cleansed with saline then dressed using betadine, bactroban and DSD. Patient to continue ambulating in a surgical shoe R foot MRI: subcutaneous edema at the dorsum of the foot and lateral side of the ankle. ID on board; Reccs appreciated. Continue IV Abx as per ID. Podiatry will continue to follow up the patient while in house.
--- NOTE | 2018-11-20 13:54 | PN ---
DATE: 11/20/2018 SUBJECTIVE: The patient is currently seen lying comfortable in bed on 5R. He states the formula mixer was just in the room and looked at the wound. The patient states that the right foot wound abscess looks stable. MEDICATIONS Medication list reviewed. The patient is on the Mupirocin, glipizide, Humalog, Norvasc, PhosLo, Rocephin and Tylenol. OBJECTIVE: INTAKE/OUTPUT: Intake is 720, output is not charted. VITAL SIGNS: Blood pressure ranging from 151-178 systolic, diastolics ranging from 75-96. Temperature 98.5, pulse 74, respiratory rate is 19. Pulse ox is 99%. HEENT: Exam shows him to be normocephalic, atraumatic. Conjunctivae pale. Sclerae nonicteric. NECK: Supple. No neck vein distention. CHEST: Clear to auscultation and percussion. No rales, rhonchi or wheezing. CARDIOVASCULAR: Shows a regular rate and rhythm without audible murmurs, rubs or gallops. ABDOMEN: Soft. Mildly obese. Bowel sounds present. No rebound, guarding, organomegaly noted. EXTREMITIES: Show no lower extremity edema. He has a dressing over his right foot with no drainage and no odor. LABORATORY DATA AND IMAGING STUDIES: CBC, white blood cell count stable 10.6, hemoglobin slightly improved at 9.2, platelet count is 302,000. Chemistry shows stable renal parameters. BUN 35 with a creatinine of 3.1, his baseline BUN is in the 20-30 range with baseline creatinine in the mid 2 range. Potassium was 5.0. Sodium 140, glucose 143. Slight elevation of phosphorus at 4.7, calcium of 8.9, magnesium level is 2.3. Liver enzymes are normal. Albumin is 3.6. Urine studies ordered by Dr. Lopez are still pending. A 24 urine ordered by md had not yet been started. Microbiology, right foot cultures are positive for group C strep. Blood cultures are negative at 96 hours. ASSESSMENT: 1. Mild elevation of blood urea nitrogen and creatinine above his baseline levels. The patient has underlying chronic kidney disease stage III. This is in the setting of a right foot infection, antibiotics, possibility of acute interstitial nephritis and the possibility of use of an angiotensin receptor paige possibly playing a role in the mild elevation of his blood urea and nitrogen and creatinine. Foot infection is being treated. The patient is avoiding all nephrotoxic agents. The patient was switched from an angiotensin receptive paige to a calcium channel paige. I still await the results of the urine sodium, urine creatinine and urine eosinophil stain. A 24-hour urine study has been requested for baseline. 2. History of diabetes mellitus with chronic kidney disease and proteinuria, likely secondary to diabetes. 3. Baseline chronic kidney disease stage III with a creatinine in the mid 2 range as a baseline. 4. History of hypertension. He is to monitor blood pressure, we will switch from angiotensin receptor paige to a calcium channel paige. Presently, systolic blood pressure is mildly elevated. 5. Infected right foot ulcer with abscess, status post incision and drainage, no evidence for osteomyelitis seen on a recent magnetic resonance imaging. The patient will continue IV antibiotics which were adjusted by Infectious Disease. 6. History of secondary hyperparathyroidism. The patient's phosphorus level remains mildly elevated. We will continue renal diet and binder therapy. 7. History of mild anemia. With negative blood cultures, the patient was started on IV Venofer. With the patient being on IV iron therapy, oral iron therapy was discontinued. PLAN: 1. Continue to follow labs on a daily basis. 2. Continue to monitor blood pressure with the switch from the angiotensin receptor paige to the calcium channel paige. 3. Continue antibiotic therapy under the guidance of Infectious Disease. 4. Continue renal diet and binder therapy for secondary hyperparathyroidism. Phosphorus level is falling. 5. Continue Aranesp and IV iron. 6. Local wound care as per Podiatry. 7. Avoid all nephrotoxic agents. Yohan Mccarthy MD [email or web address]
--- NOTE | 2018-11-20 18:26 | PN ---
DATE: 11/20/2018 SUBJECTIVE: The patient is in bed, in no acute distress, nontoxic. PHYSICAL EXAMINATION: VITAL SIGNS: On exam, temperature is 98, blood pressure is 150/70, respiratory rate of 18. HEENT: Examination of HEENT is unremarkable. NECK: Supple. LUNGS: Have decreased breath sounds. HEART: Normal S1, S2. ABDOMEN: Soft, nontender. LABORATORY DATA: Laboratory examination reveals a white count of 10,600 and hemoglobin of 9, platelets of 302. Chemistries are noted with a creatinine of 3.1. Urinalysis is noted. Microbiology reveals a group C strep from the wound. ASSESSMENT AND PLAN: A 58-year-old male with obesity, BMI of 39, status post incision and drainage of right foot abscess, group C strep, hypertension, diabetic, currently on ceftriaxone. No evidence of osteo on MRI. May be switched to p.o. Augmentin upon discharge 875 mg p.o. b.i.d. x7 days. Sergio Reyna MD
--- NOTE | 2018-11-20 22:00 | PN ---
DATE: 11/20/2018 SUBJECTIVE: The patient is 58 years old. Seen and examined. Lying in bed. Seems to be comfortable. No nausea or vomiting. No diarrhea. Eating and tolerating. PHYSICAL EXAMINATION: VITAL SIGNS: He is afebrile, pulse 70, respirations 18, and blood pressure 167/77. LUNGS: Bilateral fair airflow. No rhonchi or crackle. HEART: S1 and S2 audible. ABDOMEN: Soft and nontender. No rebound. No guarding. NEUROLOGIC: He is awake, alert and oriented, able to communicate, able to ambulate. EXTREMITIES: His right foot is in the dressing. Bilateral legs, +1 edema. LABORATORY EXAMINATION: WBC 10.6, hemoglobin 9.1, hematocrit 28.9, and platelet 302. Chemistry: Sodium 140, potassium 5, chloride 108, CO2 of 24, BUN 35, creatinine 3.1, and blood sugar of 143. Right foot growing group C Streptococcus. Right foot MRI is negative. Renal ultrasound is negative. ASSESSMENT AND PLAN: 1. Right foot cellulitis, status post incision and drainage. 2. Charcot's disease. 3. Insulin-dependent diabetes. 4. Hypertension. 5. Hyperlipidemia. 6. Chronic kidney disease. 7. Ischemic cardiomyopathy. 8. Noncompliance. PLAN: Currently, the patient is on Rocephin 2 g daily. We will continue wound care. He is getting IV Venofer. Podiatry team is following the patient's wound. We will discuss with the ID for duration of antibiotic and make disposition. Roberta Aden MD
[2018-11-21] MEDS: Insulin Lispro (humaLOG) MEDIUM Coverage SC SCH ×2 (07:30→12:00)
[2018-11-21 07:58] LABS: HEMOGLOBIN 9.4 g/dL (14.0-18.0); MEAN CELL VOLUME 87.9 fl (80.0-105.0); MEAN CORPUSCULAR HEMOGLOBIN 28.4 pg (25.0-35.0); MEAN CORPUSCULAR HGB CONC 32.3 g/dl (31.0-37.0); MEAN PLATELET VOLUME 9.2 fl (7.0-11.0); RBC 3.31 10^6/uL (3.5-6.1); RED CELL DISTRIBUTION WIDTH 13.2 % (11.5-14.5); WHITE BLOOD COUNT 10.6 10^3/uL (4.5-11.0)
[2018-11-21 08:27] LABS: ALB/GLOB RATIO 0.8 (1.1-1.8); ALBUMIN 3.6 g/dL (3.0-4.8); ALT/SGPT < 6 U/L (7-56); AST/SGOT 25 U/L (17-59); BLOOD UREA NITROGEN 33 mg/dL (7-21); CALCIUM 9.2 mg/dL (8.4-10.5); GFR NON-AFRICAN AMERICAN 22
[2018-11-21 08:50] VITALS: BP 158/73; PULSE 76; RESP 18; TEMP 98.4; O2SAT 98
[2018-11-21] MEDS: Mupirocin 2% Ointment 15 GM TUBE TOP SCH (09:11)
[2018-11-21] MEDS: cefTRIAXone 2 GM IN NS 2 GM/100 ML BAG IVPB SCH (09:11)
--- NOTE | 2018-11-21 12:25 | CP.PCM.PN ---
Subjective - Date & Time of Evaluation Date of Evaluation: 11/21/18 Time of Evaluation: 12:21 - Subjective Subjective: Podiatry progress note: Dr. Cason 58 year old male patient, seen and evaluated this morning for R foot hemorrhagic blister with underlying ulceration. Patient resting comfortably and in NAD. No acute events overnight. He denies any pain to the ulceration site at this time. Denies nausea/vomiting/fever/chills/chest pain. Objective - Vital Signs/Intake and Output Vital Signs (last 24 hours): Temp Pulse Resp BP Pulse Ox 98.4 F 76 18 158/73 H 98 11/21/18 06:00 11/21/18 09:10 11/21/18 06:00 11/21/18 09:10 11/21/18 06:00 Intake and Output: 11/21/18 11/21/18 06:59 18:59 Intake Total 360 Balance 360 - Medications Medications: Current Medications Acetaminophen (Tylenol 325mg Tab) 650 mg PO Q6H PRN PRN Reason: Fever >100.4 F Amlodipine Besylate (Norvasc) 5 mg PO DAILY [facility] Last Admin: 11/21/18 09:10 Dose: 5 mg Calcium Acetate (Phoslo) 667 mg PO WM [facility] Last Admin: 11/21/18 08:52 Dose: 667 mg Glipizide (Glucotrol) 5 mg PO ACB [facility] Last Admin: 11/21/18 08:52 Dose: 5 mg Ceftriaxone Sodium (Rocephin 2 Gm Ivpb) 2 gm in 100 mls @ 100 mls/hr IVPB DAILY [facility]; Protocol Stop: 11/24/18 11:15 Last Admin: 11/21/18 09:11 Dose: 100 mls/hr Insulin Human Lispro (Humalog Med) 0 units SC ACHS [facility]; Protocol Last Admin: 11/21/18 07:30 Dose: Not Given Mupirocin (Bactroban Ointment) 1 gm TOP BID [facility] Last Admin: 11/21/18 09:11 Dose: 1 cer - Labs Labs: 11/21/18 07:00 11/21/18 07:00 - Constitutional Appears: Non-toxic, No Acute Distress - Head Exam Head Exam: ATRAUMATIC, NORMOCEPHALIC - Extremities Exam Additional comments: B/L lower extremity focused exam: Vascular: DP/PT 1/4 b/l, Cap refill < 3 seconds, Temp gradient warm to cool from proximal to distal, mild non pitting edema noted to the right foot on the latera l side Ortho: L charcot deformity, no pain with palpation of ulceration site. MMT 5/5 in all compartments. Neuro: Gross and protective sensation are diminished. Derm: Ulceration noted to lateral aspect of R foot with mixed granular/necrotic base with adjacent drained bullae. 3cc of purulence was expressed from beneath bullae formation at this time. No malodor, no erythema, no cellulitis appreciat ed. 58 year old male patient seen and evaluated in the bedside for right foot hemorrhagic blisters progressed to ulceration. Assessment and Plan - Assessment and Plan (Free Text) Assessment: 58 year old male patient with R foot hemorrhagic blister formation with underlying ulceration. Plan: Patient seen and evaluated at bedside Discussed patient in detail with Dr. Cason Afebrile, WBCs 10.6 Right foot 3 views X-ray: No foreign body detected. Wound culture R foot: Group C strept. Local wound care to R foot ulceration; Ulceration flushed with saline and dressed with bactroban and DSD Patient to WBAT in surgical shoe R foot MRI: subcutaneous edema at the dorsum of the foot and lateral side of the ankle. Continue IV Abx; Per ID reccs: currently on Rocephin, can transition to Augmentin 875 mg PO BID upon discharge Will continue to follow while in house.
--- NOTE | 2018-11-21 14:21 | PN ---
DATE: 11/21/2018 SUBJECTIVE: The patient seen earlier today in 576, bed 2. The patient is doing well. No nausea, no vomiting, no chest pain. PHYSICAL EXAMINATION: VITAL SIGNS: Temperature is 98, blood pressure is 150/70, respiratory rate of 16. HEENT: Unremarkable. NECK: Supple. LUNGS: Have decreased breath sounds. HEART: Normal S1, S2. ABDOMEN: Soft, nontender. LABORATORY EXAMINATION: Reveals a white count of , hemoglobin of 9, BUN of 33, creatinine of 3.0. Urinalysis is noted and microbiology reveals the group C strep and Dr. Aden's note from yesterday is reviewed. ASSESSMENT AND PLAN: A 58-year-old male with obesity with BMI of 39 and the status post incision and drainage of the right foot abscess with group C strep and diabetic, hypertensive, currently on ceftriaxone. No evidence of osteomyelitis on MRI may switch to p.o. Augmentin 875 p.o. twice a day x7 days. May discontinue ceftriaxone p.o. Augmentin as outpatient. We will follow. Sergio Reyna MD
[2018-11-21 14:22] LABS: URINE CREATININE 53.9 mg/dL
--- NOTE | 2018-11-21 22:23 | DS ---
HISTORY OF PRESENT ILLNESS: The patient is 58 years old, known to me from previous admissions, he states he went home, he found his right foot was swollen. He did not feel any pain. There was some from the blister. He came to emergency room for further evaluation. He was evaluated by managing principal. He had MRI done, does not show osteomyelitis, however, he has significant swelling of the lateral aspect of his right foot and sole. He was started on Teflaro, podiatry team is taking care of him. He need to complete his course of antibiotics, so he is being transferred to TCU. PHYSICAL EXAMINATION: GENERAL: Today, he is awake, alert, oriented, communicative. VITAL SIGNS: Afebrile, pulse 76, respirations 18, and blood pressure 158/73. LUNGS: Bilateral fair airflow. No rhonchi or crackle. HEART: S1 and S2 audible. ABDOMEN: Soft, obese, and nontender. No rebound. No guarding. NEUROLOGIC: The patient is awake, alert, oriented, communicative. Moves all extremities. Right foot is in the dressing. LABORATORY DATA: WBC 10.6, hemoglobin 9.4, hematocrit . Chemistry; sodium 138, potassium 4.7, chloride 109, CO2 of 23, BUN 33, creatinine 3.0, blood sugar of 77. His foot wound growing group C Streptococcus. ASSESSMENT: 1. Right foot abscess. 2. Right foot cellulitis. 3. Peripheral vascular disease. 4. Poorly controlled insulin-dependent diabetes. 5. Hypertension. 6. Hyperlipidemia. PLAN: The patient is being transferred to TCU. He will receive Teflaro. Podiatry team and ID will follow the patient and we will monitor his blood sugar. Followup in a.m. Roberta Aden MD
--- NOTE | 2018-11-22 08:08 | PN ---
DATE: 11/21/2018 SUBJECTIVE: The patient is seen lying in bed. He is awake; he is alert; he is comfortable. He denies any pain. He denies any shortness of breath. PHYSICAL EXAMINATION: GENERAL: Middle-aged male lying in bed. VITAL SIGNS: Blood pressure 158/73, heart rate 76, respiratory rate 18, temperature 98.4. HEENT: Normocephalic, atraumatic, positive pallor. NECK: Supple. No JVD. LUNGS: Bilateral equal air entry, bilateral equal expansion. CARDIAC: S1 and S2, regular rate and rhythm. No murmur, no rub. ABDOMEN: Obese, distended, soft, nontender, bowel sounds present. EXTREMITIES: No lower extremity edema. LABORATORY DATA: Hemoglobin 9.4. Sodium 138, potassium 4.7, chloride 109, CO2 of 23, BUN 33, creatinine 3, glucose 113, calcium 9.2. Gram stain, group C Streptococcus. CURRENT MEDICATIONS: Glucotrol 5, Venofer 200, amlodipine 5, PhosLo 667, ceftriaxone 2 g daily, Tylenol. ASSESSMENT: 1. Acute kidney injury, superimposed on chronic kidney disease stage III. 2. Diabetic foot ulcer. 3. [id number] diabetes mellitus. 4. Nephrotic-range proteinuria. 5. Hypertension. PLAN: 1. Continue to hold losartan. 2. Continue antibiotics as per ID recommendations. 3. Avoid nephrotoxins. 4. Continue amlodipine for blood pressure for the time being. 5. Monitor fingersticks and maintain euglycemia. 6. Replete iron. Mireya Lopez MD
== END 2018-11-21 15:56 | DRG 638 ==
LOC: ED 11:12 → ERH 14:10 → 5RSO 22:52
PROVIDERS: ADMIT Internal Medicine; ATTEND Internal Medicine
PROC: 0H9MXZZ Drainage of Right Foot Skin, External Approach (ICD-10-PCS; principal; 2018-11-16)
DX: E11.621 Type 2 diabetes mellitus with foot ulcer (principal); L02.611 Cutaneous abscess of right foot; L03.115 Cellulitis of right lower limb; L97.519 Non-pressure chronic ulcer of other part of right foot with unspecified severity; E11.22 Type 2 diabetes mellitus with diabetic chronic kidney disease; N18.3 Chronic kidney disease, stage 3 (moderate); E11.610 Type 2 diabetes mellitus with diabetic neuropathic arthropathy; E11.21 Type 2 diabetes mellitus with diabetic nephropathy; E11.65 Type 2 diabetes mellitus with hyperglycemia; N17.9 Acute kidney failure, unspecified; E11.40 Type 2 diabetes mellitus with diabetic neuropathy, unspecified; E11.51 Type 2 diabetes mellitus with diabetic peripheral angiopathy without gangrene; I12.9 Hypertensive chronic kidney disease with stage 1 through stage 4 chronic kidney disease, or unspecified chronic kidney disease; N10 Acute pyelonephritis; N25.81 Secondary hyperparathyroidism of renal origin; I25.5 Ischemic cardiomyopathy; D64.9 Anemia, unspecified; E78.5 Hyperlipidemia, unspecified; Z91.19 Patient's noncompliance with other medical treatment and regimen; E66.9 Obesity, unspecified; Z68.39 Body mass index [BMI] 39.0-39.9, adult; Z79.4 Long term (current) use of insulin

== ENCOUNTER 2018-11-21 15:56 | Inpatient (IN) | payer OTHER ==
[2018-11-21 16:08] VITALS: BMI 25.1
[2018-11-21] MEDS: Insulin Lispro (humaLOG) MEDIUM Coverage SC SCH ×2 (16:29→22:09)
[2018-11-21] MEDS ORDERED: Pneumococcal 23-Valent Vaccine IM ONE (16:37)
[2018-11-21] MEDS ORDERED: Influenza Vaccine 60 mcg/0.5 mL SYR (4YR UP) IM ONE (16:37)
[2018-11-21] MEDS: Bacitracin Ointment 30 GM TUBE TOP SCH (16:59)
[2018-11-22] MEDS: cefTRIAXone 2 GM IN NS 2 GM/100 ML BAG IVPB SCH (05:50)
[2018-11-22] MEDS: Insulin Lispro (humaLOG) MEDIUM Coverage SC SCH ×4 (06:30→22:15)
--- NOTE | 2018-11-22 10:05 | CP.PCM.PN ---
<Yue Sherwood - Last Filed: 11/22/18 12:30> Subjective - Date & Time of Evaluation Date of Evaluation: 11/22/18 Time of Evaluation: 10:05 - Subjective Subjective: Podiatry progress note: Dr. Ceballos Patient seen and evaluated at bedside this morning with attending, Dr. Ceballos for R foot hemorrhagic blister with underlying ulceration. Patient resting comfortably in TCU and in NAD. He denies any pain to R lower extremity at this time. Patient continues to ambulate in surgical shoe. Denies nausea/vomiting/fever/shortness of breath/chest pain. Objective - Vital Signs/Intake and Output Vital Signs (last 24 hours): Temp Pulse Resp BP Pulse Ox 97.7 F 80 16 176/90 H 11/21/18 16:18 11/21/18 16:18 11/21/18 16:18 11/21/18 16:18 - Medications Medications: Current Medications Acetaminophen (Tylenol 325mg Tab) 650 mg PO Q6H PRN; Protocol PRN Reason: FEVER/PAIN Last Admin: 11/22/18 02:41 Dose: 650 mg Amlodipine Besylate (Norvasc) 5 mg PO DAILY [facility]; Protocol Bacitracin (Bacitracin) 0 gm TOP BID [facility]; Protocol Last Admin: 11/21/18 16:59 Dose: Not Given Calcium Acetate (Phoslo) 667 mg PO WM [facility]; Protocol Last Admin: 11/22/18 08:01 Dose: 667 mg Glipizide (Glucotrol) 5 mg PO ACB [facility]; Protocol Last Admin: 11/22/18 08:01 Dose: 5 mg Ceftriaxone Sodium (Rocephin 2 Gm Ivpb) 2 gm in 100 mls @ 100 mls/hr IVPB 0600 [facility]; Protocol Last Admin: 11/22/18 05:50 Dose: 100 mls/hr Insulin Human Lispro (Humalog Med) 0 units SC ACHS [facility]; Protocol Last Admin: 11/22/18 06:30 Dose: Not Given - Constitutional Appears: Non-toxic, No Acute Distress - Head Exam Head Exam: ATRAUMATIC, NORMOCEPHALIC - Extremities Exam Additional comments: B/L lower extremity focused exam: Vascular: DP/PT 1/4 b/l, Cap refill < 3 seconds, Temp gradient warm to cool from proximal to distal, mild non pitting edema noted to the right foot on the lateral side Ortho: L charcot deformity, no pain with palpation of ulceration site. MMT 5/5 in all compartments. Neuro: Gross sensation diminished and protective sensation absent Derm: Remaining skin from blister deroofed revealing underlying ulceration located on plantar/lateral aspect of R foot with mixed granular/necrotic base. No malodor, no erythema, no cellulitis appreciated. Mild serous drainage at this time. - Neurological Exam Neurological Exam: Alert, Awake, Oriented x3 - Psychiatric Exam Psychiatric exam: Normal Affect, Normal Mood - Skin Skin Exam: Warm Assessment and Plan - Assessment and Plan (Free Text) Assessment: 58 year old male patient with R plantar lateral ulceration secondary to hemorrhagic blister Plan: Patient seen and evaluated at bedside with attending, Dr. Ceballos Right foot 3 views X-ray: No foreign body detected. Wound culture R foot: Group C strept. Local wound care to R foot ulceration; Ulceration flushed with saline and dressed with Silvercell and DSD Patient to WBAT to heel in surgical shoe R foot MRI: No OM, subcutaneous edema at the dorsum of the foot and lateral side of the ankle. Continue IV Abx; Per ID reccs: currently on Rocephin, can transition to Augmentin 875 mg PO BID upon discharge Patient to wear multipodus boots at all times while in bed Will continue to follow <Khalif Ceballos - Last Filed: 11/25/18 11:31> Objective - Vital Signs/Intake and Output Vital Signs (last 24 hours): Temp Pulse Resp BP Pulse Ox 98.6 F 67 18 138/77 95 11/24/18 16:00 11/25/18 09:54 11/24/18 16:00 11/25/18 09:54 11/24/18 16:00 - Medications Medications: Current Medications Acetaminophen (Tylenol 325mg Tab) 650 mg PO Q6H PRN; Protocol PRN Reason: FEVER/PAIN Last Admin: 11/22/18 02:41 Dose: 650 mg Amlodipine Besylate (Norvasc) 5 mg PO DAILY [facility]; Protocol Last Admin: 11/25/18 09:54 Dose: 5 mg Bacitracin (Bacitracin) 0 gm TOP BID [facility]; Protocol Last Admin: 11/25/18 09:55 Dose: 1 applic Calcium Acetate (Phoslo) 667 mg PO WM [facility]; Protocol Last Admin: 11/25/18 08:26 Dose: 667 mg Clonidine HCl (Catapres) 0.1 mg PO BID [facility] Last Admin: 11/25/18 09:54 Dose: 0.1 mg Glipizide (Glucotrol) 5 mg PO ACBD [facility]; Protocol Last Admin: 11/25/18 08:25 Dose: 5 mg Ceftriaxone Sodium (Rocephin 2 Gm Ivpb) 2 gm in 100 mls @ 100 mls/hr IVPB 0600 [facility]; Protocol Last Admin: 11/25/18 05:24 Dose: 100 mls/hr Insulin Human Lispro (Humalog Med) 0 units SC ACHS [facility]; Protocol Last Admin: 11/25/18 08:25 Dose: Not Given - Labs Labs: 11/24/18 05:00 11/24/18 05:00 Attending/Attestation - Attestation I have personally seen and examined this patient.: Yes I have fully participated in the care of the patient.: Yes I have reviewed all pertinent clinical information, including history, physical exam and plan: Yes
[2018-11-22] MEDS: Bacitracin Ointment 30 GM TUBE TOP SCH ×2 (10:16→17:24)
--- NOTE | 2018-11-22 18:39 | US ---
PROCEDURE: Lower extremity ABE exam HISTORY: Peripheral vascular disease with pain and ulceration. Diabetes. PHYSICIAN(S): Prasad Shrestha MD. FINDINGS: The exam is limited by calcified distal vessels. The resting ABIs are not obtainable. The brachial systolic pressures are symmetric. The low thigh, calf, and ankle PVR waveforms are normal and symmetric. The right metatarsal waveforms are severely blunted. The left metatarsal waveforms are relatively normal IMPRESSION: 1. Limited study due to calcified vessels. 2. The PVR waveforms are normal and symmetric to the ankle. 3. Severely blunted right metatarsal waveforms. The left metatarsal waveforms are normal.
--- NOTE | 2018-11-22 19:11 | PN ---
DATE: 11/22/2018 SUBJECTIVE: The patient is currently seen en route down to have an ultrasound of his lower extremity, right leg. The patient remains on IV antibiotic therapy. He is in the TCU scheduled to receive antibiotic therapy likely for the duration of his time here. The patient is status post a right foot ulcer with abscess status post incision and drainage. No osteomyelitis. MEDICATIONS Medication list reviewed. The patient is currently on bacitracin, Glucotrol, sliding scale insulin, Norvasc, PhosLo, Rocephin, and Tylenol p.r.n. OBJECTIVE PHYSICAL EXAMINATION VITAL SIGNS: Blood pressure 162/88, pulse of 73, temperature 97.7, respiratory rate 16. HEENT: Shows him to be normocephalic, atraumatic. Conjunctivae are pale. Sclera are nonicteric. NECK: Supple. No neck vein distention. CARDIOPULMONARY: Shows a regular rate and rhythm without audible murmurs, rubs or gallops. LUNGS: Clear to auscultation and percussion. No rales, rhonchi or wheezing. ABDOMEN: Soft. Mildly obese. Bowel sounds are normal. No rebound, guarding or masses noted. No organomegaly noted. EXTREMITIES: Show no lower extremity edema. He has a dressing over his right foot with no drainage or odor. LABORATORY DATA AND IMAGING STUDIES: A CBC from yesterday showed a white blood cell count of 10.6 with a hemoglobin of 9.4, and platelet count of 313,000. Chemistries from yesterday showed a BUN of 33 with a creatinine of 3.0. Electrolytes are normal. Glucose control has been acceptable. Calcium is 9.2. Last phosphorus level was 4.7 with a magnesium level of 2.3. His iron saturations were 12% and the patient had been receiving IV iron supplements. Urines; urine eosinophil stain was negative. No evidence for acute interstitial nephritis. 24-hour urines done showed a creatinine clearance of 43 mL per minute with 6.33 g of protein in the urine likely all consistent with diabetic nephropathy. Microbiology; wound cultures are positive for group C strep. Blood cultures are negative at 5 days. ASSESSMENT 1. Mild elevation of BUN and creatinine above his baseline levels. The patient has an ongoing underlying chronic kidney disease stage III with nephrotic range proteinuria. This is in the setting of longstanding diabetes mellitus. His baseline BUN is in the 20 to 30 range with a baseline creatinine in the mid 2 range and he is slightly above this range on intravenous antibiotic therapy for a diabetic right foot infection. The patient will continue to avoid all nephrotoxic agents. I have switched him from an angiotensin receptor paige to a calcium channel paige. His blood pressure still remains elevated and I will add low-dose clonidine to help monitor his blood pressure. 2. History of diabetes mellitus with chronic kidney disease and likely diabetic nephropathy. I will not order serologies in the Transistional Care Unit. 3. History of hypertension. On calcium channel paige the patient continues to have mild elevation of systolic blood pressures with diastolics in the upper range of normal. I will add low-dose clonidine to the [facility] that he is receiving. 4. Right foot ulcer with abscess. Status post incision and drainage. No evidence of osteomyelitis as seen on an MRI study done in acute care. Intravenous antibiotics were adjusted by Infectious Disease. The patient will continue full duration of intravenous antibiotic therapy. 5. History of secondary hyperparathyroidism. Phosphorus level remains borderline elevated. The patient will continue a renal diet and binder therapy. 6. History of mild anemia. We will repeat labs tomorrow. The patient has received a course of intravenous Venofer for his low iron levels. The patient may continue Aranesp pending the results of his hemoglobin level. PLAN 1. We will try and limit frequency of labs as the patient is in the TCU. 2. Perhaps outpatient workup with full set of serologies for his nephrotic range proteinuria. 3. Continue calcium channel paige and remove angiotensin receptor paige and add low-dose clonidine. 4. Full course of IV antibiotic therapy under the guidance of Infectious Disease. 5. Check phosphorus level tomorrow. Continue binder therapy. 6. Redose Aranesp in the TCU if hemoglobin is less than 10. 7. Continue local wound care with Podiatry. 8. Avoid all nephrotoxic agents. Yohan Mccarthy MD
--- NOTE | 2018-11-22 19:31 | CON ---
DATE: 11/22/2018 CHIEF COMPLAINT: Foot infection. HISTORY OF PRESENT ILLNESS: This is a 58-year-old male with obesity, BMI of 39, congestive heart failure, hypertension, dyslipidemia, diabetes, and Charcot's foot with group C strep abscess of the right foot, had incision and drainage in the acute care and now admitted for completion of antibiotics and for physical therapy to the Transitional Care. The patient is in bed, in no acute distress, nontoxic. No fevers. PAST MEDICAL HISTORY: Diabetes, hypertension, dyslipidemia, Charcot's foot, congestive heart failure, and obesity, BMI of 39. PAST SURGICAL HISTORY: The patient had a cholecystectomy. ALLERGIES: THE PATIENT HAS NO KNOWN ALLERGIES. MEDICATIONS: Reviewed and noted. REVIEW OF SYSTEMS: A 12-point review of systems performed. PHYSICAL EXAMINATION: VITAL SIGNS: Temperature of 97, blood pressure is 170/90, and respiratory rate of 18. HEENT: Unremarkable. NECK: Supple. LUNGS: Decreased breath sounds. HEART: Normal, S1, S2. ABDOMEN: Soft and nontender. LABORATORY DATA: Reveals the patient's chemistries are noted. Microbiology is noted and the patient does have group C strep from the abscess culture. ASSESSMENT AND PLAN: A 58-year-old obese male seen earlier today in Room 314. Group C right foot abscess, status post incision and drainage with a negative MRI for osteomyelitis, currently on ceftriaxone, may switch to p.o. Augmentin to complete therapy. We will follow with you. Sergio Reyna MD
--- NOTE | 2018-11-22 20:56 | HP ---
DATE: 11/22/2018 HISTORY OF PRESENT ILLNESS: The patient is a 58-year-old, came to emergency room because of worsening right foot swelling with pain and discharge, had MRI done, does not show osteomyelitis; however, he has cellulitis, has bedside I and D done and small amount of pus was obtained that grew Streptococcus species, currently on Teflaro and transferred to TCU to complete his course of antibiotic and get physical therapy and wound care. The patient is very noncompliant. PAST MEDICAL HISTORY: 1. He has history of noninsulin-dependent diabetes. 2. Hypertension. 3. Ischemic cardiomyopathy. 4. History of Charcot's foot. 5. Hyperlipidemia. ALLERGIES: NOT ALLERGIC TO ANY MEDICATIONS. MEDICATIONS AT HOME: As per MAR, but not very compliant. PHYSICAL EXAMINATION: GENERAL: He is awake, alert, oriented, and communicative. VITAL SIGNS: He is afebrile, pulse 80, respirations 16, and blood pressure 162/88. LUNGS: Bilateral fair airflow. No rhonchi or crackle. HEART: S1 and S2 audible. ABDOMEN: Soft, obese, and nontender. No rebound. No guarding. NEUROLOGIC: The patient is awake, alert, and able to communicate. EXTREMITIES: Right foot is in the dressing. LABORATORY DATA: Blood sugar is 150. ASSESSMENT: 1. Right foot ulcer and right foot cellulitis, status post incision and drainage. 2. Hypertension. 3. Obesity. 4. Noninsulin-dependent diabetes, currently is under control. PLAN: The patient currently is on Rocephin 2 g daily. He is getting oral hypoglycemic. Leg Doppler has been ordered. We will follow up arterial Doppler. We will follow up the patient in a.m. Roberta Aden MD
[2018-11-23] MEDS: cefTRIAXone 2 GM IN NS 2 GM/100 ML BAG IVPB SCH (05:54)
[2018-11-23] MEDS: Insulin Lispro (humaLOG) MEDIUM Coverage SC SCH ×4 (06:31→21:57)
[2018-11-23 06:49] LABS: HEMOGLOBIN 9.4 g/dL (14.0-18.0); MEAN CELL VOLUME 87.6 fl (80.0-105.0); MEAN CORPUSCULAR HEMOGLOBIN 27.6 pg (25.0-35.0); MEAN CORPUSCULAR HGB CONC 31.5 g/dl (31.0-37.0); MEAN PLATELET VOLUME 8.9 fl (7.0-11.0); RBC 3.4 10^6/uL (3.5-6.1); RED CELL DISTRIBUTION WIDTH 13.4 % (11.5-14.5); WHITE BLOOD COUNT 10.4 10^3/uL (4.5-11.0)
[2018-11-23 07:26] LABS: ALB/GLOB RATIO 0.8 (1.1-1.8); ALBUMIN 3.6 g/dL (3.0-4.8)
--- NOTE | 2018-11-23 10:06 | CP.PCM.PN ---
Subjective - Date & Time of Evaluation Date of Evaluation: 11/23/18 Time of Evaluation: 10:06 - Subjective Subjective: Podiatry Progress Note: Dr. Cason 58 year old male patient seen and evaluated this AM in TCU for right foot hemorrhagic blister with underlying ulceration. Patient denies any pain to his right foot at this time. Denies nausea/vomiting/fever/shortness of breath. Objective - Vital Signs/Intake and Output Vital Signs (last 24 hours): Temp Pulse Resp BP Pulse Ox 98.0 F 68 20 156/74 H 98 11/23/18 08:17 11/23/18 08:17 11/22/18 16:00 11/23/18 08:17 11/22/18 16:00 - Medications Medications: Current Medications Acetaminophen (Tylenol 325mg Tab) 650 mg PO Q6H PRN; Protocol PRN Reason: FEVER/PAIN Last Admin: 11/22/18 02:41 Dose: 650 mg Amlodipine Besylate (Norvasc) 5 mg PO DAILY [facility]; Protocol Last Admin: 11/22/18 10:16 Dose: 5 mg Bacitracin (Bacitracin) 0 gm TOP BID [facility]; Protocol Last Admin: 11/22/18 17:24 Dose: Not Given Calcium Acetate (Phoslo) 667 mg PO WM [facility]; Protocol Last Admin: 11/23/18 08:41 Dose: 667 mg Clonidine HCl (Catapres) 0.1 mg PO BID [facility] Last Admin: 11/22/18 17:30 Dose: 0.1 mg Glipizide (Glucotrol) 5 mg PO ACB [facility]; Protocol Last Admin: 11/23/18 07:41 Dose: 5 mg Ceftriaxone Sodium (Rocephin 2 Gm Ivpb) 2 gm in 100 mls @ 100 mls/hr IVPB 0600 [facility]; Protocol Last Admin: 11/23/18 05:54 Dose: 100 mls/hr Insulin Human Lispro (Humalog Med) 0 units SC ACHS [facility]; Protocol Last Admin: 11/23/18 06:31 Dose: 1 dose - Labs Labs: 11/23/18 06:25 11/23/18 06:25 - Constitutional Appears: Non-toxic, No Acute Distress - Head Exam Head Exam: ATRAUMATIC, NORMOCEPHALIC - Extremities Exam Additional comments: B/L lower extremity focused exam: Vascular: DP/PT 1/4 b/l, Cap refill < 3 seconds, Temp gradient warm to cool from proximal to distal, mild non pitting edema noted to the right foot on the lateral side Ortho: L charcot deformity, no pain with palpation of ulceration site. MMT 5/5 in all compartments. Neuro: Gross sensation diminished and protective sensation absent Derm: Ulceration located on plantar/lateral aspect of R foot with mixed granular/necrotic base secondary to previous bullae. No malodor, no erythema, no cellulitis appreciated. No drainage at this time. - Neurological Exam Neurological Exam: Alert, Awake, Oriented x3 - Psychiatric Exam Psychiatric exam: Normal Affect, Normal Mood Assessment and Plan - Assessment and Plan (Free Text) Assessment: 58 year old male patient with R plantar lateral ulceration secondary to hemorrhagic blister Plan: Patient seen and evaluated at bedside Discussed patient in detail with Dr. Cason Right foot 3 views X-ray: No foreign body detected. Wound culture R foot: Group C strept. Local wound care to R foot ulceration; Ulceration flushed with saline and dressed with Silvercell and DSD Patient to WBAT to heel in surgical shoe R foot MRI: No OM, subcutaneous edema at the dorsum of the foot and lateral side of the ankle. ABE/PVR; Limited due to calcified vessels. PVR normal, symmetrical to ankle. Severely blunted right met wave forms, left met wave forms normal Continue IV Abx; Per ID reccs: currently on Rocephin, can transition to Augmentin 875 mg PO BID upon discharge Patient to wear multipodus boots at all times while in bed Will continue to follow
[2018-11-23] MEDS: Bacitracin Ointment 30 GM TUBE TOP SCH ×2 (10:48→17:59)
--- NOTE | 2018-11-23 12:48 | PN ---
DATE: 11/23/2018 SUBJECTIVE: The patient is seen earlier today, in no acute distress. PHYSICAL EXAMINATION VITAL SIGNS: On exam, temperature is 98, blood pressure is 120/70 and respiratory rate 16. HEENT: Unremarkable. NECK: Supple. LUNGS: Have decreased breath sounds. HEART: Normal S1 and S2. ABDOMEN: Soft and nontender. LABORATORY EXAMINATION: Reveals the patient's white count is 10,000. Chemistries reveals a BUN of 39 and creatinine of 3.3 and microbiology is noted. ASSESSMENT AND PLAN: This is a 58-year-old male who was seen earlier today in room 314. An obese male who was admitted with a group C strep and right foot abscess, had incision and drainage. Negative MRI, osteomyelitis, may switch to p.o. Augmentin and currently on ceftriaxone. Sergio Reyna MD
--- NOTE | 2018-11-23 15:21 | PN ---
DATE: 11/23/2018 SUBJECTIVE: The patient is seen lying in bed. Awake and alert, is comfortable. He reports that his foot wound is healing. He denies any headaches, dizziness. PHYSICAL EXAMINATION GENERAL: Middle-aged male lying in bed. VITAL SIGNS: Blood cell 129/70, heart rate 74, respiratory rate 18, and temperature 98. HEENT: Normocephalic, atraumatic, positive pallor. NECK: Supple, no JVD. LUNGS: Bilateral equal entry, bilateral equal expansion. CARDIAC: S1 and S2, regular rate rhythm, no murmur, no rub. ABDOMEN: Obese, distended, soft, nontender, bowel sounds present. EXTREMITIES: Dressing of the right foot. INTAKE AND OUTPUT: Not charted. LABORATORY DATA: WBC 10.4, hemoglobin 9.4, hematocrit 29.8 and platelets 318. Sodium 137, potassium 4.4, chloride 106, CO2 of 24, BUN 39, creatinine 2.3, glucose 138, calcium 9.0, phosphorus 5.0, magnesium 2.3 and albumin 3.6. CURRENT MEDICATIONS: Catapres 0.1 b.i.d., Glucotrol, amlodipine 5, PhosLo 667 t.i.d., Rocephin 2 g daily and Tylenol. ASSESSMENT: 1. Acute kidney injury superimposed on chronic kidney disease stage III, creatinine is worsening. 2. Hypertension, fair control at this time. 3. Noninsulin-dependent diabetes mellitus fair control. 4. Nephrotic range proteinuria. 5. Infected diabetic foot ulcer. 6. Anemia of chronic disease. PLAN: 1. CBC with differential in a.m. 2. Urine for eosinophils. 3. Monitor labs closely. 4. Continue phosphate binders. 5. Continue current antihypertensives. Mireya Lopez MD
--- NOTE | 2018-11-23 16:30 | PN ---
DATE: 11/23/2018 SUBJECTIVE: The patient is 58 years old, seen and examined, lying in bed, seems to be comfortable. No nausea or vomiting. No diarrhea. Eating and tolerating. SOCIAL HISTORY: Denies smoking. Denies drinking. PHYSICAL EXAMINATION VITAL SIGNS: He is afebrile. Pulse 75, respirations 20, blood pressure 129/70. LUNGS: Bilateral Fair airflow. No rhonchi or crackles. HEART: S1 and S2 audible. ABDOMEN: Soft, nontender. No rebound. No guarding. NEUROLOGIC: The patient is awake and alert, able to communicate and ambulate. LABORATORY DATA: WBC is 10.4, hemoglobin 9.4, hematocrit 29.8, platelets of 318. Chemistry: Sodium 137, potassium 4.4, chloride 106, CO2 of 24, BUN 39, creatinine 3.3, blood sugar of 148. ASSESSMENT 1. Poorly-controlled diabetes. 2. Chronic kidney disease. 3. Hypertension. 4. Hyperlipidemia. 5. Morbid obesity. 6. Right foot cellulitis. PLAN: Currently, the patient is on Teflaro. Local wound is being cared by podiatry team. We will continue on his oral hypoglycemic. His blood sugar seems to be in a decent range. He is on glipizide 5 mg before breakfast, I will introduce to before dinner also. We will followup the patient in a.m. Roberta Aden MD
[2018-11-24] MEDS: cefTRIAXone 2 GM IN NS 2 GM/100 ML BAG IVPB SCH (05:25)
[2018-11-24] MEDS: Insulin Lispro (humaLOG) MEDIUM Coverage SC SCH ×4 (06:35→22:35)
[2018-11-24 07:09] LABS: BASO # 0.04 K/mm3 (0.0-2.0); BASO % 0.4 % (0.0-3.0); EOS # 0.3 (0.0-0.7); EOS % 3.1 % (1.5-5.0); HEMOGLOBIN 9.5 g/dL (14.0-18.0); LYMPH # 2.7 (1.2-3.4); LYMPH % 25.8 % (22.0-35.0); MEAN CELL VOLUME 88.6 fl (80.0-105.0); MEAN CORPUSCULAR HEMOGLOBIN 27.9 pg (25.0-35.0); MEAN CORPUSCULAR HGB CONC 31.5 g/dl (31.0-37.0); MEAN PLATELET VOLUME 9.1 fl (7.0-11.0); MONO # 0.8 (0.1-0.6); MONO % 7.5 % (1.0-6.0); RBC 3.41 10^6/uL (3.5-6.1); RED CELL DISTRIBUTION WIDTH 13.6 % (11.5-14.5); WHITE BLOOD COUNT 10.5 10^3/uL (4.5-11.0)
--- NOTE | 2018-11-24 09:42 | CP.PCM.PN ---
Subjective - Date & Time of Evaluation Date of Evaluation: 11/24/18 Time of Evaluation: 09:37 - Subjective Subjective: Podiatry Progress Note: Dr. Cason 58 year old male patient seen and evaluated in TCU for right foot hemorrhagic blister with underlying ulceration. Patient denies any pain to his right foot at this time and continues to weightbear as tolerated to his heel. Denies any new pedal complaints. Denies nausea/vomiting/fever/shortness of breath. Objective - Vital Signs/Intake and Output Vital Signs (last 24 hours): Temp Pulse Resp BP Pulse Ox 98.0 F 76 20 148/80 99 11/23/18 16:00 11/23/18 17:59 11/23/18 16:00 11/23/18 17:59 11/23/18 10:00 - Medications Medications: Current Medications Acetaminophen (Tylenol 325mg Tab) 650 mg PO Q6H PRN; Protocol PRN Reason: FEVER/PAIN Last Admin: 11/22/18 02:41 Dose: 650 mg Amlodipine Besylate (Norvasc) 5 mg PO DAILY [facility]; Protocol Last Admin: 11/23/18 10:49 Dose: 5 mg Bacitracin (Bacitracin) 0 gm TOP BID [facility]; Protocol Last Admin: 11/23/18 17:59 Dose: Not Given Calcium Acetate (Phoslo) 667 mg PO WM [facility]; Protocol Last Admin: 11/24/18 08:20 Dose: 667 mg Clonidine HCl (Catapres) 0.1 mg PO BID [facility] Last Admin: 11/23/18 17:59 Dose: 0.1 mg Darbepoetin Khang (Aranesp) 100 mcg SC ONCE ONE Stop: 11/25/18 10:01 Glipizide (Glucotrol) 5 mg PO ACBD [facility]; Protocol Last Admin: 11/24/18 08:19 Dose: 5 mg Ceftriaxone Sodium (Rocephin 2 Gm Ivpb) 2 gm in 100 mls @ 100 mls/hr IVPB 0600 [facility]; Protocol Last Admin: 11/24/18 05:25 Dose: 100 mls/hr Insulin Human Lispro (Humalog Med) 0 units SC ACHS [facility]; Protocol Last Admin: 11/24/18 06:35 Dose: Not Given - Labs Labs: 11/24/18 05:00 03/07/19 05:00 - Constitutional Appears: Well, Non-toxic, No Acute Distress - Head Exam Head Exam: ATRAUMATIC, NORMOCEPHALIC - Extremities Exam Additional comments: B/L lower extremity focused exam: Vascular: DP/PT 1/4 b/l, Cap refill < 3 seconds, Temp gradient warm to cool from proximal to distal, mild non pitting edema noted to the right foot on the lateral side Ortho: L charcot deformity, no pain with palpation of ulceration site. MMT 5/5 in all compartments. Neuro: Gross sensation diminished and protective sensation absent Derm: Ulceration located on plantar/lateral aspect of R foot with mixed granular/necrotic base secondary to previous bullae. No malodor, no erythema, no cellulitis appreciated. No purulence, no drainage at this time. - Neurological Exam Neurological Exam: Alert, Awake, Oriented x3 - Psychiatric Exam Psychiatric exam: Normal Affect, Normal Mood Assessment and Plan - Assessment and Plan (Free Text) Assessment: 58 year old male patient with R plantar lateral ulceration secondary to hemorrhagic blister Plan: Patient seen and evaluated at bedside with attending Dr. Cason Right foot 3 views X-ray: No foreign body detected. Wound culture R foot: Group C strept. Local wound care to R foot ulceration; Ulceration flushed with saline and dressed with Maxorb and DSD R foot MRI: No OM, subcutaneous edema at the dorsum of the foot and lateral side of the ankle. ABE/PVR; Limited due to calcified vessels. PVR normal, symmetrical to ankle. Severely blunted right met wave forms, left met wave forms normal Continue IV Abx; Per ID reccs: currently on Rocephin, can transition to Augmentin 875 mg PO BID upon discharge Patient placed in total contact cast, will change cast on Wednesday Patient may weight bear as tolerated in cast shoe C/w physical therapy Will continue to follow
[2018-11-24] MEDS: Bacitracin Ointment 30 GM TUBE TOP SCH ×2 (10:49→17:36)
--- NOTE | 2018-11-24 14:21 | PN ---
DATE: 11/24/2018 SUBJECTIVE: The patient is currently seen sitting up in bed. He states he was seen by the surface miner earlier today and his right lower extremity wound is healing. The patient's creatinine continues to remain stable in the low 3 range. He continues on IV antibiotic therapy for the abscess of the right foot ulcer, status post incision and drainage with no evidence of osteomyelitis. MEDICATIONS: Medication list reviewed. The patient is on bacitracin, Catapres, Glucotrol, insulin, Norvasc, PhosLo, Rocephin and Tylenol p.r.n. OBJECTIVE: VITAL SIGNS: Blood pressure is 148/80 which is improved. Temperature 98, respiratory rate is 20 with a pulse of 76. HEENT: Exam normocephalic, atraumatic. Conjunctivae remain pale. Sclerae nonicteric. NECK: Supple. No neck vein distention. CHEST: Clear to auscultation and percussion. No rales, rhonchi or wheezing. CARDIOVASCULAR: Shows a regular rate and rhythm without audible murmurs, rubs or gallops. ABDOMEN: Soft. Moderate obesity. Bowel sounds normal. No rebound, guarding or masses. No organomegaly noted. EXTREMITIES: Show dressing over his right lower foot and lower extremity. No odor and no drainage. LABORATORY DATA AND IMAGING STUDIES: CBC today white blood cell count 10.5, stable. Hemoglobin 9.5, stable. Platelet count is 347,000. Chemistry showed normal electrolytes. BUN is 46 which has been stable, perhaps slightly higher. Creatinine 3.1 which is definitely stable, baseline has been in the 3 range. His previous creatinine baseline has been in the low to mid 2 range. Calcium level was 9. Phosphorus level was 5. Microbiology, wound cultures were positive for Group C strep. Blood cultures were negative at 5 days. ASSESSMENT: 1. Mild elevation of BUN above his baseline levels. Mild elevation of creatinine above his baseline levels. Baseline BUN is in the low 30 range with a creatinine in the mid 2 range. This is in the setting of him having a diabetic foot infection, abscess incision and drainage. The patient remains on antibiotic therapy. He was switched by me from an angiotensin receptor paige to a calcium channel paige and I did add low-dose clonidine yesterday for improved blood pressure control. I would suggest not restarting angiotensin receptor paige therapy until he completes antibiotic therapy and his creatinine falls to baseline which is in the mid 2 range. 2. History of diabetes mellitus with chronic kidney disease stage III, likely secondary to diabetic nephropathy. At some point in time, we can do a full set of serologies. I will not order this in the Transitional Care Unit. 3. History of hypertension. Blood pressure control is improving with calcium channel paige therapy and clonidine. 4. Right foot ulcer with abscess status post incision and drainage. No evidence of osteomyelitis is seen on MRI scan done in Acute Care. The patient will complete a full course of antibiotic therapy under the guidance of Infectious Disease. 5. History of secondary hyperparathyroidism. Phosphorus level is 5. The patient will continue binder therapy and a renal diet. 6. History of mild anemia. Hemoglobin remains stable at 9.5. The patient may continue receiving Aranesp on an as-needed basis. He has received a course of intravenous Venofer. PLAN: 1. We will try and limit labs in the TCU. 2. Outpatient workup for his nephrotic range proteinuria. The patient is spilling 6.33 g of protein in the urine with a creatinine clearance of 43 mL per minute. In all likelihood, a diabetic nephropathy as noted above. 3. Complete a full course of IV antibiotic therapy. 4. Local wound care as per Podiatry. 5. Will re-dose Aranesp in the TCU for his hemoglobin which is less than 10. 6. Avoid all nephrotoxic agents. 7. Continue rehabilitation in the TCU. Yohan Mccarthy MD
--- NOTE | 2018-11-24 16:13 | PN ---
DATE: 11/24/2018 SUBJECTIVE: The patient is in bed in no acute distress, nontoxic. PHYSICAL EXAMINATION: VITAL SIGNS: Temperature is 98, blood pressure is 130/70, respiratory rate of 18. HEENT: Unremarkable. NECK: Supple. LUNGS: Have decreased breath sounds. HEART: Normal S1 and S2. ABDOMEN: Soft, nontender. LABORATORY DATA: Reveals a white count of 10,000, hemoglobin of 9, BUN of 46, creatinine of 3.1. Microbiology is noted and chemistries are reviewed. ASSESSMENT AND PLAN: He is a 58-year-old male was seen in room 314 today, group C strep, right foot abscess status post incision and drainage. Negative MRI for osteomyelitis, currently on ceftriaxone, maybe able to switch to p.o. antibiotics and complete therapy. Sergio Reyna MD
--- NOTE | 2018-11-24 20:44 | PN ---
DATE: 11/24/2018 SUBJECTIVE: The patient is 58-year-old. Seen and examined, lying in bed, seems to be comfortable. Participating in therapy. No nausea, vomiting, or diarrhea. PHYSICAL EXAMINATION: VITAL SIGNS: He is afebrile. Pulse 60, respirations 18, blood pressure 150/75. LUNGS: Bilateral fair airflow. No rhonchi or crackles. HEART: S1 and S2 audible. ABDOMEN: Soft, obese, nontender. No rebound. No guarding. NEUROLOGICAL: He is awake, alert, oriented and communicative. LABORATORY DATA: WBC 7.5, hemoglobin 9.5, hematocrit 30.2, platelets 247. Chemistry; sodium 139, potassium 4.3, chloride 108, CO2 of 24, BUN 46, creatinine 3.1, blood sugar 86. ASSESSMENT: 1. Right foot cellulitis. 2. Right foot abscess, status post incision and drainage. 3. Peripheral vascular disease. 4. Hypertension. 5. Hyperlipidemia. 6. Chronic kidney disease. 7. Non-insulin dependent diabetes. 8. Deep venous thrombosis. PLAN: We will continue the patient on current medications. He is on Teflaro. Wound care is being done by Dr. Cason. We will monitor blood sugar. He is on currently Rocephin 2 g daily. We will follow up the patient in a.m. Roberta Aden MD
[2018-11-25] MEDS: cefTRIAXone 2 GM IN NS 2 GM/100 ML BAG IVPB SCH (05:24)
[2018-11-25] MEDS: Insulin Lispro (humaLOG) MEDIUM Coverage SC SCH ×4 (08:25→22:35)
[2018-11-25] MEDS: Bacitracin Ointment 30 GM TUBE TOP SCH ×2 (09:55→17:17)
[2018-11-25] MEDS ORDERED: Darbepoetin Alfa 100 mcg/ml Inj SC ONE (10:00)
--- NOTE | 2018-11-25 14:59 | PN ---
DATE: 11/25/2018 SUBJECTIVE: The patient is a 58-year-old who came in with a right foot cellulitis, had I and D done by the bedside. He has been on Teflaro. The patient was TCU to complete course of antibiotics. PHYSICAL EXAMINATION GENERAL: The patient is awake, alert, oriented and communicative. VITAL SIGNS: He is afebrile, pulse 67, respirations 18 and blood pressure 138/77. LUNGS: Bilateral fair airflow. No rhonchi or crackle. HEART: S1 and S2 audible. ABDOMEN: Soft, obese, and nontender. No rebound. No guarding. NEUROLOGIC: He is awake, alert, oriented, and communicative. Right foot is in the cast. LABORATORY DATA: Blood sugar is 100. ASSESSMENT: 1. Right foot abscess. 2. Charcot's disease. 3. Hypertension. 4. Noninsulin-dependent diabetes. 5. Chronic kidney disease. PLAN: We will continue current medication. I will get Dr. Prasad Shrestha to evaluate him for PVD. We will continue physical therapy. Roberta Aden MD
--- NOTE | 2018-11-25 19:18 | PN ---
DATE: 11/25/2018 SUBJECTIVE: The patient is currently seen lying comfortable supine in bed in the TCU. No labs were done today. Yesterday's creatinine is stable at 3.1, this is above his baseline which is in the low-to-mid 2 range. The patient continues on IV antibiotic therapy for wound cultures, which were positive for group C strep. The patient is status post incision and drainage of an abscess of the right foot. MEDICATIONS: Medication list reviewed. The patient is currently on bacitracin, clonidine, Glucotrol, sliding scale insulin, Norvasc, PhosLo, Rocephin, and Tylenol p.r.n. OBJECTIVE: VITAL SIGNS: Blood pressure 138/77, temperature 97.8, respiratory rate is 18 with a pulse of 67. HEENT: Normocephalic and atraumatic. Conjunctivae remain pale. Sclerae are nonicteric. NECK: Supple. No neck vein distention. CHEST: Clear to auscultation and percussion. No rales, rhonchi or wheezing. CARDIOVASCULAR: Shows a regular rate and rhythm without audible murmurs, rubs or gallops. ABDOMEN: Soft. Moderate obesity. Bowel sounds normal. No rebound, guarding or masses. EXTREMITIES: Show a dressing over his right lower foot. No odor and no drainage seen. LABORATORY DATA AND IMAGING STUDIES: No recent labs were done. Yesterday's CBC showed white blood cell count of 10.5 with a hemoglobin of 9.5. Chemistries are stable, showing a creatinine of 3.1 and a BUN of 46. His baseline BUN is in the low-to-mid 30 range. His baseline creatinine is in the low-to-mid 2 range. Phosphorus level was 5 with a calcium level of 9. Microbiology cultures were positive for group C strep. Blood cultures were negative. ASSESSMENT: 1. Mild elevation of BUN and creatinine above his baseline levels, this is in the setting of a right lower extremity foot abscess, incision and drainage, and antibiotic therapy. He was switch from angiotensin receptor paige therapy to calcium channel paige therapy. I would not restart angiotensin receptor paige therapy until his BUN and creatinine fall back to baseline levels. 2. History of diabetes mellitus with chronic kidney disease stage III, likely secondary to diabetic nephropathy. The patient is spilling 6.3 g of protein in his urine and had a creatinine clearance of 43 mL per minute. The patient will in the outpatient setting receive a full set of serologies to rule out other courses of nephrotic syndrome. This will not be ordered in the TCU. 3. History of hypertension. Blood pressure control is improved with calcium-channel paige therapy and clonidine. 4. Right foot ulcer with abscess, status post incision and drainage. No evidence for osteomyelitis seen on MRI, which was done in acute care. The patient will receive a full course of antibiotic therapy under the guidance of Infectious Disease. 5. History of secondary hyperparathyroidism with mild elevation of phosphorus level. The patient will continue binder therapy and a renal diet. 6. History of mild anemia. Hemoglobin is stable at 9.5. The patient may continue receiving Aranesp on an as needed basis. He had received a full course of Venofer. PLAN: 1. We will try and limit labs from the TCU, next set of labs will be ordered for early next week. 2. Complete course of IV antibiotic therapy. 3. Local wound care with Podiatry. 4. Will be dosed Aranesp in the TCU as necessary next week. 5. Avoid all nephrotoxic agents. 6. Continue rehabilitation in the TCU. Yohan Mccarthy MD
--- NOTE | 2018-11-25 20:20 | PN ---
DATE: 11/25/2018 SUBJECTIVE: The patient is seen in bed, in no acute distress, and nontoxic. PHYSICAL EXAMINATION: VITAL SIGNS: Temperature is 97, blood pressure is 160/70, and respiratory rate of 18, HEENT: Unremarkable. NECK: Supple. LUNGS: Decreased breath sounds. HEART: Normal S1 and S2. ABDOMEN: Soft. LABORATORY DATA: Reveals white count of 10,000, hemoglobin of 9, and platelets of 347. BUN of 46 and creatinine of 3.1. ASSESSMENT AND PLAN: A 58-year-old male who is seen in room 314, group C Streptococcus right foot abscess, status post incision and drainage. Negative MRI for osteomyelitis. We will follow with you. Currently still on ceftriaxone. Sergio Reyna MD
[2018-11-26] MEDS: cefTRIAXone 2 GM IN NS 2 GM/100 ML BAG IVPB SCH (05:15)
[2018-11-26] MEDS: Insulin Lispro (humaLOG) MEDIUM Coverage SC SCH ×4 (07:01→21:18)
[2018-11-26] MEDS: Bacitracin Ointment 30 GM TUBE TOP SCH ×2 (09:15→17:32)
--- NOTE | 2018-11-26 11:29 | PN ---
DATE: 11/26/2018 SUBJECTIVE: The patient is in bed, in no acute distress. PHYSICAL EXAMINATION: VITAL SIGNS: Temperature is 97, blood pressure is 160/70, respiratory rate of 18. HEENT: Unremarkable. NECK: Supple. LUNGS: Have decreased breath sounds. HEART: Normal S1, S2. ABDOMEN: Soft, nontender. LABORATORY DATA: White count of 10,000, hemoglobin of 9, platelets of 347, BUN of 46, creatinine of 3.1. ASSESSMENT AND PLAN: This is a 58-year-old who is seen in room 314, had group C Streptococcus, right foot abscess is status post incision and drainage, negative MRI and osteomyelitis. May be able to switch to p.o. antibiotics. Currently on ceftriaxone. We will discuss with Dr. Cason. Sergio Reyna MD
--- NOTE | 2018-11-26 17:45 | CP.PCM.PN ---
Subjective - Date & Time of Evaluation Date of Evaluation: 11/26/18 Time of Evaluation: 16:00 - Subjective Subjective: Providing nephrology coverage for Dr. Mccarthy: 58 yo M w/ pmh of HTN, DM, dyslipidemia, obesity, Neuropathy, Charcot foot, and CKD IV, admitted with hemorrhagic blisters of R foot, now in TCU; Patient reports feeling well; tolerating diet; no dyspnea; is ambulating; Objective - Vital Signs/Intake and Output Vital Signs (last 24 hours): Temp Pulse Resp BP Pulse Ox 98.2 F 73 18 160/80 H 93 L 11/26/18 10:00 11/26/18 10:00 11/26/18 10:00 11/26/18 10:00 11/26/18 10:00 - Medications Medications: Current Medications Acetaminophen (Tylenol 325mg Tab) 650 mg PO Q6H PRN; Protocol PRN Reason: FEVER/PAIN Last Admin: 11/22/18 02:41 Dose: 650 mg Amlodipine Besylate (Norvasc) 5 mg PO DAILY [facility]; Protocol Last Admin: 11/26/18 09:15 Dose: 5 mg Bacitracin (Bacitracin) 0 gm TOP BID [facility]; Protocol Last Admin: 11/26/18 17:32 Dose: 1 applic Calcium Acetate (Phoslo) 667 mg PO WM [facility]; Protocol Last Admin: 11/26/18 17:31 Dose: 667 mg Clonidine HCl (Catapres) 0.1 mg PO BID [facility] Last Admin: 11/26/18 17:31 Dose: 0.1 mg Docusate Sodium (Colace) 200 mg PO DAILY [facility] Glipizide (Glucotrol) 5 mg PO ACBD [facility]; Protocol Last Admin: 11/26/18 17:31 Dose: 5 mg Ceftriaxone Sodium (Rocephin 2 Gm Ivpb) 2 gm in 100 mls @ 100 mls/hr IVPB 0600 [facility]; Protocol Last Admin: 11/26/18 05:15 Dose: 100 mls/hr Insulin Human Lispro (Humalog Med) 0 units SC ACHS [facility]; Protocol Last Admin: 11/26/18 17:33 Dose: Not Given - Labs Labs: 11/24/18 05:00 11/24/18 05:00 - Constitutional Appears: Non-toxic, No Acute Distress - Eye Exam Eye Exam: Normal appearance. absent: Scleral icterus - ENT Exam ENT Exam: Mucous Membranes Moist - Respiratory Exam Respiratory Exam: Clear to Ausculation Bilateral. absent: Respiratory Distress - Cardiovascular Exam Cardiovascular Exam: RRR, +S1, +S2 - GI/Abdominal Exam GI & Abdominal Exam: Soft. absent: Distended - Extremities Exam Additional comments: no significant leg edema - Neurological Exam Neurological Exam: Alert, Awake - Psychiatric Exam Psychiatric exam: Normal Affect, Normal Mood. absent: Agitated - Skin Skin Exam: Warm. absent: Cyanosis Assessment and Plan (1) CKD (chronic kidney disease) stage 4, GFR 15-29 ml/min Assessment & Plan: Progressive proteinuric kidney disease with nephrotic syndrome in the setting of uncontrolled dm; stable volume and electrolyte status; will have further workup as outpatient; -avoid nephrotoxic agents (NSAIDS, phosphate enema, etc); Status: Chronic (2) Hypertensive CKD (chronic kidney disease) Assessment & Plan: BP elevated today; goal <130/80 for proteinuric CKD; will increase amlodipine to 10 mg, continue clonidine 0.1 mg bid for now (although should consider another choice if patient has issues with compliance); continue to hold ARB for now; patient advised on need for low salt diet; Status: Acute (3) Anemia in CKD (chronic kidney disease) Assessment & Plan: Hgb slightly below goal, s/p IV iron and dose of aranesp yesterday; monitor; Status: Chronic
[2018-11-27] MEDS: cefTRIAXone 2 GM IN NS 2 GM/100 ML BAG IVPB SCH (05:17)
[2018-11-27] MEDS: Insulin Lispro (humaLOG) MEDIUM Coverage SC SCH ×4 (07:32→21:32)
[2018-11-27] MEDS: Bacitracin Ointment 30 GM TUBE TOP SCH ×2 (09:56→17:48)
--- NOTE | 2018-11-27 13:24 | PN ---
DATE: 11/27/2018 SUBJECTIVE: The patient is in bed, in no acute distress. Nontoxic. PHYSICAL EXAMINATION: VITAL SIGNS: Temperature is 98, blood pressure is 160/70, respiratory rate of 18. HEENT: Unremarkable. NECK: Supple. LUNGS: Have decreased breath sounds. HEART: Normal S1, S2. ABDOMEN: Soft. LABORATORY EXAMINATION: Reveals a white count of 10, hemoglobin of 9, platelets of 347. Chemistries revealed the patient's BUN of 46 and creatinine of 3.1. Urinalysis is noted. Microbiology is noted. ASSESSMENT AND PLAN: This is a 58-year-old with group C strep with the right foot abscess status post incision and drainage, negative MRI. Currently on ceftriaxone. We will discuss with Podiatry. May be we change to p.o. antibiotics. Sergio Reyna MD
[2018-11-28] MEDS: cefTRIAXone 2 GM IN NS 2 GM/100 ML BAG IVPB SCH (05:07)
[2018-11-28] MEDS: Insulin Lispro (humaLOG) MEDIUM Coverage SC SCH ×4 (06:41→22:15)
[2018-11-28 07:06] LABS: HEMOGLOBIN 9.6 g/dL (14.0-18.0); MEAN CELL VOLUME 88.9 fl (80.0-105.0); MEAN CORPUSCULAR HGB CONC 31.5 g/dl (31.0-37.0); MEAN PLATELET VOLUME 9.2 fl (7.0-11.0); RBC 3.43 10^6/uL (3.5-6.1); RED CELL DISTRIBUTION WIDTH 13.8 % (11.5-14.5); WHITE BLOOD COUNT 9.7 10^3/uL (4.5-11.0)
[2018-11-28 07:25] LABS: ALB/GLOB RATIO 0.8 (1.1-1.8); ALBUMIN 3.7 g/dL (3.0-4.8); CALCIUM 8.9 mg/dL (8.4-10.5)
--- NOTE | 2018-11-28 09:06 | PN ---
DATE: 11/26/2018 SUBJECTIVE: The patient is 58 years old, seen and examined, lying in bed, seems to be comfortable. No nausea, vomiting, or diarrhea. Eating and tolerating. PHYSICAL EXAMINATION: VITAL SIGNS: Afebrile, pulse 67, respirations 18, and blood pressure 160/76. LUNGS: Bilateral good airflow, no rhonchi or crackles. HEART: S1 and S2 audible. ABDOMEN: Soft and nontender, no rebound, no guarding. NEUROLOGIC: He is awake and alert, able to communicate. LABORATORY DATA: He had bilateral arterial Doppler done that shows severe metatarsal waveform; however, PVR waveform are otherwise normal. ASSESSMENT: 1. Right foot cellulitis. 2. Hypertension. 3. Zboqe-zy-yfaxgds kidney disease. 4. Nonischemic cardiomyopathy. 5. Vxu-enybkpf-leyhaxivi diabetes. PLAN: Currently, the patient is on Rocephin 2 g daily. Podiatry is following the patient. Right now, he has a cast on his right foot. We will monitor his blood sugar, seems to be running well. He is getting physical therapy. We will evaluate the patient. Roberta Aden MD
[2018-11-28] MEDS: Bacitracin Ointment 30 GM TUBE TOP SCH ×2 (10:05→18:04)
--- NOTE | 2018-11-28 10:06 | CP.PCM.PN ---
Subjective - Date & Time of Evaluation Date of Evaluation: 11/28/18 Time of Evaluation: 10:01 - Subjective Subjective: Podiatry Progress Note: Dr. Cason Patient seen and evaluated at bedside this AM in TCU. Patient resting comfortably and in NAD. He denies any pain to his right foot or calf at this time. Patient states that he continues to participate in physical therapy daily. Denies nausea/vomiting/fever/shortness of breath/chest pain. Objective - Vital Signs/Intake and Output Vital Signs (last 24 hours): Temp Pulse Resp BP Pulse Ox 98 F 91 H 18 169/79 H 96 11/27/18 16:11 11/28/18 05:09 11/27/18 16:11 11/28/18 05:09 11/27/18 16:11 - Medications Medications: Current Medications Acetaminophen (Tylenol 325mg Tab) 650 mg PO Q6H PRN; Protocol PRN Reason: FEVER/PAIN Last Admin: 11/22/18 02:41 Dose: 650 mg Amlodipine Besylate (Norvasc) 10 mg PO DAILY [facility]; Protocol Last Admin: 11/27/18 10:06 Dose: 10 mg Bacitracin (Bacitracin) 0 gm TOP BID [facility]; Protocol Last Admin: 11/27/18 17:48 Dose: Not Given Calcium Acetate (Phoslo) 667 mg PO WM [facility]; Protocol Last Admin: 11/28/18 07:54 Dose: 667 mg Clonidine HCl (Catapres) 0.1 mg PO BID [facility] Last Admin: 11/28/18 05:09 Dose: 0.1 mg Docusate Sodium (Colace) 200 mg PO DAILY [facility] Last Admin: 11/27/18 09:56 Dose: 200 mg Glipizide (Glucotrol) 5 mg PO ACBD [facility]; Protocol Last Admin: 11/28/18 07:54 Dose: 5 mg Ceftriaxone Sodium (Rocephin 2 Gm Ivpb) 2 gm in 100 mls @ 100 mls/hr IVPB 0600 [facility]; Protocol Last Admin: 11/28/18 05:07 Dose: 100 mls/hr Insulin Human Lispro (Humalog Med) 0 units SC ACHS [facility]; Protocol Last Admin: 11/28/18 06:41 Dose: Not Given - Labs Labs: 11/28/18 06:30 03/11/19 06:30 - Constitutional Appears: Non-toxic, No Acute Distress - Head Exam Head Exam: ATRAUMATIC, NORMOCEPHALIC - Extremities Exam Additional comments: Total contact cast clean/dry/intact at this time Cast left in place at today's visit. - Neurological Exam Neurological Exam: Alert, Awake, Oriented x3 - Psychiatric Exam Psychiatric exam: Normal Affect, Normal Mood Assessment and Plan - Assessment and Plan (Free Text) Assessment: 58 year old male patient with R plantar lateral ulceration secondary to hemorrhagic blister; patient currently in total contact cast. Plan: Patient seen and evaluated at bedside with attending Dr. Cason Right foot 3 views X-ray: No foreign body detected. Wound culture R foot: Group C strept. R foot MRI: No OM, subcutaneous edema at the dorsum of the foot and lateral side of the ankle. ABE/PVR; Limited due to calcified vessels. PVR normal, symmetrical to ankle. Severely blunted right met wave forms, left met wave forms normal Continue IV Abx; Per ID reccs: currently on Rocephin, can transition to Augmentin 875 mg PO BID upon discharge Patient stable from podiatry stand point, pending D/c follow up in office or [facility] with Dr. Cason Total contact cast left clean/dry/intact Patient may weight bear as tolerated in cast shoe C/w physical therapy Will continue to follow
[2018-11-28 15:56] VITALS: TEMP 98.1
[2018-11-28 17:39] LABS: COMPLEMENT C4 56.9 mg/dL (14.0-44.0)
--- NOTE | 2018-11-28 18:54 | PN ---
DATE: 11/28/2018 SUBJECTIVE: The patient is 58 years old, seen and examined, doing well, having no nausea, vomiting, no diarrhea. PHYSICAL EXAMINATION: VITAL SIGNS: He is afebrile. Pulse 91, respirations 18, blood pressure 152/80. LUNGS: Bilateral fair air flow, no rhonchi or crackles. HEART: S1 and S2 audible. ABDOMEN: Soft and nontender. Obese. No hepatosplenomegaly. NEUROLOGIC: He is awake and alert, able to communicate. EXTREMITIES: Right foot is in the dressing. Awaiting for the boot, to remove the hard cast. LABORATORY DATA: WBC is 9,7, hemoglobin 9.6, hematocrit 30.5, platelets 326. Chemistry, sodium 140, potassium 4.9, chloride 109, CO2 22, BUN 59, creatinine 3, blood sugar of 109. ASSESSMENT AND PLAN: 1. Right foot cellulitis status post incision and drainage. 2. Charcot's disease. 3. Peripheral vascular disease. 4. Diabetic nephropathy. 5. Poorly controlled diabetes. PLAN: Currently the patient is on 2 g Rocephin daily. He is getting his blood sugar checked and being monitored. Awaiting Podiatry report to arrange for his boots and then discharge plan will be made. Roberta Aden MD
--- NOTE | 2018-11-28 22:30 | PN ---
DATE: 11/28/2018 SUBJECTIVE: The patient is in bed, in no acute distress, nontoxic. PHYSICAL EXAMINATION: VITAL SIGNS: Temperature is 98, blood pressure is 150/80, respiratory rate of 20, heart rate of 71. HEENT: Unremarkable. NECK: Supple. LUNGS: Have decreased breath sounds. HEART: Normal S1, S2. ABDOMEN: Soft. LABORATORY DATA: Laboratory examination is noted. Microbiology is reviewed. ASSESSMENT AND PLAN: A 58-year-old with the group C streptococcus and right foot abscess, status post incision and drainage. Negative MRI. The patient is on ceftriaxone. We will discuss with Podiatry. Sergio Reyna MD
--- NOTE | 2018-11-28 23:05 | PN ---
DATE: 11/28/2018 SUBJECTIVE: The patient is seen sitting in chair. He is awake. He is alert. He is comfortable. He has cast on his right lower extremity. PHYSICAL EXAMINATION: GENERAL: Middle-aged male sitting in chair. VITAL SIGNS: Blood pressure 152/80, heart rate 71, respiratory rate 20, and temperature 98.1. HEENT: Normocephalic and atraumatic. Positive pallor. NECK: Supple. No JVD. LUNGS: Bilateral equal air entry. No rales. No rhonchi. CARDIAC: S1 and S2. Regular rate and rhythm. No murmur. No rub. ABDOMEN: Obese, distended, soft, and nontender. Bowel sounds present. EXTREMITIES: No lower extremity edema. LABORATORY DATA: WBC 9.7, hemoglobin 9.6, hematocrit 30.5, and platelets 326. ESR 137. Sodium 140, potassium 4.9, chloride 109, CO2 of 22, BUN 59, creatinine 3, glucose 109, calcium 8.9, phosphorus 4.6, magnesium 2.3, and albumin 3.7. Urine eosinophils negative. Complements normal. CURRENT MEDICATIONS: Bacitracin, clonidine 0.1 b.i.d., Colace, Glucotrol, amlodipine 10, PhosLo, and Rocephin 2 g. ASSESSMENT: 1. Acute kidney injury superimposed on chronic kidney disease stage III. 2. Nephrotic range proteinuria. 3. Hypertension. 4. Chronic anemia, ?etiology, anemia predates chronic kidney disease. 5. Obesity. 6. Infected diabetic foot ulcer. 7. Poor compliance with followup. PLAN: 1. Proteinuria workup as ordered. 2. Continue current antihypertensives. 3. Monitor labs. 4. Continue antibiotics as per ID. Mireya Lopez MD
[2018-11-29] MEDS: cefTRIAXone 2 GM IN NS 2 GM/100 ML BAG IVPB SCH (05:10)
[2018-11-29] MEDS: Insulin Lispro (humaLOG) MEDIUM Coverage SC SCH ×2 (06:38→11:46)
[2018-11-29] MEDS: Bacitracin Ointment 30 GM TUBE TOP SCH (09:50)
[2018-11-29 09:53] VITALS: BP 152/72; PULSE 73
[2018-11-29 10:09] VITALS: RESP 18; O2SAT 96
--- NOTE | 2018-11-29 10:29 | CP.PCM.PN ---
Subjective - Date & Time of Evaluation Date of Evaluation: 11/29/18 Time of Evaluation: 10:26 - Subjective Subjective: Podiatry Progress Note: Dr. Cason Patient seen and evaluated at bedside this AM in TCU with attending Dr. Cason. Patient resting comfortably and in NAD. Denies any pain to his foot at this time. Patient states he was given cast shoe to walk in as instructed. Denies nausea/vomiting/fever/shortness of breath/chest pain. Objective - Vital Signs/Intake and Output Vital Signs (last 24 hours): Temp Pulse Resp BP Pulse Ox 98.1 F 73 18 152/72 H 96 11/29/18 10:00 11/29/18 10:00 11/29/18 10:00 11/29/18 10:00 11/29/18 10:00 - Medications Medications: Current Medications Acetaminophen (Tylenol 325mg Tab) 650 mg PO Q6H PRN; Protocol PRN Reason: FEVER/PAIN Last Admin: 11/22/18 02:41 Dose: 650 mg Amlodipine Besylate (Norvasc) 10 mg PO DAILY [facility]; Protocol Last Admin: 11/29/18 09:51 Dose: 10 mg Bacitracin (Bacitracin) 0 gm TOP BID [facility]; Protocol Last Admin: 11/29/18 09:50 Dose: Not Given Calcium Acetate (Phoslo) 667 mg PO WM [facility]; Protocol Last Admin: 11/29/18 07:53 Dose: 667 mg Clonidine HCl (Catapres) 0.1 mg PO BID [facility] Last Admin: 11/29/18 09:50 Dose: Not Given Docusate Sodium (Colace) 200 mg PO DAILY [facility] Last Admin: 11/29/18 09:50 Dose: 200 mg Glipizide (Glucotrol) 5 mg PO ACBD [facility]; Protocol Last Admin: 11/29/18 07:53 Dose: 5 mg Ceftriaxone Sodium (Rocephin 2 Gm Ivpb) 2 gm in 100 mls @ 100 mls/hr IVPB 0600 [facility]; Protocol Last Admin: 11/29/18 05:10 Dose: 100 mls/hr Insulin Human Lispro (Humalog Med) 0 units SC ACHS [facility]; Protocol Last Admin: 11/29/18 06:38 Dose: Not Given - Labs Labs: 11/28/18 06:30 11/28/18 06:30 - Constitutional Appears: Non-toxic, No Acute Distress - Head Exam Head Exam: ATRAUMATIC, NORMOCEPHALIC - Extremities Exam Additional comments: Total contact cast clean/dry/intact at this time - Neurological Exam Neurological Exam: Awake, Oriented x3 - Psychiatric Exam Psychiatric exam: Normal Affect Assessment and Plan - Assessment and Plan (Free Text) Assessment: 58 year old male patient with R plantar lateral ulceration secondary to hemo rrhagic blister; patient currently in total contact cast. Plan: Patient seen and evaluated at bedside with attending Dr. Cason Right foot 3 views X-ray: No foreign body detected. Wound culture R foot: Group C strept. R foot MRI: No OM, subcutaneous edema at the dorsum of the foot and lateral side of the ankle. ABE/PVR; Limited due to calcified vessels. PVR normal, symmetrical to ankle. Severely blunted right met wave forms, left met wave forms normal Continue IV Abx; Per ID reccs: currently on Rocephin, can transition to Augmentin 875 mg PO BID upon discharge C/w physical therapy Patient stable from podiatry stand point, pending D/c follow up in office or wound care center with Dr. Cason on December 01 for cast removal Total contact cast left clean/dry/intact Patient may weight bear as tolerated in cast shoe
--- NOTE | 2018-11-29 13:21 | PN ---
DATE: 11/29/2018 SUBJECTIVE: The patient is currently seen sitting up in bed in the TCU. This is his last day in the TCU. He has completed a course of antibiotic therapy for his right lower extremity foot abscess incision and drainage. MEDICATIONS: Medication list reviewed. The patient is on bacitracin, clonidine, Colace, Glucotrol, insulin, Norvasc, PhosLo, and Tylenol p.r.n. OBJECTIVE: VITAL SIGNS: Blood pressure 152/72, temperature 98.1, respiratory rate 18 with a pulse of 73. HEENT: Normocephalic, atraumatic. Conjunctivae are pale. Sclerae nonicteric. NECK: Supple. No neck vein distention. CHEST: Clear to auscultation and percussion with no rales, rhonchi or wheezing. CARDIOVASCULAR: Regular rate and rhythm without audible murmurs, rubs or gallops. ABDOMEN: Soft. Moderate obesity. Bowel sounds normal. No rebound, guarding or masses. EXTREMITIES: Show dressing over his right lower foot. No odor seen and no drainage seen through the dressing. LABORATORY DATA AND IMAGING STUDIES: CBC from yesterday; white blood cell count 9.7, hemoglobin 9.6 with platelet count of 326,000. Chemistries show normal electrolytes. BUN 59 with a creatinine of 3. This has been stable throughout the entire hospitalization. His baseline BUN is in the low to mid 30 range with a baseline creatinine in the low to mid 2 range. Phosphorus level was 4.6 consistent with his chronic kidney disease. Microbiology cultures are positive for group C strep. Blood cultures were negative. ASSESSMENT: 1. Mild elevation of BUN and creatinine above his baseline levels. This is in the setting of right lower extremity foot abscess incision and drainage and antibiotic therapy. The patient has completed a course of antibiotic therapy. I would at this point in time not restart the patient back on angiotensin receptor paige therapy as his BUN and creatinine still remain above baseline levels. 2. History of diabetes mellitus with chronic kidney disease stage III. The patient likely has diabetic nephropathy. He is spilling 6.3 g of protein in his urine and a creatinine clearance of 43 mL per minute. As discussed with the patient, perhaps in the outpatient setting we will do a full set of serologies to rule out other causes of protein leak in the urine. 3. History of hypertension. Blood pressure control is acceptable on calcium channel paige therapy and clonidine. 4. Status post right foot ulcer with abscess status post incision and drainage. No evidence for osteomyelitis. 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 5. History of secondary hyperparathyroidism. Mild elevation of phosphorus level at 4.6. The patient will continue on calcium acetate and continue a renal diet. 6. History of mild anemia secondary to chronic kidney disease. The patient may receive Aranesp in the outpatient setting. He did receive a full course of intravenous Venofer. PLAN: 1. Discuss with the patient the need to follow up with Renal in the outpatient setting as his creatinine is in the 3 range. The patient is agreeable and will see Dr. Lopez in the office. 2. Continue local wound care with Podiatry. 3. Complete a course of antibiotic as per Infectious Disease. 4. The patient will likely need Aranesp in the outpatient setting as well. 5. Continue to avoid all nephrotoxic agents and for right now continue to hold the angiotensin receptor paige. Yohan Mccarthy MD
--- NOTE | 2018-11-29 14:09 | PN ---
DATE: 11/29/2018 SUBJECTIVE: The patient is seen earlier today in room #314. He is doing well. No nausea or vomiting. No chest pain. PHYSICAL EXAMINATION: VITAL SIGNS: Temperature is 98, blood pressure 150/70, respiratory rate of 18. HEENT: Unremarkable. NECK: Supple. LUNGS: Decreased breath sounds. HEART: Normal S1 and S2. ABDOMEN: Soft. LABORATORY DATA: Reveals a white count of 9.7, hemoglobin of 9. Chemistries were noted and immunology is noted. Microbiology is reviewed. ASSESSMENT AND PLAN: This is a 58-year-old with group C strep, right foot abscess status post incision and drainage, negative MRI, and we will discontinue ceftriaxone. Case was discussed with Podiatry. The patient has had adequate antibiotics. No further antibiotics necessary. Sergio Reyna MD
--- NOTE | 2018-11-29 21:08 | DS ---
HISTORY OF PRESENT ILLNESS: The patient is 58 years old, who came to the emergency room because of increasing right foot swelling. The patient stated when he went home, he took off his socks and he found the swelling and he thought it was a blood blister and came to ER for evaluation, was seen by Podiatry team, had incision and drainage done, 5 mL pus was removed. He was given Teflaro initially followed by 2 g of Rocephin for a total of 14 days. He was followed by Podiatry team. The patient also has significant history of; 1. Cardiomyopathy. 2. Poorly controlled diabetes because of noncompliance. 3. Chronic kidney disease. So he received course of antibiotic. His right foot is in the cast. He will be followed by Dr. Cason in the wound clinic and he is being discharge home today. PHYSICAL EXAMINATION: GENERAL: He is awake, alert, oriented and communicative. VITAL SIGNS: He is afebrile. Pulse 73, respiration 18 and blood pressure 152/72. LUNGS: Bilateral fair airflow. No rhonchi or crackle. HEART: S1 and S2, audible. ABDOMEN: Soft and nontender. No rebound. No guarding. NEUROLOGIC: He is awake, alert, oriented and able to communicate. His right foot is in the cast. ASSESSMENT: 1. Right foot cellulitis, improving. 2. Left Charcot throat. 3. Chronic kidney disease. 4. Noninsulin-dependant diabetes. 5. Hypertension. 6. Hyperlipidemia. PLAN: The patient is being discharge home today. He will be discharge on amlodipine 5 mg daily, clonidine 0.1 mg twice a day, glipizide 5 mg twice a day, amlodipine 10 mg daily, PhosLo 667 mg with each meal. He will follow with Dr. Lopez and myself in 2 weeks in office. Roberta Aden MD
== END 2018-11-29 14:52 | disposition home or self-care (01) | DRG 603 ==
LOC: TRCU 15:56
PROVIDERS: ADMIT Internal Medicine; ATTEND Internal Medicine
PROC: F07Z9ZZ Gait Training/Functional Ambulation Treatment (ICD-10-PCS; principal; 2018-11-21)
PROC: F08Z4ZZ Home Management Treatment (ICD-10-PCS; 2018-11-22)
DX: L03.115 Cellulitis of right lower limb (principal); L02.611 Cutaneous abscess of right foot; N18.4 Chronic kidney disease, stage 4 (severe); N17.9 Acute kidney failure, unspecified; I13.0 Hypertensive heart and chronic kidney disease with heart failure and stage 1 through stage 4 chronic kidney disease, or unspecified chronic kidney disease; N25.81 Secondary hyperparathyroidism of renal origin; Z79.2 Long term (current) use of antibiotics; I25.5 Ischemic cardiomyopathy; L97.519 Non-pressure chronic ulcer of other part of right foot with unspecified severity; E11.65 Type 2 diabetes mellitus with hyperglycemia; E11.621 Type 2 diabetes mellitus with foot ulcer; E11.51 Type 2 diabetes mellitus with diabetic peripheral angiopathy without gangrene; E11.21 Type 2 diabetes mellitus with diabetic nephropathy; E11.22 Type 2 diabetes mellitus with diabetic chronic kidney disease; E11.610 Type 2 diabetes mellitus with diabetic neuropathic arthropathy; D63.1 Anemia in chronic kidney disease; I50.9 Heart failure, unspecified; E78.5 Hyperlipidemia, unspecified; E66.9 Obesity, unspecified; Z68.25 Body mass index [BMI] 25.0-25.9, adult; Z79.84 Long term (current) use of oral hypoglycemic drugs; Z91.19 Patient's noncompliance with other medical treatment and regimen

== ENCOUNTER 2018-12-26 18:51 | Inpatient (IN) | payer OTHER ==
[2018-12-26 18:51] VITALS: PULSE 84
[2018-12-26 19:02] VITALS: BMI 36.6
[2018-12-26] MEDS ORDERED: Piperacillin/Tazobact 3.375 gm 100 ML IVPB STA (19:49)
[2018-12-26] MEDS ORDERED: Vancomycin 500 mg Inj IVPB STA (19:49)
[2018-12-26] MEDS ORDERED: Vancomycin 2 GM in Sodium Chloride 0.9% 500 ML IVPB ONE (20:00)
[2018-12-26 20:21] LABS: VENOUS BLOOD GAS BASE EXCESS -2.2 mmol/L (0.0-2.0); VENOUS BLOOD GAS PO2 32 mm/Hg (30-55); VENOUS BLOOD PH 7.36 (7.32-7.43)
--- NOTE | 2018-12-26 20:23 | ED PDOC ---
Arrival/HPI - General Chief Complaint: Lower Extremity Problem/Injury Time Seen by Provider: 12/26/18 19:35 Historian: Patient - History of Present Illness Narrative History of Present Illness (Text): 12/26/18 20:21 58 m with hx diabetes mellitus and CKD presents to the ED with chief complaint of nonhealing right foot ulcer. Patient states he has been on oral antibiotics for 10 days, treated by Dr. Cason. Patient states he saw Dr. Cason in the office today and was instructed to come to the ED for IV abx and admission for failed outpatient oral therapy. Patient denies any pain, no fever. Patient also denies any headache, dizziness, chest pain, shortness of breath, cough, diaphoresis, abdominal pain, nausea, vomiting, diarrhea, back pain, neck pain, or any other complaint. Time/Duration: Prior to Arrival Symptom Onset: Gradual Symptom Course: Unchanged Activities at Onset: Light Past Medical History - Provider Review Nursing Documentation Reviewed: Yes - Infectious Disease Hx of Infectious Diseases: None - Tetanus Immunization Tetanus Immunization: Unknown - Cardiac Hx Congestive Heart Failure: Yes Hx Hypertension: Yes - Pulmonary Hx Respiratory Disorders: Yes (INFLUENZA A,NEUROPATHY) - Neurological Hx Neurological Disorder: No - HEENT Hx HEENT Disorder: No - Renal Hx Renal Disorder: No - Endocrine/Metabolic Hx Diabetes Mellitus Type 2: Yes - Hematological/Oncological Hx Blood Disorders: No - Integumentary Hx Dermatological Disorder: Yes Other/Comment: 11-15-18 CHARCOT FOOT. RIGHT FOOT HAS A LARGE BLOOD FILLED BLISTER TO MID LATERAL SECTION OF FOOT EXTENDING TO MID PLANTAR SIDE OF FOOT. INTACT SKIN.PAINFUL - Musculoskeletal/Rheumatological Hx Falls: Yes - Gastrointestinal Hx Gastrointestinal Disorders: Yes (H/O C DIFF.) - Genitourinary/Gynecological Hx Genitourinary Disorders: Yes - Psychiatric Hx Psychophysiologic Disorder: Yes (OBESITY) Hx Substance Use: No - Past Surgical History Past Surgical History: No Previous - Surgical History Hx Cholecystectomy: Yes - Anesthesia Hx Anesthesia: Yes Hx Anesthesia Reactions: No Hx Malignant Hyperthermia: No - Suicidal Assessment Feels Threatened In Home Enviroment: No Family/Social History - Physician Review Nursing Documentation Reviewed: Yes Family/Social History: No Known Family HX Smoking Status: Never Smoked Hx Alcohol Use: No Hx Substance Use: No Hx Substance Use Treatment: No Allergies/Home Meds Allergies/Adverse Reactions: Allergies No Known Allergies Allergy (Verified 11/15/18 16:52) Review of Systems - Physician Review All systems were reviewed & negative as marked: Yes - Review of Systems Constitutional: absent: Fevers, Night Sweats Respiratory: absent: SOB, Cough Cardiovascular: absent: Chest Pain Gastrointestinal: absent: Abdominal Pain, Diarrhea, Nausea, Vomiting Musculoskeletal: absent: Back Pain, Neck Pain Skin: Ulcer (Right foot diabetic ulcer) Neurological: absent: Headache, Dizziness Physical Exam - Physical Exam Narrative Physical Exam (Text): 12/26/18 20:23 Gen: VS reviewed, alert, well developed, well nourished, nontoxic, mild distress Eye: EOMI, PERRL Neck: no JVD, supple, no adenopathy CV: regular rate, regular rhythm, no rubs,no murmur, S1, S2 Pulm: no distress, clear to auscultation, no wheeze, no rhonchi, breath sounds equal, no rales Abd: soft, nontender, no guarding, no rebound, no rigidity Ext: no edema, large ulcer at the base of the right lateral foot, with foul smelling mild drainage, no bleeding Skin: good color, no rash, no cyanosis Psych: responds appropriately to questions, normal affect Neuro: oriented x3, CN2-12 intact grossly, motor intact, sensation intact Vital Signs Reviewed: Yes Vital Signs Temp Pulse Resp BP Pulse Ox 12/26/18 19:00 99.2 F 88 18 134/72 97 Temperature: Afebrile Blood Pressure: Normal Pulse: Regular Respiratory Rate: Normal Appearance: Positive for: Well-Appearing, Non-Toxic, Comfortable Pain Distress: None Mental Status: Positive for: Alert and Oriented X 3 Medical Decision Making ED Course and Treatment: 12/26/18 20:24 Impression: 58 year old male presents with diabetic foot ulcer. Differential Diagnosis included but are not limited to: Patient presents with nonhealing infected diabetic right foot ulcer, will get labs, start IV abx, admit. Plan: -- EKG -- BMP -- Prothromb, Thromboplastin -- Vancomycin -- Zosyn -- Blood & Wound cultures -- X-ray right foot -- Reassess and disposition Prior Visits: Notes and results from previous visits were reviewed. 12/26/18 23:[address] garcia. patient to be admitted for sepsis stemming from infected foot ulcer. patient was noted to be suddenly tachycardic, rigorous and appeared transiently confused. after ivf and dose of tylenol patient's mentation appeared normal and patient states he had uncontrolled shakes. case d/w dr. castillo, will see the patient in consult for icu, resident aware of case. - RAD Interpretation Radiology Orders: 12/26/18 19:50 FOOT RIGHT 3 VIEWS ROUTINE [RAD] Stat - EKG Interpretation EKG Interpretation (Text): 12/26/18 22:09 Sinus tachycardia @ 140bpm Normal QRS Normal axis No acute STT wave changes Interpreted by ED Physician: Yes Type: 12 lead EKG - Medication Orders Current Medication Orders: Vancomycin HCl 2 gm/ Sodium (Chloride) 500 mls @ 170 mls/hr IVPB ONCE ONE Stop: 12/26/18 22:56 Discontinued Medications Piperacillin Sod/Tazobactam Sod (Zosyn 3.375 In Ns 100ml) 100 mls @ 200 mls/hr IVPB STAT STA; Protocol Stop: 12/26/18 20:18 - Scribe Statement The provider has reviewed the documentation as recorded by the Magaliibjeanie Gilliam Provider Scribe Attestation: All medical record entries made by the Scribe were at my direction and personally dictated by me. I have reviewed the chart and agree that the record accurately reflects my personal performance of the history, physical exam, medical decision making, and the department course for this patient. I have also personally directed, reviewed, and agree with the discharge instructions and disposition. Disposition/Present on Arrival - Present on Arrival Any Indicators Present on Arrival: No History of DVT/PE: No History of Uncontrolled Diabetes: No Urinary Catheter: No History of Decub. Ulcer: No History Surgical Site Infection Following: None - Disposition Have Diagnosis and Disposition been Completed?: Yes Diagnosis: Foot ulcer Disposition: HOSPITALIZED Disposition Time: 21:32 Patient Plan: Admission Patient Problems: Current Active Problems Problem Status Onset Foot ulcer Acute Diabetes mellitus Resolved Condition: STABLE Forms: [employer] (Slovak)
[2018-12-26 20:24] LABS: BASO # 0.02 K/mm3 (0.0-2.0); BASO % 0.1 % (0.0-3.0); EOS # 0.1 (0.0-0.7); EOS % 0.5 % (1.5-5.0); HEMOGLOBIN 9.9 g/dL (14.0-18.0); LYMPH # 1.1 (1.2-3.4); LYMPH % 7.1 % (22.0-35.0); MEAN CELL VOLUME 86.1 fl (80.0-105.0); MEAN CORPUSCULAR HEMOGLOBIN 27.6 pg (25.0-35.0); MEAN PLATELET VOLUME 8.9 fl (7.0-11.0); MONO # 1.8 (0.1-0.6); MONO % 11.3 % (1.0-6.0); RBC 3.59 10^6/uL (3.5-6.1); WHITE BLOOD COUNT 15.8 10^3/uL (4.5-11.0)
[2018-12-26 20:33] LABS: CALCIUM 9.2 mg/dL (8.4-10.5)
[2018-12-26 20:34] LABS: INR 1.45; PARTIAL THROMBOPLASTIN TIME 33.9 Seconds (26.9-38.3); PROTHROMBIN TIME 16.1 SECONDS (9.4-12.5)
--- NOTE | 2018-12-26 23:53 | CP.PCM.CON ---
<Surinder Tobin - Last Filed: 12/27/18 00:38> History of Present Illness - History of Present Illness History of Present Illness: PGY1 ICU Consult Note for Dr. Haines Consult Reason: Sepsis Mr. Leslie is a 58-year-old M with PMH of DM and CKD who presents to the ED with chief complaint of non-healing R foot ulcer. Per Patient, he has been treated with antibiotics for 10 days without improvement. Patient states he was seen by Dr. Cason in the office today and was instructed to come to the ED for IV antibiotics and close monitoring due to failed outpatient oral therapy. ROS unremarkable headache, fever, pain, dizziness, chest pain, shortness of breath, cough, diaphoresis, abdominal pain, nausea, vomiting, diarrhea, back pain, neck pain, and/or weakness. PMH: DM, neuropathy, Diabetic foot ulcer, charcot foot, CKD PSH: cholecystectomy Medications: Norvasc, Clonidine, Glucotrol, Calcium Acetate Allergies: NKDA Social Hx: Denies tobacco, denies ETOH, Family Hx: Patient denies Podiatry: Dr. Cason Review of Systems - Review of Systems All systems: reviewed and no additional remarkable complaints except (as per HPI) Past Patient History - Infectious Disease Hx of Infectious Diseases: None - Tetanus Immunizations Tetanus Immunization: Unknown - Past Social History Smoking Status: Never Smoked - CARDIAC Hx Congestive Heart Failure: Yes Hx Hypertension: Yes - PULMONARY Hx Respiratory Disorders: Yes (INFLUENZA A,NEUROPATHY) - NEUROLOGICAL Hx Neurological Disorder: No - HEENT Hx HEENT Problems: No - RENAL Hx Chronic Kidney Disease: No - ENDOCRINE/METABOLIC Hx Diabetes Mellitus Type 2: Yes - HEMATOLOGICAL/ONCOLOGICAL Hx Blood Disorders: No - INTEGUMENTARY Hx Dermatological Problems: Yes Other/Comment: 11-15-18 CHARCOT FOOT. RIGHT FOOT HAS A LARGE BLOOD FILLED BLISTER TO MID LATERAL SECTION OF FOOT EXTENDING TO MID PLANTAR SIDE OF FOOT. INTACT SKIN.PAINFUL - MUSCULOSKELETAL/RHEUMATOLOGICAL Hx Falls: Yes - GASTROINTESTINAL Hx Gastrointestinal Disorders: Yes (H/O C DIFF.) - GENITOURINARY/GYNECOLOGICAL Hx Genitourinary Disorders: Yes - PSYCHIATRIC Hx Psychophysiologic Disorder: Yes (OBESITY) Hx Substance Use: No - SURGICAL HISTORY Hx Cholecystectomy: Yes - ANESTHESIA Hx Anesthesia: Yes Hx Anesthesia Reactions: No Hx Malignant Hyperthermia: No Meds Allergies/Adverse Reactions: Allergies Allergy/AdvReac Type Severity Reaction Status Date / Time No Known Allergies Allergy Verified 11/15/18 16:52 Physical Exam - Constitutional Appears: Non-toxic, No Acute Distress - Head Exam Head Exam: ATRAUMATIC, NORMAL INSPECTION, NORMOCEPHALIC - Eye Exam Eye Exam: EOMI, Normal appearance - ENT Exam ENT Exam: Mucous Membranes Moist, Normal Exam - Neck Exam Neck exam: Positive for: Normal Inspection - Respiratory Exam Respiratory Exam: Clear to Auscultation Bilateral, NORMAL BREATHING PATTERN. absent: Chest Wall Tenderness, Decreased Breath Sounds, Rales, Rhonchi, Wheezes, Respiratory Distress, Stridor - Cardiovascular Exam Cardiovascular Exam: REGULAR RHYTHM, +S1, +S2 - GI/Abdominal Exam GI & Abdominal Exam: Normal Bowel Sounds, Soft. absent: Tenderness - Extremities Exam Extremities exam: Positive for: full ROM, pedal edema (bilateral +2 pitting edema ). Negative for: normal inspection, tenderness Additional comments: ulcer on left first metatarsal right foot ulcer skin is dry, flaky, palpable dorsalis pedis bilaterally - Back Exam Back exam: FULL ROM - Neurological Exam Neurological exam: Alert, CN II-XII Intact, Oriented x3 - Psychiatric Exam Psychiatric exam: Normal Affect, Normal Mood - Skin Skin Exam: Dry, Intact, Normal Color Results - Vital Signs Recent Vital Signs: Last Vital Signs Temp 101.9 F H 12/26/18 22:44 Pulse 118 H 12/26/18 22:44 Resp 20 12/26/18 22:12 BP 140/73 12/26/18 22:12 Pulse Ox 100 12/26/18 22:12 - Labs Result Diagrams: 12/26/18 20:19 12/26/18 20:19 Labs: Laboratory Results - last 24 hr 12/26/18 12/26/18 12/26/18 20:18 20:19 20:19 WBC 15.8 H D RBC 3.59 Hgb 9.9 L Hct 30.9 L MCV 86.1 MCH 27.6 MCHC 32.0 RDW 14.0 Plt Count 293 MPV 8.9 Neut % (Auto) 81.0 H Lymph % (Auto) 7.1 L Pettis % (Auto) 11.3 H Eos % (Auto) 0.5 L Baso % (Auto) 0.1 Lymph # (Auto) 1.1 L Pettis # (Auto) 1.8 H Eos # (Auto) 0.1 Baso # (Auto) 0.02 Absolute Neuts (auto) 12.77 H PT 16.1 H INR 1.45 APTT 33.9 pO2 32 VBG pH 7.36 VBG pCO2 41.0 VBG HCO3 23.2 VBG Total CO2 24.5 VBG O2 Sat (Calc) 60.9 VBG Base Excess -2.2 L VBG Potassium 5.0 Sodium 134.0 Chloride 102.0 Glucose 73 L Lactate 0.8 FiO2 21.0 Potassium Carbon Dioxide Anion Gap BUN Creatinine Est GFR ( Amer) Est GFR (Non-Af Amer) POC Glucose (mg/dL) Random Glucose Calcium Venous Blood Potassium 5.0 12/26/18 12/26/18 20:19 21:46 WBC RBC Hgb Hct MCV MCH MCHC RDW Plt Count MPV Neut % (Auto) Lymph % (Auto) Pettis % (Auto) Eos % (Auto) Baso % (Auto) Lymph # (Auto) Pettis # (Auto) Eos # (Auto) Baso # (Auto) Absolute Neuts (auto) PT INR APTT pO2 VBG pH VBG pCO2 VBG HCO3 VBG Total CO2 VBG O2 Sat (Calc) VBG Base Excess VBG Potassium Sodium 135 Chloride 102 Glucose Lactate FiO2 Potassium 4.8 Carbon Dioxide 23 Anion Gap 15 BUN 52 H Creatinine 4.3 H Est GFR ( Amer) 17 Est GFR (Non-Af Amer) 14 POC Glucose (mg/dL) 86 Random Glucose 75 Calcium 9.2 Venous Blood Potassium Assessment & Plan - Assessment and Plan (Free Text) Assessment: Mr. Leslie is a 58-year-old M with PMH of DM and CKD who presents to the ED with chief complaint of non-healing R foot ulcer. Per Patient, he has been cathie ated with antibiotics for 10 days without improvement. Sepsis - Source: right foot ulcer - leukocytosis; 15.8 - Febrile; 101.9 - Normotensive - EKG: NSR with no ST changes - Started in ED: Vancomycin - Started in ED: Zosyn - Cagle cultures obtained (wound, blood) - ID consulted (Dr. Reyna) Right Foot Ulcer - X-ray right foot - Dr. Berger consulted - Dr. Reyna consulted Acute Renal Failure in the setting of CKD - Dr. Lopez consulted - BUN/Cr = 52/4.3 (most recent Cr trending in the 2-3 range) Patient evaluated for ICU admission; Patient may be monitored in telemetry, as he currently does not meet indications for ICU admission. Please consult again as needed. Discussed with Dr. Yancy Tobin PGY1 <Buffy Haines - Last Filed: 12/27/18 01:55> Meds - Medications Medications: Current Medications Acetaminophen (Tylenol 325mg Tab) 650 mg PO Q6H PRN PRN Reason: Fever >100.4 F Amlodipine Besylate (Norvasc) 10 mg PO DAILY JOSÉ MIGUEL Calcium Acetate (Phoslo) 667 mg PO WM JOSÉ MIGUEL Sodium Chloride (Sodium Chloride 0.45%) 1,000 mls @ 100 mls/hr IV .Q10H JOSÉ MIGUEL Last Admin: 12/27/18 00:21 Dose: 100 mls/hr Piperacillin Sod/Tazobactam Sod (Zosyn 2.25 Gm In 0.9% 100 Ml) 2.25 gm in 100 mls @ 100 mls/hr IVPB Q8 JOSÉ MIGUEL; Protocol Stop: 12/27/18 06:59 Insulin Human Lispro (Humalog Med) 0 units SC ACHS JOSÉ MIGUEL; Protocol Results - Vital Signs Recent Vital Signs: Last Vital Signs Temp 101.9 F H 12/26/18 22:44 Pulse 118 H 12/26/18 22:44 Resp 20 12/26/18 22:12 BP 140/73 12/26/18 22:12 Pulse Ox 100 12/26/18 22:12 - Labs Result Diagrams: 12/26/18 20:19 12/26/18 20:19 Labs: Laboratory Results - last 24 hr 12/26/18 12/26/18 12/26/18 20:18 20:19 20:19 WBC 15.8 H D RBC 3.59 Hgb 9.9 L Hct 30.9 L MCV 86.1 MCH 27.6 MCHC 32.0 RDW 14.0 Plt Count 293 MPV 8.9 Neut % (Auto) 81.0 H Lymph % (Auto) 7.1 L Pettis % (Auto) 11.3 H Eos % (Auto) 0.5 L Baso % (Auto) 0.1 Lymph # (Auto) 1.1 L Pettis # (Auto) 1.8 H Eos # (Auto) 0.1 Baso # (Auto) 0.02 Absolute Neuts (auto) 12.77 H PT 16.1 H INR 1.45 APTT 33.9 pO2 32 VBG pH 7.36 VBG pCO2 41.0 VBG HCO3 23.2 VBG Total CO2 24.5 VBG O2 Sat (Calc) 60.9 VBG Base Excess -2.2 L VBG Potassium 5.0 Sodium 134.0 Chloride 102.0 Glucose 73 L Lactate 0.8 FiO2 21.0 Crit Value Called To Crit Value Called By Blood Gas Notified Time Potassium Carbon Dioxide Anion Gap BUN Creatinine Est GFR ( Amer) Est GFR (Non-Af Amer) POC Glucose (mg/dL) Random Glucose Calcium Venous Blood Potassium 5.0 12/26/18 12/26/18 12/27/18 20:19 21:46 00:16 WBC RBC Hgb Hct MCV MCH MCHC RDW Plt Count MPV Neut % (Auto) Lymph % (Auto) Pettis % (Auto) Eos % (Auto) Baso % (Auto) Lymph # (Auto) Pettis # (Auto) Eos # (Auto) Baso # (Auto) Absolute Neuts (auto) PT INR APTT pO2 106 H VBG pH 7.45 H VBG pCO2 29.0 L VBG HCO3 20.2 L VBG Total CO2 21.1 L VBG O2 Sat (Calc) 99.1 H VBG Base Excess -2.6 L VBG Potassium 4.4 Sodium 135 135.0 Chloride 102 104.0 Glucose 80 Lactate 1.0 FiO2 21.0 Crit Value Called To Harini garza rn ed Crit Value Called By Deander Blood Gas Notified Time 32 Potassium 4.8 Carbon Dioxide 23 Anion Gap 15 BUN 52 H Creatinine 4.3 H Est GFR ( Amer) 17 Est GFR (Non-Af Amer) 14 POC Glucose (mg/dL) 86 Random Glucose 75 Calcium 9.2 Venous Blood Potassium 4.4 Attending/Attestation - Attestation I have personally seen and examined this patient.: Yes I have fully participated in the care of the patient.: Yes I have reviewed all pertinent clinical information: Yes Notes (Text): 12/27/18 01:54 Patient was seen when he was in cubicle # 11 in the ER. Agree with consult note.
[2018-12-27] MEDS: Sodium Chloride 0.45% 1,000 ML IV SCH ×3 (00:21→19:59)
[2018-12-27 00:32] LABS: VENOUS BLOOD GAS BASE EXCESS -2.6 mmol/L (0.0-2.0); VENOUS BLOOD GAS PO2 106 mm/Hg (30-55); VENOUS BLOOD PH 7.45 (7.32-7.43)
[2018-12-27] MEDS ORDERED: Piperacillin/Tazobact 2.25gm 2.25 GM/100 ML BAG IVPB SCH ×3 (06:00→10:30)
[2018-12-27] MEDS: Insulin Lispro (humaLOG) MEDIUM Coverage SC SCH ×4 (08:07→21:52)
--- NOTE | 2018-12-27 08:18 | HP ---
DATE OF EXAM: 12/26/2018 HISTORY OF PRESENT ILLNESS: The patient is a 58-year-old, known to me from multiple previous admissions, was recently admitted with left foot wound, right foot ulcer and right foot cellulitis. The patient was treated with IV antibiotics and local wound care, had some temporary . He is being followed by Dr. Cason for wound care. He was seen by Dr. Cason today, the wound did not look good, also he was advised to come to emergency room for further evaluation. While he was in the ER, he started to have spike fever with shivering and was tachycardic, so he is being admitted. PAST MEDICAL HISTORY: Significant for; 1. Hypertension. 2. Noninsulin-dependent diabetes. 3. Ischemic cardiomyopathy. 4. History of Charcot foot. 5. Hyperlipidemia. 6. Renal insufficiency. ALLERGIES: HE IS NOT ALLERGIC TO ANY MEDICATIONS. HOME MEDICATIONS: He is on amlodipine 10 mg daily, glipizide 5 mg twice a day, PhosLo 667 mg three times a day, he recently finished course of Augmentin. 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 Denies smoking, drinking or alcohol use. PHYSICAL EXAMINATION GENERAL: He is awake and alert, looks pale and sweaty. VITAL SIGNS: He spiked fever of 101.9, pulse 118, respirations 20, blood pressure 147/73. LUNGS: Bilateral fair airflow. No rhonchi or crackles. HEART: S1 and S2 audible. ABDOMEN: Soft, obese, nontender. No rebound. No guarding. NEUROLOGICAL: He is awake and alert, able to communicate. LABORATORY DATA: WBC is 15.8, hemoglobin 9.9, hematocrit 30.9, platelet count 293. PT 16.1, INR 1.45. Chemistry; sodium 135, potassium 4.8, chloride 102, CO2 of 23, BUN 52, creatinine 4.3, blood sugar of 56. ASSESSMENT: 1. Right foot cellulitis, rule out abscess. 2. Renal insufficiency. 3. Ischemic cardiomyopathy. 4. Chronic anemia. 5. Hypertension. 6. Hyperlipidemia. PLAN: The patient will be presented to ICU. Blood culture, urine culture and wound cultures are done. Start IV antibiotics. A Renal consult with Dr. Lopez. Dr. Cason to follow up his right foot wound. Dr. Reyna for ID. We will follow up the patient in a.m. Roberta Aden MD
--- NOTE | 2018-12-27 08:49 | RAD ---
Date of service: 12/26/2018 PROCEDURE: Right Foot Radiographs. HISTORY: infected foot ulcer COMPARISON: 11/15/2018 TECHNIQUE: 3 views obtained. FINDINGS: BONES: No evidence of osteomyelitis JOINTS: Normal. SOFT TISSUES: Ulcer lateral side of foot. OTHER FINDINGS: None. IMPRESSION: No evidence of osteomyelitis
--- NOTE | 2018-12-27 10:40 | CARD ---
APPROVED REPORT Date of service: 12/26/2018 EKG Measurement Heart [id number] <Conclusion> Normal sinus rhythm Possible Left atrial enlargement Left ventricular hypertrophy Abnormal ECG
[2018-12-27] MEDS: Cefepime 1gm in NS 100ml 1 GM/100 ML BAG IVPB SCH (10:52)
--- NOTE | 2018-12-27 11:00 | CP.PCM.CON ---
<Jose GuadalupePrabhakar olivo - Last Filed: 12/27/18 10:49> History of Present Illness - History of Present Illness History of Present Illness: Podiatry consult note for Dr. Cason: 58 year old male patient with PMH of HTN, DM, dyslipidemia, obesity, Neuropathy and Charcot foot seen and evaluated in the bedside with Dr. Cason for right foot ulcer. Patient is well known to Dr. Cason and used to follow up with her for his charcot foot. Patient was admitted to the hospital about 1.5 months ago for right foot blistering and ulceration. Patient states that he was put in a total contact cast in the last 3 weeks by Yoav Durbin. Patient was on Levaquin abx for his right foot ulcer. He states that 2 days ago he started to feel feverish, body aches and had chills. Patient states that he came yesterday to the ED where he got admitted. Patient denies any pain in his right foot as he is neuropathic. He denies any trauma to his right foot. Patient denies any recent N/V/CP or SOB. He denies any other pedal complaint at this time. PMH: HTN, DM, dyslipidemia, obesity, Neuropathy and Charcot foot. PSH: Cholecystectomy. Allergies: NKDA. Social Hx: Denies smoking, EtOH use or illicit drug use. Review of Systems - Review of Systems Review of Systems: As per HPI - Constitutional Constitutional: As Per HPI Past Patient History - Infectious Disease Hx of Infectious Diseases: None - Tetanus Immunizations Tetanus Immunization: Unknown - Past Social History Smoking Status: Never Smoked - CARDIAC Hx Cardiac Disorders: Yes Hx Congestive Heart Failure: Yes Hx Hypercholesterolemia: Yes Hx Hypertension: Yes Hx Peripheral Edema: Yes - PULMONARY Hx Respiratory Disorders: No - NEUROLOGICAL Hx Neurological Disorder: No - HEENT Hx HEENT Problems: No - RENAL Hx Chronic Kidney Disease: Yes - ENDOCRINE/METABOLIC Hx Diabetes Mellitus Type 2: Yes - HEMATOLOGICAL/ONCOLOGICAL Hx Anemia: Yes - INTEGUMENTARY Other/Comment: Right foot diabetic ulcer. - MUSCULOSKELETAL/RHEUMATOLOGICAL Hx Falls: Yes - GASTROINTESTINAL Hx Gall Bladder Disease: Yes - GENITOURINARY/GYNECOLOGICAL Hx Genitourinary Disorders: Yes - PSYCHIATRIC Hx Substance Use: No - SURGICAL HISTORY Hx Surgeries: Yes Hx Cardiac Catheterization: Yes Hx Cholecystectomy: Yes - ANESTHESIA Hx Anesthesia: Yes Hx Anesthesia Reactions: No Hx Malignant Hyperthermia: No Meds Allergies/Adverse Reactions: Allergies Allergy/AdvReac Type Severity Reaction Status Date / Time No Known Allergies Allergy Verified 11/15/18 16:52 - Medications Medications: Current Medications Acetaminophen (Tylenol 325mg Tab) 650 mg PO Q6H PRN PRN Reason: Fever >100.4 F Amlodipine Besylate (Norvasc) 10 mg PO DAILY [facility] Calcium Acetate (Phoslo) 667 mg PO WM [facility] Last Admin: 12/27/18 08:17 Dose: 667 mg Sodium Chloride (Sodium Chloride 0.45%) 1,000 mls @ 100 mls/hr IV .Q10H JOSÉ MIGUEL Last Admin: 12/27/18 00:21 Dose: 100 mls/hr Cefepime HCl (Maxipime 1gm) 1 gm in 100 mls @ 100 mls/hr IVPB Q24H [facility]; Protocol Stop: 01/24/19 10:46 Insulin Human Lispro (Humalog Med) 0 units SC ACHS [facility]; Protocol Last Admin: 12/27/18 08:07 Dose: Not Given Linezolid (Zyvox) 600 mg PO BID [facility]; Protocol Stop: 01/24/19 10:39 Physical Exam - Constitutional Appears: Well, No Acute Distress - Head Exam Head Exam: ATRAUMATIC, NORMOCEPHALIC - Extremities Exam Additional comments: B/L lower extremity focused exam: Vascular: DP/PT 2/4 b/l, Cap refill < 3 seconds, Temp gradient warm to warm from proximal to distal, Moderate non pitting edema noted to the right foot on the lateral side. Neuro: Gross and protective sensation are diminished b/l. Derm: an open ulceration noted on the lateral side of the right foot measuring 6cm X 5cm X 0.4cm. Positive purulence, Positive tracking, Positive undermining, No probe to bone and no malodor. Mild periwound erythema noted. No inter-digital macerations. Left Charcot foot. MSK: Muscle power 5/5 to all groups, No pain on palpating the blister sites. Left Charcot foot. Right foot deviated to the medial side. - Neurological Exam Neurological exam: Alert, Oriented x3 - Psychiatric Exam Psychiatric exam: Normal Affect, Normal Mood Results - Vital Signs Recent Vital Signs: Last Vital Signs Temp 98.7 F 12/27/18 06:00 Pulse 76 12/27/18 06:00 Resp 19 12/27/18 06:00 BP 142/75 12/27/18 06:00 Pulse Ox 95 12/27/18 06:00 - Labs Result Diagrams: 12/26/18 20:19 12/26/18 20:19 Labs: Laboratory Results - last 24 hr 12/26/18 12/26/18 12/26/18 20:18 20:19 20:19 WBC 15.8 H D RBC 3.59 Hgb 9.9 L Hct 30.9 L MCV 86.1 MCH 27.6 MCHC 32.0 RDW 14.0 Plt Count 293 MPV 8.9 Neut % (Auto) 81.0 H Lymph % (Auto) 7.1 L [place] % (Auto) 11.3 H Eos % (Auto) 0.5 L Baso % (Auto) 0.1 Lymph # (Auto) 1.1 L [place] # (Auto) 1.8 H Eos # (Auto) 0.1 Baso # (Auto) 0.02 Absolute Neuts (auto) 12.77 H PT 16.1 H INR 1.45 APTT 33.9 pO2 32 VBG pH 7.36 VBG pCO2 41.0 VBG HCO3 23.2 VBG Total CO2 24.5 VBG O2 Sat (Calc) 60.9 VBG Base Excess -2.2 L VBG Potassium 5.0 Sodium 134.0 Chloride 102.0 Glucose 73 L Lactate 0.8 FiO2 21.0 Crit Value Called To Crit Value Called By Blood Gas Notified Time Potassium Carbon Dioxide Anion Gap BUN Creatinine Est GFR ( Amer) Est GFR (Non-Af Amer) POC Glucose (mg/dL) Random Glucose Calcium Venous Blood Potassium 5.0 12/26/18 12/26/18 12/27/18 20:19 21:46 00:16 WBC RBC Hgb Hct MCV MCH MCHC RDW Plt Count MPV Neut % (Auto) Lymph % (Auto) [place] % (Auto) Eos % (Auto) Baso % (Auto) Lymph # (Auto) [place] # (Auto) Eos # (Auto) Baso # (Auto) Absolute Neuts (auto) PT INR APTT pO2 106 H VBG pH 7.45 H VBG pCO2 29.0 L VBG HCO3 20.2 L VBG Total CO2 21.1 L VBG O2 Sat (Calc) 99.1 H VBG Base Excess -2.6 L VBG Potassium 4.4 Sodium 135 135.0 Chloride 102 104.0 Glucose 80 Lactate 1.0 FiO2 21.0 Crit Value 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 Crit Value Called By Jsm Blood Gas Notified Time 32 Potassium 4.8 Carbon Dioxide 23 Anion Gap 15 BUN 52 H Creatinine 4.3 H Est GFR ( Amer) 17 Est GFR (Non-Af Amer) 14 POC Glucose (mg/dL) 86 Random Glucose 75 Calcium 9.2 Venous Blood Potassium 4.4 12/27/18 07:39 WBC RBC Hgb Hct MCV MCH MCHC RDW Plt Count MPV Neut % (Auto) Lymph % (Auto) [place] % (Auto) Eos % (Auto) Baso % (Auto) Lymph # (Auto) [place] # (Auto) Eos # (Auto) Baso # (Auto) Absolute Neuts (auto) PT INR APTT pO2 VBG pH VBG pCO2 VBG HCO3 VBG Total CO2 VBG O2 Sat (Calc) VBG Base Excess VBG Potassium Sodium Chloride Glucose Lactate FiO2 Crit Value Called To Crit Value Called By Blood Gas Notified Time Potassium Carbon Dioxide Anion Gap BUN Creatinine Est GFR ( Amer) Est GFR (Non-Af Amer) POC Glucose (mg/dL) 80 Random Glucose Calcium Venous Blood Potassium Assessment & Plan - Assessment and Plan (Free Text) Assessment: 58 year old male patient with PMH of HTN, DM, dyslipidemia, obesity, Neuropathy and Charcot foot seen and evaluated in the bedside for right foot infected ulce ration. Plan: Patient seen and evaluated with Dr. Csaon Discussed in detail with Dr. Cason Charts and vitals reviewed; Afebrile, WBCs 15.4 Right foot 3 views X-ray: Right 5th met is breaking medially Ordered R foot MRI Ordered ESR/CRP Wound Cultures collected and sent to the lab. Wound cleaned with saline and dressed with xeroform and DSD to the R foot. Ordered surgical shoe. Patient to ambulate in a surgical shoe. Patient to continue IV Abx. Patient to be admitted for observation. Thank you for the consult. Podiatry will follow up the patient while in house. - Date & Time Date: 12/27/18 Time: 11:01 <Claudia Cason - Last Filed: 01/07/19 20:43> Meds - Medications Medications: Current Medications Acetaminophen (Tylenol 325mg Tab) 650 mg PO Q6H PRN PRN Reason: Fever >100.4 F Amlodipine Besylate (Norvasc) 10 mg PO DAILY [facility] Last Admin: 01/07/19 10:21 Dose: 10 mg Calcium Acetate (Phoslo) 667 mg PO WM [facility] Last Admin: 01/07/19 18:07 Dose: 667 mg Carvedilol (Coreg) 3.125 mg PO BID [facility] Last Admin: 01/07/19 17:56 Dose: 3.125 mg Clonidine HCl (Catapres) 0.1 mg PO TID [facility] Last Admin: 01/07/19 17:56 Dose: 0.1 mg Hydralazine HCl (Apresoline) 50 mg PO TID [facility] Last Admin: 01/07/19 17:56 Dose: 50 mg Cefepime HCl (Maxipime 1gm) 1 gm in 100 mls @ 100 mls/hr IVPB Q24H [facility]; Protocol Stop: 01/29/19 10:16 Last Admin: 01/07/19 10:20 Dose: 100 mls/hr Insulin Human Lispro (Humalog Med) 0 units SC ACHS [facility]; Protocol Last Admin: 01/07/19 17:55 Dose: 1 u Linezolid (Zyvox) 600 mg PO BID [facility]; Protocol Stop: 01/24/19 10:39 Last Admin: 01/07/19 17:56 Dose: 600 mg Polysaccharide Iron Complex (Ferrex-150) 150 mg PO DAILY [facility] Last Admin: 12/31/18 09:36 Dose: 150 mg Results - Vital Signs Recent Vital Signs: Last Vital Signs Temp 97.7 F 01/07/19 08:51 Pulse 66 01/07/19 17:56 Resp 18 01/07/19 08:51 BP 154/74 H 01/07/19 17:56 Pulse Ox 96 01/07/19 08:51 - Labs Result Diagrams: 01/03/19 06:20 01/03/19 06:20 Labs: Laboratory Results - last 24 hr 01/06/19 01/07/19 01/07/19 21:34 07:54 11:07 POC Glucose (mg/dL) 183 H 151 H 210 H 01/07/19 16:34 POC Glucose (mg/dL) 167 H Attending/Attestation - Attestation I have personally seen and examined this patient.: Yes I have fully participated in the care of the patient.: Yes I have reviewed all pertinent clinical information: Yes
[2018-12-27 16:17] LABS: IRON 20 ug/dL (45-180)
[2018-12-27 16:26] LABS: % IRON SATURATION 13 % (20-55); TOTAL IRON BINDING CAPACITY 146 ug/dL (261-462)
[2018-12-27] MEDS: Iron Complex Polysacch 150mg Cap PO SCH (17:53)
--- NOTE | 2018-12-27 21:29 | CON ---
DATE OF CONSULTATION: 12/27/2018 The patient is seen earlier today in room 271, bed 1. CHIEF COMPLAINT: Foot infection times several days. HISTORY OF PRESENT ILLNESS: This is a 58-year-old male with a history of diabetes mellitus, kidney disease, who has had recent hospitalization for foot infection of diabetic foot, now returns with diabetic foot infection. The patient has Charcot's foot, and he has a history of pseudomembranous colitis, history of morbid obesity with a BMI of 41, history of congestive heart failure, hypertension, dyslipidemia, group C strep, and right foot infection. The patient is admitted with foot infection at this point, had grown multiple organisms including MRSA and Serratia as outpatient. Review of systems reveals no fevers, no chills, no nausea, no vomiting, and no chest pain. REVIEW OF SYSTEMS: Twelve point review of systems performed. PAST MEDICAL HISTORY: Significant for diabetes, hypertension, dyslipidemia, Charcot's foot, morbid obesity, BMI of 41, congestive heart failure. PAST SURGICAL HISTORY: Significant for incision and drainage of the foot and cholecystectomy. MEDICATIONS: The patient's medications at home reveals the patient to be on amlodipine, PhosLo, Catapres, glipizide. PHYSICAL EXAMINATION: GENERAL: The patient is sitting in bed, in no acute distress. VITAL SIGNS: Temperature of 98, T-max was 101.9, heart rate of 118, respiratory rate of 20, blood pressure is 116/70. HEENT: Examination of HEENT is unremarkable. NECK: Supple. LUNGS: Have decreased breath sounds, HEART: Normal S1, S2. ABDOMEN: Soft, nontender. EXTREMITIES: Examination of foot, as described by Podiatry, the patient was examined. The patient has infected foot, erythema, and discharge. LABORATORY DATA: Laboratory examination reveals a white count of 15,800, hemoglobin of 9, and platelets are noted. Chemistries reveal a creatinine of 4.3. Microbiology reveals the patient had group C strep from 11/16/2018, heavy group. The patient also had MRSA and Serratia as outpatient and sensitivity of this is not clear. The patient had an x-ray of the foot here, which showed no evidence of osteomyelitis. Dr. Aden's note is reviewed. ASSESSMENT AND PLAN: A 58-year-old male with diabetes mellitus, hypertension, hyperlipidemia, pseudomembranous colitis, history of group C strep, right foot infection, history of morbid obesity with a body mass index of 41, congestive heart failure, dyslipidemia, Charcot's foot, now presenting with a fever, tachycardia, leukocytosis with sepsis with a right foot cellulitis, and osteomyelitis as per Dr. Cason. Dr. Cason and I had a long discussion. She feels this is an osteomyelitis based on the clinical findings and recommends treatment for osteo, and we will start the patient on Zyvox and Maxipime. Because of the patient's history of congestive heart failure, not use Zosyn due to a high sodium load. We will order a sed rate, C-reactive protein. We will need 4 to 6 weeks of antibiotics. We will try to obtain the culture results as an outpatient, recommend a CBC, SMA-18, sed rate, C-reactive protein once weekly, and we will follow with you. Sergio Reyna MD
--- NOTE | 2018-12-28 01:15 | CON ---
DATE: 12/27/2018 The patient admitted for Dr. Aden. REFERRING MD: Dr. Aden. REASON FOR CONSULTATION: Evaluation of the patient known to us from previous evaluations, history of chronic kidney disease with an elevated BUN and creatinine above his baseline levels in the setting of cellulitis of his right lower extremity. 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 The patient was seen by us several times during the early part of this year. He was admitted for IV antibiotics for abscess and cellulitis of his right foot. No evidence for osteomyelitis. The patient's BUN and creatinine have always fallen back to normal with close monitoring and caution to avoid any nephrotoxic agents. The patient has history of progressive diabetic nephropathy, history of Charcot disease of the foot, history of ischemic cardiomyopathy, NIDDM, hyperlipidemia, and anemia. We are asked to evaluate the patient for a BUN and creatinine which are elevated above his baseline levels. His BUN was 52 with a creatinine of 4.3, again his baseline BUN is in the low 30 range with a baseline creatinine in the upper 2 to the lower 3 range. PAST MEDICAL HISTORY: Significant for chronic kidney disease stage III with a history of progressive diabetic nephropathy, hypertension, NIDDM, history of ischemic cardiomyopathy, history of diabetic neuropathy with Charcot disease of the foot, hyperlipidemia, and anemia, likely secondary to chronic kidney disease. MEDICATIONS AT HOME: Include that of Norvasc, PhosLo, Catapres, and Glucotrol. ALLERGIES: NO KNOWN ALLERGIES TO MEDICATIONS. CURRENT MEDICATIONS IN HOSPITAL: Include that of sliding scale insulin, Maxipime, Norvasc, PhosLo, half normal saline 100 mL an hour, Tylenol, and Zyvox. SOCIAL HISTORY: No history of cigarette smoking. No history of alcohol use. No history of substance abuse. 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 FAMILY HISTORY: Positive for diabetes and hypertension. REVIEW OF SYSTEMS: Ten plus systems reviewed with the patient. All negative except for what is noted above. GENERAL: The patient says his appetite and weight have been stable. ENT: He denies any hearing or visual problems. PULMONARY: No shortness of breath. No asthma, bronchitis, emphysema, or recent pneumonias. CARDIAC: History of ASHD, stable. No history of chest pain or palpitations. GI: No nausea, vomiting, diarrhea, constipation, or abdominal pain. : History of chronic kidney disease. No history of urinary tract infections. ENDOCRINE: History of diabetes with micro and macrovascular disease. MUSCULOSKELETAL: No complaints. NEURO: History of peripheral neuropathy secondary to diabetes with Charcot foot disease. HEME/ONC: History of anemia secondary to chronic kidney disease. No history of malignancy. PSYCHIATRIC: Negative. PHYSICAL EXAMINATION: GENERAL: The patient is currently seen on 2R, he is lying in bed, the leg is elevated. He appears to be comfortable. VITAL SIGNS: Blood pressure is currently 146/80, temperature 98.1, respiratory rate of 19 with a pulse of 76, pulse ox of 95%. HEENT: Shows him to be normocephalic, atraumatic. Conjunctiva are pale. Sclerae are nonicteric. Pupils equal, reactive to light and accommodation. Extraocular muscles are intact. Posterior pharynx is normal. NECK: Supple. No neck vein distention, no thyromegaly, no lymphadenopathy, no bruits. CHEST: Clear to auscultation and percussion. No rales, rhonchi, or wheezing. CARDIOVASCULAR: Shows a regular rate and rhythm with distant heart sounds. No audible murmurs, rubs, or gallops. ABDOMEN: Obese. Soft. Nondistended. Bowel sounds normal. No rebound, guarding, or masses. EXTREMITIES: Show dressing over his right foot. No odor appreciated. No drainage seen through the dressing. No erythema extending proximal to the dressing. Diminished lower extremity pulses bilaterally. No cyanosis, clubbing, and no pitting edema. NEURO: Shows him to be alert and oriented with no gross focal motor or sensory deficits noted. LABORATORY DATA AND IMAGING: Renal ultrasound done in 10/2018 was unremarkable. No evidence for osteomyelitis on a right foot x-ray that was done on the day of admission. Labs: CBC, white blood cell count up to 15.8, hemoglobin 9.9, stable. Platelet count is 293,000. Coags, PT of 16.1 with a PTT of 33.9. Blood gas showed a pH of 7.45 with a pO2 of 106 and a pCO2 of 21.1. Chemistries show normal electrolytes. BUN 52 with a creatinine of 4.3. Again, his baseline BUN is in the upper 20 to low 30 range with a baseline creatinine in the upper 2 to lower 3 range. Glucose was 75. Calcium was 9.2. Previous phosphorus levels were mildly elevated. Previous iron saturations were low. Urine was not collected during present admission. He did a 24-hour urine approximately one month ago which showed 6328 mg of protein in the urine and creatinine clearance of 43 mL per minute. Serology workup that was done was unremarkable and negative. Microbiology, Gram stain was done from the present wound. From the right foot, back in October, he had group C streptococcus. Remainder of cultures are pending. ASSESSMENT: Acute renal failure superimposed on chronic kidney disease stage III. This is in the setting of a right foot diabetic wound infection with cellulitis. No evidence for osteomyelitis. Again, caution needs to be taken to avoid using any nephrotoxic agents, especially antibiotics. No dye studies. The patient will continue off the use of angiotensin receptor paige therapy or BOBBY inhibition therapy. With IV fluid hydration and appropriate treatment of his infection, his BUN and creatinine should drop to baseline levels. His baseline BUN is 25 to 30 with the baseline creatinine in the upper 2 to lower 3 range. The patient will be followed by Vascular if necessary and by Podiatry. He follows with Dr. Cason. History of diabetes mellitus with chronic kidney disease stage III. The patient has nephrotic range proteinuria with 6.3 g of protein in the urine and a creatinine clearance of 43 mL per minute. Serologies that were done during the previous admission were negative for anything, but diabetes. History of hypertension. Blood pressure is controlled on calcium channel paige therapy. No plans for BOBBY inhibition or for angiotensin receptor paige therapy. History of right foot ulcer with past abscess, status post incision and drainage in the past. No history of osteomyelitis. The patient is currently admitted with cellulitis of the right lower extremity in proximity to the wound. The patient will be followed locally and carefully by Podiatry during the hospitalization, will continue on antibiotic therapy. The patient will be seen by Infectious Disease. History of secondary hyperparathyroidism. Repeat phosphorus level. The patient is a candidate to restart binder therapy and to remain on a renal diet. History of anemia. The patient should continue on Aranesp and we will repeat his iron levels today. He did receive Venofer during his previous admission to the hospital. PLAN: 1. Discussed with the patient in detail. Plan is to try and improve his BUN and creatinine back to baseline levels. We will avoid all nephrotoxic agents as noted above. 2. Monitor labs on an almost daily basis. 3. Continue IV fluid hydration until BUN and creatinine drop to baseline range. 4. Avoid all nephrotoxic agents. 5. Aranesp and iron as necessary. 6. Renal diet and binder therapy as indicated above. 7. Close followup with Infectious Disease and Podiatry. Thank you for letting me partake and share in the care of your patient. Yohan Mccarthy MD
[2018-12-28] MEDS: Sodium Chloride 0.45% 1,000 ML IV SCH ×2 (03:54→05:31)
[2018-12-28 07:34] LABS: BASO # 0.05 K/mm3 (0.0-2.0); BASO % 0.4 % (0.0-3.0); EOS # 0.4 (0.0-0.7); EOS % 3.3 % (1.5-5.0); HEMOGLOBIN 8.6 g/dL (14.0-18.0); LYMPH # 2.5 (1.2-3.4); MEAN CELL VOLUME 86.2 fl (80.0-105.0); MEAN CORPUSCULAR HGB CONC 31.4 g/dl (31.0-37.0); MEAN PLATELET VOLUME 8.8 fl (7.0-11.0); MONO # 1.1 (0.1-0.6); MONO % 9.4 % (1.0-6.0); RBC 3.18 10^6/uL (3.5-6.1); RED CELL DISTRIBUTION WIDTH 14.2 % (11.5-14.5); WHITE BLOOD COUNT 11.8 10^3/uL (4.5-11.0)
[2018-12-28 07:49] LABS: ALB/GLOB RATIO 0.8 (1.1-1.8); ALBUMIN 3.3 g/dL (3.0-4.8); CALCIUM 8.4 mg/dL (8.4-10.5)
--- NOTE | 2018-12-28 08:25 | PN ---
DATE: 12/27/2018 SUBJECTIVE: The patient is 58-year-old, seen and examined, looks like better than last night. No fever or chills. No nausea or vomiting. Eating and tolerating. PHYSICAL EXAMINATION: VITAL SIGNS: He is afebrile, pulse 76, respiration 19, and blood pressure 144/70. LUNGS: Bilateral fair airflow. No rhonchi or crackle. HEART: S1 and S2 audible. ABDOMEN: Soft and nontender. No rebound. No guarding. NEUROLOGIC: The patient is awake and alert; able to communicate. LABORATORY DATA: No new labs available today. ASSESSMENT: 1. Sepsis, leukocytosis, and fever. Source is right foot cellulitis. 2. Acute on chronic renal failure. 3. Ischemic cardiomyopathy. 4. Morbid obesity. 5. Charcot disease. 6. Hypertension. 7. Hyperlipidemia. 8. [id number] diabetes. PLAN: The patient will be sent for MRI. We will get PICC line. We will monitor his blood sugar and according to the coverage and continue him on IV fluid for another 24 hours. Follow up with CBC and CMP in a.m. ID input noted and appreciated. He is currently on cefepime and Linzess. Awaiting ID input. We will follow up with this patient. Roberta Aden MD
[2018-12-28] MEDS: Insulin Lispro (humaLOG) MEDIUM Coverage SC SCH ×4 (09:23→22:23)
[2018-12-28] MEDS: Iron Complex Polysacch 150mg Cap PO SCH (09:25)
[2018-12-28] MEDS: Cefepime 1gm in NS 100ml 1 GM/100 ML BAG IVPB SCH ×2 (09:30→11:04)
[2018-12-28] MEDS ORDERED: Darbepoetin Alfa 100 mcg/ml Inj SC ONE (10:00)
--- NOTE | 2018-12-28 10:46 | CP.PCM.PN ---
<Prabhakar Shi - Last Filed: 12/28/18 10:35> Subjective - Date & Time of Evaluation Date of Evaluation: 12/28/18 Time of Evaluation: 10:35 - Subjective Subjective: Podiatry progress note for Dr. Ceballos: 58 year old male patient seen and evaluated in the bedside for right foot ulcer. Patient states that he didn't have any pain to his right foot ulcer site since yesterday. He denies any overnight acute events. Patient denies any overnight F/C/N/V/CP or SOB. He denies any other pedal complaint at this time. Objective - Vital Signs/Intake and Output Vital Signs (last 24 hours): Temp Pulse Resp BP Pulse Ox 98.9 F 82 18 146/69 96 12/28/18 06:00 12/28/18 06:00 12/28/18 06:00 12/28/18 09:25 12/28/18 06:00 Intake and Output: 12/28/18 12/28/18 06:59 18:59 Intake Total 3480 Output Total 2200 Balance 1280 - Medications Medications: Current Medications Acetaminophen (Tylenol 325mg Tab) 650 mg PO Q6H PRN PRN Reason: Fever >100.4 F Amlodipine Besylate (Norvasc) 10 mg PO DAILY [facility] Last Admin: 12/28/18 09:25 Dose: 10 mg Calcium Acetate (Phoslo) 667 mg PO WM [facility] Last Admin: 12/28/18 09:10 Dose: 667 mg Sodium Chloride (Sodium Chloride 0.45%) 1,000 mls @ 100 mls/hr IV .Q10H [facility] Last Admin: 12/28/18 05:31 Dose: Not Given Cefepime HCl (Maxipime 1gm) 1 gm in 100 mls @ 100 mls/hr IVPB Q24H [facility]; Protocol Stop: 01/24/19 10:46 Last Admin: 12/28/18 09:30 Dose: 100 mls/hr Insulin Human Lispro (Humalog Med) 0 units SC ACHS [facility]; Protocol Last Admin: 12/28/18 09:23 Dose: 1 u Linezolid (Zyvox) 600 mg PO BID [facility]; Protocol Stop: 01/24/19 10:39 Last Admin: 12/28/18 09:23 Dose: 600 mg Polysaccharide Iron Complex (Ferrex-150) 150 mg PO DAILY [facility] Last Admin: 12/28/18 09:25 Dose: 150 mg - Labs Labs: 12/28/18 07:00 12/28/18 07:10 PT 16.1 SECONDS (9.4-12.5) H 12/26/18 20:19 INR 1.45 12/26/18 20:19 APTT 33.9 Seconds (26.9-38.3) 12/26/18 20:19 - Constitutional Appears: Well, Non-toxic, No Acute Distress - Head Exam Head Exam: ATRAUMATIC, NORMOCEPHALIC - Extremities Exam Additional comments: B/L lower extremity focused exam: Vascular: DP/PT 2/4 b/l, Cap refill < 3 seconds, Temp gradient warm to warm from proximal to distal, Moderate non pitting edema noted to the right foot on the lateral side. Neuro: Gross and protective sensation are diminished b/l. Derm: an open ulceration noted on the lateral side of the right foot measuring 6cm X 5cm X 0.4cm. Positive purulence, Positive tracking, Positive undermining, No probe to bone and no malodor. Mild periwound erythema noted. No inter-digital macerations. Left Charcot foot. MSK: Muscle power 5/5 to all groups, No pain on palpating the blister sites. Left Charcot foot. Right foot deviated to the medial side. - Neurological Exam Neurological Exam: Alert, Awake, Oriented x3 - Psychiatric Exam Psychiatric exam: Normal Affect, Normal Mood Assessment and Plan - Assessment and Plan (Free Text) Assessment: 58 year old male patient seen and evaluated in the bedside for right foot ulcer. Plan: Patient seen and evaluated Discussed in detail with Dr. Ceballos Charts and vitals reviewed; Afebrile, WBCs 11.4 Right foot 3 views X-ray: Right 5th met is breaking medially R foot MRI: Pending report. ESR 141, CRP 191.50 Wound Cultures: Gram positive Cocci. Wound cleaned with saline and dressed with xeroform and DSD to the R foot. Patient to continue ambulating in a surgical shoe. Patient to continue IV Abx. Patient to be admitted for observation. Podiatry will follow up the patient while in house. <Khalif Ceballos - Last Filed: 12/29/18 15:21> Objective - Vital Signs/Intake and Output Vital Signs (last 24 hours): Temp Pulse Resp BP Pulse Ox 98.6 F 77 20 153/81 H 95 12/29/18 08:40 12/29/18 08:40 12/29/18 08:40 12/29/18 09:10 12/29/18 08:40 Intake and Output: 12/29/18 12/29/18 06:59 18:59 Intake Total 1138 Output Total 1800 Balance -662 - Medications Medications: Current Medications Acetaminophen (Tylenol 325mg Tab) 650 mg PO Q6H PRN PRN Reason: Fever >100.4 F Amlodipine Besylate (Norvasc) 10 mg PO DAILY [facility] Last Admin: 12/29/18 09:10 Dose: 10 mg Calcium Acetate (Phoslo) 667 mg PO WM [facility] Last Admin: 12/29/18 12:00 Dose: 667 mg Cefepime HCl (Maxipime 1gm) 1 gm in 100 mls @ 100 mls/hr IVPB Q24H [facility]; Protocol Stop: 01/24/19 10:46 Last Admin: 12/29/18 10:49 Dose: 100 mls/hr Insulin Human Lispro (Humalog Med) 0 units SC ACHS [facility]; Protocol Last Admin: 12/29/18 08:19 Dose: Not Given Linezolid (Zyvox) 600 mg PO BID [facility]; Protocol Stop: 01/24/19 10:39 Last Admin: 12/29/18 09:11 Dose: 600 mg Polysaccharide Iron Complex (Ferrex-150) 150 mg PO DAILY [facility] Last Admin: 12/29/18 09:10 Dose: 150 mg - Labs Labs: 12/29/18 07:00 12/29/18 07:00 PT 16.1 SECONDS (9.4-12.5) H 12/26/18 20:19 INR 1.45 12/26/18 20:19 APTT 33.9 Seconds (26.9-38.3) 12/26/18 20:19 Attending/Attestation - Attestation I have personally seen and examined this patient.: Yes I have fully participated in the care of the patient.: Yes I have reviewed all pertinent clinical information, including history, physical exam and plan: Yes
--- NOTE | 2018-12-28 11:23 | PN ---
DATE: 12/28/2018 SUBJECTIVE: The patient is seen earlier today in room 271 bed 1. No fevers, no chills, no nausea. PHYSICAL EXAMINATION: VITAL SIGNS: Temperature is 98, blood pressure is 150/70, respiratory rate of 18. HEENT: Unremarkable. NECK: Supple. LUNGS: Have decreased breath sounds. HEART: Normal S1 and S2. ABDOMEN: Soft and nontender. LABORATORY DATA: Reveals a white count of 11,800. Sed rate is 141. Chemistries are noted and creatinine is 3.4. Microbiology, the foot culture is pending. Another foot culture is also pending. The blood cultures are negative. MEDICATIONS: Include p.o. Zyvox and IV cefepime. ASSESSMENT AND PLAN: This is a 58-year-old male with diabetes mellitus, hypertension, hyperlipidemia, and pseudomembranous colitis, history of group C strep right foot infection, now admitted the patient with history of Charcot's foot, chronic congestive heart failure, morbid obesity, BMI of 41, dyslipidemia, presenting with fever, tachycardia, leukocytosis. 1. Sepsis with a right foot cellulitis and osteomyelitis, awaiting for culture results, currently on Zyvox and Maxipime. We will follow with you. Sergio Reyna MD
--- NOTE | 2018-12-28 12:46 | MRI ---
Date of service: 12/28/2018 PROCEDURE: MRI of the right foot without contrast HISTORY: R foot ulcer. R/in or out OM. COMPARISON: 12/26/2018 TECHNIQUE: MRI of the right foot was performed in multiple planes using multiple pulse sequences. FINDINGS: There is an old fracture deformity of the 5th metatarsal. There is marrow edema in the proximal half of the 5th metatarsal. This could represent osteomyelitis. There is a large amount of soft tissue swelling adjacent to this site. There is subcutaneous edema over the dorsum of the foot IMPRESSION: Probable osteomyelitis proximal 5th metatarsal
--- NOTE | 2018-12-28 13:15 | PN ---
DATE: 12/28/2018 SUBJECTIVE: The patient is 58-year-old seen and examined. Lying in bed, seems to be comfortable. Right foot is in the dressing. No fever or chills. No nausea or vomiting. Eating and tolerating. PHYSICAL EXAMINATION: VITAL SIGNS: He is afebrile. Pulse 82, respiration 18 and blood pressure 146/69. LUNGS: Bilateral fair airflow. No rhonchi or crackle. HEART: S1 and S2, audible. ABDOMEN: Soft, obese and nontender. No rebound. No guarding. NEUROLOGIC: The patient is awake, alert and able to communicate. EXTREMITIES: Bilateral leg +1 edema right foot is in the dressing. LABORATORY DATA: WBC 11.8, hemoglobin 8.6, hematocrit 27.4 and platelet 260. Chemistry; sodium 138, potassium 4.4, chloride 105, CO2 of 22, BUN 44, creatinine 3.4 and blood sugar 160. He had MRI of the foot done, results are pending. ASSESSMENT: 1. Right foot cellulitis. 2. Non-insulin dependant diabetes. 3. Diabetic nephropathy. 4. Ischemic cardiomyopathy. 5. Anemia of chronic disease. PLAN: Currently, the patient is on cefepime. He received Aranesp. He is getting IV iron infusion. He is on Norvasc and PhosLo. He is on p.o. Zyvox. His platelets seem to be holding for now. Discontinue telemetry. I will request for Dr. Prasad Shrestha for PICC line. Once PICC line is in and MRI results is available, make disposition plan. The patient need 4-6 week of antibiotic depending on his wound. We will followup the patient in a.m. Roberta Aden MD
--- NOTE | 2018-12-28 15:05 | PN ---
DATE: 12/28/2018 SUBJECTIVE: The patient is currently seen comfortable lying supine in bed on 2R. He has just returned from an MRI of his foot which is positive for osteomyelitis of the proximal right fifth metatarsal bone. The patient states that he is looking into subacute facilities for a prolonged course of antibiotic therapy, anticipates having a PICC line placed later today. MEDICATIONS: Medication list reviewed. The patient is currently on oral iron, insulin, Maxipime, Norvasc, PhosLo, Tylenol and Zyvox. OBJECTIVE: INTAKE AND OUTPUT: Intake 4780 and output 2200. VITAL SIGNS: Blood pressure is 113/72, temperature 97.9, pulse is 83 with a respiratory rate of 18 and oxygen saturation is 96%. HEENT: Shows him to be normocephalic and atraumatic. Conjunctivae are pale. Sclerae are nonicteric. NECK: Supple. No neck vein distention. CHEST: Clear to auscultation and percussion. No rales, rhonchi or wheezing. CARDIOVASCULAR: Shows a regular rate and rhythm with distant heart sounds. No audible murmurs, rubs or gallops. ABDOMEN: Moderately obese. Bowel sounds normal. No rebound, guarding or masses. EXTREMITIES: Show dressing over his right foot. No drainage. No odor noted. Diminished lower extremity pulses with no pitting edema. LAB DATA AND IMAGING: Initial an x-ray of the right foot showed no evidence for osteomyelitis; however, a followup MRI study of the right foot is positive for osteomyelitis in all likelihood of the right proximal fifth metatarsal bone. CBC white blood cell count 11.8, hemoglobin 8.6 with a platelet count of 260,000. Chemistry showed normal electrolytes. BUN is improved at 44 down from 52. Creatinine is down from 4.3 to 3.4. His baseline BUN is in the upper 20 to lower 30 range and baseline creatinine in the upper 2 to 3 range. He is approaching baseline levels. Glucose 144. Calcium, phosphorus, magnesium are all acceptable. Albumin is low at 3.3, but stable. Microbiology, wound cultures are positive for Gram-positive cocci. In October, the patient had group C streptococcus. Final isolation and sensitivities are pending. ASSESSMENT: 1. Acute renal failure superimposed on chronic kidney disease stage III, this is in the setting of a right diabetic wound infection of the right foot with cellulitis and osteomyelitis. The patient remains on antibiotic therapy. Final cultures are pending. He will remain off angiotensin receptor paige therapy and BOBBY inhibition. Will continue IV fluid hydration until his BUN and creatinine return to baseline range. The patient is being followed by Podiatry. 2. Diabetic right foot ulcer abscess status post incision and drainage in the past, now with osteomyelitis of the proximal right fifth metatarsal bone. The patient will likely need a prolonged course of antibiotics 4 to 6 weeks. The patient states, he is looking into subacute facility for to receive the antibiotic therapy. A peripherally inserted central catheter line is planned for later today. 3. History of diabetes mellitus with diabetic nephropathy with chronic kidney disease stage III has a baseline. Previous 24 hour urine creatinine clearance was 43 mL per minute with 6.3 g of protein in the urine. Serologies were negative. It is felt that the patient has diabetic nephropathy. 4. History of secondary hyperparathyroidism. Phosphorus level remains normal. The patient continues on binder therapy and a renal diet. 5. History of anemia. The patient received Aranesp 100 mcg on 12/28/2018. He is on oral iron supplements. His iron saturations were low at 13%. The patient may be dosed with IV iron if his blood cultures remain in negative. I will write now continue him only on oral supplements. PLAN: 1. Antibiotic therapy pending final culture and sensitivity, being monitored by Infectious Disease. 2. May discontinue IV fluid hydration once BUN and creatinine fall to baseline range which is BUN in the low 30s and a creatinine in the upper 2 to 3 range. 3. Avoid all nephrotoxic agents in light of his presentation with an elevated BUN and creatinine. 4. Continue renal diet and binder therapy. 5. Continue local wound care with Podiatry. 6. Continue to monitor labs closely during hospitalization. 7. Agree with placement of a PICC line and a likely prolonged course of IV antibiotic therapy. Yohan Mccarthy MD
[2018-12-29 07:15] LABS: HEMOGLOBIN 8.7 g/dL (14.0-18.0); MEAN CELL VOLUME 86.1 fl (80.0-105.0); MEAN CORPUSCULAR HEMOGLOBIN 27.5 pg (25.0-35.0); MEAN PLATELET VOLUME 8.8 fl (7.0-11.0); RBC 3.16 10^6/uL (3.5-6.1); RED CELL DISTRIBUTION WIDTH 14.3 % (11.5-14.5); WHITE BLOOD COUNT 11.8 10^3/uL (4.5-11.0)
[2018-12-29 07:34] LABS: ALB/GLOB RATIO 0.8 (1.1-1.8); ALBUMIN 3.3 g/dL (3.0-4.8); CALCIUM 8.6 mg/dL (8.4-10.5)
[2018-12-29] MEDS: Insulin Lispro (humaLOG) MEDIUM Coverage SC SCH ×4 (08:19→21:40)
[2018-12-29] MEDS: Iron Complex Polysacch 150mg Cap PO SCH (09:10)
[2018-12-29] MEDS: Cefepime 1gm in NS 100ml 1 GM/100 ML BAG IVPB SCH (10:49)
--- NOTE | 2018-12-29 13:07 | PN ---
DATE: 12/29/2018 SUBJECTIVE: The patient is currently seen in isolation because of MRSA from the wound culture. He remains on antibiotic therapy. PICC line was not placed because of mild elevation of his white blood cell count. Discussion with Dr. Cason. There are no plans for any surgical procedure. We are trying to treat this medically. MEDICATIONS: Medication list reviewed. The patient is on oral iron, sliding scale insulin, Maxipime, Norvasc, PhosLo, Tylenol p.r.n. and Zyvox. OBJECTIVE: INTAKE AND OUTPUT: Intake is 1138, output is 1800. VITAL SIGNS: Blood pressure 153/81, temperature 98.6, respiratory rate 20 with a pulse of 77, pulse ox 95%. HEENT: Normocephalic, atraumatic. Conjunctivae are pale. Sclerae are nonicteric. NECK: Supple. No neck vein distention. CHEST: Clear to auscultation and percussion. No rales, rhonchi or wheezing. CARDIOVASCULAR: Shows a regular rate and rhythm with distant heart sounds. No audible murmurs, rubs or gallops noted. ABDOMEN: Obese. Bowel sounds normal. No rebound, guarding or masses. EXTREMITIES: Show dressing over his right foot. No drainage. No odor. Diminished lower extremity pulses with no pitting edema of his lower extremity bilaterally. LABORATORY DATA AND IMAGING STUDIES: CBC: White blood cell count remains mildly elevated at 11.8, hemoglobin stable from yesterday at 8.7, platelet count is 273,000. Chemistry showed normal electrolytes. BUN is down to 41 from a high of 52, creatinine is down to 3.1 from a high of 4.3. His baseline BUN is in the upper 20 to low 30 range. He is rapidly approaching that. His creatinine is almost at baseline range at 3.1. Microbiology, right foot cultures are positive for methicillin-resistant Staph aureus. ASSESSMENT: 1. Acute renal failure superimposed on chronic kidney disease stage 3, this is slowly resolving. This is in the setting of a right diabetic wound infection with right foot cellulitis and osteomyelitis. The patient will need a prolonged course of antibiotic therapy and will likely go to a subacute facility to receive the antibiotics. He will remain off BOBBY inhibition and angiotensin-receptor paige therapy in light of the fact that he has a tendency to elevate his BUN and creatinine. The patient is presently off intravenous fluid hydration. The patient is being followed closely by Podiatry and Infectious Disease. 2. Diabetic right foot ulcer with a past history of an abscess, status post incision and drainage. Presently, the patient has osteomyelitis of the proximal right fifth metatarsal bone. As noted above, he will need a 4-to 6-week course of antibiotic therapy. 3. History of diabetes mellitus with diabetic nephropathy and chronic kidney disease stage 3 as a baseline. Previous 24-hour urine creatinine clearance was 43 mL per minute with 6.3 g of protein in the urine. All serologies were negative. It is felt that the patient has diabetic nephropathy. 4. History of secondary hyperparathyroidism. The patient remains on a renal diet and on binder therapy. 5. History of anemia. The patient received Aranesp on 12/28/2018. Iron saturations were low at 13%. He is currently on oral iron supplements. Once we are certain that his blood cultures are negative, the patient may be treated with intravenous Venofer. PLAN: 1. Antibiotics to be adjusted by Infectious Disease. 2. Okay to keep the patient off of IV fluid hydration as long as he stays well hydrated orally. 3. Most avoid all nephrotoxic agents in light of the fact that he has advanced chronic kidney disease stage 3. 4. Continue renal diet and binder therapy. 5. Discussed case with Podiatry. 6. Discussed with RN on 3R. 7. Once the patient's white blood cell count falls into the normal range, we anticipate placement of a peripherally inserted central catheter line and eventual transfer to a subacute rehab facility for antibiotic therapy. Yohan Mccarthy MD
--- NOTE | 2018-12-29 13:16 | CP.PCM.PN ---
<Prabhakar Shi - Last Filed: 12/29/18 15:23> Subjective - Date & Time of Evaluation Date of Evaluation: 12/29/18 Time of Evaluation: 13:10 - Subjective Subjective: Podiatry progress note for Dr. Cason: 58 year old male patient seen and evaluated in the bedside for right foot ulcer. Patient states that he didn't have any pain to his right foot ulcer site since yesterday. He denies any overnight acute events. Patient denies any overnight F/C/N/V/CP or SOB. He denies any other pedal complaint at this time. Objective - Vital Signs/Intake and Output Vital Signs (last 24 hours): Temp Pulse Resp BP Pulse Ox 98.6 F 77 20 153/81 H 95 12/29/18 08:40 12/29/18 08:40 12/29/18 08:40 12/29/18 09:10 12/29/18 08:40 Intake and Output: 12/29/18 12/29/18 06:59 18:59 Intake Total 1138 Output Total 1800 Balance -662 - Medications Medications: Current Medications Acetaminophen (Tylenol 325mg Tab) 650 mg PO Q6H PRN PRN Reason: Fever >100.4 F Amlodipine Besylate (Norvasc) 10 mg PO DAILY [facility] Last Admin: 12/29/18 09:10 Dose: 10 mg Calcium Acetate (Phoslo) 667 mg PO WM [facility] Last Admin: 12/29/18 09:10 Dose: 667 mg Cefepime HCl (Maxipime 1gm) 1 gm in 100 mls @ 100 mls/hr IVPB Q24H [facility]; Protocol Stop: 01/24/19 10:46 Last Admin: 12/29/18 10:49 Dose: 100 mls/hr Insulin Human Lispro (Humalog Med) 0 units SC ACHS [facility]; Protocol Last Admin: 12/29/18 08:19 Dose: Not Given Linezolid (Zyvox) 600 mg PO BID [facility]; Protocol Stop: 01/24/19 10:39 Last Admin: 12/29/18 09:11 Dose: 600 mg Polysaccharide Iron Complex (Ferrex-150) 150 mg PO DAILY [facility] Last Admin: 12/29/18 09:10 Dose: 150 mg - Labs Labs: 12/29/18 07:00 12/29/18 07:00 PT 16.1 SECONDS (9.4-12.5) H 12/26/18 20:19 INR 1.45 12/26/18 20:19 APTT 33.9 Seconds (26.9-38.3) 12/26/18 20:19 - Constitutional Appears: Non-toxic, No Acute Distress - Head Exam Head Exam: ATRAUMATIC, NORMOCEPHALIC - Extremities Exam Additional comments: B/L lower extremity focused exam: Vascular: DP/PT 2/4 b/l, Cap refill < 3 seconds, Temp gradient warm to warm from proximal to distal, Moderate non pitting edema noted to the right foot on the lateral side. Neuro: Gross and protective sensation are diminished b/l. Derm: an open ulceration noted on the lateral side of the right foot measuring 6cm X 5cm X 0.4cm. Positive purulence, Positive tracking, Positive undermining, No probe to bone and no malodor. Mild periwound erythema noted. No inter-digital macerations. Left Charcot foot. MSK: Muscle power 5/5 to all groups, No pain on palpating the blister sites. Left Charcot foot. Right foot deviated to the medial side. - Neurological Exam Neurological Exam: Alert, Awake, Oriented x3 - Psychiatric Exam Psychiatric exam: Normal Affect, Normal Mood Assessment and Plan - Assessment and Plan (Free Text) Assessment: 58 year old male patient seen and evaluated in the bedside for right foot ulcer. Plan: Patient seen and evaluated Discussed in detail with Dr. Cason Charts and vitals reviewed; Afebrile, WBCs 11.4 Right foot 3 views X-ray: Right 5th met is breaking medially R foot MRI: Probable osteomyelitis proximal 5th metatarsal ESR 141, CRP 191.50 Wound Cultures: MRSA Wound VAC applied to the right foot ulcer then dressed with DSD. Posterior splint applied to the RLE. Keep the splint C/D/I. Patient to stay NWB to RLE. Patient to continue IV Abx. Patient to be admitted for observation. Podiatry will follow up the patient while in house. <Claudia Cason - Last Filed: 01/07/19 20:38> Objective - Vital Signs/Intake and Output Vital Signs (last 24 hours): Temp Pulse Resp BP Pulse Ox 97.7 F 66 18 154/74 H 96 01/07/19 08:51 01/07/19 17:56 01/07/19 08:51 01/07/19 17:56 01/07/19 08:51 Intake and Output: 01/07/19 01/08/19 18:59 06:59 Intake Total 100 Balance 100 - Medications Medications: Current Medications Acetaminophen (Tylenol 325mg Tab) 650 mg PO Q6H PRN PRN Reason: Fever >100.4 F Amlodipine Besylate (Norvasc) 10 mg PO DAILY [facility] Last Admin: 01/07/19 10:21 Dose: 10 mg Calcium Acetate (Phoslo) 667 mg PO WM [facility] Last Admin: 01/07/19 18:07 Dose: 667 mg Carvedilol (Coreg) 3.125 mg PO BID [facility] Last Admin: 01/07/19 17:56 Dose: 3.125 mg Clonidine HCl (Catapres) 0.1 mg PO TID [facility] Last Admin: 01/07/19 17:56 Dose: 0.1 mg Hydralazine HCl (Apresoline) 50 mg PO TID [facility] Last Admin: 01/07/19 17:56 Dose: 50 mg Cefepime HCl (Maxipime 1gm) 1 gm in 100 mls @ 100 mls/hr IVPB Q24H [facility]; Protocol Stop: 01/29/19 10:16 Last Admin: 01/07/19 10:20 Dose: 100 mls/hr Insulin Human Lispro (Humalog Med) 0 units SC ACHS [facility]; Protocol Last Admin: 01/07/19 17:55 Dose: 1 u Linezolid (Zyvox) 600 mg PO BID [facility]; Protocol Stop: 01/24/19 10:39 Last Admin: 01/07/19 17:56 Dose: 600 mg Polysaccharide Iron Complex (Ferrex-150) 150 mg PO DAILY [facility] Last Admin: 12/31/18 09:36 Dose: 150 mg - Labs Labs: 01/03/19 06:20 01/03/19 06:20 PT 16.1 SECONDS (9.4-12.5) H 12/26/18 20:19 INR 1.45 12/26/18 20:19 APTT 33.9 Seconds (26.9-38.3) 12/26/18 20:19 Attending/Attestation - Attestation I have personally seen and examined this patient.: Yes I have fully participated in the care of the patient.: Yes I have reviewed all pertinent clinical information, including history, physical exam and plan: Yes
--- NOTE | 2018-12-29 17:53 | PN ---
DATE: 12/29/2018 SUBJECTIVE: The patient is 58 years old, seen and examined, lying in bed, seems to be comfortable. No nausea or vomiting. No diarrhea. PHYSICAL EXAMINATION VITAL SIGNS: He is afebrile, pulse 77, respirations 20, and blood pressure 153/81. LUNGS: Bilateral fair airflow. No rhonchi or crackles. HEART: S1 and S2 audible. ABDOMEN: Soft, obese, nontender. No rebound. No guarding. NEUROLOGIC: He is awake and alert; able to communicate. EXTREMITIES: His right foot is wrapped in the dressing. Bilateral legs, +1 edema. LABORATORY DATA: WBC 11.8, hemoglobin 8.7, hematocrit 27, and platelet 273. Chemistry; sodium 137, potassium 4.3, chloride 107, CO2 of 21, BUN 41, creatinine 3.1, blood sugar of 191. His right foot wound growing MRSA. ASSESSMENT 1. Right foot methicillin-resistant Staphylococcus aureus infection. 2. MRI shows osteomyelitis, proximal fifth metatarsal. 3. Acute on chronic kidney disease. 4. Non-insulin dependent diabetes. 5. Ischemic cardiomyopathy. 6. Hypertension. PLAN: Currently, the patient is on Maxipime every 12 hours. He is on amlodipine. He is on Zyvox and he will get PICC line today. Once the PICC line is placed, we will make disposition plan. He will be in subacute rehab to complete his course of antibiotics, preferably [facility]. Roberta Aden MD
--- NOTE | 2018-12-29 20:22 | PN ---
DATE: 12/29/2018 SUBJECTIVE: The patient is seen in bed, in no acute distress, and nontoxic. OBJECTIVE: VITAL SIGNS: Temperature is 98, blood pressure is 150/80, and respiratory rate 16. HEENT: Unremarkable. NECK: Supple. LUNGS: Have decreased breath sounds. HEART: Normal S1 and S2. ABDOMEN: Soft and nontender. LABORATORY EXAMINATION: Reveals a white count of 11,800 and hemoglobin of 8. Chemistries are noted. BUN of 41 and creatinine of 3.1. Microbiology reveals MRSA. REVIEW OF ORDERS: Reveals the patient to be on Zyvox and cefepime. ASSESSMENT AND PLAN: This is a 58-year-old male with diabetes mellitus, hypertension, hyperlipidemia, pseudomembranous colitis, history of group C Streptococcus infection, admitted with history of Charcot's foot, congestive heart failure, morbid obesity, body mass index of 41, dyslipidemia, and admitted with fevers, tachycardia, and leukocytosis. Sepsis with methicillin-resistant Staphylococcus aureus cellulitis and osteomyelitis, reports of Serratia from the outpatient report and will need 4 to 6 weeks of antibiotics with weekly CBC, SMA-18, sed rate, and C-reactive protein. The patient's MRI does verify osteomyelitis. Sergio Reyna MD
[2018-12-30 07:01] LABS: HEMOGLOBIN 8.9 g/dL (14.0-18.0); MEAN CELL VOLUME 86.9 fl (80.0-105.0); MEAN CORPUSCULAR HEMOGLOBIN 27.1 pg (25.0-35.0); MEAN CORPUSCULAR HGB CONC 31.1 g/dl (31.0-37.0); MEAN PLATELET VOLUME 8.8 fl (7.0-11.0); RBC 3.29 10^6/uL (3.5-6.1); RED CELL DISTRIBUTION WIDTH 14.4 % (11.5-14.5); WHITE BLOOD COUNT 12.3 10^3/uL (4.5-11.0)
[2018-12-30 07:14] LABS: ALB/GLOB RATIO 0.8 (1.1-1.8); ALBUMIN 3.3 g/dL (3.0-4.8); CALCIUM 8.7 mg/dL (8.4-10.5)
[2018-12-30] MEDS: Iron Complex Polysacch 150mg Cap PO SCH (09:28)
[2018-12-30] MEDS: Insulin Lispro (humaLOG) MEDIUM Coverage SC SCH ×4 (09:30→21:37)
[2018-12-30] MEDS: Cefepime 1gm in NS 100ml 1 GM/100 ML BAG IVPB SCH (10:02)
--- NOTE | 2018-12-30 12:08 | CP.PCM.PN ---
<Prabhakar Shi - Last Filed: 12/30/18 12:04> Subjective - Date & Time of Evaluation Date of Evaluation: 12/30/18 Time of Evaluation: 12:04 - Subjective Subjective: Podiatry progress note for Dr. Ceballos: 58 year old male patient seen and evaluated in the bedside for right foot ulcer. Patient states that he didn't have any pain to his right foot ulcer site since yesterday. He denies any overnight acute events. Patient denies any overnight F/C/N/V/CP or SOB. He denies any other pedal complaint at this time. Objective - Vital Signs/Intake and Output Vital Signs (last 24 hours): Temp Pulse Resp BP Pulse Ox 99.2 F 81 20 163/83 H 96 12/30/18 08:44 12/30/18 08:44 12/30/18 08:44 12/30/18 09:34 12/30/18 08:44 Intake and Output: 12/30/18 12/30/18 06:59 18:59 Intake Total 2160 Output Total 3200 Balance -1040 - Medications Medications: Current Medications Acetaminophen (Tylenol 325mg Tab) 650 mg PO Q6H PRN PRN Reason: Fever >100.4 F Amlodipine Besylate (Norvasc) 10 mg PO DAILY [facility] Last Admin: 12/30/18 09:34 Dose: 10 mg Calcium Acetate (Phoslo) 667 mg PO WM [facility] Last Admin: 12/30/18 09:35 Dose: 667 mg Cefepime HCl (Maxipime 1gm) 1 gm in 100 mls @ 100 mls/hr IVPB Q24H [facility]; Protocol Stop: 01/24/19 10:46 Last Admin: 12/30/18 10:02 Dose: 100 mls/hr Insulin Human Lispro (Humalog Med) 0 units SC ACHS [facility]; Protocol Last Admin: 12/30/18 09:30 Dose: 1 u Linezolid (Zyvox) 600 mg PO BID [facility]; Protocol Stop: 01/24/19 10:39 Last Admin: 12/30/18 09:35 Dose: 600 mg Polysaccharide Iron Complex (Ferrex-150) 150 mg PO DAILY [facility] Last Admin: 12/30/18 09:28 Dose: 150 mg - Labs Labs: 12/30/18 06:20 12/30/18 06:20 PT 16.1 SECONDS (9.4-12.5) H 12/26/18 20:19 INR 1.45 12/26/18 20:19 APTT 33.9 Seconds (26.9-38.3) 12/26/18 20:19 - Constitutional Appears: Well, Non-toxic, No Acute Distress - Head Exam Head Exam: ATRAUMATIC, NORMOCEPHALIC - Extremities Exam Additional comments: RLE focused exam: Right LE is in posterior splint which was C/D/I. Cap refill is < 3 sec to all digits. Patient acn perform active ROM with his toes. - Neurological Exam Neurological Exam: Alert, Awake, Oriented x3 - Psychiatric Exam Psychiatric exam: Normal Affect, Normal Mood Assessment and Plan - Assessment and Plan (Free Text) Assessment: 58 year old male patient seen and evaluated in the bedside for right foot ulcer. Plan: Patient seen and evaluated Discussed in detail with Dr. Ceballos Charts and vitals reviewed; Afebrile, WBCs 11.4 Right foot 3 views X-ray: Right 5th met is breaking medially R foot MRI: Probable osteomyelitis proximal 5th metatarsal ESR 141, CRP 191.50 Wound Cultures: MRSA Wound VAC and posterior splint left in place, Dressing was C/D/I Keep the splint C/D/I. Patient to stay NWB to RLE. Patient to continue IV Abx. Podiatry will follow up the patient while in house. Patient to follow up with dr. Cason upon discharge. <Khalif Ceballos - Last Filed: 12/30/18 16:44> Objective - Vital Signs/Intake and Output Vital Signs (last 24 hours): Temp Pulse Resp BP Pulse Ox 97.6 F 82 20 127/81 97 12/30/18 16:39 12/30/18 16:39 12/30/18 16:39 12/30/18 16:39 12/30/18 16:39 Intake and Output: 12/30/18 12/30/18 06:59 18:59 Intake Total 2160 Output Total 3200 Balance -1040 - Medications Medications: Current Medications Acetaminophen (Tylenol 325mg Tab) 650 mg PO Q6H PRN PRN Reason: Fever >100.4 F Amlodipine Besylate (Norvasc) 10 mg PO DAILY [facility] Last Admin: 12/30/18 09:34 Dose: 10 mg Calcium Acetate (Phoslo) 667 mg PO WM [facility] Last Admin: 12/30/18 12:27 Dose: 667 mg Hydralazine HCl (Apresoline) 50 mg PO BID [facility] Cefepime HCl (Maxipime 1gm) 1 gm in 100 mls @ 100 mls/hr IVPB Q24H [facility]; Protocol Stop: 01/24/19 10:46 Last Admin: 12/30/18 10:02 Dose: 100 mls/hr Insulin Human Lispro (Humalog Med) 0 units SC ACHS [facility]; Protocol Last Admin: 12/30/18 12:26 Dose: 1 u Linezolid (Zyvox) 600 mg PO BID [facility]; Protocol Stop: 01/24/19 10:39 Last Admin: 12/30/18 09:35 Dose: 600 mg Polysaccharide Iron Complex (Ferrex-150) 150 mg PO DAILY [facility] Last Admin: 12/30/18 09:28 Dose: 150 mg - Labs Labs: 12/30/18 06:20 12/30/18 06:20 PT 16.1 SECONDS (9.4-12.5) H 12/26/18 20:19 INR 1.45 12/26/18 20:19 APTT 33.9 Seconds (26.9-38.3) 12/26/18 20:19 Attending/Attestation - Attestation I have personally seen and examined this patient.: Yes I have fully participated in the care of the patient.: Yes I have reviewed all pertinent clinical information, including history, physical exam and plan: Yes
--- NOTE | 2018-12-30 14:31 | PN ---
DATE: 12/30/2018 SUBJECTIVE: The patient is a 58-year-old seen and examined. Waiting PICC line placement today. Denies any chest pain. No fever or chills. No nausea or vomiting. No diarrhea. PHYSICAL EXAMINATION: VITAL SIGNS: He is afebrile, pulse 81, respirations 20, and blood pressure 163/83. LUNGS: Bilateral fair airflow. No rhonchi or crackle. HEART: S1 and S2 audible. ABDOMEN: Soft, obese, and nontender. No rebound. No guarding. NEUROLOGIC: The patient is awake and alert. Able to communicate. LABORATORY DATA: WBC 12.3, hemoglobin 8.9, hematocrit 28.6, and platelet of 292. Chemistry; sodium 137, potassium 4.7, chloride 107, CO2 of 22, BUN 40, creatinine 3.2, and blood sugar 178. ASSESSMENT: 1. Right foot deficits. 2. Hypertension. 3. Renal insufficiency. 4. Non-insulin dependent diabetes. 5. Right proximal fifth metatarsal osteomyelitis. PLAN: The patient is going for PICC line around 1:00 today. We will continue him on current medications. He need 4 to 6 week of IV antibiotics. He is currently on Zyvox and Maxipime. The patient's right foot wound is positive for MRSA. Once PICC line is cured, we will make disposition plan either today or tomorrow. Roberta Aden MD
--- NOTE | 2018-12-30 20:14 | PN ---
DATE: 12/30/2018 SUBJECTIVE: The patient is currently seen on 3R. He appears to be comfortable. He is lying in bed. He now has a VAC apparatus attached to his right foot wound. He had a PICC line placed in the right upper extremity today. MEDICATIONS: Medication list reviewed. The patient is currently on hydralazine, oral iron, insulin, Maxipime, Norvasc, PhosLo, Tylenol, and Zyvox. OBJECTIVE: INTAKE AND OUTPUT: Intake is 2160 and output is 3200. VITAL SIGNS: Blood pressure 127/81, temperature 97.6, respiratory rate of 20 with a pulse of 82, and pulse ox of 97%. HEENT: Shows him to be normocephalic and atraumatic. Conjunctivae remain pale. Sclerae nonicteric. NECK: Supple. No neck vein distention. CHEST: Clear to auscultation and percussion. No rales, rhonchi, or wheezing. CARDIOVASCULAR: Shows a regular rate and rhythm without murmurs, rubs or gallops. HEART: Heart sounds appear distant. ABDOMEN: Moderately obese. Bowel sounds normal. No rebound, guarding, or masses. EXTREMITIES: Show a new PICC line in his right upper extremity and he has a VAC apparatus attached to the wound of his right foot. LABORATORY DATA AND IMAGING STUDIES: CBC; white blood cell count 12.3, hemoglobin 8.9 with a platelet count of 292,000. Chemistry showed normal electrolytes, BUN is 40 which has been stable and Creatinine is 3.2 which is close to his baseline range. The patient's best baseline range shows a BUN in the upper 20 to low 30 range with a baseline creatinine in the upper 2 to low 3 range. Glucose is 139. Calcium is 8.7 with a phosphorus of 4.7. Magnesium is 2.2. Albumin remains 3.3. Microbiology, wound cultures are positive for MRSA. MRI studies of the foot is positive for osteomyelitis. ASSESSMENT: 1. Acute renal failure superimposed on chronic kidney disease stage III. The patient is slowly approaching baseline levels. He has a diabetic wound of his right foot cellulitis and osteomyelitis. He will need a prolonged course of antibiotic therapy. He will likely be going to a subacute rehab facility to receive 4-6 weeks of antibiotics. The patient will remain off BOBBY inhibition and angiotensin-receptor paige therapy. His BUN and creatinine are slowly falling back to baseline range. He is presently off IV fluid hydration. He is being followed by Infectious Disease and Podiatry. 2. Diabetic right foot ulcer with a history of abscess, status post incision and drainage on previous admission, currently has osteomyelitis and cellulitis, osteomyelitis involves the proximal right fifth metatarsal bone. As per my discussion with Dr. Cason, he is not a candidate to remove this bone as this will likely make the entire foot unstable. The patient will need a prolonged course of antibiotic therapy. 3. History of diabetes mellitus with diabetic nephropathy, chronic kidney disease stage III is his baseline. Previous 24-hour urine showed a creatinine clearance of 43 mL per minute with 6.3 g of protein in the urine. All serologies were negative leading to a diagnosis of diabetic nephropathy. 4. History of secondary hyperparathyroidism. Slight elevation of phosphorus level. The patient remains on a renal diet and binder therapy. 5. History of anemia. The patient's last dose of Aranesp was on 12/28/2018, iron saturations were low pending negative blood cultures, the patient may be dosed with IV Venofer. In the interim, we will continue on oral iron supplements. PLAN: 1. Discussed with the patient. From a renal standpoint, he appears to be stable. 2. Need to avoid all nephrotoxic agents in light of his advanced chronic kidney disease stage III. 3. Continue renal diet and binder therapy. 4. Wound care by Podiatry on a regular basis. A VAC apparatus is in place. 5. Now that PICC line has been placed, the patient is likely a candidate for transfer to a subacute rehab to complete the course of antibiotic therapy. Yohan Mccarthy MD
--- NOTE | 2018-12-31 01:16 | PN ---
DATE: 12/30/2018 SUBJECTIVE: The patient is seen in bed, in no acute distress, nontoxic. PHYSICAL EXAMINATION: VITAL SIGNS: Temperature 97, blood pressure 120/80, respiratory rate 20. HEENT: Unremarkable. NECK: Supple. LUNGS: Decreased breath sounds. HEART: Normal S1 and S2. ABDOMEN: Soft. LABORATORY DATA: Examination reveals white count of 12,300. Coagulation is noted. Chemistries are reviewed. BUN 40, creatinine of 3.2. Microbiology is noted with MRSA, wound cultures of the right foot. MEDICATIONS: Review of orders, the patient is on cefepime and Zyvox. Dr. Aden's note is reviewed. ASSESSMENT AND PLAN: This is a 58-year-old male with diabetes mellitus, hypertension, hyperlipidemia, pseudomembranous colitis, history of group C Strep infection, history of Charcot's foot, congestive heart failure, morbid obesity with a body mass index of 41 and dyslipidemia, admitted with fever, tachycardia, leukocytosis and sepsis with methicillin-resistant Staphylococcus aureus, osteomyelitis. The patient has reports of Serratia from an outpatient. Once again I requested staff to obtain the outpatient culture results. We will follow with you. Sergio Reyna MD
[2018-12-31 07:50] LABS: MEAN CELL VOLUME 86.9 fl (80.0-105.0); MEAN CORPUSCULAR HEMOGLOBIN 27.4 pg (25.0-35.0); MEAN CORPUSCULAR HGB CONC 31.6 g/dl (31.0-37.0); MEAN PLATELET VOLUME 8.7 fl (7.0-11.0); RBC 3.28 10^6/uL (3.5-6.1); RED CELL DISTRIBUTION WIDTH 14.3 % (11.5-14.5); WHITE BLOOD COUNT 11.8 10^3/uL (4.5-11.0)
[2018-12-31 08:12] LABS: ALB/GLOB RATIO 0.8 (1.1-1.8); ALBUMIN 3.3 g/dL (3.0-4.8); CALCIUM 8.7 mg/dL (8.4-10.5)
[2018-12-31] MEDS: Iron Complex Polysacch 150mg Cap PO SCH (09:36)
[2018-12-31] MEDS: Insulin Lispro (humaLOG) MEDIUM Coverage SC SCH ×4 (09:37→21:43)
--- NOTE | 2018-12-31 11:29 | CP.PCM.PN ---
<Prabhakar Shi - Last Filed: 12/31/18 11:26> Subjective - Date & Time of Evaluation Date of Evaluation: 12/31/18 Time of Evaluation: 11:26 - Subjective Subjective: Podiatry progress note for Dr. Ceballos: 58 year old male patient seen and evaluated in the bedside for right foot ulcer. Patient states that he didn't have any pain to his right foot ulcer site since yesterday. He denies any overnight acute events. Patient denies any overnight F/C/N/V/CP or SOB. He denies any other pedal complaint at this time. Objective - Vital Signs/Intake and Output Vital Signs (last 24 hours): Temp Pulse Resp BP Pulse Ox 98.7 F 76 20 156/81 H 96 12/31/18 06:00 12/31/18 09:36 12/31/18 06:00 12/31/18 09:37 12/31/18 06:00 Intake and Output: 12/31/18 12/31/18 06:59 18:59 Intake Total 1480 Output Total 2600 Balance -1120 - Medications Medications: Current Medications Acetaminophen (Tylenol 325mg Tab) 650 mg PO Q6H PRN PRN Reason: Fever >100.4 F Amlodipine Besylate (Norvasc) 10 mg PO DAILY [facility] Last Admin: 12/31/18 09:37 Dose: 10 mg Calcium Acetate (Phoslo) 667 mg PO WM [facility] Last Admin: 12/31/18 09:38 Dose: 667 mg Hydralazine HCl (Apresoline) 50 mg PO BID [facility] Last Admin: 12/31/18 09:36 Dose: 50 mg Cefepime HCl (Maxipime 1gm) 1 gm in 100 mls @ 100 mls/hr IVPB Q24H [facility]; Protocol Stop: 01/24/19 10:46 Last Admin: 12/30/18 10:02 Dose: 100 mls/hr Insulin Human Lispro (Humalog Med) 0 units SC ACHS [facility]; Protocol Last Admin: 12/31/18 09:37 Dose: Not Given Linezolid (Zyvox) 600 mg PO BID [facility]; Protocol Stop: 01/24/19 10:39 Last Admin: 12/31/18 09:38 Dose: 600 mg Polysaccharide Iron Complex (Ferrex-150) 150 mg PO DAILY [facility] Last Admin: 12/31/18 09:36 Dose: 150 mg - Labs Labs: 12/31/18 06:20 12/31/18 06:20 PT 16.1 SECONDS (9.4-12.5) H 12/26/18 20:19 INR 1.45 12/26/18 20:19 APTT 33.9 Seconds (26.9-38.3) 12/26/18 20:19 - Constitutional Appears: Well, Non-toxic, No Acute Distress - Head Exam Head Exam: ATRAUMATIC, NORMOCEPHALIC - Extremities Exam Additional comments: B/L lower extremity focused exam: Vascular: DP/PT 2/4 b/l, Cap refill < 3 seconds, Temp gradient warm to warm from proximal to distal, Moderate non pitting edema noted to the right foot on the lateral side. Neuro: Gross and protective sensation are diminished b/l. Derm: an open ulceration noted on the lateral side of the right foot measuring 6cm X 5cm X 0.4cm with 90% granular base and 10% necrotic base. Wound borders are mildly macerated. Positive sero-sanguineous drainage, Positive tracking, Positive undermining, No probe to bone and no malodor. Mild diana-wound erythema noted. No inter-digital macerations. Left Charcot foot. MSK: Muscle power 5/5 to all groups, No pain on palpating the blister sites. Left Charcot foot. Right foot deviated to the medial side. - Neurological Exam Neurological Exam: Alert, Awake, Oriented x3 - Psychiatric Exam Psychiatric exam: Normal Affect, Normal Mood Assessment and Plan - Assessment and Plan (Free Text) Assessment: 58 year old male patient seen and evaluated in the bedside for right foot ulcer. Plan: Patient seen and evaluated Discussed in detail with Dr. Ceballos Charts and vitals reviewed; Afebrile, WBCs 11.8 Right foot 3 views X-ray: Right 5th met is breaking medially R foot MRI: Probable osteomyelitis proximal 5th metatarsal ESR 141, CRP 191.50 Wound Cultures: MRSA Right foot ulcer cleaned with saline and betadine Wound VAC re-applied to the right foot ulcer then dressed with DSD. Posterior splint applied to the RLE. Keep the splint C/D/I. Patient to stay NWB to RLE. Patient to continue IV Abx. Podiatry will follow up the patient while in house. Patient to follow up with dr. Cason upon discharge. <Khalif Ceballos - Last Filed: 12/31/18 12:01> Objective - Vital Signs/Intake and Output Vital Signs (last 24 hours): Temp Pulse Resp BP Pulse Ox 98.7 F 76 20 156/81 H 96 12/31/18 06:00 12/31/18 09:36 12/31/18 06:00 12/31/18 09:37 12/31/18 06:00 Intake and Output: 12/31/18 12/31/18 06:59 18:59 Intake Total 1480 Output Total 2600 Balance -1120 - Medications Medications: Current Medications Acetaminophen (Tylenol 325mg Tab) 650 mg PO Q6H PRN PRN Reason: Fever >100.4 F Amlodipine Besylate (Norvasc) 10 mg PO DAILY [facility] Last Admin: 12/31/18 09:37 Dose: 10 mg Calcium Acetate (Phoslo) 667 mg PO WM [facility] Last Admin: 12/31/18 11:50 Dose: 667 mg Hydralazine HCl (Apresoline) 50 mg PO BID [facility] Last Admin: 12/31/18 09:36 Dose: 50 mg Insulin Human Lispro (Humalog Med) 0 units SC [facility]; Protocol Last Admin: 12/31/18 11:49 Dose: 1 u Linezolid (Zyvox) 600 mg PO BID [facility]; Protocol Stop: 01/24/19 10:39 Last Admin: 12/31/18 09:38 Dose: 600 mg Polysaccharide Iron Complex (Ferrex-150) 150 mg PO DAILY [facility] Last Admin: 12/31/18 09:36 Dose: 150 mg - Labs Labs: 12/31/18 06:20 12/31/18 06:20 PT 16.1 SECONDS (9.4-12.5) H 12/26/18 20:19 INR 1.45 12/26/18 20:19 APTT 33.9 Seconds (26.9-38.3) 12/26/18 20:19 Attending/Attestation - Attestation I have personally seen and examined this patient.: Yes I have fully participated in the care of the patient.: Yes I have reviewed all pertinent clinical information, including history, physical exam and plan: Yes
[2018-12-31] MEDS: Cefepime 1gm in NS 100ml 1 GM/100 ML BAG IVPB SCH (11:50)
--- NOTE | 2018-12-31 14:47 | PN ---
DATE: 12/31/2018 SUBJECTIVE: The patient is in bed, in no acute distress, nontoxic. PHYSICAL EXAMINATION VITAL SIGNS: Temperature is 98, blood pressure is 150/60, respiratory rate 20, and heart rate of 76. HEENT: Unremarkable. NECK: Supple. LUNGS: Have decreased breath sound. HEART: Normal S1 and S2. ABDOMEN: Soft. LABORATORY EXAMINATION: Reveals a white count of 11,800, hemoglobin of 9. Chemistries reveals a BUN of 37, creatinine of 2.9. Examination of the right foot reveals an MRSA. Blood cultures are negative. ASSESSMENT AND PLAN: This is a 58-year-old male with diabetes mellitus, hypertension, hyperlipidemia, pseudomembranous colitis, Streptococcus infection, Charcot's foot, admitted with sepsis with methicillin-resistant Staphylococcus aureus and questionable Serratia as outpatient, cellulitis and osteomyelitis. Once again requested a copy of the Serratia sensitivity and culture results. Will need 4-6 weeks of antibiotics, currently on Zyvox and cefepime with a weekly CBC, has a repeat sedimentation rate and C-reactive protein. Sergio Reyna MD
--- NOTE | 2018-12-31 16:42 | PN ---
DATE: 12/31/2018 SUBJECTIVE: The patient is a 58-year-old. Seen and examined. Doing very well. No fever. No chills. No nausea, vomiting. No diarrhea. Eating and tolerating. PHYSICAL EXAMINATION: VITAL SIGNS: Afebrile. Pulse 76, respirations 20, and blood pressure 156/81. LUNGS: Bilateral fair airflow. No rhonchi or crackle. HEART: S1 and S2 audible. ABDOMEN: Soft, nontender. No rebound. No guarding. NEUROLOGICAL: The patient is awake and alert. Able to communicate. SKIN: The patient has MRSA wound infection. LABORATORY DATA: WBC is 11.8, hemoglobin 9, hematocrit 28.5, and platelets of 308. Chemistry: Sodium 137, potassium 4.4, chloride 107, CO2 of 23, BUN 37, creatinine 2.9, and blood sugar of 195. ASSESSMENT AND PLAN: 1. Right foot and osteomyelitis. 2. Uncontrolled diabetes. 3. Hypertension. 4. Chronic kidney disease secondary to uncontrolled hypertension and diabetes. So plan is currently, the patient is on cefepime and he is getting Zyvox. We will monitor his platelets, and the patient has a peripherally inserted central catheter line placed yesterday. Awaiting his placement for subacute rehab to complete his course of antibiotics. We will follow up the patient in a.m. Roberta Aden MD
--- NOTE | 2018-12-31 22:01 | CP.PCM.PN ---
Subjective - Date & Time of Evaluation Date of Evaluation: 12/31/18 Time of Evaluation: 13:00 - Subjective Subjective: 58 yo M w/ pmh, dm, CKD IV, admitted with R foot ulcer with associated R 5th metatarsal OM; Reports feeling tired, decreased energy; no shortness of breath; Objective - Vital Signs/Intake and Output Vital Signs (last 24 hours): Temp Pulse Resp BP Pulse Ox 98.7 F 82 20 127/81 96 12/31/18 06:00 12/31/18 17:06 12/31/18 06:00 12/31/18 17:06 12/31/18 06:00 - Medications Medications: Current Medications Acetaminophen (Tylenol 325mg Tab) 650 mg PO Q6H PRN PRN Reason: Fever >100.4 F Amlodipine Besylate (Norvasc) 10 mg PO DAILY [facility] Last Admin: 12/31/18 09:37 Dose: 10 mg Calcium Acetate (Phoslo) 667 mg PO WM [facility] Last Admin: 12/31/18 17:08 Dose: 667 mg Hydralazine HCl (Apresoline) 50 mg PO BID [facility] Last Admin: 12/31/18 17:06 Dose: 50 mg Iron Sucrose 100 mg/ Sodium (Chloride) 105 mls @ 210 mls/hr IVPB DAILY [facility] Stop: 01/04/19 10:29 Last Admin: 12/31/18 17:08 Dose: 210 mls/hr Insulin Human Lispro (Humalog Med) 0 units SC ACHS [facility]; Protocol Last Admin: 12/31/18 21:43 Dose: Not Given Linezolid (Zyvox) 600 mg PO BID [facility]; Protocol Stop: 01/24/19 10:39 Last Admin: 12/31/18 17:09 Dose: 600 mg Polysaccharide Iron Complex (Ferrex-150) 150 mg PO DAILY [facility] Last Admin: 12/31/18 09:36 Dose: 150 mg - Labs Labs: 12/31/18 06:20 12/31/18 06:20 PT 16.1 SECONDS (9.4-12.5) H 12/26/18 20:19 INR 1.45 12/26/18 20:19 APTT 33.9 Seconds (26.9-38.3) 12/26/18 20:19 - Constitutional Appears: Non-toxic, No Acute Distress - Eye Exam Eye Exam: Normal appearance - Respiratory Exam Respiratory Exam: Clear to Ausculation Bilateral. absent: Respiratory Distress - Cardiovascular Exam Cardiovascular Exam: RRR, +S1, +S2 - GI/Abdominal Exam GI & Abdominal Exam: Soft. absent: Distended, Tenderness - Extremities Exam Additional comments: 2+ lower leg edema on R, none on L; - Neurological Exam Neurological Exam: Alert, Awake - Psychiatric Exam Psychiatric exam: Normal Mood. absent: Agitated - Skin Skin Exam: Cyanosis, Warm Assessment and Plan (1) CKD (chronic kidney disease) stage 4, GFR 15-29 ml/min Assessment & Plan: SYLVESTER resolved; serum creatinine currently at baseline; consistent with diabetic kidney disease with nephrotic range proteinuria; currently off SILVESTRE blockade, harms of starting may outweigh any potential benefits, especially with questionable compliance and f/u; -avoid any nephrotoxic meds; Status: Chronic (2) Osteomyelitis Assessment & Plan: On zyvox for MRSA in associated foot ulcer; no renal dose adjustment needed; need to d/c PICC line as soon as antibiotic course completed (to preserve peripheral veins); Status: Acute (3) Hypertensive CKD (chronic kidney disease) Assessment & Plan: Fluctuating BP readings; currently on amlodipine 10 and hydralazine 50 mg bid; continue same; goal BP <130/80 for proteinuric kidney disease; if BP remains high, would start low dose lasix at 20 mg PO daily; Status: Chronic (4) Anemia in CKD (chronic kidney disease) Assessment & Plan: Hgb well below goal; was awaiting neg blood cultures before starting IV iron; will start venofer 100 mg daily for next few days (received aranesp 100 mcg earlier this week); Status: Chronic
[2019-01-01] MEDS: Insulin Lispro (humaLOG) MEDIUM Coverage SC SCH ×4 (07:50→23:05)
[2019-01-01] MEDS: Cefepime 1gm in NS 100ml 1 GM/100 ML BAG IVPB SCH (10:38)
--- NOTE | 2019-01-01 11:56 | CP.PCM.PN ---
<Prabhakar Shi - Last Filed: 01/01/19 11:54> Subjective - Date & Time of Evaluation Date of Evaluation: 01/01/19 Time of Evaluation: 11:54 - Subjective Subjective: Podiatry progress note for Dr. Ceballos: 58 year old male patient seen and evaluated in the bedside for right foot ulcer. Patient states that he didn't have any pain to his right foot ulcer site since yesterday. He denies any overnight acute events. Patient denies any overnight F/C/N/V/CP or SOB. He denies any other pedal complaint at this time. Objective - Vital Signs/Intake and Output Vital Signs (last 24 hours): Temp Pulse Resp BP Pulse Ox 99.1 F 83 20 126/75 98 01/01/19 06:00 01/01/19 09:19 01/01/19 06:00 01/01/19 09:20 01/01/19 06:00 Intake and Output: 01/01/19 01/01/19 06:59 18:59 Intake Total 420 Balance 420 - Medications Medications: Current Medications Acetaminophen (Tylenol 325mg Tab) 650 mg PO Q6H PRN PRN Reason: Fever >100.4 F Amlodipine Besylate (Norvasc) 10 mg PO DAILY [facility] Last Admin: 01/01/19 09:20 Dose: 10 mg Calcium Acetate (Phoslo) 667 mg PO WM [facility] Last Admin: 01/01/19 09:20 Dose: 667 mg Hydralazine HCl (Apresoline) 50 mg PO BID [facility] Last Admin: 01/01/19 09:19 Dose: 50 mg Iron Sucrose 100 mg/ Sodium (Chloride) 105 mls @ 210 mls/hr IVPB DAILY [facility] Stop: 01/04/19 10:29 Last Admin: 01/01/19 09:19 Dose: 210 mls/hr Cefepime HCl (Maxipime 1gm) 1 gm in 100 mls @ 100 mls/hr IVPB Q24H [facility]; Protocol Stop: 01/29/19 10:16 Last Admin: 01/01/19 10:38 Dose: 100 mls/hr Insulin Human Lispro (Humalog Med) 0 units SC ACHS [facility]; Protocol Last Admin: 01/01/19 07:50 Dose: Not Given Linezolid (Zyvox) 600 mg PO BID [facility]; Protocol Stop: 01/24/19 10:39 Last Admin: 01/01/19 09:20 Dose: 600 mg Polysaccharide Iron Complex (Ferrex-150) 150 mg PO DAILY [facility] Last Admin: 12/31/18 09:36 Dose: 150 mg - Labs Labs: 12/31/18 06:20 12/31/18 06:20 PT 16.1 SECONDS (9.4-12.5) H 12/26/18 20:19 INR 1.45 12/26/18 20:19 APTT 33.9 Seconds (26.9-38.3) 12/26/18 20:19 - Constitutional Appears: Well, Non-toxic, No Acute Distress - Head Exam Head Exam: ATRAUMATIC, NORMOCEPHALIC - Extremities Exam Additional comments: RLE focused exam: Right LE is in posterior splint which was C/D/I. Cap refill is < 3 sec to all digits. Patient can perform active ROM with his toes. - Neurological Exam Neurological Exam: Alert, Awake, Oriented x3 - Psychiatric Exam Psychiatric exam: Normal Affect, Normal Mood Assessment and Plan - Assessment and Plan (Free Text) Assessment: 58 year old male patient seen and evaluated in the bedside for right foot ulcer. Plan: Patient seen and evaluated Discussed in detail with Dr. Ceballos Charts and vitals reviewed; Afebrile, No leukocytosis Right foot 3 views X-ray: Right 5th met is breaking medially R foot MRI: Probable osteomyelitis proximal 5th metatarsal ESR 141, CRP 191.50 Wound Cultures: MRSA Wound VAC and posterior splint left in place, Dressing was C/D/I Keep the splint C/D/I. Patient to stay NWB to E. Patient to continue IV Abx. Pending patient transfer to [facility]. Podiatry will follow up the patient while in house. Patient to follow up with dr. Cason upon discharge. <Khalif Ceballos - Last Filed: 01/03/19 07:46> Objective - Vital Signs/Intake and Output Vital Signs (last 24 hours): Temp Pulse Resp BP Pulse Ox 98.7 F 81 16 131/79 94 L 01/02/19 08:15 01/02/19 17:25 01/02/19 08:15 01/02/19 17:25 01/02/19 08:15 Intake and Output: 01/03/19 01/03/19 06:59 18:59 Intake Total 240 Output Total 750 Balance -510 - Medications Medications: Current Medications Acetaminophen (Tylenol 325mg Tab) 650 mg PO Q6H PRN PRN Reason: Fever >100.4 F Amlodipine Besylate (Norvasc) 10 mg PO DAILY [facility] Last Admin: 01/02/19 09:16 Dose: 10 mg Calcium Acetate (Phoslo) 667 mg PO WM [facility] Last Admin: 01/02/19 17:25 Dose: 667 mg Hydralazine HCl (Apresoline) 50 mg PO TID [facility] Last Admin: 01/02/19 17:25 Dose: 50 mg Iron Sucrose 100 mg/ Sodium (Chloride) 105 mls @ 210 mls/hr IVPB DAILY [facility] Stop: 01/04/19 10:29 Last Admin: 01/02/19 09:17 Dose: 210 mls/hr Cefepime HCl (Maxipime 1gm) 1 gm in 100 mls @ 100 mls/hr IVPB Q24H [facility]; Protocol Stop: 01/29/19 10:16 Last Admin: 01/02/19 09:17 Dose: 100 mls/hr Insulin Human Lispro (Humalog Med) 0 units SC ACHS [facility]; Protocol Last Admin: 01/03/19 07:13 Dose: Not Given Linezolid (Zyvox) 600 mg PO BID [facility]; Protocol Stop: 01/24/19 10:39 Last Admin: 01/02/19 17:24 Dose: 600 mg Polysaccharide Iron Complex (Ferrex-150) 150 mg PO DAILY [facility] Last Admin: 12/31/18 09:36 Dose: 150 mg - Labs Labs: 01/03/19 06:20 01/03/19 06:20 PT 16.1 SECONDS (9.4-12.5) H 12/26/18 20:19 INR 1.45 12/26/18 20:19 APTT 33.9 Seconds (26.9-38.3) 12/26/18 20:19 Attending/Attestation - Attestation I have personally seen and examined this patient.: Yes I have fully participated in the care of the patient.: Yes I have reviewed all pertinent clinical information, including history, physical exam and plan: Yes
--- NOTE | 2019-01-01 12:47 | PN ---
DATE: 01/01/2019 SUBJECTIVE: The patient has no complaints of any chest pain. No shortness of breath. No headaches or dizziness. He says he feels well, he has no pain. PHYSICAL EXAMINATION VITAL SIGNS: Temperature is 99.1, pulse of 83, blood pressure is 126/75, and respirations 20. GENERAL: The patient is lying in bed, flat, comfortable. HEENT: No oral lesion. Anicteric sclerae. Moist mucosa. NECK: No JVD, adenopathy, or thyromegaly. CARDIOVASCULAR: S1 and S2, regular. No murmurs, rubs, or gallops. LUNGS: Clear to auscultation bilaterally. No wheeze, rales, or rhonchi. ABDOMEN: Bowel sounds are positive, soft, nontender and nondistended. EXTREMITIES: No cyanosis, clubbing or edema. LABORATORY DATA: White count of 11.8 and hemoglobin 9.0. Creatinine is 2.9. ASSESSMENT: 1. Right foot ulcer. 2. Right fifth metatarsal osteomyelitis. 3. Diabetes type 2. 4. Hypertension. 5. Anemia, chronic. 6. Chronic kidney disease stage IV. PLAN: The patient is currently comfortable. He is on cefepime for antibiotics. He is on Venofer for his iron deficiency anemia. The patient is on amlodipine for hypertension. He is going to continue on Zyvox for his osteomyelitis and foot ulcer. The patient is on renal diet. The patient's white count is improved to 11.8. The foot ulcer show that this is not MRSA infection. Benjamín Pat MD
--- NOTE | 2019-01-01 14:36 | PN ---
DATE: 01/01/2019 SUBJECTIVE: The patient is in bed, in no acute distress, nontoxic. PHYSICAL EXAMINATION VITAL SIGNS: Temperature is 99, blood pressure is 120/70, and respiratory rate of 18. HEENT: Unremarkable. NECK: Supple. LUNGS: Decreased breath sounds. HEART: Normal S1 and S2. ABDOMEN: Soft. LABORATORY DATA: Reveals a white count of 11,800 and hemoglobin of 9. Chemistry reveals a BUN of 37 and creatinine of 2.9. Microbiology reveals MRSA from the foot. Dr. Aden's note is reviewed. Review of orders reveals the patient is on Zyvox when MRSA only growing in the deep tissue cultures. ASSESSMENT AND PLAN: This is a 58-year-old male with diabetes mellitus, hypertension, hyperlipidemia, pseudomembranous colitis with methicillin-resistant Staphylococcus aureus and osteomyelitis. There is report of Serratia as outpatient with superficial culture. The deep tissue culture here in the hospital is growing methicillin-resistant Staphylococcus aureus. We will treat with Zyvox 4-6 weeks of duration. If the Serratia is culture, we will add cefepime pending sensitivity and repeat CBC , sed rate, C-reactive protein. Review of orders reveals the cefepime is dropped from re-add the cefepime pending further information. Regarding the Serratia, which was cultured as outpatient. Sergio Reyna MD
[2019-01-02] MEDS: Insulin Lispro (humaLOG) MEDIUM Coverage SC SCH ×4 (07:52→22:30)
[2019-01-02] MEDS: Cefepime 1gm in NS 100ml 1 GM/100 ML BAG IVPB SCH (09:17)
--- NOTE | 2019-01-02 10:38 | CP.PCM.PN ---
<Sary Hughes - Last Filed: 01/02/19 10:35> Subjective - Date & Time of Evaluation Date of Evaluation: 01/02/19 Time of Evaluation: 10:35 - Subjective Subjective: Podiatry progress note for Drs. Cason/Tucker 58 year old male patient seen and evaluated at bedside for right foot ulceration. Patient denies any pain/pedal complaints at this time. Patient denies any overnight F/C/N/V/CP or SOB. Objective - Vital Signs/Intake and Output Vital Signs (last 24 hours): Temp Pulse Resp BP Pulse Ox 98.7 F 88 16 156/82 H 94 L 01/02/19 08:15 01/02/19 09:16 01/02/19 08:15 01/02/19 09:16 01/02/19 08:15 Intake and Output: 01/02/19 01/02/19 06:59 18:59 Output Total 700 Balance -700 - Medications Medications: Current Medications Acetaminophen (Tylenol 325mg Tab) 650 mg PO Q6H PRN PRN Reason: Fever >100.4 F Amlodipine Besylate (Norvasc) 10 mg PO DAILY [facility] Last Admin: 01/02/19 09:16 Dose: 10 mg Calcium Acetate (Phoslo) 667 mg PO WM [facility] Last Admin: 01/02/19 09:16 Dose: 667 mg Hydralazine HCl (Apresoline) 50 mg PO BID [facility] Last Admin: 01/02/19 09:16 Dose: 50 mg Iron Sucrose 100 mg/ Sodium (Chloride) 105 mls @ 210 mls/hr IVPB DAILY [facility] Stop: 01/04/19 10:29 Last Admin: 01/02/19 09:17 Dose: 210 mls/hr Cefepime HCl (Maxipime 1gm) 1 gm in 100 mls @ 100 mls/hr IVPB Q24H [facility]; Protocol Stop: 01/29/19 10:16 Last Admin: 01/02/19 09:17 Dose: 100 mls/hr Insulin Human Lispro (Humalog Med) 0 units SC ACHS [facility]; Protocol Last Admin: 01/02/19 07:52 Dose: Not Given Linezolid (Zyvox) 600 mg PO BID [facility]; Protocol Stop: 01/24/19 10:39 Last Admin: 01/02/19 09:17 Dose: 600 mg Polysaccharide Iron Complex (Ferrex-150) 150 mg PO DAILY [facility] Last Admin: 12/31/18 09:36 Dose: 150 mg - Labs Labs: 12/31/18 06:20 12/31/18 06:20 PT 16.1 SECONDS (9.4-12.5) H 12/26/18 20:19 INR 1.45 12/26/18 20:19 APTT 33.9 Seconds (26.9-38.3) 12/26/18 20:19 - Constitutional Appears: Well, Non-toxic, No Acute Distress - Head Exam Head Exam: ATRAUMATIC, NORMOCEPHALIC - Extremities Exam Additional comments: RLE focused exam: Right LE is in posterior splint which was C/D/I. Cap refill is < 3 sec to all digits. Patient can perform active ROM with digits - Neurological Exam Neurological Exam: Alert, Awake, Oriented x3 - Psychiatric Exam Psychiatric exam: Normal Affect, Normal Mood Assessment and Plan - Assessment and Plan (Free Text) Assessment: 58 year old male patient seen and evaluated in the bedside for right foot ulcer. Plan: Patient seen and evaluated at bedside with Dr. Cason Discussed in detail with Dr. Cason Charts and vitals reviewed; Afebrile, No leukocytosis Right foot 3 views X-ray: Right 5th met is breaking medially R foot MRI: Probable osteomyelitis proximal 5th metatarsal ESR 141, CRP 191.50 Wound Cultures: MRSA Wound VAC and posterior splint left in place, Dressing was C/D/I, next dressing change WEDNESDAY 01/03 Patient to stay NWB to E Patient to continue IV Abx Pending patient transfer to [facility] with follow up to Dr. Cason's office Podiatry will follow up the patient while in house <Claudia Cason - Last Filed: 01/07/19 20:37> Objective - Vital Signs/Intake and Output Vital Signs (last 24 hours): Temp Pulse Resp BP Pulse Ox 97.7 F 66 18 154/74 H 96 01/07/19 08:51 01/07/19 17:56 01/07/19 08:51 01/07/19 17:56 01/07/19 08:51 Intake and Output: 01/07/19 01/08/19 18:59 06:59 Intake Total 100 Balance 100 - Medications Medications: Current Medications Acetaminophen (Tylenol 325mg Tab) 650 mg PO Q6H PRN PRN Reason: Fever >100.4 F Amlodipine Besylate (Norvasc) 10 mg PO DAILY [facility] Last Admin: 01/07/19 10:21 Dose: 10 mg Calcium Acetate (Phoslo) 667 mg PO WM [facility] Last Admin: 01/07/19 18:07 Dose: 667 mg Carvedilol (Coreg) 3.125 mg PO BID [facility] Last Admin: 01/07/19 17:56 Dose: 3.125 mg Clonidine HCl (Catapres) 0.1 mg PO TID [facility] Last Admin: 01/07/19 17:56 Dose: 0.1 mg Hydralazine HCl (Apresoline) 50 mg PO TID [facility] Last Admin: 01/07/19 17:56 Dose: 50 mg Cefepime HCl (Maxipime 1gm) 1 gm in 100 mls @ 100 mls/hr IVPB Q24H [facility]; Protocol Stop: 01/29/19 10:16 Last Admin: 01/07/19 10:20 Dose: 100 mls/hr Insulin Human Lispro (Humalog Med) 0 units SC ACHS [facility]; Protocol Last Admin: 01/07/19 17:55 Dose: 1 u Linezolid (Zyvox) 600 mg PO BID [facility]; Protocol Stop: 01/24/19 10:39 Last Admin: 01/07/19 17:56 Dose: 600 mg Polysaccharide Iron Complex (Ferrex-150) 150 mg PO DAILY [facility] Last Admin: 12/31/18 09:36 Dose: 150 mg - Labs Labs: 01/03/19 06:20 01/03/19 06:20 PT 16.1 SECONDS (9.4-12.5) H 12/26/18 20:19 INR 1.45 12/26/18 20:19 APTT 33.9 Seconds (26.9-38.3) 12/26/18 20:19 Attending/Attestation - Attestation I have personally seen and examined this patient.: Yes I have fully participated in the care of the patient.: Yes I have reviewed all pertinent clinical information, including history, physical exam and plan: Yes
--- NOTE | 2019-01-02 19:20 | PN ---
DATE: 01/02/2019 SUBJECTIVE: The patient is seen lying in bed. He is awake. He is comfortable. He has a VAC drain to his right foot. He denies any chest pain. He denies any shortness of breath. PHYSICAL EXAMINATION GENERAL: Middle-aged male lying in bed. VITAL SIGNS: Blood pressure 156/82, heart rate 78, respiratory rate 16, and temperature 98.7. HEENT: Normocephalic and atraumatic. Positive pallor. NECK: Supple. No JVD. LUNGS: Bilateral equal entry, bilateral equal expansion. CARDIAC: S1 and S2, regular rate rhythm, no murmur, and no rub. ABDOMEN: Obese, distended, soft, nontender, and bowel sounds present. EXTREMITIES: Dressing of the right lower extremity, positive drain. INTAKE AND OUTPUT: Not charted. LABORATORY DATA: WBC 11.8, hemoglobin 9, hematocrit 28.5, and platelets 308; this blood workup is from 12/31/2018. Creatinine 2.9 on 12/31. Wound culture; methicillin-resistant Streptococcus aureus. CURRENT MEDICATIONS: Apresoline 50 mg b.i.d.; iron 150 mg daily; Humalog; iron sucrose 100 mg, 5 bags ordered; Maxipime 1 g amlodipine 10 mg; PhosLo 657 mg t.i.d.; Tylenol; and Zyvox. ASSESSMENT: 1. Uncontrolled hypertension. 2. Noninsulin-dependent diabetes mellitus. 3. Methicillin-resistant Staphylococcus aureus wound infection. 4. Chronic kidney disease, stage III/IV. 5. Severe anemia. 6. Obesity. PLAN: 1. Change hydralazine to 50 t.i.d. since blood pressure is elevated. 2. Monitor fingersticks and continue insulin coverage. 3. Continue IV iron. 4. Check labs in a.m. Mireya Lopez MD
--- NOTE | 2019-01-02 22:31 | CP.PCM.PN ---
Subjective - Date & Time of Evaluation Date of Evaluation: 01/02/19 Time of Evaluation: 07:20 - Subjective Subjective: Right leg is feeling better, no fevers. Objective - Vital Signs/Intake and Output Vital Signs (last 24 hours): Temp Pulse Resp BP Pulse Ox 99.1 F 77 20 150/72 98 01/01/19 06:00 01/01/19 17:19 01/01/19 06:00 01/01/19 17:19 01/01/19 06:00 - Medications Medications: Current Medications Acetaminophen (Tylenol 325mg Tab) 650 mg PO Q6H PRN PRN Reason: Fever >100.4 F Amlodipine Besylate (Norvasc) 10 mg PO DAILY [facility] Last Admin: 01/01/19 09:20 Dose: 10 mg Calcium Acetate (Phoslo) 667 mg PO WM [facility] Last Admin: 01/01/19 17:19 Dose: 667 mg Hydralazine HCl (Apresoline) 50 mg PO BID [facility] Last Admin: 01/01/19 17:19 Dose: 50 mg Iron Sucrose 100 mg/ Sodium (Chloride) 105 mls @ 210 mls/hr IVPB DAILY [facility] Stop: 01/04/19 10:29 Last Admin: 01/01/19 09:19 Dose: 210 mls/hr Cefepime HCl (Maxipime 1gm) 1 gm in 100 mls @ 100 mls/hr IVPB Q24H [facility]; Protocol Stop: 01/29/19 10:16 Last Admin: 01/01/19 10:38 Dose: 100 mls/hr Insulin Human Lispro (Humalog Med) 0 units SC ACHS [facility]; Protocol Last Admin: 01/01/19 23:05 Dose: Not Given Linezolid (Zyvox) 600 mg PO BID [facility]; Protocol Stop: 01/24/19 10:39 Last Admin: 01/01/19 17:19 Dose: 600 mg Polysaccharide Iron Complex (Ferrex-150) 150 mg PO DAILY [facility] Last Admin: 12/31/18 09:36 Dose: 150 mg - Labs Labs: 12/31/18 06:20 12/31/18 06:20 PT 16.1 SECONDS (9.4-12.5) H 12/26/18 20:19 INR 1.45 12/26/18 20:19 APTT 33.9 Seconds (26.9-38.3) 12/26/18 20:19 - Constitutional Appears: Chronically Ill - Head Exam Head Exam: NORMAL INSPECTION - Respiratory Exam Respiratory Exam: Decreased Breath Sounds - Cardiovascular Exam Cardiovascular Exam: +S1, +S2 - GI/Abdominal Exam GI & Abdominal Exam: Soft. absent: Tenderness Assessment and Plan - Assessment and Plan (Free Text) Plan: Assessment Right lower extremity osteomyelitis with MRSA and Pseudomonas history of Right foot abscess S/P I and D chronic renal failure history of sepsis due to acute on chronic gangrenous cholecystitis S/P cholecystectomy HTN DM dyslipidemia obesity with BMI 39 Plan continue Zyvox and Cefepime to complete 4-6 weeks of antibiotics
--- NOTE | 2019-01-03 00:12 | PN ---
DATE: 01/02/2019 SUBJECTIVE: The patient is 58-year-old, seen and examined, lying in bed, seems to be comfortable. Denies any chest pain. No nausea, vomiting. No diarrhea. PHYSICAL EXAMINATION: VITAL SIGNS: He is afebrile. Pulse 81, respiration is 16, blood pressure 131/79. LUNGS: Bilateral fair airflow. No rhonchi or crackle. HEART: S1, S2 audible. ABDOMEN: Soft, nontender. No rebound. No guarding. EXTREMITIES: His right foot is in the dressing. Bilateral legs, no edema. LABORATORY DATA: WBC is 11.8, hemoglobin 9, hematocrit 28.5, platelet of 308, blood sugar is 140. ASSESSMENT: 1. Right foot osteomyelitis of fifth toe. 2. Charcot foot. 3. Chronic kidney disease. 4. Ischemic cardiomyopathy. 5. Hypertension. 6. Insulin-dependent diabetes. PLAN: Currently the patient is on hydralazine. He is getting Venofer. He is on Maxipime. He is on Zyvox. We will follow up his CBC and CMP in a.m. Roberta Aden MD
[2019-01-03 07:13] LABS: BASO # 0.03 K/mm3 (0.0-2.0); BASO % 0.3 % (0.0-3.0); EOS # 0.3 (0.0-0.7); EOS % 3.4 % (1.5-5.0); HEMOGLOBIN 9.8 g/dL (14.0-18.0); LYMPH # 2.8 (1.2-3.4); LYMPH % 28.2 % (22.0-35.0); MEAN CORPUSCULAR HEMOGLOBIN 27.1 pg (25.0-35.0); MEAN CORPUSCULAR HGB CONC 31.2 g/dl (31.0-37.0); MEAN PLATELET VOLUME 8.4 fl (7.0-11.0); MONO # 0.7 (0.1-0.6); MONO % 7.2 % (1.0-6.0); RBC 3.61 10^6/uL (3.5-6.1); RED CELL DISTRIBUTION WIDTH 14.2 % (11.5-14.5)
[2019-01-03] MEDS: Insulin Lispro (humaLOG) MEDIUM Coverage SC SCH ×4 (07:13→21:18)
[2019-01-03 07:30] LABS: CALCIUM 9.1 mg/dL (8.4-10.5)
[2019-01-03] MEDS: Cefepime 1gm in NS 100ml 1 GM/100 ML BAG IVPB SCH (10:09)
--- NOTE | 2019-01-03 10:35 | CP.PCM.PN ---
<Sary Hughes - Last Filed: 01/03/19 10:25> Subjective - Date & Time of Evaluation Date of Evaluation: 01/03/19 Time of Evaluation: 10:25 - Subjective Subjective: Podiatry progress note for Drs. Cason/Tucker, 58 year old male patient seen and evaluated at bedside for right foot ulceration. Patient denies any pain/pedal complaints at this time. Patient denies any overnight F/C/N/V/CP or SOB. Patient awaiting discharge to [facility] Objective - Vital Signs/Intake and Output Vital Signs (last 24 hours): Temp Pulse Resp BP Pulse Ox 98.9 F 88 18 165/90 H 95 01/03/19 09:05 01/03/19 10:09 01/03/19 09:05 01/03/19 10:09 01/03/19 09:05 Intake and Output: 01/03/19 01/03/19 06:59 18:59 Intake Total 240 Output Total 750 Balance -510 - Medications Medications: Current Medications Acetaminophen (Tylenol 325mg Tab) 650 mg PO Q6H PRN PRN Reason: Fever >100.4 F Amlodipine Besylate (Norvasc) 10 mg PO DAILY [facility] Last Admin: 01/03/19 10:09 Dose: 10 mg Calcium Acetate (Phoslo) 667 mg PO WM [facility] Last Admin: 01/03/19 10:09 Dose: 667 mg Hydralazine HCl (Apresoline) 50 mg PO TID [facility] Last Admin: 01/03/19 10:09 Dose: 50 mg Iron Sucrose 100 mg/ Sodium (Chloride) 105 mls @ 210 mls/hr IVPB DAILY [facility] Stop: 01/04/19 10:29 Last Admin: 01/03/19 10:10 Dose: 210 mls/hr Cefepime HCl (Maxipime 1gm) 1 gm in 100 mls @ 100 mls/hr IVPB Q24H [facility]; Protocol Stop: 01/29/19 10:16 Last Admin: 01/03/19 10:09 Dose: 100 mls/hr Insulin Human Lispro (Humalog Med) 0 units SC ACHS [facility]; Protocol Last Admin: 01/03/19 07:13 Dose: Not Given Linezolid (Zyvox) 600 mg PO BID [facility]; Protocol Stop: 01/24/19 10:39 Last Admin: 01/03/19 10:09 Dose: 600 mg Polysaccharide Iron Complex (Ferrex-150) 150 mg PO DAILY [facility] Last Admin: 12/31/18 09:36 Dose: 150 mg - Labs Labs: 01/03/19 06:20 01/03/19 06:20 PT 16.1 SECONDS (9.4-12.5) H 12/26/18 20:19 INR 1.45 12/26/18 20:19 APTT 33.9 Seconds (26.9-38.3) 12/26/18 20:19 - Constitutional Appears: Well, Non-toxic, No Acute Distress - Head Exam Head Exam: ATRAUMATIC, NORMOCEPHALIC - Extremities Exam Additional comments: B/L lower extremity focused exam: Vascular: DP/PT 2/4 b/l, Cap refill < 3 seconds, Temp gradient warm to warm from proximal to distal, Moderate non pitting edema noted to the right foot on the lateral side. Neuro: Gross and protective sensation are diminished b/l. Derm: ulceration noted on the lateral side of the right foot at the level cuboid measuring 3.7 cm X 3.2 cm X 2 cm with 90% granular base and 10% fibrotic base. Wound borders are clean, no maceration noted. no sero-sanguineous drainage, no tracking, no undermining, no probe to bone and no malodor. Mild diana-wound erythema noted. No inter-digital macerations. Left Charcot foot. MSK: Muscle power 5/5 to all groups, No pain on palpating the blister sites. Left Charcot foot. Right foot deviated to the medial side. - Neurological Exam Neurological Exam: Alert, Awake, Oriented x3 - Psychiatric Exam Psychiatric exam: Normal Affect, Normal Mood Assessment and Plan - Assessment and Plan (Free Text) Assessment: 58 year old male patient seen and evaluated in the bedside for right foot ulcer. Plan: Patient seen and evaluated at bedside with Dr. Cason Discussed in detail with Dr. Cason Charts and vitals reviewed; Afebrile, No leukocytosis Right foot 3 views X-ray: Right 5th met is breaking medially R foot MRI: Probable osteomyelitis proximal 5th metatarsal ESR 141, CRP 191.50 upon admission Wound Cultures: MRSA Wound VAC and posterior splint changed and VAC on 120 mmHg, next dressing change THURSDAY 4/18 Patient to stay NWB to RLE Patient to continue IV Abx Pending patient transfer to [facility] with follow up to Dr. Cason's office Podiatry will follow up the patient while in house <Claudia Cason - Last Filed: 01/07/19 20:35> Objective - Vital Signs/Intake and Output Vital Signs (last 24 hours): Temp Pulse Resp BP Pulse Ox 97.7 F 66 18 154/74 H 96 01/07/19 08:51 01/07/19 17:56 01/07/19 08:51 01/07/19 17:56 01/07/19 08:51 Intake and Output: 01/07/19 01/08/19 18:59 06:59 Intake Total 100 Balance 100 - Medications Medications: Current Medications Acetaminophen (Tylenol 325mg Tab) 650 mg PO Q6H PRN PRN Reason: Fever >100.4 F Amlodipine Besylate (Norvasc) 10 mg PO DAILY [facility] Last Admin: 01/07/19 10:21 Dose: 10 mg Calcium Acetate (Phoslo) 667 mg PO WM [facility] Last Admin: 01/07/19 18:07 Dose: 667 mg Carvedilol (Coreg) 3.125 mg PO BID [facility] Last Admin: 01/07/19 17:56 Dose: 3.125 mg Clonidine HCl (Catapres) 0.1 mg PO TID [facility] Last Admin: 01/07/19 17:56 Dose: 0.1 mg Hydralazine HCl (Apresoline) 50 mg PO TID [facility] Last Admin: 01/07/19 17:56 Dose: 50 mg Cefepime HCl (Maxipime 1gm) 1 gm in 100 mls @ 100 mls/hr IVPB Q24H [facility]; Protocol Stop: 01/29/19 10:16 Last Admin: 01/07/19 10:20 Dose: 100 mls/hr Insulin Human Lispro (Humalog Med) 0 units SC ACHS [facility]; Protocol Last Admin: 01/07/19 17:55 Dose: 1 u Linezolid (Zyvox) 600 mg PO BID [facility]; Protocol Stop: 01/24/19 10:39 Last Admin: 01/07/19 17:56 Dose: 600 mg Polysaccharide Iron Complex (Ferrex-150) 150 mg PO DAILY [facility] Last Admin: 12/31/18 09:36 Dose: 150 mg - Labs Labs: 01/03/19 06:20 01/03/19 06:20 PT 16.1 SECONDS (9.4-12.5) H 12/26/18 20:19 INR 1.45 12/26/18 20:19 APTT 33.9 Seconds (26.9-38.3) 12/26/18 20:19 Attending/Attestation - Attestation I have personally seen and examined this patient.: Yes I have fully participated in the care of the patient.: Yes I have reviewed all pertinent clinical information, including history, physical exam and plan: Yes
--- NOTE | 2019-01-03 13:31 | PN ---
DATE: 01/03/2019 SUBJECTIVE: The patient is a 58-year-old seen and examined, lying in bed, seems to b comfortable. No chest pain. No shortness of breath. No nausea or vomiting. No diarrhea. His right foot is in the dressing, had wound VAC on. According to podiatry input wound looks better. PHYSICAL EXAMINATION: GENERAL: He is awake and alert, able to communicate. VITAL SIGNS: He is afebrile. Pulse 88, respiration 18 and blood pressure 165/90. LUNGS: Bilateral fair airflow. No rhonchi or crackle. HEART: S1 and S2, audible. ABDOMEN: Soft, obese and nontender. No rebound. No guarding. NEUROLOGIC: The patient is awake and alert, able to communicate. LABORATORY DATA: WBC is 10, hemoglobin 9.8, hematocrit 31.4, and platelets 302. Chemistry: Sodium 139, potassium 4.4, chloride 107, CO2 of 20, BUN 29, creatinine 2.5, and blood sugar of 187. ASSESSMENT: 1. Right foot cellulitis. 2. Fifth toe osteomyelitis. 3. Charcot foot. 4. Chronic kidney disease. 5. Ischemic cardiomyopathy. 6. Hypertension. 7. Noninsulin-dependent diabetes. PLAN: The patient's temperature seems to be running high. We will start him on clonidine 0.1 twice a day, continue him on hydralazine and Norvasc. director construction services are in the process of making arrangement for subacute rehab and completion of course of antibiotic as recommended by . Roberta Aden MD
--- NOTE | 2019-01-03 20:04 | PN ---
DATE: 01/03/2019 SUBJECTIVE: The patient is currently seen on 3R. He remains on IV antibiotic therapy for cellulitis and osteomyelitis of his right foot. He has a VAC apparatus attached to his right foot wound. He has a PICC line in his right upper extremity. MEDICATIONS: Medication list reviewed. The patient is currently on hydralazine, clonidine, insulin, IV iron, Maxipime, Norvasc, PhosLo, Tylenol and Zyvox. OBJECTIVE: INTAKE/OUTPUT: Intake is 440, output is 750 mL. VITAL SIGNS: Blood pressure is improved to 146/79, pulse of 78 with a temperature of 98.9 and a respiratory rate of 18. Pulse ox of 95%. HEENT: Exam shows him to be normocephalic, atraumatic. Conjunctivae remain pale. Sclerae are nonicteric. NECK: Supple. No neck vein distention. CHEST: Clear to auscultation and percussion. No rales, rhonchi or wheezing. CARDIOVASCULAR: Regular rate and rhythm without audible murmurs, rubs or gallops. ABDOMEN: Soft. Bowel sounds are normal. Moderate obesity. No rebound, guarding or masses. EXTREMITIES: Show a PICC line in his right upper extremity. He has a VAC apparatus attached to the wound of his right foot. No lower extremity edema. Diminished lower extremity pulses bilaterally. LABORATORY DATA AND IMAGING: CBC white blood cell count 10, improved. Hemoglobin is 9.8 with a platelet count of 302,000. Chemistry showed normal electrolytes. BUN is improved to 29 with a creatinine of 2.5. This is down from a high of 52 on the BUN and a high of 4.3 on creatinine. The patient is at or below his baseline range. Microbiology, initial cultures were positive for MRSA from the right foot. Blood cultures were negative. ASSESSMENT: 1. Acute renal failure superimposed on chronic kidney disease stage III. This has resolved. The patient's BUN is now down to 29 with a creatinine of 2.5. This is in the setting of a diabetic wound with right foot cellulitis and osteomyelitis. The patient will need a prolonged course of antibiotic therapy and once cleared by insurance, he will be going to a subacute rehab facility. As per my discussion with Dr. Cason, no plans for surgical resection of the osteomyelitic bone, as this will lead to instability in the foot and inability to walk. 2. Right diabetic foot ulcer status post abscess status post incision and drainage on previous admission, currently with osteomyelitis and cellulitis. The osteomyelitis involves the proximal right fifth metatarsal bone. 3. History of diabetes mellitus with diabetic nephropathy, chronic kidney disease stage III, his baseline. Previous 24 urine done on a previous admission showed a creatinine clearance of 43 mL per minute with 6.3 g of protein in the urine. Workup was consistent with diabetic nephropathy. All other serologies were negative. 4. History of secondary hyperparathyroidism. The patient has had slight elevations of phosphorus in the past, currently his phosphorus level is 4.5. The patient continues on binder therapy and a renal diet. 5. History of anemia. His last dose of Aranesp was on 12/28/2018. The patient may receive another dose of Aranesp tomorrow. The patient is currently on IV Venofer as his blood cultures are negative. PLAN: 1. Discussed with the patient, it is frustrating for him that he is waiting for insurance clearance for transfer to an [facility] to complete a lengthy course of antibiotic therapy. 2. Avoid all nephrotoxic agents as the patient's BUN and creatinine have returned to baseline. 3. Continue renal diet and binder therapy. 4. Continue wound care by Podiatry. 5. Redose Aranesp 100 mcg, dose can be given tomorrow. The patient should complete a course of IV Venofer. Yohan Mccarthy MD
--- NOTE | 2019-01-03 21:38 | CP.PCM.PN ---
Subjective - Date & Time of Evaluation Date of Evaluation: 01/03/19 Time of Evaluation: 07:35 - Subjective Subjective: Comfortable in bed, no increased pain in the legs. Objective - Vital Signs/Intake and Output Vital Signs (last 24 hours): Temp Pulse Resp BP Pulse Ox 98.7 F 81 16 131/79 94 L 01/02/19 08:15 01/02/19 17:25 01/02/19 08:15 01/02/19 17:25 01/02/19 08:15 Intake and Output: 01/02/19 01/03/19 18:59 06:59 Intake Total 200 Balance 200 - Medications Medications: Current Medications Acetaminophen (Tylenol 325mg Tab) 650 mg PO Q6H PRN PRN Reason: Fever >100.4 F Amlodipine Besylate (Norvasc) 10 mg PO DAILY [facility] Last Admin: 01/02/19 09:16 Dose: 10 mg Calcium Acetate (Phoslo) 667 mg PO WM [facility] Last Admin: 01/02/19 17:25 Dose: 667 mg Hydralazine HCl (Apresoline) 50 mg PO TID [facility] Last Admin: 01/02/19 17:25 Dose: 50 mg Iron Sucrose 100 mg/ Sodium (Chloride) 105 mls @ 210 mls/hr IVPB DAILY [facility] Stop: 01/04/19 10:29 Last Admin: 01/02/19 09:17 Dose: 210 mls/hr Cefepime HCl (Maxipime 1gm) 1 gm in 100 mls @ 100 mls/hr IVPB Q24H [facility]; Protocol Stop: 01/29/19 10:16 Last Admin: 01/02/19 09:17 Dose: 100 mls/hr Insulin Human Lispro (Humalog Med) 0 units SC ACHS [facility]; Protocol Last Admin: 01/02/19 22:30 Dose: Not Given Linezolid (Zyvox) 600 mg PO BID [facility]; Protocol Stop: 01/24/19 10:39 Last Admin: 01/02/19 17:24 Dose: 600 mg Polysaccharide Iron Complex (Ferrex-150) 150 mg PO DAILY [facility] Last Admin: 12/31/18 09:36 Dose: 150 mg - Labs Labs: 12/31/18 06:20 12/31/18 06:20 PT 16.1 SECONDS (9.4-12.5) H 12/26/18 20:19 INR 1.45 12/26/18 20:19 APTT 33.9 Seconds (26.9-38.3) 12/26/18 20:19 - Constitutional Appears: Chronically Ill - Head Exam Head Exam: NORMAL INSPECTION - Respiratory Exam Respiratory Exam: Decreased Breath Sounds - Cardiovascular Exam Cardiovascular Exam: +S1, +S2 - GI/Abdominal Exam GI & Abdominal Exam: Soft. absent: Tenderness - Extremities Exam Additional comments: left leg with dressings in place Assessment and Plan - Assessment and Plan (Free Text) Plan: Assessment Right lower extremity osteomyelitis with MRSA and Pseudomonas history of Right foot abscess S/P I and D chronic renal failure history of sepsis due to acute on chronic gangrenous cholecystitis S/P cholecystectomy HTN DM dyslipidemia obesity with BMI 39 Plan continue Zyvox and Cefepime to complete 4-6 weeks of antibiotics with weekly CRP, CBC, CMP and results should be faxed over to PMD's office
[2019-01-04] MEDS: Insulin Lispro (humaLOG) MEDIUM Coverage SC SCH ×4 (07:24→21:41)
[2019-01-04] MEDS ORDERED: Darbepoetin Alfa 100 mcg/ml Inj SC ONE (10:00)
[2019-01-04] MEDS: Cefepime 1gm in NS 100ml 1 GM/100 ML BAG IVPB SCH (10:11)
--- NOTE | 2019-01-04 12:22 | CP.PCM.PN ---
<Twin Hughesrajendra - Last Filed: 01/04/19 12:19> Subjective - Date & Time of Evaluation Date of Evaluation: 01/04/19 Time of Evaluation: 12:19 - Subjective Subjective: Podiatry progress note for Drs. Cason/Tucker 58 year old male patient seen and evaluated at bedside for right foot ulceration. Patient denies any pain/pedal complaints at this time. Patient denies any overnight F/C/N/V/CP or SOB. Patient Wounc Vac intact, clean and dry Objective - Vital Signs/Intake and Output Vital Signs (last 24 hours): Temp Pulse Resp BP Pulse Ox 98.5 F 78 20 148/80 96 01/04/19 06:00 01/04/19 10:42 01/04/19 06:00 01/04/19 10:42 01/04/19 06:00 Intake and Output: 01/04/19 01/04/19 06:59 18:59 Intake Total 360 Output Total 1000 Balance -640 - Medications Medications: Current Medications Acetaminophen (Tylenol 325mg Tab) 650 mg PO Q6H PRN PRN Reason: Fever >100.4 F Amlodipine Besylate (Norvasc) 10 mg PO DAILY [facility] Last Admin: 01/04/19 10:12 Dose: 10 mg Calcium Acetate (Phoslo) 667 mg PO WM [facility] Last Admin: 01/04/19 07:24 Dose: 667 mg Clonidine HCl (Catapres) 0.1 mg PO BID [facility] Last Admin: 01/04/19 10:42 Dose: 0.1 mg Hydralazine HCl (Apresoline) 50 mg PO TID [facility] Last Admin: 01/04/19 10:13 Dose: 50 mg Cefepime HCl (Maxipime 1gm) 1 gm in 100 mls @ 100 mls/hr IVPB Q24H [facility]; Protocol Stop: 01/29/19 10:16 Last Admin: 01/04/19 10:11 Dose: 100 mls/hr Insulin Human Lispro (Humalog Med) 0 units SC ACHS [facility]; Protocol Last Admin: 01/04/19 07:24 Dose: 3 u Linezolid (Zyvox) 600 mg PO BID [facility]; Protocol Stop: 01/24/19 10:39 Last Admin: 01/04/19 10:12 Dose: 600 mg Polysaccharide Iron Complex (Ferrex-150) 150 mg PO DAILY [facility] Last Admin: 12/31/18 09:36 Dose: 150 mg - Labs Labs: 01/03/19 06:20 01/03/19 06:20 PT 16.1 SECONDS (9.4-12.5) H 12/26/18 20:19 INR 1.45 12/26/18 20:19 APTT 33.9 Seconds (26.9-38.3) 12/26/18 20:19 - Constitutional Appears: Well, Non-toxic, No Acute Distress - Head Exam Head Exam: ATRAUMATIC, NORMOCEPHALIC - Extremities Exam Additional comments: RLE focused exam: Right LE is in posterior splint which was C/D/I Cap refill is < 3 sec to all digits. Patient can perform active ROM with digits Wounc Vac at 120mmHg - Neurological Exam Neurological Exam: Alert, Awake, Oriented x3 - Psychiatric Exam Psychiatric exam: Normal Affect, Normal Mood Assessment and Plan - Assessment and Plan (Free Text) Assessment: 58 year old male patient seen and evaluated in the bedside for right foot ulcer. Plan: Patient seen and evaluated at bedside with Dr. Ceballos Discussed in detail with Dr. Ceballos Charts and vitals reviewed; Afebrile, No leukocytosis Right foot 3 views X-ray: Right 5th met is breaking medially R foot MRI: Probable osteomyelitis proximal 5th metatarsal ESR 141, CRP 191.50 Wound Cultures: MRSA Wound VAC and posterior splint left in place, Dressing was C/D/I, next dressing change FRIDAY 01/05 Patient to stay NWB to E Patient to continue IV Abx Pending patient transfer to [facility] with follow up to Dr. Cason's office Podiatry will follow up the patient while in house <Khalif Ceballos - Last Filed: 01/04/19 14:35> Objective - Vital Signs/Intake and Output Vital Signs (last 24 hours): Temp Pulse Resp BP Pulse Ox 98.5 F 78 20 148/80 96 01/04/19 06:00 01/04/19 10:42 01/04/19 06:00 01/04/19 10:42 01/04/19 06:00 Intake and Output: 01/04/19 01/04/19 06:59 18:59 Intake Total 360 Output Total 1000 Balance -640 - Medications Medications: Current Medications Acetaminophen (Tylenol 325mg Tab) 650 mg PO Q6H PRN PRN Reason: Fever >100.4 F Amlodipine Besylate (Norvasc) 10 mg PO DAILY [facility] Last Admin: 01/04/19 10:12 Dose: 10 mg Calcium Acetate (Phoslo) 667 mg PO WM [facility] Last Admin: 01/04/19 12:51 Dose: 667 mg Clonidine HCl (Catapres) 0.1 mg PO BID [facility] Last Admin: 01/04/19 10:42 Dose: 0.1 mg Hydralazine HCl (Apresoline) 50 mg PO TID [facility] Last Admin: 01/04/19 10:13 Dose: 50 mg Cefepime HCl (Maxipime 1gm) 1 gm in 100 mls @ 100 mls/hr IVPB Q24H [facility]; Protocol Stop: 01/29/19 10:16 Last Admin: 01/04/19 10:11 Dose: 100 mls/hr Insulin Human Lispro (Humalog Med) 0 units SC ACHS [facility]; Protocol Last Admin: 01/04/19 07:24 Dose: 3 u Linezolid (Zyvox) 600 mg PO BID [facility]; Protocol Stop: 01/24/19 10:39 Last Admin: 01/04/19 10:12 Dose: 600 mg Polysaccharide Iron Complex (Ferrex-150) 150 mg PO DAILY [facility] Last Admin: 12/31/18 09:36 Dose: 150 mg - Labs Labs: 01/03/19 06:20 01/03/19 06:20 PT 16.1 SECONDS (9.4-12.5) H 12/26/18 20:19 INR 1.45 12/26/18 20:19 APTT 33.9 Seconds (26.9-38.3) 12/26/18 20:19 Attending/Attestation - Attestation I have personally seen and examined this patient.: Yes I have fully participated in the care of the patient.: Yes I have reviewed all pertinent clinical information, including history, physical exam and plan: Yes
--- NOTE | 2019-01-04 14:56 | PN ---
DATE: 01/04/2019 SUBJECTIVE: The patient is 58-year-old, seen and examined, lying in bed, seems to be comfortable. No nausea or vomiting. No diarrhea. No fever. No chills. PHYSICAL EXAMINATION: VITAL SIGNS: The patient is afebrile, pulse 78, respiration 20, and blood pressure 148/80. LUNGS: Bilateral fair airflow. No rhonchi or crackle. HEART: S1 and S2 audible. ABDOMEN: Soft, obese, and nontender. No rebound. No guarding. NEUROLOGIC: The patient is awake and alert; able to communicate. LABORATORY DATA: WBC 10, hemoglobin 9.8, hematocrit 31.4, and platelets 302. Chemistry; blood sugar is 195. Right foot is in the soft cast and has wound VAC on. ASSESSMENT: 1. Right foot fifth toe osteomyelitis. 2. Right foot abscess. 3. Hypertension. 4. Hyperlipidemia. 5. Chronic kidney disease. 6. Morbid obesity. 7. Ischemic cardiomyopathy. PLAN: The patient is currently on Zyvox and he is on Maxipime. [employer] are in the process of making arrangement for subacute rehab and placement to complete his course of antibiotics for 4 to 6 weeks, and as soon as arrangement is made, he will be discharged. Roberta Aden MD
--- NOTE | 2019-01-04 23:01 | PN ---
DATE: 01/04/2019 SUBJECTIVE: The patient is seen lying in bed. He is awake. He is alert. He is comfortable. He does not appear to be in any kind of distress. PHYSICAL EXAMINATION VITAL SIGNS: Blood pressure 165/70, heart rate 69, respiratory rate 20, temperature 98.6. HEENT: Normocephalic, atraumatic, positive pallor. NECK: Supple, no JVD. LUNGS: Bilateral equal entry, bilateral equal expansion. CARDIOVASCULAR: S1, S2, regular rate and rhythm, no murmur, no rub. ABDOMEN: Obese, distended, soft, nontender, bowel sounds present. EXTREMITIES: Dressing of the right lower extremity, wound VAC present. INTAKE AND OUTPUT: 560 mL/1000. LABORATORY DATA: WBC 10, hemoglobin 9.8, hematocrit 31, platelets 292. No chemistry today. BUN 29, creatinine 2.5 yesterday, potassium 4.4. CURRENT MEDICATIONS: Apresoline 50 mg b.i.d., Catapres 0.1 mg b.i.d., cefepime 1 g daily, Norvasc 10 mg, PhosLo, Tylenol, Zyvox, Aranesp 100 mg given yesterday, Venofer 100 mg total of 5 doses received. ASSESSMENT: 1. Acute kidney injury superimposed on chronic kidney disease stage 3. 2. Right foot cellulitis and osteomyelitis. 3. Noninsulin-dependent diabetes mellitus. 4. Anemia with low iron source. 5. Secondary hyperparathyroidism. 6. Hypertension. PLAN: 1. Continue hydralazine, amlodipine, Clonidine, continue to hold ARB in the setting of acute kidney injury. 2. Continue antibiotics as per ID recommendations. 3. Continue wound care. 4. Monitor fingerstick and continue insulin coverage. 5. The patient received Aranesp yesterday. Mireya Lopez MD
--- NOTE | 2019-01-05 00:23 | CP.PCM.PN ---
Subjective - Date & Time of Evaluation Date of Evaluation: 01/04/19 Time of Evaluation: 07:20 - Subjective Subjective: No new complaints, no fevers. Objective - Vital Signs/Intake and Output Vital Signs (last 24 hours): Temp Pulse Resp BP Pulse Ox 98.2 F 96 H 19 137/75 97 01/03/19 17:03 01/03/19 17:33 01/03/19 17:03 01/03/19 17:33 01/03/19 17:03 Intake and Output: 01/03/19 01/04/19 18:59 06:59 Intake Total 200 Balance 200 - Medications Medications: Current Medications Acetaminophen (Tylenol 325mg Tab) 650 mg PO Q6H PRN PRN Reason: Fever >100.4 F Amlodipine Besylate (Norvasc) 10 mg PO DAILY [facility] Last Admin: 01/03/19 10:09 Dose: 10 mg Calcium Acetate (Phoslo) 667 mg PO WM [facility] Last Admin: 01/03/19 17:32 Dose: 667 mg Clonidine HCl (Catapres) 0.1 mg PO BID [facility] Last Admin: 01/03/19 17:33 Dose: 0.1 mg Darbepoetin Khang (Aranesp) 100 mcg SC ONCE ONE Stop: 01/04/19 10:01 Hydralazine HCl (Apresoline) 50 mg PO TID [facility] Last Admin: 01/03/19 17:33 Dose: 50 mg Iron Sucrose 100 mg/ Sodium (Chloride) 105 mls @ 210 mls/hr IVPB DAILY [facility] Stop: 01/04/19 10:29 Last Admin: 01/03/19 10:10 Dose: 210 mls/hr Cefepime HCl (Maxipime 1gm) 1 gm in 100 mls @ 100 mls/hr IVPB Q24H [facility]; Protocol Stop: 01/29/19 10:16 Last Admin: 01/03/19 10:09 Dose: 100 mls/hr Insulin Human Lispro (Humalog Med) 0 units SC ACHS [facility]; Protocol Last Admin: 01/03/19 21:18 Dose: Not Given Linezolid (Zyvox) 600 mg PO BID [facility]; Protocol Stop: 01/24/19 10:39 Last Admin: 01/03/19 17:34 Dose: 600 mg Polysaccharide Iron Complex (Ferrex-150) 150 mg PO DAILY [facility] Last Admin: 12/31/18 09:36 Dose: 150 mg - Labs Labs: 01/03/19 06:20 01/03/19 06:20 PT 16.1 SECONDS (9.4-12.5) H 12/26/18 20:19 INR 1.45 12/26/18 20:19 APTT 33.9 Seconds (26.9-38.3) 12/26/18 20:19 - Constitutional Appears: Chronically Ill - Head Exam Head Exam: NORMAL INSPECTION - Respiratory Exam Respiratory Exam: Decreased Breath Sounds - Cardiovascular Exam Cardiovascular Exam: +S1, +S2 - GI/Abdominal Exam GI & Abdominal Exam: Soft. absent: Tenderness - Extremities Exam Additional comments: left leg with dressings in place Assessment and Plan - Assessment and Plan (Free Text) Plan: Assessment Right lower extremity osteomyelitis with MRSA and Pseudomonas history of Right foot abscess S/P I and D chronic renal failure history of sepsis due to acute on chronic gangrenous cholecystitis S/P cholecystectomy HTN DM dyslipidemia obesity with BMI 39 Plan continue Zyvox and Cefepime to complete 4-6 weeks of antibiotics with weekly CRP, CBC, CMP and results should be faxed over to PMD's office
[2019-01-05] MEDS: Insulin Lispro (humaLOG) MEDIUM Coverage SC SCH ×4 (07:59→21:24)
[2019-01-05] MEDS: Cefepime 1gm in NS 100ml 1 GM/100 ML BAG IVPB SCH (09:24)
--- NOTE | 2019-01-05 11:09 | CP.PCM.PN ---
<Sary Hughes - Last Filed: 01/05/19 11:04> Subjective - Date & Time of Evaluation Date of Evaluation: 01/05/19 Time of Evaluation: 11:05 - Subjective Subjective: Podiatry progress note for Drs. Cason/Tucker 58 year old male patient seen and evaluated at bedside for right foot ulceration. Patient denies any pain/pedal complaints at this time. Patient denies any overnight F/C/N/V/CP or SOB. Patient Wounc Vac intact, clean and dry. Patient to go to the OR on Wednesday for application of Integra Bilayer Graft Objective - Vital Signs/Intake and Output Vital Signs (last 24 hours): Temp Pulse Resp BP Pulse Ox 98.6 F 72 20 153/80 H 99 01/04/19 16:44 01/05/19 09:17 01/04/19 16:44 01/05/19 09:25 01/04/19 16:44 - Medications Medications: Current Medications Acetaminophen (Tylenol 325mg Tab) 650 mg PO Q6H PRN PRN Reason: Fever >100.4 F Amlodipine Besylate (Norvasc) 10 mg PO DAILY [facility] Last Admin: 01/05/19 09:25 Dose: 10 mg Calcium Acetate (Phoslo) 667 mg PO WM [facility] Last Admin: 01/05/19 09:24 Dose: 667 mg Clonidine HCl (Catapres) 0.1 mg PO BID [facility] Last Admin: 01/05/19 09:17 Dose: 0.1 mg Hydralazine HCl (Apresoline) 50 mg PO TID [facility] Last Admin: 01/05/19 09:17 Dose: 50 mg Cefepime HCl (Maxipime 1gm) 1 gm in 100 mls @ 100 mls/hr IVPB Q24H [facility]; Protocol Stop: 01/29/19 10:16 Last Admin: 01/05/19 09:24 Dose: 100 mls/hr Insulin Human Lispro (Humalog Med) 0 units SC ACHS [facility]; Protocol Last Admin: 01/05/19 07:59 Dose: Not Given Linezolid (Zyvox) 600 mg PO BID [facility]; Protocol Stop: 01/24/19 10:39 Last Admin: 01/05/19 09:24 Dose: 600 mg Polysaccharide Iron Complex (Ferrex-150) 150 mg PO DAILY [facility] Last Admin: 12/31/18 09:36 Dose: 150 mg - Labs Labs: 01/03/19 06:20 01/03/19 06:20 PT 16.1 SECONDS (9.4-12.5) H 12/26/18 20:19 INR 1.45 12/26/18 20:19 APTT 33.9 Seconds (26.9-38.3) 12/26/18 20:19 - Constitutional Appears: Well, Non-toxic, No Acute Distress - Head Exam Head Exam: ATRAUMATIC, NORMOCEPHALIC - Extremities Exam Additional comments: B/L lower extremity focused exam: Vascular: DP/PT 2/4 b/l, Cap refill < 3 seconds, Temp gradient warm to warm from proximal to distal, Moderate non pitting edema noted to the right foot on the lateral side. Neuro: Gross and protective sensation are diminished b/l. Derm: ulceration noted on the lateral side of the right foot at the level cuboid measuring 3 cm X 3.2 cm X 2 cm with 90% granular base and 10% fibrotic base. Wound borders are clean, no maceration noted. no sero-sanguineous drainage, no tracking, no undermining, no probe to bone and no malodor. Mild diana-wound erythema noted. No inter-digital macerations. Left Charcot foot. MSK: Muscle power 5/5 to all groups, No pain on palpating the blister sites. Left Charcot foot. Right foot deviated to the medial side. - Neurological Exam Neurological Exam: Alert, Awake, Oriented x3 - Psychiatric Exam Psychiatric exam: Normal Affect, Normal Mood Assessment and Plan - Assessment and Plan (Free Text) Assessment: 58 year old male patient seen and evaluated in the bedside for right foot ulcer. Plan: Patient seen and evaluated at bedside with Dr. Cason Discussed in detail with Dr. Cason Charts and vitals reviewed; Afebrile, No leukocytosis Right foot 3 views X-ray: Right 5th met is breaking medially R foot MRI: Probable osteomyelitis proximal 5th metatarsal ESR 141, CRP 191.50 Wound Cultures: MRSA Wound VAC and posterior splint left in place, Dressing was C/D/I, next dressing change Wednesday01/07/19 Patient to stay NWB to RLE Patient to continue IV Abx Patient to be taken to the OR on Wednesday01/09/10 for application of Integra Bilayer Graft NPO past midnight Wednesday Please provide medical clearance for procedure under IV sedation with Local Anesthesia Podiatry will follow up the patient while in house <Claudia Cason - Last Filed: 01/07/19 20:32> Objective - Vital Signs/Intake and Output Vital Signs (last 24 hours): Temp Pulse Resp BP Pulse Ox 97.7 F 66 18 154/74 H 96 01/07/19 08:51 01/07/19 17:56 01/07/19 08:51 01/07/19 17:56 01/07/19 08:51 Intake and Output: 01/07/19 01/08/19 18:59 06:59 Intake Total 100 Balance 100 - Medications Medications: Current Medications Acetaminophen (Tylenol 325mg Tab) 650 mg PO Q6H PRN PRN Reason: Fever >100.4 F Amlodipine Besylate (Norvasc) 10 mg PO DAILY [facility] Last Admin: 01/07/19 10:21 Dose: 10 mg Calcium Acetate (Phoslo) 667 mg PO WM [facility] Last Admin: 01/07/19 18:07 Dose: 667 mg Carvedilol (Coreg) 3.125 mg PO BID [facility] Last Admin: 01/07/19 17:56 Dose: 3.125 mg Clonidine HCl (Catapres) 0.1 mg PO TID [facility] Last Admin: 01/07/19 17:56 Dose: 0.1 mg Hydralazine HCl (Apresoline) 50 mg PO TID [facility] Last Admin: 01/07/19 17:56 Dose: 50 mg Cefepime HCl (Maxipime 1gm) 1 gm in 100 mls @ 100 mls/hr IVPB Q24H [facility]; Protocol Stop: 01/29/19 10:16 Last Admin: 01/07/19 10:20 Dose: 100 mls/hr Insulin Human Lispro (Humalog Med) 0 units SC ACHS [facility]; Protocol Last Admin: 01/07/19 17:55 Dose: 1 u Linezolid (Zyvox) 600 mg PO BID [facility]; Protocol Stop: 01/24/19 10:39 Last Admin: 01/07/19 17:56 Dose: 600 mg Polysaccharide Iron Complex (Ferrex-150) 150 mg PO DAILY [facility] Last Admin: 12/31/18 09:36 Dose: 150 mg - Labs Labs: 01/03/19 06:20 01/03/19 06:20 PT 16.1 SECONDS (9.4-12.5) H 12/26/18 20:19 INR 1.45 12/26/18 20:19 APTT 33.9 Seconds (26.9-38.3) 12/26/18 20:19 Attending/Attestation - Attestation I have personally seen and examined this patient.: Yes I have fully participated in the care of the patient.: Yes I have reviewed all pertinent clinical information, including history, physical exam and plan: Yes
--- NOTE | 2019-01-05 16:38 | PN ---
DATE: 01/05/2019 SUBJECTIVE: The patient is 58 years old, seen and examined, lying in bed, seems to be comfortable. Social service is trying to place him in subacute rehab to complete the course of antibiotic, apparently does not seem to be working out. However, the patient is comfortable. No nausea or vomiting. No diarrhea. Eating and tolerating. No fever. No chills. PHYSICAL EXAMINATION: VITAL SIGNS: He is afebrile, pulse 72, respiration 18, and blood pressure 153/80. LUNGS: Bilateral fair airflow. No rales, rhonchi or crackle. HEART: S1 and S2 audible. ABDOMEN: Soft and nontender. No rebound. No guarding. NEUROLOGIC: The patient is awake and alert; able to communicate. Right foot is in the dressing and has wound VAC. LABORATORY DATA: His blood sugar is 204. ASSESSMENT: 1. Right fifth metatarsal osteomyelitis. 2. Right foot cellulitis. 3. Ischemic cardiomyopathy. 4. Chronic kidney disease. 5. Diabetic nephropathy. 6. Hypertension. 7. Hyperlipidemia. PLAN: We will continue on current antibiotic, that is cefepime, and he is getting once a day. He is on Zyvox. We will check CBC intermittently. Continue antibiotics. Wound care is being done by Podiatry. Roberta Aden MD
--- NOTE | 2019-01-05 17:38 | PN ---
DATE: 01/05/2019 SUBJECTIVE: The patient is seen lying in bed. He is comfortable. He does not appear to be in any kind of distress. PHYSICAL EXAMINATION: GENERAL: Middle-aged male lying in bed. VITAL SIGNS: Blood pressure 162/77, heart rate 71, respiratory rate 18, temperature 98.6. HEENT: Normocephalic, atraumatic, positive pallor. NECK: Supple, no JVD. LUNGS: Bilateral equal air entry, bilateral equal expansion. CARDIAC: S1, S2, regular rate and rhythm, no murmur, no rub. ABDOMEN: Obese, distended, soft, nontender, bowel sounds present. EXTREMITIES: Dressing of the right lower extremity, drain. INTAKE AND OUTPUT: Not charted. LABORATORY DATA: No new labs. CURRENT MEDICATIONS: Apresoline, Catapres 0.2 one t.i.d., Ferrex, Humalog, Maxipime, amlodipine 10, PhosLo, Tylenol, Zyvox. ASSESSMENT/PLAN: 1.. Acute kidney injury superimposed on chronic kidney disease stage III, creatinine is somewhat improved from 2.9 to 2.5. 2. Severe anemia, multifactorial. 3. Infected foot ulcer/osteomyelitis. 4. Exf-bflkfhb-qtcvmhfec diabetes mellitus, well controlled. 5. Severe uncontrolled hypertension. 6. Nephrotic range proteinuria. PLAN: 1. Blood pressure is still uncontrolled, the patient is on amlodipine 10, hydralazine 50 t.i.d., clonidine 0.1 t.i.d. At this time, will add Coreg 3.125 b.i.d. 2. Monitor fingersticks and continue insulin coverage. 3. Continue antibiotics as per ID recommendations. 4. Continue wound care treatment. 5. Awaiting disposition. 6. Will hold off on ARB/BOBBY till renal parameters approach baseline. Mireya Lopez MD
[2019-01-06] MEDS: Insulin Lispro (humaLOG) MEDIUM Coverage SC SCH ×4 (08:49→22:30)
[2019-01-06] MEDS: Cefepime 1gm in NS 100ml 1 GM/100 ML BAG IVPB SCH (10:45)
--- NOTE | 2019-01-06 12:27 | CP.PCM.PN ---
Subjective - Date & Time of Evaluation Date of Evaluation: 01/05/19 Time of Evaluation: 10:40 - Subjective Subjective: Afebrile, comfortable. Objective - Vital Signs/Intake and Output Vital Signs (last 24 hours): Temp Pulse Resp BP Pulse Ox 98.6 F 69 20 155/70 H 99 01/04/19 16:44 01/04/19 17:20 01/04/19 16:44 01/04/19 17:20 01/04/19 16:44 - Medications Medications: Current Medications Acetaminophen (Tylenol 325mg Tab) 650 mg PO Q6H PRN PRN Reason: Fever >100.4 F Amlodipine Besylate (Norvasc) 10 mg PO DAILY [facility] Last Admin: 01/04/19 10:12 Dose: 10 mg Calcium Acetate (Phoslo) 667 mg PO WM [facility] Last Admin: 01/04/19 17:19 Dose: 667 mg Clonidine HCl (Catapres) 0.1 mg PO BID [facility] Last Admin: 01/04/19 17:20 Dose: 0.1 mg Hydralazine HCl (Apresoline) 50 mg PO TID [facility] Last Admin: 01/04/19 17:20 Dose: 50 mg Cefepime HCl (Maxipime 1gm) 1 gm in 100 mls @ 100 mls/hr IVPB Q24H [facility]; Protocol Stop: 01/29/19 10:16 Last Admin: 01/04/19 10:11 Dose: 100 mls/hr Insulin Human Lispro (Humalog Med) 0 units SC ACHS [facility]; Protocol Last Admin: 01/04/19 21:41 Dose: Not Given Linezolid (Zyvox) 600 mg PO BID [facility]; Protocol Stop: 01/24/19 10:39 Last Admin: 01/04/19 17:20 Dose: 600 mg Polysaccharide Iron Complex (Ferrex-150) 150 mg PO DAILY [facility] Last Admin: 12/31/18 09:36 Dose: 150 mg - Labs Labs: 01/03/19 06:20 01/03/19 06:20 PT 16.1 SECONDS (9.4-12.5) H 12/26/18 20:19 INR 1.45 12/26/18 20:19 APTT 33.9 Seconds (26.9-38.3) 12/26/18 20:19 - Constitutional Appears: No Acute Distress, Chronically Ill - Head Exam Head Exam: NORMAL INSPECTION - Respiratory Exam Respiratory Exam: Decreased Breath Sounds - Cardiovascular Exam Cardiovascular Exam: +S1, +S2 - GI/Abdominal Exam GI & Abdominal Exam: Soft. absent: Tenderness - Extremities Exam Additional comments: left leg with dressings in place Assessment and Plan - Assessment and Plan (Free Text) Plan: Assessment Right lower extremity osteomyelitis with MRSA and Pseudomonas history of Right foot abscess S/P I and D chronic renal failure history of sepsis due to acute on chronic gangrenous cholecystitis S/P cholecystectomy HTN DM dyslipidemia obesity with BMI 39 Plan continue Zyvox and Cefepime to complete 4-6 weeks of antibiotics with weekly CRP, CBC, CMP and results should be faxed over to PMD's office
--- NOTE | 2019-01-06 16:47 | PN ---
DATE: 01/06/2019 SUBJECTIVE: The patient is seen lying in bed. He is awake. He is alert. He is comfortable. He does not appear to be in any kind of distress. PHYSICAL EXAMINATION GENERAL: Middle-aged male lying in bed. VITAL SIGNS: Blood pressure 153/78, heart rate 63, respiratory rate 20, and temperature 98.4. HEENT: Normocephalic, atraumatic, positive pallor. NECK: Supple, no JVD. LUNGS: Bilateral equal air entry, bilateral equal expansion. CARDIAC: S1 and S2, regular rate and rhythm, no murmur, no rub. ABDOMEN: Obese, distended, soft, nontender, bowel sounds present. EXTREMITIES: No lower extremity edema. LABORATORY DATA: No new labs. MEDICATIONS: Hydralazine 50 t.i.d., Catapres 0.1 t.i.d., Coreg 3.125 b.i.d., Maxipime 1 g, amlodipine 10, PhosLo, Tylenol and Zyvox 600 b.i.d. ASSESSMENT AND PLAN: 1. Uncontrolled hypertension, Coreg added yesterday. 2. Noninsulin-dependent diabetes mellitus. 3. Obesity. 4. Diabetic nephropathy. 5. Acute kidney injury superimposed on chronic kidney disease stage III. 6. Osteomyelitis. PLAN: 1. Continue to monitor blood pressure. 2. Monitor fingersticks and continue insulin coverage. 3. Continue antibiotics as per ID recommendations. 4. Scheduled for OR on Wednesday. Mireya Lopez MD
--- NOTE | 2019-01-06 18:36 | PN ---
DATE: 01/06/2019 SUBJECTIVE: The patient is 58 years old, seen and examined, lying in bed. Seems to be comfortable. Denies any nausea, vomiting, or diarrhea. PHYSICAL EXAMINATION: VITAL SIGNS: He is afebrile. Pulse 63, respirations 20, blood pressure 153/78. LUNGS: Bilateral fair air flow. No rhonchi or crackles. HEART: S1 and S2 audible. ABDOMEN: Soft. Nontender. No rebound. No guarding. NEUROLOGIC: The patient is awake and alert. Able to communicate. EXTREMITIES: Right foot is in a dressing. Has a wound VAC on. Left leg, no edema. LABORATORY DATA: Blood sugar is 193. Foot wound is growing MRSA. ASSESSMENT AND PLAN: 1. Right foot fifth toe osteomyelitis. 2. Right foot cellulitis. 3. Diabetic nephropathy. 4. Hypertension. 5. Non-insulin dependent diabetes. So, the plan is currently the patient is on hydralazine. He is on clonidine, is on carvedilol, still getting amlodipine. We will order for CBC and CMP for tomorrow for monitoring the platelet count. Roberta Aden MD
--- NOTE | 2019-01-06 18:37 | CP.PCM.PN ---
<Sary Hughes - Last Filed: 01/06/19 18:35> Subjective - Date & Time of Evaluation Date of Evaluation: 01/06/19 Time of Evaluation: 18:35 - Subjective Subjective: Podiatry progress note for Drs. Cason/Tucker 58 year old male patient seen and evaluated at bedside for right foot ulceration. Patient denies any pain/pedal complaints at this time. Patient denies any overnight F/C/N/V/CP or SOB. Patient Wound Vac intact, clean and dry. Patient to go to the OR on Wednesday for application of Integra Bilayer Graft Objective - Vital Signs/Intake and Output Vital Signs (last 24 hours): Temp Pulse Resp BP Pulse Ox 98.4 F 63 20 153/78 H 95 01/06/19 06:00 01/06/19 06:00 01/06/19 06:00 01/06/19 10:44 01/06/19 06:00 - Medications Medications: Current Medications Acetaminophen (Tylenol 325mg Tab) 650 mg PO Q6H PRN PRN Reason: Fever >100.4 F Amlodipine Besylate (Norvasc) 10 mg PO DAILY [facility] Last Admin: 01/06/19 10:44 Dose: 10 mg Calcium Acetate (Phoslo) 667 mg PO WM [facility] Last Admin: 01/06/19 17:47 Dose: 667 mg Carvedilol (Coreg) 3.125 mg PO BID [facility] Last Admin: 01/06/19 17:48 Dose: 3.125 mg Clonidine HCl (Catapres) 0.1 mg PO TID [facility] Last Admin: 01/06/19 17:48 Dose: 0.1 mg Hydralazine HCl (Apresoline) 50 mg PO TID [facility] Last Admin: 01/06/19 17:48 Dose: 50 mg Cefepime HCl (Maxipime 1gm) 1 gm in 100 mls @ 100 mls/hr IVPB Q24H [facility]; Protocol Stop: 01/29/19 10:16 Last Admin: 01/06/19 10:45 Dose: 100 mls/hr Insulin Human Lispro (Humalog Med) 0 units SC ACHS [facility]; Protocol Last Admin: 01/06/19 17:48 Dose: 1 u Linezolid (Zyvox) 600 mg PO BID [facility]; Protocol Stop: 01/24/19 10:39 Last Admin: 01/06/19 17:48 Dose: 600 mg Polysaccharide Iron Complex (Ferrex-150) 150 mg PO DAILY [facility] Last Admin: 12/31/18 09:36 Dose: 150 mg - Labs Labs: 01/03/19 06:20 01/03/19 06:20 PT 16.1 SECONDS (9.4-12.5) H 12/26/18 20:19 INR 1.45 12/26/18 20: APTT 33.9 Seconds (26.9-38.3) 12/26/18 20:19 - Constitutional Appears: Well, Non-toxic, No Acute Distress - Head Exam Head Exam: ATRAUMATIC, NORMOCEPHALIC - Extremities Exam Additional comments: RLE focused exam: Right LE is in posterior splint which was C/D/I Cap refill is < 3 sec to all digits. Patient can perform active ROM with digits Wound Vac at 120mmHg - Neurological Exam Neurological Exam: Alert, Awake, Oriented x3 - Psychiatric Exam Psychiatric exam: Normal Affect, Normal Mood Assessment and Plan - Assessment and Plan (Free Text) Assessment: 58 year old male patient seen and evaluated in the bedside for right foot ulcer Plan: Patient seen and evaluated at bedside Discussed in detail with Dr. Ceballos Charts and vitals reviewed; Afebrile, No leukocytosis Right foot 3 views X-ray: Right 5th met is breaking medially R foot MRI: Probable osteomyelitis proximal 5th metatarsal ESR 141, CRP 191.50 Wound Cultures: MRSA Wound VAC and posterior splint left in place, Dressing was C/D/I, next dressing change Wednesday01/07/19 Patient to stay NWB to RLE Patient to continue IV Abx Patient to be taken to the OR on Wednesday01/09/10 for application of Integra Bi layer Graft NPO past midnight Wednesday Please provide medical clearance for procedure under IV sedation with Local Anesthesia Podiatry will follow up the patient while in house <Khalif Ceballos - Last Filed: 01/10/19 08:33> Objective - Vital Signs/Intake and Output Vital Signs (last 24 hours): Temp Pulse Resp BP Pulse Ox 97.6 F 72 20 135/82 93 L 01/09/19 17:32 01/09/19 17:32 01/09/19 17:32 01/09/19 17:32 01/09/19 17:32 Intake and Output: 01/10/19 01/10/19 06:59 18:59 Intake Total 420 Output Total 600 Balance -180 - Medications Medications: Current Medications Acetaminophen (Tylenol 325mg Tab) 650 mg PO Q6H PRN PRN Reason: Fever >100.4 F Amlodipine Besylate (Norvasc) 10 mg PO DAILY [facility] Last Admin: 01/09/19 10:11 Dose: 10 mg Calcium Acetate (Phoslo) 667 mg PO WM [facility] Last Admin: 01/09/19 17:04 Dose: 667 mg Carvedilol (Coreg) 3.125 mg PO BID [facility] Last Admin: 01/09/19 17:04 Dose: 3.125 mg Clonidine HCl (Catapres) 0.1 mg PO TID [facility] Last Admin: 01/09/19 17:04 Dose: 0.1 mg Enoxaparin Sodium (Lovenox) 30 mg SC DAILY [facility]; Protocol Last Admin: 01/09/19 10:08 Dose: Not Given Hydralazine HCl (Apresoline) 50 mg PO TID [facility] Last Admin: 01/09/19 17:04 Dose: 50 mg Cefepime HCl (Maxipime 1gm) 1 gm in 100 mls @ 100 mls/hr IVPB Q24H [facility]; Protocol Stop: 01/29/19 10:16 Last Admin: 01/09/19 10:19 Dose: 100 mls/hr Insulin Human Lispro (Humalog Med) 0 units SC ACHS [facility]; Protocol Last Admin: 01/10/19 08:00 Dose: Not Given Linezolid (Zyvox) 600 mg PO BID [facility]; Protocol Stop: 02/06/19 22:12 Polysaccharide Iron Complex (Ferrex-150) 150 mg PO DAILY [facility] Last Admin: 12/31/18 09:36 Dose: 150 mg - Labs Labs: 01/10/19 07:00 01/10/19 07:00 PT 12.9 SECONDS (9.4-12.5) H 01/09/19 06:15 INR 1.14 01/09/19 06:15 APTT 33.9 Seconds (26.9-38.3) 12/26/18 20:19 Attending/Attestation - Attestation I have personally seen and examined this patient.: Yes I have fully participated in the care of the patient.: Yes I have reviewed all pertinent clinical information, including history, physical exam and plan: Yes
[2019-01-07] MEDS: Insulin Lispro (humaLOG) MEDIUM Coverage SC SCH ×4 (08:52→22:29)
[2019-01-07] MEDS: Cefepime 1gm in NS 100ml 1 GM/100 ML BAG IVPB SCH (10:20)
--- NOTE | 2019-01-07 11:53 | CP.PCM.PN ---
Subjective - Date & Time of Evaluation Date of Evaluation: 01/07/19 Time of Evaluation: 10:00 - Subjective Subjective: Patient will be undergoing a surgical procedure on Wednesday, no fevers, no increased pain in the legs. Objective - Vital Signs/Intake and Output Vital Signs (last 24 hours): Temp Pulse Resp BP Pulse Ox 98.4 F 63 20 153/78 H 95 01/06/19 06:00 01/06/19 06:00 01/06/19 06:00 01/06/19 10:44 01/06/19 06:00 - Medications Medications: Current Medications Acetaminophen (Tylenol 325mg Tab) 650 mg PO Q6H PRN PRN Reason: Fever >100.4 F Amlodipine Besylate (Norvasc) 10 mg PO DAILY [facility] Last Admin: 01/06/19 10:44 Dose: 10 mg Calcium Acetate (Phoslo) 667 mg PO WM [facility] Last Admin: 01/06/19 10:54 Dose: 667 mg Carvedilol (Coreg) 3.125 mg PO BID [facility] Last Admin: 01/06/19 10:45 Dose: 3.125 mg Clonidine HCl (Catapres) 0.1 mg PO TID [facility] Last Admin: 01/06/19 10:45 Dose: 0.1 mg Hydralazine HCl (Apresoline) 50 mg PO TID [facility] Last Admin: 01/06/19 10:45 Dose: 50 mg Cefepime HCl (Maxipime 1gm) 1 gm in 100 mls @ 100 mls/hr IVPB Q24H [facility]; Protocol Stop: 01/29/19 10:16 Last Admin: 01/06/19 10:45 Dose: 100 mls/hr Insulin Human Lispro (Humalog Med) 0 units SC ACHS [facility]; Protocol Last Admin: 01/06/19 11:47 Dose: 1 u Linezolid (Zyvox) 600 mg PO BID [facility]; Protocol Stop: 01/24/19 10:39 Last Admin: 01/06/19 10:44 Dose: 600 mg Polysaccharide Iron Complex (Ferrex-150) 150 mg PO DAILY [facility] Last Admin: 12/31/18 09:36 Dose: 150 mg - Labs Labs: 01/03/19 06:20 01/03/19 06:20 PT 16.1 SECONDS (9.4-12.5) H 12/26/18 20:19 INR 1.45 12/26/18 20:19 APTT 33.9 Seconds (26.9-38.3) 12/26/18 20:19 - Constitutional Appears: No Acute Distress, Chronically Ill - Head Exam Head Exam: NORMAL INSPECTION - Respiratory Exam Respiratory Exam: Decreased Breath Sounds - Cardiovascular Exam Cardiovascular Exam: +S1, +S2 - GI/Abdominal Exam GI & Abdominal Exam: Soft. absent: Tenderness - Extremities Exam Additional comments: left leg with bandages in place Assessment and Plan - Assessment and Plan (Free Text) Plan: Assessment Right lower extremity osteomyelitis with MRSA and Pseudomonas history of Right foot abscess S/P I and D chronic renal failure history of sepsis due to acute on chronic gangrenous cholecystitis S/P cholecystectomy HTN DM dyslipidemia obesity with BMI 39 Plan continue Zyvox and Cefepime to complete 4-6 weeks of antibiotics with weekly CRP, CBC, CMP and results should be faxed over to PMD's office for skin grafting on Wednesday
--- NOTE | 2019-01-07 15:58 | CP.PCM.PN ---
<Ivan Bedolla - Last Filed: 01/07/19 15:54> Subjective - Date & Time of Evaluation Date of Evaluation: 01/07/19 Time of Evaluation: 15:54 - Subjective Subjective: Podiatry Progress Note for Dr. Tucker BurrowsM seen and evaluated at bedside for lateral right leg wound. Patient is AAO x 3 and NAD, resting comfortably in bed. States that pain is well controlled. Denies any acute overnight events or new pedal complaints. Denies any recent N/V/F/C/CP/SOB/D Objective - Vital Signs/Intake and Output Vital Signs (last 24 hours): Temp Pulse Resp BP Pulse Ox 97.7 F 70 18 112/70 96 01/07/19 08:51 01/07/19 13:41 01/07/19 08:51 01/07/19 13:41 01/07/19 08:51 - Medications Medications: Current Medications Acetaminophen (Tylenol 325mg Tab) 650 mg PO Q6H PRN PRN Reason: Fever >100.4 F Amlodipine Besylate (Norvasc) 10 mg PO DAILY [facility] Last Admin: 01/07/19 10:21 Dose: 10 mg Calcium Acetate (Phoslo) 667 mg PO WM [facility] Last Admin: 01/07/19 12:13 Dose: 667 mg Carvedilol (Coreg) 3.125 mg PO BID [facility] Last Admin: 01/07/19 10:21 Dose: 3.125 mg Clonidine HCl (Catapres) 0.1 mg PO TID [facility] Last Admin: 01/07/19 13:41 Dose: 0.1 mg Hydralazine HCl (Apresoline) 50 mg PO TID [facility] Last Admin: 01/07/19 13:41 Dose: 50 mg Cefepime HCl (Maxipime 1gm) 1 gm in 100 mls @ 100 mls/hr IVPB Q24H [facility]; Protocol Stop: 01/29/19 10:16 Last Admin: 01/07/19 10:20 Dose: 100 mls/hr Insulin Human Lispro (Humalog Med) 0 units SC ACHS [facility]; Protocol Last Admin: 01/07/19 12:09 Dose: 3 u Linezolid (Zyvox) 600 mg PO BID [facility]; Protocol Stop: 01/24/19 10:39 Last Admin: 01/07/19 10:21 Dose: 600 mg Polysaccharide Iron Complex (Ferrex-150) 150 mg PO DAILY [facility] Last Admin: 12/31/18 09:36 Dose: 150 mg - Labs Labs: 01/03/19 06:20 01/03/19 06:20 PT 16.1 SECONDS (9.4-12.5) H 12/26/18 20:19 INR 1.45 12/26/18 20:19 APTT 33.9 Seconds (26.9-38.3) 12/26/18 20:19 - Constitutional Appears: Well, Non-toxic, No Acute Distress - Extremities Exam Additional comments: B/L lower extremity focused exam: Vascular: DP/PT 2/4 b/l, Cap refill < 3 seconds, Temp gradient warm to warm from proximal to distal, Moderate non pitting edema noted to the right foot on the lateral side. Neuro: Gross and protective sensation are diminished b/l. Derm: ulceration noted on the lateral side of the right foot at the level of the cuboid measuring 3 cm X 3.2 cm X 2 cm with 90% granular base and 10% fibrotic base. Wound borders are macerated. Minimal sero-sanguineous drainage, no tracking, no undermining, no probe to bone and no malodor. No diana-wound erythema noted. No inter-digital macerations. Left Charcot foot. MSK: Muscle power 5/5 to all groups, No pain on palpating the blister sites. Left Charcot foot. Right foot deviated to the medial side. - Neurological Exam Neurological Exam: Alert, Awake, Oriented x3 - Psychiatric Exam Psychiatric exam: Normal Affect, Normal Mood Assessment and Plan - Assessment and Plan (Free Text) Assessment: 58M seen and evaluated at bedside for lateral right leg wound Plan: Patient seen and evaluated with Dr. Ceballos Continue abx per ID Right foot wound cx: MRSA Right foot 3 views X-ray: Right 5th met is breaking medially R foot MRI: Probable osteomyelitis proximal 5th metatarsal ESR 141, CRP 191.50 Wound dressed with betadine, ABD, DSD, posterior splint Wound vac will be reapplied tomorrow Patient to stay NWB to RLE Patient to continue IV Abx Patient to be taken to the OR on Wednesday01/09/10 for application of Integra Bilayer Graft NPO past midnight Wednesday Please provide medical clearance for procedure under IV sedation with Local Anesthesia Podiatry will follow up the patient while in house <Khalif Ceballos - Last Filed: 01/10/19 08:29> Objective - Vital Signs/Intake and Output Vital Signs (last 24 hours): Temp Pulse Resp BP Pulse Ox 97.6 F 72 20 135/82 93 L 01/09/19 17:32 01/09/19 17:32 01/09/19 17:32 01/09/19 17:32 01/09/19 17:32 Intake and Output: 01/10/19 01/10/19 06:59 18:59 Intake Total 420 Output Total 600 Balance -180 - Medications Medications: Current Medications Acetaminophen (Tylenol 325mg Tab) 650 mg PO Q6H PRN PRN Reason: Fever >100.4 F Amlodipine Besylate (Norvasc) 10 mg PO DAILY [facility] Last Admin: 01/09/19 10:11 Dose: 10 mg Calcium Acetate (Phoslo) 667 mg PO WM [facility] Last Admin: 01/09/19 17:04 Dose: 667 mg Carvedilol (Coreg) 3.125 mg PO BID [facility] Last Admin: 01/09/19 17:04 Dose: 3.125 mg Clonidine HCl (Catapres) 0.1 mg PO TID [facility] Last Admin: 01/09/19 17:04 Dose: 0.1 mg Enoxaparin Sodium (Lovenox) 30 mg SC DAILY [facility]; Protocol Last Admin: 01/09/19 10:08 Dose: Not Given Hydralazine HCl (Apresoline) 50 mg PO TID [facility] Last Admin: 01/09/19 17:04 Dose: 50 mg Cefepime HCl (Maxipime 1gm) 1 gm in 100 mls @ 100 mls/hr IVPB Q24H [facility]; Protocol Stop: 01/29/19 10:16 Last Admin: 01/09/19 10:19 Dose: 100 mls/hr Insulin Human Lispro (Humalog Med) 0 units SC ACHS [facility]; Protocol Last Admin: 01/10/19 08:00 Dose: Not Given Linezolid (Zyvox) 600 mg PO BID [facility]; Protocol Stop: 02/06/19 22:12 Polysaccharide Iron Complex (Ferrex-150) 150 mg PO DAILY [facility] Last Admin: 12/31/18 09:36 Dose: 150 mg - Labs Labs: 01/10/19 07:00 01/10/19 07:00 PT 12.9 SECONDS (9.4-12.5) H 01/09/19 06:15 INR 1.14 01/09/19 06:15 APTT 33.9 Seconds (26.9-38.3) 12/26/18 20:19 Attending/Attestation - Attestation I have personally seen and examined this patient.: Yes I have fully participated in the care of the patient.: Yes I have reviewed all pertinent clinical information, including history, physical exam and plan: Yes
[2019-01-08] MEDS: Insulin Lispro (humaLOG) MEDIUM Coverage SC SCH ×4 (08:01→22:23)
[2019-01-08] MEDS: Cefepime 1gm in NS 100ml 1 GM/100 ML BAG IVPB SCH (10:44)
[2019-01-08 11:01] LABS: HEMOGLOBIN 9.8 g/dL (14.0-18.0); MEAN CELL VOLUME 87.8 fl (80.0-105.0); MEAN CORPUSCULAR HEMOGLOBIN 27.8 pg (25.0-35.0); MEAN CORPUSCULAR HGB CONC 31.7 g/dl (31.0-37.0); MEAN PLATELET VOLUME 8.8 fl (7.0-11.0); RBC 3.52 10^6/uL (3.5-6.1); RED CELL DISTRIBUTION WIDTH 14.9 % (11.5-14.5); WHITE BLOOD COUNT 9.8 10^3/uL (4.5-11.0)
--- NOTE | 2019-01-08 11:13 | CP.PCM.PN ---
<Ivan Bedolla - Last Filed: 01/08/19 11:10> Subjective - Date & Time of Evaluation Date of Evaluation: 01/08/19 Time of Evaluation: 11:10 - Subjective Subjective: Podiatry Progress Note for Dr. Tucker BurrowsM seen and evaluated at bedside for lateral right leg wound. Patient is AAO x 3 and NAD, resting comfortably in bed. Denies any pain at this time. Denies any acute overnight events or new pedal complaints. Denies any recent N /V/F/C/CP/SOB/D Objective - Vital Signs/Intake and Output Vital Signs (last 24 hours): Temp Pulse Resp BP Pulse Ox 98.2 F 69 18 168/87 H 97 01/08/19 08:46 01/08/19 10:03 01/08/19 08:46 01/08/19 10:03 01/08/19 08:46 Intake and Output: 01/08/19 01/08/19 06:59 18:59 Intake Total 220 Output Total 950 Balance -730 - Medications Medications: Current Medications Acetaminophen (Tylenol 325mg Tab) 650 mg PO Q6H PRN PRN Reason: Fever >100.4 F Amlodipine Besylate (Norvasc) 10 mg PO DAILY [facility] Last Admin: 01/08/19 10:03 Dose: 10 mg Calcium Acetate (Phoslo) 667 mg PO WM [facility] Last Admin: 01/08/19 10:03 Dose: 667 mg Carvedilol (Coreg) 3.125 mg PO BID [facility] Last Admin: 01/08/19 10:03 Dose: 3.125 mg Clonidine HCl (Catapres) 0.1 mg PO TID [facility] Last Admin: 01/08/19 10:02 Dose: 0.1 mg Hydralazine HCl (Apresoline) 50 mg PO TID [facility] Last Admin: 01/08/19 10:02 Dose: 50 mg Cefepime HCl (Maxipime 1gm) 1 gm in 100 mls @ 100 mls/hr IVPB Q24H [facility]; Protocol Stop: 01/29/19 10:16 Last Admin: 01/07/19 10:20 Dose: 100 mls/hr Insulin Human Lispro (Humalog Med) 0 units SC ACHS [facility]; Protocol Last Admin: 01/08/19 08:01 Dose: Not Given Linezolid (Zyvox) 600 mg PO BID [facility]; Protocol Stop: 01/24/19 10:39 Last Admin: 01/08/19 10:04 Dose: 600 mg Polysaccharide Iron Complex (Ferrex-150) 150 mg PO DAILY [facility] Last Admin: 12/31/18 09:36 Dose: 150 mg - Labs Labs: 01/08/19 10:59 01/03/19 06:20 PT 16.1 SECONDS (9.4-12.5) H 12/26/18 20:19 INR 1.45 12/26/18 20:19 APTT 33.9 Seconds (26.9-38.3) 12/26/18 20:19 - Constitutional Appears: Well, Non-toxic, No Acute Distress - Extremities Exam Additional comments: B/L lower extremity focused exam: Vascular: DP/PT 2/4 b/l, Cap refill < 3 seconds, Temp gradient warm to warm from proximal to distal WNL, Moderate non pitting edema noted to the right foot on the lateral side. Neuro: Gross and protective sensation are diminished b/l. Derm: ulceration noted on the lateral side of the right foot at the level of the cuboid measuring 3 cm X 3.2 cm X 2 cm with 90% granular base and 10% fibrotic base. Wound borders are macerated, improved since yesteray. Minimal sero- sanguineous drainage, no tracking, no undermining, no probe to bone and no malodor. No diana-wound erythema noted. No inter-digital macerations. MSK: Muscle power 5/5 to all groups, No pain on palpating the blister sites. Left Charcot foot. Right foot deviated to the medial side. - Neurological Exam Neurological Exam: Alert, Awake, Oriented x3 - Psychiatric Exam Psychiatric exam: Normal Affect, Normal Mood Assessment and Plan - Assessment and Plan (Free Text) Assessment: 58M seen and evaluated at bedside for lateral right leg wound. Plan: Patient seen and evaluated with Dr. Ceballos Continue abx per ID Right foot wound cx: MRSA Right foot 3 views X-ray: Right 5th met is breaking medially R foot MRI: Probable osteomyelitis proximal 5th metatarsal ESR 141, CRP 191.50 Wound vac applied at 125 mmHg Wound dressed with betadine, ABD, DSD, posterior splint Patient to stay NWB to RLE Patient to continue IV Abx Patient to be taken to the OR on Wednesday01/09/10 for application of Integra Bilayer Graft NPO past midnight Wednesday Please provide medical clearance for procedure under IV sedation with Local Anesthesia Podiatry will follow up the patient while in house <Khalif Ceballos - Last Filed: 01/10/19 08:25> Objective - Vital Signs/Intake and Output Vital Signs (last 24 hours): Temp Pulse Resp BP Pulse Ox 97.6 F 72 20 135/82 93 L 01/09/19 17:32 01/09/19 17:32 01/09/19 17:32 01/09/19 17:32 01/09/19 17:32 Intake and Output: 01/10/19 01/10/19 06:59 18:59 Intake Total 420 Output Total 600 Balance -180 - Medications Medications: Current Medications Acetaminophen (Tylenol 325mg Tab) 650 mg PO Q6H PRN PRN Reason: Fever >100.4 F Amlodipine Besylate (Norvasc) 10 mg PO DAILY [facility] Last Admin: 01/09/19 10:11 Dose: 10 mg Calcium Acetate (Phoslo) 667 mg PO WM [facility] Last Admin: 01/09/19 17:04 Dose: 667 mg Carvedilol (Coreg) 3.125 mg PO BID [facility] Last Admin: 01/09/19 17:04 Dose: 3.125 mg Clonidine HCl (Catapres) 0.1 mg PO TID [facility] Last Admin: 01/09/19 17:04 Dose: 0.1 mg Enoxaparin Sodium (Lovenox) 30 mg SC DAILY [facility]; Protocol Last Admin: 01/09/19 10:08 Dose: Not Given Hydralazine HCl (Apresoline) 50 mg PO TID [facility] Last Admin: 01/09/19 17:04 Dose: 50 mg Cefepime HCl (Maxipime 1gm) 1 gm in 100 mls @ 100 mls/hr IVPB Q24H [facility]; Protocol Stop: 01/29/19 10:16 Last Admin: 01/09/19 10:19 Dose: 100 mls/hr Insulin Human Lispro (Humalog Med) 0 units SC ACHS [facility]; Protocol Last Admin: 01/10/19 08:00 Dose: Not Given Linezolid (Zyvox) 600 mg PO BID [facility]; Protocol Stop: 02/06/19 22:12 Polysaccharide Iron Complex (Ferrex-150) 150 mg PO DAILY [facility] Last Admin: 12/31/18 09:36 Dose: 150 mg - Labs Labs: 01/10/19 07:00 01/10/19 07:00 PT 12.9 SECONDS (9.4-12.5) H 01/09/19 06:15 INR 1.14 01/09/19 06:15 APTT 33.9 Seconds (26.9-38.3) 12/26/18 20:19 Attending/Attestation - Attestation I have personally seen and examined this patient.: Yes I have fully participated in the care of the patient.: Yes I have reviewed all pertinent clinical information, including history, physical exam and plan: Yes
[2019-01-08 11:15] LABS: CALCIUM 8.8 mg/dL (8.4-10.5)
[2019-01-08] MEDS: Enoxaparin 30 mg Syringe SC SCH (18:19)
--- NOTE | 2019-01-08 21:05 | PN ---
DATE: 01/08/2019 SUBJECTIVE: The patient is in bed in no acute distress, nontoxic. PHYSICAL EXAMINATION VITAL SIGNS: Temperature is 98, blood pressure is 130/80, respiratory rate of 18. HEENT: Unremarkable. NECK: Supple. LUNGS: Have decreased breath sounds. HEART: Normal S1, S2. ABDOMEN: Soft, nontender. LABORATORY DATA: Reveals a white count of 9.8, hemoglobin of 9, BUN of 40, creatinine of 2.6. Cultures were positive for MRSA of the right foot and two initial wound cultures. MEDICATIONS: The patient is on cefepime and linezolid. ASSESSMENT AND PLAN: A 58-year-old male seen earlier today doing well with a right lower extremity osteomyelitis with methicillin-resistant Streptococcus aureus and questionable Serratia versus Pseudomonas of cultures that were done as outpatient. On Zyvox and cefepime, complete 4 to 6 weeks. The patient should have CBC, SMA-18, sedimentation rate, and C-reactive protein once weekly. The patient is scheduled for a possible skin grafting tomorrow. Ivan Bedolla's progress note is reviewed. He will be taken to the operating room tomorrow for a 5-layer graft placement. Sergio Reyna MD
--- NOTE | 2019-01-09 02:58 | PN ---
DATE: 01/08/2019 SUBJECTIVE: The patient is seen lying in bed. He is awake. He is alert. He is comfortable. PHYSICAL EXAMINATION: GENERAL: Middle-aged male, lying in bed. VITAL SIGNS: Blood pressure 148/86, heart rate 70, respiratory rate 20, temperature 98.1. HEENT: Normocephalic, atraumatic. NECK: Supple, no JVD. LUNGS: Bilateral equal entry, bilateral equal expansion. CARDIAC: S1 and S2, regular rate and rhythm, no murmur, no rub. ABDOMEN: Obese, distended, soft, nontender, bowel sounds present. EXTREMITIES: No lower extremity edema. INTAKE AND OUTPUT: 220/950. LABORATORY DATA: WBC 9.8, hemoglobin 9.8, hematocrit 30.9, platelets 295. Sodium 136, potassium 4.6, chloride 105, CO2 of 23, BUN 40, creatinine 2.6, glucose 241, calcium 8.8. CURRENT MEDICATIONS: Apresoline 50 mg t.i.d., Catapres 0.1 mg b.i.d., Coreg 3.125 mg b.i.d., insulin, Lovenox, cefepime 1 g, amlodipine 10 mg, PhosLo, Tylenol, Zyvox. ASSESSMENT AND PLAN: 1. Severe hypertension, fair control at this time. 2. Osteomyelitis of the right heel. 3. Tsr-hoibusx-wveirikxw diabetes mellitus. 4. Proteinuria. 5. Acute kidney injury superimposed on chronic kidney disease, stage 3. PLAN: 1. For OR tomorrow. 2. Blood pressure is acceptable right now. 3. Continue antibiotics. 4. Avoid nephrotoxins. 5. ARB on hold because of SYLVESTER. Mireya Lopez MD
[2019-01-09 07:24] LABS: INR 1.14; PROTHROMBIN TIME 12.9 SECONDS (9.4-12.5)
[2019-01-09] MEDS ORDERED: Lidocaine 2% Inj (20ml) ONE (07:40)
[2019-01-09] MEDS ORDERED: Bupivacaine 0.5% 50 ML IJ ONE (07:40)
[2019-01-09] MEDS: Insulin Lispro (humaLOG) MEDIUM Coverage SC SCH ×4 (07:46→21:35)
--- NOTE | 2019-01-09 08:36 | PN ---
DATE: 01/07/2019 SUBJECTIVE: The patient is 58-year-old, seen and examined, doing well. No nausea or vomiting. No diarrhea. No chest pain. No shortness of breath. PHYSICAL EXAMINATION: VITAL SIGNS: He is afebrile, pulse 66, respiration 18, and blood pressure 126/84. LUNGS: Bilateral fair airflow. No rhonchi or crackle. HEART: S1 and S2 audible. ABDOMEN: Soft and nontender. No rebound. No guarding. NEUROLOGIC: The patient is awake and alert; able to communicate. LABORATORY DATA: His blood sugar is 210. Right foot wound positive for MRSA. ASSESSMENT: 1. Right foot osteomyelitis. 2. Right foot methicillin-resistant Staphylococcus aureus wound infection. 3. Noninsulin-dependent diabetes. 4. Hypertension. 5. Hyperlipidemia. 6. Ischemic cardiomyopathy. PLAN: Currently the patient is on amlodipine. He is getting cefepime. He is on PhosLo. He is getting Zyvox and his CBC done on 01/03/2019. His platelet count was okay. We will continue current management. They will apply wound VAC tomorrow. Roberta Aden MD
--- NOTE | 2019-01-09 08:36 | PN ---
DATE: 01/08/2019 SUBJECTIVE: The patient is a 58-year-old seen and examined, lying in bed, seems to be comfortable, offer no complaint. No nausea, vomiting or diarrhea. Eating and tolerating. Right foot is in the dressing. He is being prepped for debridement and possible skin graft. PHYSICAL EXAMINATION VITAL SIGNS: He is afebrile. Pulse 70, respirations 18, and blood pressure 148/66. LUNGS: Bilateral fair airflow. No rhonchi or crackle. HEART: S1 and S2 audible. ABDOMEN: Soft and nontender. No rebound. No guarding. NEUROLOGICAL: The patient is awake and alert. Able to communicate. LABORATORY DATA: WBC 9.8, hemoglobin 9.8, hematocrit 30.8, and platelet of 295. Chemistry: Sodium 136, potassium 4.6, chloride 105, CO2 of 23, BUN 14, creatinine 2.6 and blood sugar 273. ASSESSMENT: 1. Right foot osteomyelitis. 2. Chronic kidney disease. 3. Ischemic cardiomyopathy. 4. Chronic anemia. PLAN: The patient is medically stable. His risk outweigh the benefit. He is medically stable to go for right foot wound debridement with graft placement. We will also call Cardiology evaluation also. Roberta Aden MD
[2019-01-09] MEDS: Enoxaparin 30 mg Syringe SC SCH (10:08)
[2019-01-09] MEDS: Cefepime 1gm in NS 100ml 1 GM/100 ML BAG IVPB SCH (10:19)
--- NOTE | 2019-01-09 10:42 | PCM.SURG1 ---
Surgeon's Initial Post Op Note - Surgeon's Notes Surgeon: Dr. Cason, DPM Clean Out Driller: Dr. Sary Hughes, PGY1 Type of Anesthesia: Local Pre-Operative Diagnosis: Right plantar non-healing wound Operative Findings: see dictation. I: 13 cc of 1:1 mix of 1% Lidocaine and 0.5% Marcaine plain. M: Integra Graft, Wound Vac Post-Operative Diagnosis: same as above Operation Performed: Debridement of Wound, application of integra graft, application of wound vac. Local Anesthesia only Specimen/Specimens Removed: none Estimated Blood Loss: EBL {In ML}: 5 Blood Products Given: N/A Drains Used: Wound Vac Post-Op Condition: Good Date of Surgery/Procedure: 01/09/19 Time of Surgery/Procedure: 10:42
--- NOTE | 2019-01-09 11:27 | PCM.OP ---
Operative Report - Operative Report Date of Surgery/Procedure: 01/09/19 Time of Surgery/Procedure: 07:30 Surgeon: Dr. Claudia Cason DPM Head Usher: Dr. Sary Hughes PGY1 Anesthesia/Sedation: Local Anesthesia Pre-Operative Diagnosis: Right Foot Plantar Non-healing Ulceration Post-Operative Diagnosis: same as above Indication for Surgery: Procedure 1: Right foot plantar non-healing wound debridement with removal of all nonviable tissue Procedure 2: Application of Integra BiLayer Skin graft Procedure 3: Application of Wound Vac Indications: The patient is a 58 year-old male with the above diagnoses. The patient has exhausted all conservative treatment at this time and now requires surgical intervention. The patient signed the consent after careful explanation of risks, benefits, complications and alternatives for surgical procedure. No guarantees were given nor implied. NPO status was confirmed prior to taking patient to the OR. Operative Findings: Preparation: The patient was brought in to the operating room and placed on the operating room table in a supine position. Timeout was performed for identification of the correct patient and procedure. The patient received a total of 13 mL of 1:1 mixture 0.5% Marcaine plain and 1% lidocaine plain locally to the right foot at the level of the wound. Once local anesthesia was achieved, right lower extremity was then prepped and draped in normal sterile manner and the procedure began. No tourniquet was used during the procedure. Procedure/Operation Description: Procedure 1: Right foot plantar non-healing wound debridement with removal of all nonviable tissue Attention was directed to the right plantar foot where an approximately 5.3 cm x 5.2 cm X 1.3 cm ulceration was noted at the level of the cuboid. The ulceration was noted to be composed of 90% granular base with 10% fibrotic tissue at the central portion. No drainage was noted to the wound bed. Mechanical debridement was performed with a sterile 15 blade and adson pickup as well as a currette to remove all fibrotic and non-viable tissue from the wound base and the wound margins. The surgical site was then irrigated using sterile saline solution. Procedure 2: Application of Integra BiLayer Skin graft At this time, the integra bilayer graft was prepared in a basin using normal sterile saline solution. After the graft was prepared, the graft was placed over the ulceration site. The graft adhered the to base of the ulceration site well and was noted to fully cover the site. Additional graft was applied to a wound measuring 1 cm X 1 cm at the medial aspect of the 5th metatarso-phalangeal joint and another wound measuring 0.5 cm X 0.5 cm at the level of the anterior ankle. The graft was then secured to the wound edges using skin stacey. Procedure 3: Application of Wound Vac At this time, a wound VAC was applied to the right foot plantar wound bridging to the 5th metatarso-phalangeal joint wound. The wound VAC was securely and the machine was turned on to make sure VAC was leak proof. The site was then dressed with 4x4 gauze, kerlix, and posterior splint Estimated Blood Loss: 5 cc Complications: none Discharge & Condition: Postoperative Condition: The patient tolerated the anesthesia and procedure well and was escorted to the recovery room with vital signs stable and neurovascular status intact to the right lower extremity. Patient is to be non- weight bearing in a posteiror splint. Podiatry will continue to follow patient while in house.
--- NOTE | 2019-01-09 17:46 | PN ---
DATE: 01/09/2019 SUBJECTIVE: The patient is a 58-year-old, seen and examined, underwent wound treatment along with graft placement. He was seen and examined, offers no complaints. No chest pain. No shortness of breath. No nausea, vomiting, or diarrhea. PHYSICAL EXAMINATION: VITAL SIGNS: He is afebrile. Pulse 70, respirations 20, blood pressure 125/70. LUNGS: Bilateral clear air flow. No rhonchi or crackles. HEART: S1, S2, audible. ABDOMEN: Soft, obese, nontender. No rebound. No guarding. NEUROLOGIC: He is awake and alert, able to communicate. EXTREMITIES: His right foot is in dressing and soft cast. LABORATORY DATA: WBC is 9.8, hemoglobin 9.8, hematocrit 30.9, platelets of 295. PT 12.9, INR 1.14. Chemistry: Blood sugar is 159. ASSESSMENT AND PLAN: 1. Right foot fifth toe osteomyelitis. 2. Resolving cellulitis. 3. Diabetic nephropathy. 4. Ischemic cardiomyopathy. 5. Methicillin resistant Staphylococcus aureus wound infection. So, currently the patient is on Zyvox and is getting cefepime. As per Infectious Diseases recommendation, he needs to have at least 4 weeks and maximum of 6 weeks of antibiotics. Followup his CBC and CMP intermittently. I spoke to social worker aide for disposition plan. After he gets okay from Podiatry point of view, we will make disposition plan, so the patient can get antibiotic daily coming from home since he has not been accepted in any facility because of his . Roberta Aden MD
--- NOTE | 2019-01-10 01:15 | PN ---
DATE: 01/09/2019 SUBJECTIVE: The patient is seen, lying in bed. He is awake. He is alert. He is comfortable. He went to the OR today. He had wound debridement and partial closure of his right heel wound. PHYSICAL EXAMINATION: GENERAL: He is an middle-aged male, lying in bed. VITAL SIGNS: Blood pressure 139/84, heart rate 70, respiratory rate 20, temperature 97.9. HEENT: Normocephalic, atraumatic. Positive pallor. NECK: Supple. No JVD. LUNGS: Bilateral equal entry. Bilateral equal expansion. CARDIAC: S1 and S2. Regular rate rhythm. No murmur. No rub. ABDOMEN: Obese, distended, soft, nontender. Bowel sounds are present. EXTREMITIES: Dressing of the right heel. LABORATORY DATA: No new labs today. CURRENT MEDICATIONS: Apresoline 50 mg t.i.d., Catapres 0.1 mg t.i.d., Coreg 3.125 b.i.d., iron 150 mg, Lovenox 30 mg, cefepime 1 g, amlodipine 10 mg, PhosLo, and Tylenol. ASSESSMENT: 1. Debridement of right heel wound, application of Integra graft, application of wound vacuum-assisted closure, postoperative day #0. 2. Hypertension. 3. Noninsulin-dependent diabetes mellitus. 4. Chronic kidney disease stage 3 with superimposed acute kidney injury. 5. Chronic anemia. 6. Osteomyelitis. PLAN: 1. Continue antibiotics. 2. Avoid nephrotoxins. 3. Continue current antihypertensives. 4. Monitor fingersticks and continue insulin coverage. 5. Status post Venofer and Aranesp. Mireya Lopez MD
--- NOTE | 2019-01-10 01:35 | PN ---
DATE: 01/09/2019 SUBJECTIVE: The patient is in room 374, bed 2. He is seen earlier this morning. No fevers, no chills. PHYSICAL EXAMINATION VITAL SIGNS: Temperature is 98, blood pressure is 130/80, respiratory rate of 18. HEENT: Unremarkable. NECK: Supple. LUNGS: Have decreased breath sounds. HEART: Normal S1 and S2. ABDOMEN: Soft, nontender. LABORATORY EXAMINATION: Reveals a white count of 9.8, hemoglobin of 9, creatinine of 2.6. MRSA cultures. MEDICATIONS: The patient is on cefepime. Unfortunately, the pharmacy has discontinued the Zyvox. ASSESSMENT AND PLAN: This is a 58-year-old male, who was seen earlier today with right lower extremity osteomyelitis with methicillin-resistant Staphylococcus aureus and questionable Serratia versus Pseudomonas. I have called Dr. Cason today for requesting the outside culture results. Currently, on Zyvox and cefepime. We will restart the Zyvox since is discontinued and will need 4 to 6 weeks of antibiotics and weekly CBC, SMA-18 and sed rate and C-reactive protein, and the patient wound debridement and removal of old nonviable tissue. Sergio Reyna MD
--- NOTE | 2019-01-10 02:56 | CON ---
DATE: 01/09/2019 CONSULT SERVICE: Cardiology. PHYSICIAN: Ray Lilly MD REASON FOR CONSULTATION: Preop evaluation, risk stratification for right foot surgery for nonhealing ulcer. HISTORY OF PRESENT ILLNESS: Briefly, this is 58-year-old morbidly obese male with a past medical history significant for right foot nonhealing ulcer and cellulitis. The patient has been seen in outpatient, is going today for wound debridement by /Dr. Cason. Cardiology consult is called for preop evaluation, risk stratification. PAST MEDICAL HISTORY: Past history significant for hypertension, ydf-ywysmjc-jyqvqakst diabetes, ischemic cardiomyopathy, history of Charcot foot, hyperlipidemia, renal insufficiency. Past history significant also for cardiomyopathy, chronic kidney disease, paroxysmal atrial fibrillation. PAST SURGICAL HISTORY: Significant for status post cholecystectomy. History of previous cardiac workup as follows: The patient had a cardiac catheterization dated 05/01/2014, nonobstructive coronary artery disease, nonischemic cardiomyopathy, ejection fraction 30 to 35%, dated 05/01/2014. Most recent echocardiography, 08/06/2016, shows [id number] concentric LVH, ejection fraction 35 to 40%, mild mitral regurgitation, mild tricuspid regurgitation, mild pulmonary insufficiency, ejection fraction 35 to 40%. SOCIAL HISTORY: Denies smoking. Denies any history of alcohol abuse. CURRENT MEDICATIONS: The patient is taking amlodipine 10 mg, calcium acetate 667 , clonidine 0.1 mg twice a day, glipizide 5 mg p.o. b.i.d. ALLERGIES: NO KNOWN DRUG ALLERGIES. REVIEW OF SYSTEMS: As per HPI. PHYSICAL EXAMINATION: GENERAL: Height of the patient 6 feet 2 inches, weight of the patient 279 pounds, body mass index 35.9 kg/m2. VITAL SIGNS: Temperature afebrile, heart rate 70, blood pressure 125/70. HEENT: PERRLA. Extraocular muscles intact. NECK: Supple. No carotid bruit or thyromegaly. CHEST: Clear to auscultation. HEART: S1, S2, regular. ABDOMEN: Soft. EXTREMITIES: Clubbing, cyanosis negative. Right foot is in dressing. DIAGNOSTIC DATA: EKG dated 12/26/2018 showed normal sinus, left atrial enlargement, LVH. No acute ST-T changes noted. Blood workup as follows: WBC 9.8, hemoglobin 9.8, hematocrit 30.9, platelet count 295. Chemistry showed sodium 133, potassium 4.3, chloride of 105, CO2 of 23, anion gap of 13, BUN 40, creatinine 2.6. Total protein 7.5, albumin 3.3. Albumin/globulin ratio of 0.8. IMPRESSION: A 58-year-old morbidly obese male with past medical history of diabetes; hypertension; hyperlipidemia; chronic renal insufficiency; diabetic foot, nonhealing; history of nonischemic cardiomyopathy; nonobstructive coronary artery disease, status post cardiac catheterization 04/2014, last echo 2015, ejection fraction 35 to 40%, for preop evaluation and risk stratification. The patient had a moderate risk, though procedure itself is very low risk and had been done under local anesthesia, but moderate risk secondary to underlying comorbidity including cardiomyopathy, obesity, diabetes, hypertension, and hyperlipidemia, but no evidence of acute ischemia, no evidence of acute anginal symptoms, no evidence of congestive heart failure or ischemic symptoms or arrhythmia. No absolute contraindication. We cleared the patient to go for surgery. We will get echo to assess left ventricular function, also get the MUGA scan to assess left ventricular function. Lipid profile, TSH, hemoglobin A1c. Further recommendation depending on hospital course. We will follow with you. We discussed with the nurse taking care and explained to the patient the patient is clear to go for surgery. Further recommendation, hospital course. We will follow with you. For now, continue Coreg 3.125 mg twice a day, continue amlodipine. Avoid nephrotoxic medication. Monitor renal function closely. Thank you Dr. Aden for providing this opportunity in taking care of the patient Anuj Knott. Ray Lilly MD
[2019-01-10 07:39] LABS: BASO # 0.03 K/mm3 (0.0-2.0); BASO % 0.3 % (0.0-3.0); EOS # 0.2 (0.0-0.7); EOS % 2.5 % (1.5-5.0); LYMPH # 2.8 (1.2-3.4); LYMPH % 31.6 % (22.0-35.0); MEAN CELL VOLUME 87.7 fl (80.0-105.0); MEAN CORPUSCULAR HEMOGLOBIN 27.4 pg (25.0-35.0); MEAN CORPUSCULAR HGB CONC 31.3 g/dl (31.0-37.0); MEAN PLATELET VOLUME 8.8 fl (7.0-11.0); MONO # 0.8 (0.1-0.6); MONO % 8.7 % (1.0-6.0); RBC 3.65 10^6/uL (3.5-6.1); WHITE BLOOD COUNT 8.8 10^3/uL (4.5-11.0)
[2019-01-10 07:49] LABS: ALB/GLOB RATIO 0.8 (1.1-1.8); ALBUMIN 3.6 g/dL (3.0-4.8); CALCIUM 9.2 mg/dL (8.4-10.5)
[2019-01-10] MEDS: Insulin Lispro (humaLOG) MEDIUM Coverage SC SCH ×4 (08:00→22:03)
--- NOTE | 2019-01-10 10:17 | CP.PCM.PN ---
Subjective - Date & Time of Evaluation Date of Evaluation: 01/10/19 Time of Evaluation: 10:06 - Subjective Subjective: Podiatry Progress Note for Dr. Cason 58 y/o male seen and evaluated at bedside 1 day status post application of Integra graft with Wound VAC for lateral right leg wound. Patient is AAO x 3 and NAD, resting comfortably in bed. Denies any pain at this time. Denies any acute overnight events or new pedal complaints. Denies any recent N/V/F/C/CP/SOB/D Objective - Vital Signs/Intake and Output Vital Signs (last 24 hours): Temp Pulse Resp BP Pulse Ox 97.5 F L 63 17 154/70 H 98 01/10/19 09:25 01/10/19 09:25 01/10/19 09:25 01/10/19 09:25 01/10/19 09:25 Intake and Output: 01/10/19 01/10/19 06:59 18:59 Intake Total 420 Output Total 600 Balance -180 - Medications Medications: Current Medications Acetaminophen (Tylenol 325mg Tab) 650 mg PO Q6H PRN PRN Reason: Fever >100.4 F Amlodipine Besylate (Norvasc) 10 mg PO DAILY [facility] Last Admin: 01/09/19 10:11 Dose: 10 mg Calcium Acetate (Phoslo) 667 mg PO WM [facility] Last Admin: 01/10/19 08:42 Dose: 667 mg Carvedilol (Coreg) 3.125 mg PO BID [facility] Last Admin: 01/09/19 17:04 Dose: 3.125 mg Clonidine HCl (Catapres) 0.1 mg PO TID [facility] Last Admin: 01/09/19 17:04 Dose: 0.1 mg Enoxaparin Sodium (Lovenox) 30 mg SC DAILY [facility]; Protocol Last Admin: 01/09/19 10:08 Dose: Not Given Hydralazine HCl (Apresoline) 50 mg PO TID [facility] Last Admin: 01/09/19 17:04 Dose: 50 mg Cefepime HCl (Maxipime 1gm) 1 gm in 100 mls @ 100 mls/hr IVPB Q24H [facility]; Protocol Stop: 01/29/19 10:16 Last Admin: 01/09/19 10:19 Dose: 100 mls/hr Insulin Human Lispro (Humalog Med) 0 units SC ACHS [facility]; Protocol Last Admin: 01/10/19 08:00 Dose: Not Given Linezolid (Zyvox) 600 mg PO BID [facility]; Protocol Stop: 02/06/19 22:12 Polysaccharide Iron Complex (Ferrex-150) 150 mg PO DAILY [facility] Last Admin: 12/31/18 09:36 Dose: 150 mg - Labs Labs: 01/10/19 07:00 01/10/19 07:00 PT 12.9 SECONDS (9.4-12.5) H 01/09/19 06:15 INR 1.14 01/09/19 06:15 APTT 33.9 Seconds (26.9-38.3) 12/26/18 20:19 - Constitutional Appears: Well, Non-toxic, No Acute Distress - Head Exam Head Exam: ATRAUMATIC, NORMOCEPHALIC - Extremities Exam Additional comments: Wound VAC and Posterior splint in place, clean/dry/intact - Neurological Exam Neurological Exam: Alert, Awake, Oriented x3 - Psychiatric Exam Psychiatric exam: Normal Affect, Normal Mood Assessment and Plan - Assessment and Plan (Free Text) Assessment: 58 y/o male patient 1 day status post application of Integra graft with Wound VAC in the OR. Plan: Patient seen and evaluated with Dr. Cason Continue abx per ID Right foot wound cx: MRSA Right foot 3 views X-ray: Right 5th met is breaking medially R foot MRI: Probable osteomyelitis proximal 5th metatarsal ESR 141, CRP 191.50 Wound vac continued at 120 mmHg Next dressing change THRUSDAY 01/12/19 Patient to stay NWB to RLE Patient to continue IV Abx Podiatry will follow up the patient while in house
[2019-01-10] MEDS: Enoxaparin 30 mg Syringe SC SCH (11:11)
[2019-01-10] MEDS: Cefepime 1gm in NS 100ml 1 GM/100 ML BAG IVPB SCH (11:13)
--- NOTE | 2019-01-10 12:41 | CARD ---
APPROVED REPORT Date of service: 01/10/2019 EXAM: Two-dimensional and M-mode echocardiogram with Doppler and color Doppler. INDICATION Cardiomyopathy LV Function:SystolicDiastolic 2D DIMENSIONS Left Atrium (2D)4.6 (1.6-4.0cm)IVSd1.7 (0.7-1.1cm) LVDd5.1 (3.9-5.9cm)PWd1.7 (0.7-1.1cm) LVDs4.0 (2.5-4.0cm)LVEF (%)45.0 (>50%) M-Mode DIMENSIONS Aortic Root3.20 (2.2-3.7cm)Aortic Cusp Exc.2.00 (1.5-2.0cm) Aortic Valve AoV Peak Oungzknm441.0cm/Maryjo Peak GR.5mmHg Mitral Valve MV E Ztefvxzg82.7cm/sMV A Pytwpbwg24.0cm/sE/A ratio0.7 TDI E/Lateral E'0.0E/Medial E'0.0 Tricuspid Valve TR Peak Bqrvfzev718bz/sRAP [id number] Peak Gr.12mmHg [id number] LEFT VENTRICLE The left ventricle is normal size. There is mild to moderate concentric left ventricular hypertrophy. The systolic function is mildly impaired.EF-45% There is Mild global hypokinesis of the left ventricle. Transmitral Doppler flow pattern is Grade III-reversible restrictive diastolic dysfunction. No left ventricle thrombus noted on this study. There is no ventricular septal defect visualized. There is no left ventricular aneurysm. There is no mass noted in the left ventricle. RIGHT VENTRICLE The right ventricle is normal size. There is normal right ventricular wall thickness. The right ventricular systolic function is normal. ATRIA The left atrium is mildly dilated. The right atrium size is normal. The interatrial septum is intact with no evidence for an atrial septal defect. AORTIC VALVE The aortic valve is normal in structure. No aortic regurgitation is present. There is no aortic valvular stenosis. There is no aortic valvular vegetation. MITRAL VALVE The mitral valve is thickened but opens well. Mitral regurgitation is trace. There is no mitral valve stenosis. There is no evidence of mitral valve prolapse. TRICUSPID VALVE The tricuspid valve leaflets are thickened , but open well. There is trace to mild tricuspid regurgitation.RVSP-22 mmof Hg. There is no tricuspid valve stenosis. There is no tricuspid valve prolapse or vegetation. PULMONIC VALVE The pulmonary valve is normal in structure. There is trace pulmonic valvular regurgitation. There is no pulmonic valvular stenosis. GREAT VESSELS The aortic root is normal in size. The ascending aorta is normal in size. The pulmonary artery is normal. The IVC is normal in size and collapses >50% with inspiration. PERICARDIAL EFFUSION There is no pleural effusion. There is no pericardial effusion. <Conclusion> The left ventricle is normal size. There is mild to moderate concentric left ventricular hypertrophy. The systolic function is mildly impaired.EF-45% No aortic regurgitation is present. Mitral regurgitation is trace. There is trace to mild tricuspid regurgitation.RVSP-22 mmof Hg. The IVC is normal in size and collapses >50% with inspiration. There is no pericardial effusion.
--- NOTE | 2019-01-10 14:40 | PN ---
DATE: 01/10/2019 REASON FOR CONSULTATION AND FOLLOWUP: Preoperative risk stratification for right foot surgery of nonhealing ulcer. SUBJECTIVE: The patient denies any chest pain, shortness of breath or any palpitation. PHYSICAL EXAMINATION: GENERAL: Not in apparent distress. VITAL SIGNS: Temperature afebrile, heart rate 60, blood pressure 154/70. HEENT: PERRLA. Extraocular muscles intact. NECK: Supple. No carotid bruits. No thyromegaly. CHEST: Clear to auscultation. HEART: S1 and S2 regular. ABDOMEN: Soft. EXTREMITIES: Clubbing, cyanosis negative. LABORATORY DATA: Blood workup as follows. WBC 8.8, hemoglobin 10, hematocrit 32, platelet count 312. Chemistries show sodium 139, potassium 4, chloride 105, CO2 of 23, anion gap 13, BUN 40 and creatinine 2.6. IMPRESSION: A 58-year-old morbidly obese male with a past medical history significant for nonischemic cardiomyopathy, hypertension, chronic renal insufficiency, diabetic foot nonhealing ulcer, nonobstructive coronary artery disease, status post cardiac catheterization in 04/2014, admitted with a nonhealing ulcer. Yesterday, the patient underwent wound debridement. Cardiology consult was sought for preop evaluation and risk stratification. RECOMMENDATION: We will get echo to assess LV function. Continue Coreg. Continue clonidine. Continue enoxaparin, DVT prophylaxis, continue amlodipine. Avoid nephrotoxic medication. The patient of interest but because of the renal insufficiency, it was not started. Monitor the patient. If renal function gets worse, avoid nephrotoxic medication. We will continue hydralazine and clonidine. We will follow the echo and may consider MUGA scan to assess LV function. After the MUGA and echo, further recommendations will be made. Thank you Dr Aden for providing this opportunity in taking care of the patient, Nikos Leslie. Ray Lilly MD
--- NOTE | 2019-01-10 15:24 | PN ---
DATE: 01/10/2019 SUBJECTIVE: The patient is seen earlier today in 374, bed 2. No fevers, no chills. He was awake and alert, tolerating antibiotics. His appetite is good. OBJECTIVE: VITAL SIGNS: Temperature of 97, blood pressure is 150/70, respiratory rate 17, heart rate of 63. HEENT: Unremarkable. NECK: Supple. LUNGS: Have decreased breath sounds. HEART: Normal, S1 and S2. ABDOMEN: Soft. LABORATORY EXAMINATION: Reveals a white count is down to 8.8, hemoglobin of 10. Chemistries are noted. Creatinine is 2.6. Microbiology reveals MRSA. REVIEW OF ORDERS: Reveals the patient to be on Zyvox and cefepime and the patient had procedure yesterday with application of a dressing, graft placement. ASSESSMENT AND PLAN: He is a 58-year-old male with right lower extremity osteomyelitis with methicillin-resistant staphylococcus aureus and questionable gram-negative saleem, which was cultured as outpatient Serratia versus Pseudomonas, awaiting for Dr. Cason's input. The patient will need 4-6 weeks of antibiotics with weekly CBC, SMA-18, sed rate, C-reactive protein. We will follow with you. The patient did have a graft placement yesterday, post procedure day #1. The patient had a graft with a wound VAC for the lateral right leg. An MRI of the right foot did show osteomyelitis. Sergio Reyna MD
--- NOTE | 2019-01-10 18:48 | CARD ---
APPROVED REPORT Date of service: 01/10/2019 INDICATION SEPSIS,EVALUATE LV AND RV EF% PROCEDURE The above named patient recieved 29.8 millicuries of Tc99m tagged red blood cells intravenously. After achieving equilibrium, gated imaging of 16/frame/cycle was performed utillizing Gamma camera interfaced with a digital computer and gated device. Gated imaging was then performed in the left anterior oblique, anterior, and the left lateral projections. Findings Calculated LV Ejection Fraction is 44%. Impressions Calculated Ejection Fraction is 44 %.
--- NOTE | 2019-01-10 19:24 | PN ---
DATE: 01/10/2019 SUBJECTIVE: The patient is seen lying in bed. He is awake. He is alert. He is comfortable. He does not appear to be in any kind of distress. He reports that he had an echocardiogram today. PHYSICAL EXAMINATION: GENERAL: Middle-aged male lying in bed. VITAL SIGNS: Blood pressure 154/70, heart rate 63, respiratory rate 18, and temperature 97.5. HEENT: Normocephalic and atraumatic. Positive pallor. NECK: Supple. No JVD. LUNGS: Bilateral equal air entry, bilateral equal expansion. CARDIAC: S1 and S2, regular rate and rhythm. No murmur. No rub. ABDOMEN: Obese, distended, soft, and nontender. Bowel sounds present. EXTREMITIES: Dressing of the right lower extremity, 1+ pitting edema of the left lower extremity. INTAKE AND OUTPUT: Not charted. LABORATORY DATA: WBC 8.8, hemoglobin 10, hematocrit 32, and platelets 312. Sodium 138, potassium 4.8, chloride 107, CO2 of 24, BUN 46, creatinine 2.6, glucose 131, calcium 9.2, phosphorus 4.6, magnesium 2.1, and A1c 6.6. CURRENT MEDICATIONS: Apresoline 50 t.i.d., Catapres 0.1 t.i.d., Coreg 3.125 b.i.d., Lovenox 30, Maxipime 1 g, Norvasc 10, PhosLo 667 t.i.d., Tylenol, and Zyvox. ASSESSMENT: 1. Osteomyelitis of the right heel, status post wound debridement, status post closure. 2. Noninsulin-dependent diabetes mellitus, well controlled. 3. Hypertension, suboptimally controlled. 4. Chronic anemia. 5. Nephrotic range proteinuria. 6. . PLAN: 1. Continue antibiotics as per ID recommendations. 2. Continue wound care. 3. Continue current antihypertensives. 4. Continue insulin coverage. 5. The patient really needs a kidney biopsy in light of his large kidneys, 6 g plus of proteinuria, well-controlled diabetes, suspect alternative etiology for nephropathy other than diabetic. We will discuss with ID if he is cleared for a kidney biopsy at this time. Mireya Lopez, MD
--- NOTE | 2019-01-11 02:49 | DS ---
HOSPITAL COURSE: The patient is a 58-year-old who came to emergency room after he was referred by Dr. Cason because of worsening of his right foot wound and he had MRI done positive for fifth toe osteomyelitis and has been on IV antibiotics, underwent I and D initially followed by recent debridement 2 days ago and had skin graft placed. The patient need 4 to 6 weeks of antibiotics as per ID and social worker delinquency prevention has been reaching out to a different subacute rehab, so he has been finally accepted in [facility] and is being transferred today to complete course of antibiotic. PHYSICAL EXAMINATION: GENERAL: He is awake, alert, oriented, and communicative. VITAL SIGNS: He is afebrile, pulse 63, respirations 17, and blood pressure 154/70. LUNGS: Bilateral fair airflow. No rhonchi or crackle. HEART: S1 and S2 audible. ABDOMEN: Soft and nontender. No rebound. No guarding. NEUROLOGIC: The patient is awake and alert and able to communicate. LABORATORY DATA: WBC 8.8, hemoglobin 10, hematocrit 32, and platelet 312. Chemistries; sodium 138, potassium 4.8, chloride 107, CO2 of 24, BUN 46, creatinine 2.6, and blood sugar 207. ASSESSMENT: 1. Right foot cellulitis. 2. Right fifth toe osteomyelitis. 3. History of hypertension. 4. Ischemic cardiomyopathy. 5. Chronic kidney disease. PLAN: We will continue the patient on current medications. He will be transferred to [facility]. We will continue all his medications as he is using it. Roberta Aden MD
[2019-01-11] MEDS: Insulin Lispro (humaLOG) MEDIUM Coverage SC SCH ×4 (08:31→21:36)
[2019-01-11] MEDS: Cefepime 1gm in NS 100ml 1 GM/100 ML BAG IVPB SCH (10:11)
[2019-01-11] MEDS: Enoxaparin 30 mg Syringe SC SCH (10:14)
--- NOTE | 2019-01-11 12:33 | CP.PCM.PN ---
<Rebecca Hughesremington - Last Filed: 01/11/19 12:31> Subjective - Date & Time of Evaluation Date of Evaluation: 01/11/19 Time of Evaluation: 12:31 - Subjective Subjective: Podiatry Progress Note for Dr. Cason 58 y/o male seen and evaluated at bedside 2 days status post application of Integra graft with Wound VAC for lateral right leg wound. Patient is AAO x 3 and NAD, resting comfortably in bed. Denies any pain at this time. Denies any acute overnight events or new pedal complaints. Denies any recent N/V/F/C/CP/SOB/D Objective - Vital Signs/Intake and Output Vital Signs (last 24 hours): Temp Pulse Resp BP Pulse Ox 98.2 F 78 18 140/70 98 01/11/19 06:00 01/11/19 10:14 01/11/19 06:00 01/11/19 10:14 01/11/19 06:00 Intake and Output: 01/11/19 01/11/19 06:59 18:59 Intake Total 1480 Output Total 2700 Balance -1220 - Medications Medications: Current Medications Acetaminophen (Tylenol 325mg Tab) 650 mg PO Q6H PRN PRN Reason: Fever >100.4 F Amlodipine Besylate (Norvasc) 10 mg PO DAILY [facility] Last Admin: 01/11/19 10:12 Dose: 10 mg Calcium Acetate (Phoslo) 667 mg PO WM [facility] Last Admin: 01/11/19 08:31 Dose: 667 mg Carvedilol (Coreg) 3.125 mg PO BID [facility] Last Admin: 01/11/19 10:12 Dose: 3.125 mg Clonidine HCl (Catapres) 0.1 mg PO TID [facility] Last Admin: 01/11/19 10:14 Dose: 0.1 mg Enoxaparin Sodium (Lovenox) 30 mg SC DAILY [facility]; Protocol Last Admin: 01/11/19 10:14 Dose: 30 mg Hydralazine HCl (Apresoline) 50 mg PO TID [facility] Last Admin: 01/11/19 10:14 Dose: 50 mg Cefepime HCl (Maxipime 1gm) 1 gm in 100 mls @ 100 mls/hr IVPB Q24H [facility]; P rotocol Stop: 01/29/19 10:16 Last Admin: 01/11/19 10:11 Dose: 100 mls/hr Insulin Human Lispro (Humalog Med) 0 units SC ACHS [facility]; Protocol Last Admin: 01/11/19 08:31 Dose: 1 units Linezolid (Zyvox) 600 mg PO BID [facility]; Protocol Stop: 02/06/19 22:12 Last Admin: 01/11/19 10:13 Dose: 600 mg - Labs Labs: 01/10/19 07:00 01/10/19 07:00 PT 12.9 SECONDS (9.4-12.5) H 01/09/19 06:15 INR 1.14 01/09/19 06:15 APTT 33.9 Seconds (26.9-38.3) 12/26/18 20:19 - Constitutional Appears: Well, Non-toxic, No Acute Distress - Head Exam Head Exam: ATRAUMATIC, NORMOCEPHALIC - Extremities Exam Additional comments: Wound VAC and Posterior splint in place, clean/dry/intact - Neurological Exam Neurological Exam: Alert, Awake, Oriented x3 - Psychiatric Exam Psychiatric exam: Normal Affect, Normal Mood Assessment and Plan - Assessment and Plan (Free Text) Assessment: 58 y/o male patient 2 days status post application of Integra graft with Wound VAC in the OR. Plan: Patient seen and evaluated Continue abx per ID Right foot wound cx: MRSA Right foot 3 views X-ray: Right 5th met is breaking medially R foot MRI: Probable osteomyelitis proximal 5th metatarsal ESR 141, CRP 191.50 Wound vac continued at 120 mmHg Next dressing change THRUSDAY 01/12/19- Podiatry will discontinue Wound VAC and place patient in a total contact cast Patient pending disposition home on outpatient IV Abx vs. [facility] Patient to continue IV Abx Podiatry will follow up the patient while in house <Khalif Ceballos - Last Filed: 01/11/19 18:21> Objective - Vital Signs/Intake and Output Vital Signs (last 24 hours): Temp Pulse Resp BP Pulse Ox 98 F 64 12 123/77 99 01/11/19 15:31 01/11/19 17:08 01/11/19 15:31 01/11/19 17:08 01/11/19 15:31 Intake and Output: 01/11/19 01/11/19 06:59 18:59 Intake Total 1480 75 Output Total 2700 Balance -1220 75 - Medications Medications: Current Medications Acetaminophen (Tylenol 325mg Tab) 650 mg PO Q6H PRN PRN Reason: Fever >100.4 F Amlodipine Besylate (Norvasc) 10 mg PO DAILY [facility] Last Admin: 01/11/19 10:12 Dose: 10 mg Calcium Acetate (Phoslo) 667 mg PO WM [facility] Last Admin: 01/11/19 17:07 Dose: 667 mg Carvedilol (Coreg) 3.125 mg PO BID [facility] Last Admin: 01/11/19 17:08 Dose: 3.125 mg Clonidine HCl (Catapres) 0.1 mg PO TID [facility] Last Admin: 01/11/19 17:08 Dose: 0.1 mg Enoxaparin Sodium (Lovenox) 30 mg SC DAILY [facility]; Protocol Last Admin: 01/11/19 10:14 Dose: 30 mg Hydralazine HCl (Apresoline) 50 mg PO TID [facility] Last Admin: 01/11/19 17:07 Dose: 50 mg Cefepime HCl (Maxipime 1gm) 1 gm in 100 mls @ 100 mls/hr IVPB Q24H [facility]; Protocol Stop: 01/29/19 10:16 Last Admin: 01/11/19 10:11 Dose: 100 mls/hr Sodium Chloride (Sodium Chloride 0.45%) 1,000 mls @ 80 mls/hr IV .[id number] [facility] Stop: 01/12/19 06:00 Insulin Human Lispro (Humalog Med) 0 units SC ACHS [facility]; Protocol Last Admin: 01/11/19 17:09 Dose: 1 units Linezolid (Zyvox) 600 mg PO BID [facility]; Protocol Stop: 02/06/19 22:12 Last Admin: 01/11/19 17:08 Dose: 600 mg Ondansetron HCl (Zofran Inj) 4 mg IVP Q6H PRN PRN Reason: Nausea/Vomiting - Labs Labs: 01/10/19 07:00 01/10/19 07:00 PT 12.9 SECONDS (9.4-12.5) H 01/09/19 06:15 INR 1.14 01/09/19 06:15 APTT 33.9 Seconds (26.9-38.3) 12/26/18 20:19 Attending/Attestation - Attestation I have personally seen and examined this patient.: Yes I have fully participated in the care of the patient.: Yes I have reviewed all pertinent clinical information, including history, physical exam and plan: Yes
--- NOTE | 2019-01-11 14:00 | PN ---
DATE: 01/11/2019 SUBJECTIVE: The patient is 58-year-old, seen and examined. He was scheduled to be discharge yesterday, but because of some insurance reason, his discharge was canceled. The patient otherwise doing well. PHYSICAL EXAMINATION: GENERAL: He is awake, alert and able to communicate. VITAL SIGNS: He is afebrile, pulse 70, respiration 18 and blood pressure 140/70. LUNGS: Bilateral fair airflow. No rhonchi or crackle. HEART: S1 and S2, audible ABDOMEN: Soft, obese and nontender. No rebound. No guarding. NEUROLOGIC: The patient is awake, alert and able to communicate. EXTREMITIES: Right leg is in the soft cast. LABORATORY DATA: Blood sugar is 194. He had MUGA scan done yesterday, that shows ejection fraction of 44% and echocardiogram done shows moderate to mild concentric LVH with ejection fraction of 45% with aortic regurgitation. ASSESSMENT: 1. Right foot fifth toe osteomyelitis. 2. Cellulitis. 3. Status post wound debridement and skin graft. 4. Non-insulin dependent diabetes. 5. Hypertension. 6. Chronic kidney disease. PLAN: The patient is currently on cefepime and Zyvox. His platelet is being monitored. Kidney function is being monitored. We will continue him on current medication. Disposition plan according to Dr. Cason. If she want to monitor the patient's wound in wound care center, he can go to . Roberta Aden MD
[2019-01-11] MEDS ORDERED: Midazolam 2 MG/2 ML VIAL ONE (14:05)
[2019-01-11] MEDS ORDERED: Midazolam 2 MG/2 ML VIAL IVP ONE (14:20)
[2019-01-11] MEDS ORDERED: Sodium Chloride 0.45% 1,000 ML IV SCH (14:30)
[2019-01-11 15:09] VITALS: RESP 12; TEMP 98
[2019-01-11 15:10] VITALS: O2SAT 99
--- NOTE | 2019-01-11 15:33 | CT ---
PROCEDURE: CT guided left renal cortex biopsy. HISTORY: Proteinuria. Diabetes. Chronic renal disease. PHYSICIAN(S): Prasad Shrestha MD. TECHNIQUE: The relative risks and indications of the procedure were explained to the patient and consent obtained. The patient was placed prone on the CT scanner and preliminary images through the lower kidneys obtained. Conscious sedation and monitoring were provided throughout the procedure by a nurse. Limited noncontrast images of the lower kidneys are unremarkable and symmetric. A left posterior approach was selected and the area prepped and draped in the usual sterile fashion. 1% Xylocaine was used to anesthetize the skin and soft tissues. A 17-gauge guiding needle was advanced into the left renal cortex laterally and inferiorly.. Its position was confirmed with CT. Using coaxial technique, multiple core biopsies were obtained. The postprocedure images show no evidence of significant hemorrhage. IMPRESSION: 1. CT-guided left renal cortex biopsy as described above.
--- NOTE | 2019-01-11 17:47 | PN ---
DATE: 01/11/2019 LOCATION: Room 374, bed 2. REASON FOR CONSULTATION AND FOLLOWUP: Preop risk stratification for right foot surgery of nonhealing ulcer. SUBJECTIVE: The patient is lying flat in bed without any chest pain, shortness of breath or palpitation. PHYSICAL EXAMINATION VITAL SIGNS: Blood pressure 140/70, respirations 18, pulse 78. The patient is afebrile. HEENT: Head is normocephalic. Eyes: Pupils normal. Conjunctivae slightly pale. NECK: JVP low. Carotid equal. THORAX: AP diameter normal. LUNGS: Clear. CARDIOVASCULAR: S1 and S2. EXTREMITIES: No clubbing. No cyanosis. LABORATORY DATA: WBC 8.8, hemoglobin 10.0, hematocrit 32.0, and platelets 312. Sugar 194. Echo was on 01/10, which showed normal size LV, moderate LVH, LV ejection fraction mildly reduced with 45%, trace mitral regurgitation, and trace to mild tricuspid regurgitation. DIAGNOSES: Nonischemic cardiomyopathy, hypertension, chronic renal insufficiency, anemia, diabetic foot nonhealing ulcer, nonobstructive coronary artery disease, status post cardiac catheterization in 04/2014. Echo 01/10/2019, normal size left ventricle, moderate left ventricular hypertrophy, ejection fraction 45%, trace mitral regurgitation, trace to mild mitral regurgitation. The patient had would debridement 2 days ago. PLAN: The patient lying flat in bed without any cardiac symptoms and clinically cardiac status is stable. We will continue hydralazine 50 t.i.d., clonidine 0.1 mg t.i.d., Coreg 3.125 b.i.d., Lovenox 30 mg subcutaneous daily, cefepime 1 g every 24 hours, amlodipine 10 mg p.o. daily, calcium acetate 667 mg p.o. Wednesday and Wednesday, Zyvox 600 mg p.o. b.i.d. We will continue present therapy. We will follow. Ray Xiong MD
--- NOTE | 2019-01-11 20:23 | PN ---
DATE: 01/11/2019 SUBJECTIVE: The patient is seen lying in bed. He is awake. He is alert. He is comfortable. He does not appear to be in any kind of distress. I have discussed kidney biopsy with the patient. He is agreeable. PHYSICAL EXAMINATION: GENERAL: Middle-aged male lying in bed. VITAL SIGNS: Blood pressure 123/77, heart rate 54, respiratory rate 12, and temperature 98. HEENT: Normocephalic and atraumatic. Positive pallor. NECK: Supple. No JVD. LUNGS: Bilateral equal air entry, bilateral equal expansion. CARDIAC: S1 and S2. Regular rate and rhythm. No murmur. No rub. ABDOMEN: Obese, distended, soft, and nontender. Bowel sounds present. EXTREMITIES: Dressing and VAC of the right lower extremity, 2+ pitting edema of the left lower extremity. INTAKE AND OUTPUT: 1480/2700. LABORATORY DATA: WBC; no hemoglobin today. No labs today. CURRENT MEDICATIONS: Hydralazine 50 t.i.d., Catapres 0.1 t.i.d., Coreg 3.125 b.i.d., Lovenox, insulin, cefepime 1 g daily, Norvasc 10, PhosLo, Tylenol, Zofran, and Zyvox 600 b.i.d. ASSESSMENT: 1. Hypertension. 2. Noninsulin-dependent diabetes mellitus. 3. Nephrotic range proteinuria. 4. Right heel osteomyelitis/nonhealing wound. 5. Chronic anemia. PLAN: 1. Case discussed with Dr. Reyna, no objection to kidney biopsy as per ID recommendations. 2. We will request Dr. Prasad Shrestha to do a kidney biopsy. 3. Continue current antihypertensives. 4. Continue antibiotics. 5. Monitor fingersticks and continue insulin. Mireya Lopez MD
[2019-01-11] MEDS ORDERED: Morphine 2 mg/ml ISec IVP STA (21:37)
--- NOTE | 2019-01-12 03:00 | PN ---
DATE: 01/11/2019 SUBJECTIVE: The patient is seen earlier today in room 374, bed 2. No fevers. No chills. No nausea. PHYSICAL EXAMINATION: VITAL SIGNS: The patient's temperature is 98, blood pressure is 120/70, respiratory rate 18. HEENT: Unremarkable. NECK: Supple. LUNGS: Have decreased breath sounds. HEART: Normal S1 and S2. ABDOMEN: Soft. LABORATORY EXAMINATION: Reveals a white count of 8.8, hemoglobin of 10, and creatinine of 2.6. Microbiology reveals MRSA. Review of orders reveals cefepime and Zyvox. ASSESSMENT AND PLAN: This is a 58-year-old male with right lower extremity osteomyelitis with methicillin-resistant Staphylococcus aureus, gram-negative saleem, possibly Serratia versus Pseudomonas. I spoke to Dr. Cason again requesting the outpatient culture results. He will need four to six weeks of Zyvox and cefepime. The patient had a graft placement, day #2. The patient also had a CAT scan-guided biopsy by Dr. Prasad Shrestha. We will follow with you. Sergio Reyna MD
[2019-01-12 07:08] LABS: HEMOGLOBIN 9.9 g/dL (14.0-18.0); MEAN CELL VOLUME 88.3 fl (80.0-105.0); MEAN CORPUSCULAR HEMOGLOBIN 27.5 pg (25.0-35.0); MEAN CORPUSCULAR HGB CONC 31.1 g/dl (31.0-37.0); MEAN PLATELET VOLUME 8.9 fl (7.0-11.0); RBC 3.6 10^6/uL (3.5-6.1); WHITE BLOOD COUNT 9.2 10^3/uL (4.5-11.0)
[2019-01-12] MEDS: Insulin Lispro (humaLOG) MEDIUM Coverage SC SCH ×2 (08:17→11:37)
[2019-01-12] MEDS: Cefepime 1gm in NS 100ml 1 GM/100 ML BAG IVPB SCH (09:39)
--- NOTE | 2019-01-12 11:15 | CP.PCM.PN ---
Subjective - Date & Time of Evaluation Date of Evaluation: 01/12/19 Time of Evaluation: 06:00 Objective - Vital Signs/Intake and Output Vital Signs (last 24 hours): Temp Pulse Resp BP Pulse Ox 98 F 82 12 120/76 99 01/11/19 15:31 01/12/19 09:40 01/11/19 15:31 01/12/19 09:40 01/11/19 15:31 Intake and Output: 01/12/19 01/12/19 06:59 18:59 Intake Total 1320 Output Total 1300 Balance 20 - Medications Medications: Current Medications Acetaminophen (Tylenol 325mg Tab) 650 mg PO Q6H PRN PRN Reason: Fever >100.4 F Amlodipine Besylate (Norvasc) 10 mg PO DAILY [facility] Last Admin: 01/12/19 09:39 Dose: 10 mg Calcium Acetate (Phoslo) 667 mg PO WM [facility] Last Admin: 01/12/19 09:42 Dose: 667 mg Carvedilol (Coreg) 3.125 mg PO BID [facility] Last Admin: 01/12/19 09:40 Dose: 3.125 mg Clonidine HCl (Catapres) 0.1 mg PO TID [facility] Last Admin: 01/12/19 09:40 Dose: 0.1 mg Enoxaparin Sodium (Lovenox) 30 mg SC DAILY [facility]; Protocol Last Admin: 01/11/19 10:14 Dose: 30 mg Hydralazine HCl (Apresoline) 50 mg PO TID [facility] Last Admin: 01/12/19 09:40 Dose: 50 mg Cefepime HCl (Maxipime 1gm) 1 gm in 100 mls @ 100 mls/hr IVPB Q24H [facility]; Protocol Stop: 01/29/19 10:16 Last Admin: 01/12/19 09:39 Dose: 100 mls/hr Insulin Human Lispro (Humalog Med) 0 units SC ACHS [facility]; Protocol Last Admin: 01/12/19 08:17 Dose: Not Given Linezolid (Zyvox) 600 mg PO BID [facility]; Protocol Stop: 02/06/19 22:12 Last Admin: 01/12/19 09:41 Dose: 600 mg Ondansetron HCl (Zofran Inj) 4 mg IVP Q6H PRN PRN Reason: Nausea/Vomiting - Labs Labs: 01/12/19 06:50 01/10/19 07:00 PT 12.9 SECONDS (9.4-12.5) H 01/09/19 06:15 INR 1.14 01/09/19 06:15 APTT 33.9 Seconds (26.9-38.3) 12/26/18 20:19
--- NOTE | 2019-01-12 11:49 | CP.PCM.PN ---
Subjective - Date & Time of Evaluation Date of Evaluation: 01/12/19 Time of Evaluation: 11:46 - Subjective Subjective: Podiatry Progress Note for Dr. Cason 58 y/o male seen and evaluated at bedside status post application of Integra graft with Wound VAC for lateral right leg wound. Patient is AAO x 3 and NAD, resting comfortably in bed. Denies any pain at this time. Denies any acute overnight events or new pedal complaints. Denies any recent N/V/F/C/CP/SOB/D. Patient is aware he is being transferred to [facility] at this time Objective - Vital Signs/Intake and Output Vital Signs (last 24 hours): Temp Pulse Resp BP Pulse Ox 98 F 82 12 120/76 99 01/11/19 15:31 01/12/19 09:40 01/11/19 15:31 01/12/19 09:40 01/11/19 15:31 Intake and Output: 01/12/19 01/12/19 06:59 18:59 Intake Total 1320 Output Total 1300 Balance 20 - Medications Medications: Current Medications Acetaminophen (Tylenol 325mg Tab) 650 mg PO Q6H PRN PRN Reason: Fever >100.4 F Amlodipine Besylate (Norvasc) 10 mg PO DAILY [facility] Last Admin: 01/12/19 09:39 Dose: 10 mg Calcium Acetate (Phoslo) 667 mg PO WM [facility] Last Admin: 01/12/19 11:37 Dose: 667 mg Carvedilol (Coreg) 3.125 mg PO BID [facility] Last Admin: 01/12/19 09:40 Dose: 3.125 mg Clonidine HCl (Catapres) 0.1 mg PO TID [facility] Last Admin: 01/12/19 09:40 Dose: 0.1 mg Enoxaparin Sodium (Lovenox) 30 mg SC DAILY [facility]; Protocol Last Admin: 01/11/19 10:14 Dose: 30 mg Hydralazine HCl (Apresoline) 50 mg PO TID [facility] Last Admin: 01/12/19 09:40 Dose: 50 mg Cefepime HCl (Maxipime 1gm) 1 gm in 100 mls @ 100 mls/hr IVPB Q24H [facility]; Protocol Stop: 01/29/19 10:16 Last Admin: 01/12/19 09:39 Dose: 100 mls/hr Insulin Human Lispro (Humalog Med) 0 units SC ACHS [facility]; Protocol Last Admin: 01/12/19 11:37 Dose: 1 units Linezolid (Zyvox) 600 mg PO BID [facility]; Protocol Stop: 02/06/19 22:12 Last Admin: 01/12/19 09:41 Dose: 600 mg Ondansetron HCl (Zofran Inj) 4 mg IVP Q6H PRN PRN Reason: Nausea/Vomiting - Labs Labs: 01/12/19 06:50 01/10/19 07:00 PT 12.9 SECONDS (9.4-12.5) H 01/09/19 06:15 INR 1.14 01/09/19 06:15 APTT 33.9 Seconds (26.9-38.3) 12/26/18 20:19 - Constitutional Appears: Well, Non-toxic, No Acute Distress - Head Exam Head Exam: ATRAUMATIC, NORMOCEPHALIC - Extremities Exam Additional comments: B/L lower extremity focused exam: Vascular: DP/PT 2/4 b/l, Cap refill < 3 seconds, Temp gradient warm to warm from proximal to distal WNL, Moderate non pitting edema noted to the right foot on the lateral side. Neuro: Gross and protective sensation are diminished b/l. Derm: ulceration noted on the lateral side of the right foot at the level of the cuboid measuring 3 cm X 3.2 cm X 2 cm with 100% granular base, Minimal sero- sanguineous drainage, no tracking, no undermining, no probe to bone and no malodor. No diana-wound erythema noted. No inter-digital macerations. MSK: Muscle power 5/5 to all groups, No pain on palpating the blister sites. Left Charcot foot. Right foot deviated to the medial side. - Neurological Exam Neurological Exam: Alert, Awake, Oriented x3 - Psychiatric Exam Psychiatric exam: Normal Affect, Normal Mood Assessment and Plan - Assessment and Plan (Free Text) Assessment: 58 y/o male patient status post application of Integra graft with Wound VAC in the OR. Plan: Patient seen and evaluated Continue abx per ID Right foot wound cx: MRSA Right foot 3 views X-ray: Right 5th met is breaking medially R foot MRI: Probable osteomyelitis proximal 5th metatarsal ESR 141, CRP 191.50 Wound VAC Discontinued Patient in a total contact cast- patient can walk with the walker on cast to RLE Patient to follow up with Dr. Cason in office next 01/19/19 Patient stable for discharge from Podiatry
--- NOTE | 2019-01-12 12:11 | CP.PCM.PN ---
Subjective - Date & Time of Evaluation Date of Evaluation: 01/12/19 Time of Evaluation: 06:50 - Subjective Subjective: Awake, alert, no distress Reason for consultation and follow up: Risk stratification, Post op follow up post right foot debridement Seen and examined by me and Dr. Lilly Objective - Vital Signs/Intake and Output Vital Signs (last 24 hours): Temp Pulse Resp BP Pulse Ox 98 F 82 12 120/76 99 01/11/19 15:31 01/12/19 09:40 01/11/19 15:31 01/12/19 09:40 01/11/19 15:31 Intake and Output: 01/12/19 01/12/19 06:59 18:59 Intake Total 1320 Output Total 1300 Balance 20 - Medications Medications: Current Medications Acetaminophen (Tylenol 325mg Tab) 650 mg PO Q6H PRN PRN Reason: Fever >100.4 F Amlodipine Besylate (Norvasc) 10 mg PO DAILY [facility] Last Admin: 01/12/19 09:39 Dose: 10 mg Calcium Acetate (Phoslo) 667 mg PO WM [facility] Last Admin: 01/12/19 11:37 Dose: 667 mg Carvedilol (Coreg) 3.125 mg PO BID [facility] Last Admin: 01/12/19 09:40 Dose: 3.125 mg Clonidine HCl (Catapres) 0.1 mg PO TID [facility] Last Admin: 01/12/19 09:40 Dose: 0.1 mg Enoxaparin Sodium (Lovenox) 30 mg SC DAILY [facility]; Protocol Last Admin: 01/11/19 10:14 Dose: 30 mg Hydralazine HCl (Apresoline) 50 mg PO TID [facility] Last Admin: 01/12/19 09:40 Dose: 50 mg Cefepime HCl (Maxipime 1gm) 1 gm in 100 mls @ 100 mls/hr IVPB Q24H [facility]; Protocol Stop: 01/29/19 10:16 Last Admin: 01/12/19 09:39 Dose: 100 mls/hr Insulin Human Lispro (Humalog Med) 0 units SC ACHS [facility]; Protocol Last Admin: 01/12/19 11:37 Dose: 1 units Linezolid (Zyvox) 600 mg PO BID [facility]; Protocol Stop: 02/06/19 22:12 Last Admin: 01/12/19 09:41 Dose: 600 mg Ondansetron HCl (Zofran Inj) 4 mg IVP Q6H PRN PRN Reason: Nausea/Vomiting - Labs Labs: 01/12/19 06:50 01/10/19 07:00 PT 12.9 SECONDS (9.4-12.5) H 01/09/19 06:15 INR 1.14 01/09/19 06:15 APTT 33.9 Seconds (26.9-38.3) 12/26/18 20:19 - Constitutional Appears: Non-toxic, No Acute Distress - Head Exam Head Exam: NORMAL INSPECTION, NORMOCEPHALIC - Eye Exam Eye Exam: Normal appearance Pupil Exam: NORMAL ACCOMODATION - ENT Exam ENT Exam: Mucous Membranes Moist, Normal Exam - Respiratory Exam Respiratory Exam: Decreased Breath Sounds, Clear to Ausculation Bilateral, NORMAL BREATHING PATTERN - Cardiovascular Exam Cardiovascular Exam: +S1, +S2 - GI/Abdominal Exam GI & Abdominal Exam: Soft, Normal Bowel Sounds - Extremities Exam Extremities Exam: Full ROM Additional comments: right foot dressing - Neurological Exam Neurological Exam: Alert, Awake, Oriented x3 - Psychiatric Exam Psychiatric exam: Normal Affect, Normal Mood - Skin Skin Exam: Dry, Normal Color, Warm Assessment and Plan - Assessment and Plan (Free Text) Assessment: A 58 year old male who came in to the ER due to complaint of nonhealing right foot ulcer. He follows up with Dr. Cason. History of diabetes mellitus and renal insufficiency, hypertension, obesity, charcot foot,non healing ulcer right foot, non ischemic cardiomyopathy, Status post debridement of right foot ulcer. Echo done on 01/10/19 showed LVEF 45%, trace MR,trace to mild TR, RVSP 22mmHg. Cardiac status stable. Followed up by Podiatry. discharge planning. Plan: No distress Heart rate stable Blood pressure stable Cardiac status stable May discharge from cardiac standpoint Continue current treatment Continue current medications Possible discharge to [facility] today Will follow up Plan and treatment discussed with Dr. Lilly
[2019-01-12 13:17] VITALS: BP 140/78; PULSE 78
--- NOTE | 2019-01-12 17:57 | PN ---
DATE: 01/12/2019 SUBJECTIVE: The patient is in bed and no acute distress and nontoxic. No fevers. No chills. PHYSICAL EXAMINATION VITAL SIGNS: Temperature is 98, blood pressure is 140/70, and respiratory rate 18. HEENT: Unremarkable. NECK: Supple. LUNGS: Have decreased breath sounds. HEART: Normal S1 and S2. ABDOMEN: Soft and nontender. LABORATORY DATA: White count of 9.2, hemoglobin of 9, and creatinine is 2.6. ASSESSMENT AND PLAN: This is a 58-year-old male who was seen earlier today in room 374, bed 2 with right lower extremity osteomyelitis with methicillin-resistant Staphylococcus aureus. I discussed with Dr. Cason and gram-negative rods in distant past, not requiring treatment, will need four to six weeks of Zyvox with placement in osteomyelitis treatment and weekly CBC, SMA-18, sed rate, and C-reactive protein. Sergio Reyna MD
--- NOTE | 2019-01-12 18:14 | PN ---
DATE: 01/12/2019 SUBJECTIVE: The patient is seen lying in bed. He is comfortable. He does not appear to be in any kind of distress. He had a kidney biopsy done yesterday. PHYSICAL EXAMINATION GENERAL: Elderly middle-aged male lying in bed. VITAL SIGNS: Blood pressure 140/78, heart rate 78, respiratory rate 18, temperature 98. HEENT: Normocephalic, atraumatic, positive pallor. NECK: Supple, no JVD. LUNGS: Bilateral equal entry, bilateral equal expansion, no rales. CARDIAC: S1 and S2, regular rate rhythm, no murmur, no rub. ABDOMEN: Obese, distended, soft, nontender, bowel sounds present. EXTREMITIES: No lower extremity edema. LABORATORY DATA: WBC 9.6, hemoglobin 9.9, hematocrit 32, platelets 285. No chemistries. CURRENT MEDICATIONS: 50 t.i.d., Catapres 0.1 t.i.d., Coreg 3.125 b.i.d., insulin, Lovenox, cefepime, amlodipine 10, PhosLo, Tylenol, Zofran, Zyvox. ASSESSMENT 1. Non-insulin dependent diabetes mellitus. 2. Severe hypertension. 3. Nephrotic-range proteinuria. 4. Acute kidney injury superimposed on chronic kidney disease, stage III. 5. Osteomyelitis of the right heel. 6. Chronic anemia. PLAN 1. Follow up kidney biopsy. 2. Continue antibiotics. 3. Continue current antihypertensives. 4. No objection to discharge. Mireya Lopez MD
--- NOTE | 2019-01-12 21:30 | DS ---
HISTORY OF PRESENT ILLNESS: The patient is a 58-year-old who was initially admitted with worsening of right foot wound. He was seen by Dr. Cason who referred him to come to emergency room for IV antibiotic and possible debridement. The patient received IV antibiotic, has been on cefepime and Zyvox because he was growing MRSA. The patient underwent debridement and skin graft. He is ready to be discharged to subacute rehab for gait training and completion of courses of his antibiotic that he needs 4 more weeks of Zyvox. PHYSICAL EXAMINATION: GENERAL: He is awake, alert, and able to communicate. VITAL SIGNS: He is afebrile, pulse 82, respirations 18, and blood pressure 120/76. LUNGS: Bilateral fair airflow. No rhonchi or crackle. HEART: S1 and S2 audible. ABDOMEN: Soft, obese, and nontender. No rebound. No guarding. NEUROLOGIC: He is awake, alert, and able to communicate. EXTREMITIES: His right foot is in the soft cast and wound is being followed by podiatry team. ASSESSMENT: 1. Right foot cellulitis. 2. Status post incision and drainage. 3. Status post debridement and skin grafting. 4. Noninsulin-dependent diabetes. 5. Hypertension. 6. Hyperlipidemia. PLAN: The patient is being discharged to subacute rehab where he will received physical therapy and complete course of antibiotic. He will get 4 weeks of Zyvox and he will get physical therapy. He will be followed by local coal weigher and will see Dr. Cason as needed. I will follow up the patient in [facility]. Roberta Aden MD
== END 2019-01-12 14:50 | DRG 854 ==
LOC: ED 18:51 → ERH 23:32 → 2RSO 12-27 02:18 → 3RSO 12-28 23:35
PROVIDERS: ADMIT Internal Medicine; ATTEND Internal Medicine
PROC: 02HV33Z Insertion of Infusion Device into Superior Vena Cava, Percutaneous Approach (ICD-10-PCS; 2018-12-30)
PROC: 3E04329 Introduction of Other Anti-infective into Central Vein, Percutaneous Approach (ICD-10-PCS; 2018-12-30)
PROC: B54MZZA Ultrasonography of Right Upper Extremity Veins, Guidance (ICD-10-PCS; 2018-12-30)
PROC: 0HRMXK3 Replacement of Right Foot Skin with Nonautologous Tissue Substitute, Full Thickness, External Approach (ICD-10-PCS; 2019-01-09)
PROC: 0JBQ0ZZ Excision of Right Foot Subcutaneous Tissue and Fascia, Open Approach (ICD-10-PCS; principal; 2019-01-09 07:30)
PROC: 0TB13ZX Excision of Left Kidney, Percutaneous Approach, Diagnostic (ICD-10-PCS; 2019-01-11)
DX: A41.02 Sepsis due to Methicillin resistant Staphylococcus aureus (principal); L03.115 Cellulitis of right lower limb; M86.8X7 Other osteomyelitis, ankle and foot; I13.0 Hypertensive heart and chronic kidney disease with heart failure and stage 1 through stage 4 chronic kidney disease, or unspecified chronic kidney disease; N17.9 Acute kidney failure, unspecified; N25.81 Secondary hyperparathyroidism of renal origin; N18.4 Chronic kidney disease, stage 4 (severe); L02.611 Cutaneous abscess of right foot; E11.621 Type 2 diabetes mellitus with foot ulcer; L97.519 Non-pressure chronic ulcer of other part of right foot with unspecified severity; E11.22 Type 2 diabetes mellitus with diabetic chronic kidney disease; E11.610 Type 2 diabetes mellitus with diabetic neuropathic arthropathy; E11.40 Type 2 diabetes mellitus with diabetic neuropathy, unspecified; I25.5 Ischemic cardiomyopathy; E11.21 Type 2 diabetes mellitus with diabetic nephropathy; E11.69 Type 2 diabetes mellitus with other specified complication; E11.65 Type 2 diabetes mellitus with hyperglycemia; D63.1 Anemia in chronic kidney disease; I50.9 Heart failure, unspecified; I48.0 Paroxysmal atrial fibrillation; D50.9 Iron deficiency anemia, unspecified; I25.10 Atherosclerotic heart disease of native coronary artery without angina pectoris; E78.5 Hyperlipidemia, unspecified; E66.01 Morbid (severe) obesity due to excess calories; Z68.36 Body mass index [BMI] 36.0-36.9, adult; Z79.84 Long term (current) use of oral hypoglycemic drugs